=== PATIENT | male | born 1955 | race Caucasian/White ===

== ENCOUNTER 2016-10-14 08:20 | Emergency (ER) | payer MEDICARE, BC ==
[~2016-10-14] VITALS: Ht 182.9 cm; Wt 81.6 kg
[~2016-10-14 08:20] MED LIST: ARTANE PO; BUPR-42 PO; CARB1TAB6 PO; CLON0.5T PO; DOCU-143 PO; HYDR-3812 PO; HYDR25TA4 PO; LTH450TCR PO; MIRT15TA3 PO; OLAN5TAB3 PO; PARO10TA81 PO; POLY17PO6 PO; VIT D PO
[2016-10-14 09:22] LABS: BASOPHILS # (AUTO) 0.1 10^3/uL (0.0-0.1); BASOPHILS % (AUTO) 1 % (0-10); EOSINOPHILS # (AUTO) 0.4 10^3/uL (0.0-0.3); EOSINOPHILS % (AUTO) 4 % (0-10); LYMPHOCYTES # (AUTO) 0.8 X 10^3 (1.0-4.0); LYMPHOCYTES % (AUTO) 9 % (12-44); MEAN CORPUSCULAR HEMOGLOBIN 30 PG (25-34); MEAN CORPUSCULAR HGB CONC 33 G/DL (32-36); MEAN CORPUSCULAR VOLUME 89 FL (80-99); MEAN PLATELET VOLUME 10.5 FL (7.4-10.4); MONOCYTES # (AUTO) 0.6 X 10^3 (0.0-1.0); MONOCYTES % (AUTO) 7 % (0-12); NEUTROPHILS # (AUTO) 7.4 X 10^3 (1.8-7.8); NEUTROPHILS % (AUTO) 80 % (42-75); PLATELET COUNT 267 10^3/uL (130-400); RED BLOOD COUNT 4.51 10^6/uL (4.35-5.85); RED CELL DISTRIBUTION WIDTH 14.9 % (10.0-14.5); WHITE BLOOD COUNT 9.2 10^3/uL (4.3-11.0)
[2016-10-14 09:38] LABS: ALBUMIN 3.5 G/DL (3.2-4.5); BILIRUBIN,TOTAL 0.4 MG/DL (0.1-1.0); CALCIUM 8.7 MG/DL (8.5-10.1); CREATININE SERUM 1.33 MG/DL (0.60-1.30); POTASSIUM 3.8 MMOL/L (3.6-5.0); TOTAL PROTEIN 6.2 G/DL (6.4-8.2)
--- NOTE | 2016-10-14 10:14 | Diagnostic Imaging Report ---
AP view of the pelvis. INDICATION: Fall. FINDINGS: No fracture, dislocation or radiopaque foreign body is seen. Advanced degenerative changes and scoliosis convex to the left of the lower lumbar spine seen. IMPRESSION: No fracture is seen. Dictated by: Dictated on workstation # [id number]
--- NOTE | 2016-10-14 10:15 | Diagnostic Imaging Report ---
EXAMINATION: Portable upright radiograph of the chest. INDICATION: Fall. COMPARISON 07/26/16. Findings: There is a moderate to large hiatal hernia. The lungs appear clear. The heart size is at the upper limits of normal. No effusion or pneumothorax. The mediastinum and brandon appear unremarkable without significant change. There is prominent right convexity scoliosis. IMPRESSION: Prominent thoracic spine right convexity scoliosis. Moderate to large hiatal hernia. Dictated by: Dictated on workstation # [id number]
--- NOTE | 2016-10-14 10:26 | Diagnostic Imaging Report ---
EXAMINATION: CT head, face and cervical spine performed without intravenous contrast with coronal and sagittal reconstructions. INDICATION: Fall. Findings: CT head: There is no intracranial hemorrhage, edema or mass effect. The brain parenchyma appears unremarkable. There is periventricular and deep white matter hypodensities compatible with chronic microvascular ischemic changes. There is no hydrocephalus. No extra-axial fluid collections seen. The calvarium, appears grossly unremarkable. Maxillofacial CT scan: There is a polypoid soft tissue thickening abutting the anterior aspect of the right middle turbinate which could be a polyp. There is nasoseptal deviation to the left side. Small mucous retention cyst in the left maxillary sinus seen. There is some motion artifact noted affecting evaluation and the patient had to be rescanned multiple times. The overall diagnostic quality however is acceptable for detecting major abnormalities. The orbital rims and mcfarland appear intact. There is soft tissue air adjacent to the adver plate of the right mandible and subcutaneous hematoma compatible with a laceration. No facial fracture seen. Cervical spine CT scan demonstrates minimal posterior translation of C3 over C4, C5 over C6 and C6 over C7. There is no widening of the predental space. The lateral masses of C1 and C2 and of the atlantooccipital joints demonstrate normal alignment. There is no facet joint significant subluxation or dislocation. There is significant disc height loss at C3/4 and C6/7, and C7/T1. Posterior osteophytes are prominent at C6/7 levels. No fracture seen. There is a large thyroid area mass partially visualized on the left side. IMPRESSION: CT head: No intracranial hemorrhage. CT maxillofacial: 1. Soft tissue air and hematoma along the right side of the face at the level of the mandible compatible with laceration. No fracture seen. 2. Partially visualized large left neck mass probably arising from the left thyroid gland. Correlate clinically and with thyroid ultrasound as needed. Dictated by: Dictated on workstation # [id number]
--- NOTE | 2016-10-14 10:46 | ED Fall/Injury ---
General Chief Complaint: Trauma-Non Activation Stated Complaint: FALL/CHIN LAC Nursing Triage Note: PT TO ED BY WALKER, PT FELL AT [facility] APPROX 0530 THIS AM. PT WALKS BENT OVER FROM [place]. PT STATES FELL THIS AM. UNKNOWN LOC. PT HAS LAC TO R SIDE CHIN APPROX .5 CM IN LENGTH. C-COLLAR APPLIED PT Source: patient Exam Limitations: no limitations History of Present Illness Time seen by provider: 08:59 Initial Comments This 61-year-old gentleman with developmental disabilities fell at [facility]. He normally ambulates with a walker due to kyphosis and musculoskeletal deformities. He has a small laceration to the right jaw line. There was no loss of consciousness reported. Patient is a relatively poor historian due to his disabilities. He arrives in a c-collar by EMS. Location Injury Occurred: [facility] Occurred: just prior to arrival Allergies and Home Medications Allergies Coded Allergies: No Known Drug Allergies (Unverified , 07/20/16) Home Medications 1.25 MG PO WEEK (Reported) 5 MG PO BID (Reported) Bupropion HCl 150 Mg Tab.er.24h 150 MG PO DAILY (Reported) Carbidopa/Levodopa 1 Each Tablet 1 EACH PO BID (Reported) Clonazepam 0.5 Mg Tablet 0.5 MG PO (Reported) Docusate Sodium 100 Mg Capsule 100 MG PO DAILY (Reported) Hydrochlorothiazide 25 Mg Tablet 25 MG PO DAILY (Reported) Hydrocodone/Acetaminophen 1 Each Tablet #20 1 EACH PO Q4H Prescribed by: ARCHANA ESPARZA on 07/20/161958 [place] Carbonate 450 Mg Tab 900 MG PO DAILY (Reported) Mirtazapine 15 Mg Tab.rapdis 15 MG PO DAILY (Reported) Olanzapine 5 Mg Tablet 5 MG PO DAILY (Reported) Paroxetine HCl 10 Mg Tablet 10 MG PO DAILY (Reported) Polyethylene Glycol 3350 17 Gm Powd.pack 17 GM PO DAILY (Reported) Constitutional: no symptoms reported Eyes: No Symptoms Reported Ears, Nose, Mouth, Throat: see HPI Respiratory: no symptoms reported Cardiovascular: no symptoms reported Gastrointestinal: no symptoms reported Genitourinary: no symptoms reported Musculoskeletal: no symptoms reported Skin: see HPI Psychiatric/Neurological: See HPI Past Fcrhlal-Nypura-Pkvfaz Hx Patient Social History Alcohol Use: Denies Use Recreational Drug Use: No Smoking Status: Never a Smoker Recent Foreign Travel: No Contact w/Someone Who Travel: No Recent Infectious Disease Expo: No Recent Hopitalizations: No Immunizations Up To Date Tetanus Booster (TDap): Less than 5yrs Surgeries HX Surgeries: No Respiratory Hx Respiratory Disorders: No Cardiovascular Hx Cardiac Disorders: Yes Cardiac Disorders: Hypertension Neurological Hx Neurological Disorders: Yes (EPS FROM MEDICATIONS) Neurological Disorders: Developmental Disorder, Parkinson's Disease Genitourinary Hx Genitourinary Disorders: No Gastrointestinal Hx Gastrointestinal Disorders: No Musculoskeletal Hx Musculoskeletal Disorders: Yes Musculoskeletal Disorders: Scoliosis, Chronic Back Pain HEENT HX ENT Disorders: No Cancer Hx Cancer: No Psychosocial Hx Psychiatric Problems: Yes (MILD MR) Behavioral Health Disorders: Anxiety, Bipolar, Personality Disorder, Schizophrenia, Depression Integumentary HX Skin/Integumentary Disorder: No Blood Transfusions Hx Blood Disorders: Yes (ANEMIA) Physical Exam Vital Signs Vital Sign - Last 12Hours 10/14/16 08:35 Temp 98.1 Pulse 66 Resp 18 B/P 136/99 Pulse Ox 99 O2 Delivery Room Air Capillary Refill : Less Than 3 Seconds General Appearance: WD/WN no apparent distress HEENT: PERRL/EOMI other (small laceration and swelling to the right jaw) Neck: non-tender normal inspection other (c-collar in place) Cardiovascular: regular rate, rhythm no edema no murmur Respiratory: lungs clear normal breath sounds no respiratory distress no accessory muscle use Gastrointestinal: non tender soft Extremities: normal inspection no pedal edema Neurologic/Psychiatric: 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 nml as tested no motor/sensory deficits alert normal mood/affect other (deficits at baseline from developmental disability) Skin: normal color warm/dry Wesley Coma Score Best Eye Response: (4) Open Spontaneously Best Verbal Response: (5) Oriented Best Motor Response: (6) Obeys Commands [place] Total: 15 Progress/Results/Core Measures Results/Orders Lab Results Laboratory Tests Test 10/14/16 09:10 10/14/16 11:00 Range/Units Alanine Aminotransferase (ALT/SGPT) 10 0-55 U/L Albumin 3.5 3.2-4.5 G/DL Alkaline Phosphatase 148 H 40-136 U/L Anion Gap 9 5-14 MMOL/L Aspartate Amino Transf (AST/SGOT) 17 5-34 U/L BUN/Creatinine Ratio 14 Basophils # (Auto) 0.1 0.0-0.1 10^3/uL Basophils (%) (Auto) 1 0-10 % Blood Urea Nitrogen 19 H 7-18 MG/DL Calcium Level 8.7 8.5-10.1 MG/DL Carbon Dioxide Level 22 21-32 MMOL/L Chloride Level 106 98-107 MMOL/L Creatinine 1.33 H 0.60-1.30 MG/DL Eosinophils # (Auto) 0.4 H 0.0-0.3 10^3/uL Eosinophils (%) (Auto) 4 0-10 % Estimat Glomerular Filtration Rate 54 Free Thyroxine 0.81 0.70-1.48 NG/DL Glucose Level 116 H 70-105 MG/DL Hematocrit 40 40-54 % Hemoglobin 13.4 13.3-17.7 G/DL Lymphocytes # (Auto) 0.8 L 1.0-4.0 X 10^3 Lymphocytes (%) (Auto) 9 L 12-44 % Mean Corpuscular Hemoglobin 30 25-34 PG Mean Corpuscular Hemoglobin Concent 33 32-36 G/DL Mean Corpuscular Volume 89 80-99 FL Mean Platelet Volume 10.5 H 7.4-10.4 FL Monocytes # (Auto) 0.6 0.0-1.0 X 10^3 Monocytes (%) (Auto) 7 0-12 % Neutrophils # (Auto) 7.4 1.8-7.8 X 10^3 Neutrophils (%) (Auto) 80 H 42-75 % Platelet Count 267 130-400 10^3/uL Potassium Level 3.8 3.6-5.0 MMOL/L Red Blood Count 4.51 4.35-5.85 10^6/uL Red Cell Distribution Width 14.9 H 10.0-14.5 % Sodium Level 137 135-145 MMOL/L Thyroid Stimulating Hormone (TSH) 0.65 0.35-4.94 UIU/ML Total Bilirubin 0.4 0.1-1.0 MG/DL Total Protein 6.2 L 6.4-8.2 G/DL White Blood Count 9.2 4.3-11.0 10^3/uL Urine Bacteria TRACE /HPF Urine Bilirubin NEGATIVE NEGATIVE Urine Casts PRESENT /LPF Urine Clarity CLEAR Urine Color YELLOW Urine Crystals NONE /LPF Urine Culture Indicated NO Urine Glucose (UA) NEGATIVE NEGATIVE Urine Hyaline Casts 2-5 H /LPF Urine Ketones NEGATIVE NEGATIVE Urine Leukocyte Esterase 1+ H NEGATIVE Urine Mucus NEGATIVE /LPF Urine Nitrite NEGATIVE NEGATIVE Urine Protein 1+ H NEGATIVE Urine RBC NONE /HPF Urine RBC (Auto) NEGATIVE NEGATIVE Urine Specific [place] 1.010 L 1.016-1.022 Urine Squamous Epithelial Cells RARE /HPF Urine Urobilinogen NORMAL NORMAL MG/DL Urine WBC 2-5 /HPF Urine pH 7 5-9 My Orders Orders-ABHI INFANTE MD Cbc With Automated Diff (10/14/16 09:03) Comprehensive Metabolic Panel (10/14/16 09:03) Ua Culture If Indicated (10/14/16 09:03) Saline Lock/Iv-Start (10/14/16 09:03) Ct Head/Face/Cervical Wo (10/14/16 09:03) Chest 1 View, Ap/Pa Only (10/14/16 09:03) Pelvis (10/14/16 09:03) Us Thyroid [id number] (10/14/16 10:51) Thyroid Stimulating Hormone (10/14/16 10:51) Free T4 (Free Thyroxine) (10/14/16 10:51) Vital Signs/I&O Vital Sign - Last 12Hours 10/14/16 10/14/16 08:35 12:18 Temp 98.1 Pulse 66 66 Resp 18 18 B/P 136/99 Pulse Ox 99 97 O2 Delivery Room Air Blood Pressure Mean: 111 Progress Note : Progress Note Patient was seen and evaluated. CT of the head, face, and C-spine was ordered. No significant injuries were identified. C-collar was removed when report was reviewed. Laceration on the face did not require repair. Basic labs were performed with no major abnormalities identified. There is incidental finding of a thyroid mass on the CT scan. A follow-up ultrasound was performed. This was discussed with the patient and his brother and they were advised to follow- up for a biopsy. Diagnostic Imaging Diagonstic Imaging: Xray Plain Films/CT/US/NM/MRI: chest Comments Chest x-ray viewed by me and report reviewed. See report below: NAME: PATRICK SANTOS [facility] REC#: [id number] PT STATUS: REG ER : 1955 PHYSICIAN: ABHI INFANTE MD ADMIT DATE: 10/14/16/ER Draft Date of Exam:10/14/16 CHEST 1 VIEW, AP/PA ONLY EXAMINATION: Portable upright radiograph of the chest. INDICATION: Fall. COMPARISON 07/26/16. Findings: There is a moderate to large hiatal hernia. The lungs appear clear. The heart size is at the upper limits of normal. No effusion or pneumothorax. The mediastinum and brandon appear unremarkable without significant change. There is prominent right convexity scoliosis. IMPRESSION: Prominent thoracic spine right convexity scoliosis. Moderate to large hiatal hernia. Dictated on workstation # [id number] Dict: 10/14/16 1011 Trans: 10/14/16 1014 [facility] [phone] Interpreted by: WINIFRED FERRO MD Diagonstic Imaging: Xray Plain Films/CT/US/NM/MRI: pelvis Comments Pelvis x-ray viewed by me and report reviewed. See report below: NAME: PATRICK SANTOS MED REC#: [id number] PT STATUS: REG ER : 1955 PHYSICIAN: ABHI INFANTE MD ADMIT DATE: 10/14/16/ER Draft Date of Exam:10/14/16 PELVIS AP view of the pelvis. INDICATION: Fall. FINDINGS: No fracture, dislocation or radiopaque foreign body is seen. Advanced degenerative changes and scoliosis convex to the left of the lower lumbar spine seen. IMPRESSION: No fracture is seen. Dictated on workstation # [id number] Dict: 10/14/16 1010 Trans: 10/14/16 [phone] Interpreted by: WINIFRED FERRO MD Diagonstic Imaging: CT Plain Films/CT/US/NM/MRI: c-spine, head Comments CT head, face, and C-spine viewed by me and report reviewed. See report below: NAME: PATRICK SANTOS MED REC#: [id number] PT STATUS: REG ER : 1955 PHYSICIAN: ABHI INFANTE MD ADMIT DATE: 10/14/16/ER Draft Date of Exam:10/14/16 CT HEAD/FACE/CERVICAL WO EXAMINATION: CT head, face and cervical spine performed without intravenous contrast with coronal and sagittal reconstructions. INDICATION: Fall. Findings: CT head: There is no intracranial hemorrhage, edema or mass effect. The brain parenchyma appears unremarkable. There is periventricular and deep white matter hypodensities compatible with chronic microvascular ischemic changes. There is no hydrocephalus. No extra-axial fluid collections seen. The calvarium, appears grossly unremarkable. Maxillofacial CT scan: There is a polypoid soft tissue thickening abutting the anterior aspect of the right middle turbinate which could be a polyp. There is nasoseptal deviation to the left side. Small mucous retention cyst in the left maxillary sinus seen. There is some motion artifact noted affecting evaluation and the patient had to be rescanned multiple times. The overall diagnostic quality however is acceptable for detecting major abnormalities. The orbital rims and mcfarland appear intact. There is soft tissue air adjacent to the adver plate of the right mandible and subcutaneous hematoma compatible with a laceration. No facial fracture seen. Cervical spine CT scan demonstrates minimal posterior translation of C3 over C4, C5 over C6 and C6 over C7. There is no widening of the predental space. The lateral masses of C1 and C2 and of the atlantooccipital joints demonstrate normal alignment. There is no facet joint significant subluxation or dislocation. There is significant disc height loss at C3/4 and C6/7, and C7/T1. Posterior osteophytes are prominent at C6/7 levels. No fracture seen. There is a large thyroid area mass partially visualized on the left side. IMPRESSION: CT head: No intracranial hemorrhage. CT maxillofacial: 1. Soft tissue air and hematoma along the right side of the face at the level of the mandible compatible with laceration. No fracture seen. 2. Partially visualized large left neck mass probably arising from the left thyroid gland. Correlate clinically and with thyroid ultrasound as needed. Dictated on workstation # [id number] Dict: 10/14/16 1025 Trans: 10/14/16 1026 [facility] [id number] Interpreted by: WINIFRED FERRO MD Diagonstic Imaging: Ultrasound Plain Films/CT/US/NM/MRI: other (thyroid) Comments NAME: PATRICK SANTOS [facility] REC#: [id number] PT STATUS: DEP ER : 1955 PHYSICIAN: ABHI INFANTE MD ADMIT DATE: 10/14/16/ER Signed Date of Exam: 10/14/16 US THYROID [id number] PROCEDURE: US Thyroid. TECHNIQUE: Multiple real-time grayscale images were obtained of the thyroid in various projections. INDICATION: Mass arising in the left thyroid area seen on a CT scan. FINDINGS: The right thyroid gland is 5.7 x 2.3 x 2 cm. The left thyroid lobe is 7.2 x 4.2 x 5.7 cm. There is a 7.2 x 4.2 x 5.7 cm predominantly cystic mass with thickened septations and relatively small solid components relative to the size of the mass seen. There is a smaller nodule measuring 1.9 x 1.8 x 1.5 cm seen more inferiorly in the left thyroid lobe with mixed solid and cystic components. IMPRESSION: Complex large mixed cystic and solid dominant mass in the left thyroid lobe measuring 7.2 cm. Evaluation with an ultrasound-guided biopsy is suggested. Dictated by: Dictated on workstation # [id number] Dict: 10/14/16 1128 Trans: 10/14/16 [id number] Interpreted by: WINIFRED FERRO MD Electronically signed by:WINIFRED FERRO MD 10/14/16 1348 Departure Impression Impression: Primary Impression: Fall on same level Qualified Code: W18.30XA - Fall on same level, unspecified, initial encounter Additional Impressions: Facial laceration Qualified Code: S01.81XA - Laceration without foreign body of other part of head, initial encounter Thyroid mass Disposition: 01 HOME, SELF-CARE Condition: Stable Departure-Patient Inst. Decision time for Depature: 12:00 Referrals: CYN JARAMILLO MD (PCP/Family) Primary Care Physician Patient Instructions: Minor Head Injury (DC) Add. Discharge Instructions: Follow-up with your primary care provider soon as possible. The thyroid mass needs biopsy or resection. Your primary care provider can guide this process. Return to care if you have any other problems or concerns. All discharge instructions reviewed with patient and/or family. Voiced understanding. Copy Copies To 1: CYN JARAMILLO MD Copies To 2: BETO MOSES APRN, JOSHUA T MD Oct 14, 2016 10:46
[2016-10-14 11:08] LABS: BILIRUBIN,URINE NEGATIVE (NEGATIVE); KETONES,URINE NEGATIVE (NEGATIVE); LEUKOCYTE ESTERASE ,URINE 1+ (NEGATIVE); NITRITE,URINE NEGATIVE (NEGATIVE); PH,URINE 7 (5-9); PROTEIN,URINE 1+ (NEGATIVE); UROBILINOGEN,URINE NORMAL (NORMAL)
[2016-10-14 11:17] LABS: SQUAMOUS EPITHELIAL CELL,UR RARE /HPF
[2016-10-14 11:25] LABS: THYROID STIMULATING HORMONE 0.65 UIU/ML (0.35-4.94)
--- NOTE | 2016-10-14 11:35 | Diagnostic Imaging Report ---
PROCEDURE: US Thyroid. TECHNIQUE: Multiple real-time grayscale images were obtained of the thyroid in various projections. INDICATION: Mass arising in the left thyroid area seen on a CT scan. FINDINGS: The right thyroid gland is 5.7 x 2.3 x 2 cm. The left thyroid lobe is 7.2 x 4.2 x 5.7 cm. There is a 7.2 x 4.2 x 5.7 cm predominantly cystic mass with thickened septations and relatively small solid components relative to the size of the mass seen. There is a smaller nodule measuring 1.9 x 1.8 x 1.5 cm seen more inferiorly in the left thyroid lobe with mixed solid and cystic components. IMPRESSION: Complex large mixed cystic and solid dominant mass in the left thyroid lobe measuring 7.2 cm. Evaluation with an ultrasound-guided biopsy is suggested. Dictated by: Dictated on workstation # [id number]
[2016-10-14 12:18] VITALS: BP 128/84
== END 2016-10-14 12:18 ==
LOC: EDUNIT# 08:20 → ER 08:21
DX: S01.81XA Laceration without foreign body of other part of head, initial encounter (principal); M41.34 Thoracogenic scoliosis, thoracic region; I10 Essential (primary) hypertension; K44.9 Diaphragmatic hernia without obstruction or gangrene; E04.9 Nontoxic goiter, unspecified; W01.0XXA Fall on same level from slipping, tripping and stumbling without subsequent striking against object, initial encounter; Y92.129 Unspecified place in nursing home as the place of occurrence of the external cause; Y99.8 Other external cause status
CPT/HCPCS: 36415; 70450; 70486; 71010; 72125; 72170; 76536; 80053; 81000; 84439; 84443; 85025

== ENCOUNTER 2016-10-19 18:40 | Emergency (ER) | payer MEDICARE, BC ==
[~2016-10-19] VITALS: Ht 152.4 cm; Wt 63.5 kg
--- NOTE | 2016-10-19 19:32 | ED Fall/Injury ---
General Chief Complaint: Trauma-Non Activation Stated Complaint: FALL/HEAD INJ Nursing Triage Note: FALL FROM TOILET APPROX. 1230. PT DENIES INJURY. Source: patient Exam Limitations: no limitations History of Present Illness Time seen by provider: 19:32 Initial Comments 61-year-old male patient presents to the emergency department with reports falling off of the toilet at approximately 1230. Denies hitting his head, loss of consciousness, neck pain, back pain. Patient was seen in the emergency department one week ago for fall. Brother presents with the patient. Location Injury Occurred: HOME Occurred: other (1230) Injuries/Pain Location: no injury Context: other (fell off of the toilet.) Loss of Consciousness: no loss of consciousness Allergies and Home Medications Allergies Coded Allergies: No Known Drug Allergies (Unverified , 07/20/16) Home Medications Bupropion HCl 150 Mg Tab.er.24h, 150 MG PO DAILY, (Reported) Carbidopa/Levodopa 1 Each Tablet, 1 EACH PO BID, (Reported) Clonazepam 0.5 Mg Tablet, 0.5 MG PO, (Reported) Docusate Sodium 100 Mg Capsule, 100 MG PO DAILY, (Reported) Hydrochlorothiazide 25 Mg Tablet, 25 MG PO DAILY, (Reported) [place] Carbonate 450 Mg Tab, 900 MG PO DAILY, (Reported) Mirtazapine 15 Mg Tab.rapdis, 15 MG PO DAILY, (Reported) Olanzapine 5 Mg Tablet, 5 MG PO DAILY, (Reported) Paroxetine HCl 10 Mg Tablet, 10 MG PO DAILY, (Reported) Polyethylene Glycol 3350 17 Gm Powd.pack, 17 GM PO DAILY, (Reported) [Artane] , 5 MG PO BID, (Reported) [Vit D] , 1.25 MG PO WEEK, (Reported) Constitutional: no symptoms reported Eyes: No Symptoms Reported Ears, Nose, Mouth, Throat: no symptoms reported Respiratory: No cough, No short of breath Cardiovascular: No chest pain, No palpitations, No syncope Gastrointestinal: No abdominal pain, No nausea, No vomiting Genitourinary: no symptoms reported Musculoskeletal: No back pain, No joint pain, No neck pain Skin: no symptoms reported Psychiatric/Neurological: Denies Headache, Denies Numbness, Denies Paresthesia , Denies Seizure, Denies Tingling, Denies Weakness All Other Systems Reviewed Negative Unless Noted: Yes (Negative excepted noted.) Past Wykeygp-Mdlgqb-Lanlpb Hx Patient Social History Alcohol Use: Denies Use Recreational Drug Use: No Smoking Status: Never a Smoker 2nd Hand Smoke Exposure: No Recent Foreign Travel: No Contact w/Someone Who Travel: No Recent Infectious Disease Expo: No Recent Hopitalizations: No Immunizations Up To Date Tetanus Booster (TDap): Less than 5yrs Date of Influenza Vaccine: May 02, 2016 Seasonal Allergies Seasonal Allergies: No Surgeries HX Surgeries: No Respiratory Hx Respiratory Disorders: No Cardiovascular Hx Cardiac Disorders: Yes Cardiac Disorders: Hypertension Neurological Hx Neurological Disorders: Yes (EPS FROM MEDICATIONS) Neurological Disorders: Developmental Disorder, Parkinson's Disease Reproductive System Hx Reproductive Disorders: No Genitourinary Hx Genitourinary Disorders: No (DECREASED RENAL FUNCTION) Gastrointestinal Hx Gastrointestinal Disorders: Yes Gastrointestinal Disorders: Chronic Constipation Musculoskeletal Hx Musculoskeletal Disorders: Yes (KYPHOSIS) Musculoskeletal Disorders: Scoliosis, Chronic Back Pain Endocrine Hx Endocrine Disorders: No HEENT HX ENT Disorders: No Cancer Hx Cancer: No Psychosocial Hx Psychiatric Problems: Yes (MILD MR) Behavioral Health Disorders: Anxiety, Bipolar, Personality Disorder, Schizophrenia, Depression Integumentary HX Skin/Integumentary Disorder: No Blood Transfusions Hx Blood Disorders: Yes (ANEMIA) Reviewed Nursing Assessment Reviewed/Agree w Nursing PMH: Yes Family Medical History Significant Family History: No Pertinent Family Hx Physical Exam Vital Signs Vital Sign - Last 12Hours 10/19/16 19:17 Temp 98.2 Pulse 89 Resp 16 B/P (MAP) 123/106 Pulse Ox 95 O2 Delivery Room Air Capillary Refill : Less Than 3 Seconds General Appearance: WD/WN, no apparent distress HEENT: PERRL/EOMI, normal ENT inspection, TMs normal, pharynx normal, other ( ecchymosis rt chin (brother reports this is from the fall last week).) Neck: non-tender, full range of motion, supple, normal inspection Cardiovascular: normal peripheral pulses, regular rate, rhythm, no murmur Respiratory: chest non-tender, lungs clear, normal breath sounds, no respiratory distress Peripheral Pulses: 2+ Dorsalis Pedis (R), 2+ Left Dors-Pedis (L), 2+ Radial Pulses (R), 2+ Radial Pulses (L) Gastrointestinal: non tender, soft, No distended Back: normal inspection, no vertebral tenderness Extremities: normal range of motion, non-tender, normal inspection, normal capillary refill, pelvis stable 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, no motor/sensory deficits, alert, normal mood/affect, oriented x 3 Skin: normal color, warm/dry, ecchymosis (ecchymosis rt chin (brother reports this is from the fall last week).) Wesley Coma Score Best Eye Response: (4) Open Spontaneously Best Verbal Response: (5) Oriented Best Motor Response: (6) Obeys Commands Wesley Total: 15 Progress/Results/Core Measures Results/Orders Lab Results Laboratory Tests Test 10/19/16 20:13 Range/Units [place] Level 1.1 0.5-1.5 mEq/L My Orders Orders - SARAH MENDOZA Ct Head Wo (10/19/16 19:41) [place] Level (10/19/16 19:50) Vital Signs/I&O Vital Sign - Last 12Hours 10/19/16 10/19/16 19:17 20:54 Temp 98.2 98.2 Pulse 89 71 Resp 16 17 B/P (MAP) 123/106 Pulse Ox 95 93 O2 Delivery Room Air Blood Pressure Mean: 112 Diagnostic Imaging Diagonstic Imaging: CT Plain Films/CT/US/NM/MRI: head Comments FINDINGS: There is mild soft tissue swelling overlying of the left supraorbital region without evidence of underlying orbital fracture or calvarial fracture. There is mild global volume loss. There are background microvascular changes within the white matter but there is no territorial loss of wynne-white differentiation evident. There is artifactual low-density within the occipital lobes. There is no acute hemorrhage. There is no mass effect. There is no hydrocephalus. There is no abnormal extra-axial fluid collection. The posterior fossa demonstrates no acute abnormalities. There is no air-fluid level within the paranasal sinuses. The mastoids appear clear. IMPRESSION: 1. Left frontal soft tissue swelling without underlying orbital or calvarial fracture 2. Mild volume loss and microvascular changes without CT demonstration of an acute intracranial abnormality. Dictated on workstation # [id number] Reviewed: Reviewed by Me (radiology report reviewed by me) Departure Communication Progress Notes Diagnostic findings discussed with the patient and brother. Plan for discharge to home. Yaw Talley APRN to See Patient As an Outpatient Tomorrow Morning at 0800. Impression Impression: Primary Impression: Minor head injury without loss of consciousness Qualified Codes: S09.90XA - Unspecified injury of head, initial encounter Additional Impression: Fall Qualified Codes: W19.XXXA - Unspecified fall, initial encounter Disposition: 01 HOME, SELF-CARE Condition: Improved Departure-Patient Inst. Decision time for Depature: 20:50 Referrals: CYN JARAMILLO MD (PCP/Family) Primary Care Physician Patient Instructions: Minor Head Injury (DC), Preventing Falls in the Older Adult Add. Discharge Instructions: All discharge instructions reviewed with patient and/or family. Voiced understanding. Continue usual home medications. Tylenol [id number] as directed for pain or headache. Ice pack for 20 minute intervals as needed for pain. Follow-up with Yaw Talley APRN tomorrow at [facility] for recheck. Return to the emergency department immediately for worsened pain, headache, dizziness, changes in vision, changes in behavior, slurred speech, seizure, shortness of air, chest pain, vomiting, numbness, weakness, or any other concerns. SARAH MENDOZA Oct 19, 2016 19:32
--- NOTE | 2016-10-19 20:31 | Diagnostic Imaging Report ---
PROCEDURE: CT head without contrast. TECHNIQUE: Multiple contiguous axial images were obtained through the brain without the use of intravenous contrast. INDICATION: Fall. Hit left forehead. Head pain. FINDINGS: There is mild soft tissue swelling overlying of the left supraorbital region without evidence of underlying orbital fracture or calvarial fracture. There is mild global volume loss. There are background microvascular changes within the white matter but there is no territorial loss of wynne-white differentiation evident. There is artifactual low-density within the occipital lobes. There is no acute hemorrhage. There is no mass effect. There is no hydrocephalus. There is no abnormal extra-axial fluid collection. The posterior fossa demonstrates no acute abnormalities. There is no air-fluid level within the paranasal sinuses. The mastoids appear clear. IMPRESSION: 1. Left frontal soft tissue swelling without underlying orbital or calvarial fracture 2. Mild volume loss and microvascular changes without CT demonstration of an acute intracranial abnormality. Dictated by: Dictated on workstation # [id number]
[2016-10-19 20:54] VITALS: BP 112/70
== END 2016-10-19 20:54 ==
LOC: EDUNIT# 18:40 → ER 18:41
DX: S09.90XA Unspecified injury of head, initial encounter (principal); I10 Essential (primary) hypertension; G20 Parkinson's disease; Z79.899 Other long term (current) drug therapy; W18.11XA Fall from or off toilet without subsequent striking against object, initial encounter; Y92.121 Bathroom in nursing home as the place of occurrence of the external cause; Y99.8 Other external cause status
CPT/HCPCS: 36415; 70450; 80178; 99282

== ENCOUNTER → 2016-10-29 | Outpatient (CLI) | payer MEDICARE, BC ==
[~2016-10-29] VITALS: Ht 152.4 cm; Wt 63.5 kg
[~2016-10-29] MED LIST changes: +LIDOCAINE 1% INJ 20 ML (XYLOCAINE) VIAL INJ ONE; +LIDOCAINE 1% INJ 20 ML (XYLOCAINE) VIAL ONE
[2016-10-29 11:40] VITALS: BP 138/94
--- NOTE | 2016-10-29 13:49 | Diagnostic Imaging Report ---
EXAMINATION: US-guided needle aspiration and core biopsy-thyroid. INDICATION: Left thyroid mass. Current history and physical and other medical records are reviewed prior to the procedure. CONSENT: Informed consent was obtained from the patient. The risks, benefits, potential complications and alternatives were reviewed and all questions answered to the patient's satisfaction. The patient's vital signs, cardiac rhythm, and pulse oximetry with observed throughout the procedure by qualified nursing personnel. Sedation/medications: none. FINDINGS: Large cystic and solid left thyroid mass up to 7.2 CM. PROCEDURE: After maximal sterile barrier technique preparation and draping, 1% lidocaine was utilized for local anesthesia. With the patient in supine position, and via anterior approach, a 19-gauge guide needle is introduced into the right thyroid mass under live ultrasound guidance. Fluid return was seen and the total of 35 the cc of brownish fluid was aspirated and submitted for cytology evaluation. Since this mass has solid components, and to provide pathology with more tissue for from better evaluation, also core biopsies of performed. After confirming adequate positioning allowing for solid component with saved ultrasound images, multiple 20 gauge core biopsy specimens were obtained. The patient tolerated the procedure well with no immediate complications. IMPRESSION: Successful US-guided aspiration and core biopsy of cystic and solid components of left thyroid mass. Dictated by: Dictated on workstation # [id number]
== END ==
LOC: RAD 11:18
PROVIDERS: ATTEND Surgery
DX: E07.9 Disorder of thyroid, unspecified (principal)
CPT/HCPCS: 76942; 88305

== ENCOUNTER 2016-12-31 16:19 | Emergency (ER) | payer MEDICARE, BC ==
[~2016-12-31] VITALS: Ht 185.4 cm; Wt 63.5 kg
[~2016-12-31 16:19] MED LIST changes: -LIDOCAINE 1% INJ 20 ML (XYLOCAINE) VIAL INJ ONE; -LIDOCAINE 1% INJ 20 ML (XYLOCAINE) VIAL ONE
--- NOTE | 2016-12-31 17:03 | ED Fall/Injury ---
General Chief Complaint: Trauma-Non Activation Stated Complaint: FALL HEAD INJURY Nursing Triage Note: PT WAS BROUGHT IN BY WHEELCHAIR BY HIS BROTHER. PT FELL AT [facility] APPR[facility]. 1 HOUR AGO. PT FELL TRYING TO GET OUT OF HIS CHAIR ONTO THE TILE FLOOR. PT HIT HIS HEAD. PT STATES HE HAS GENERALIZED PAIN. Source: patient Exam Limitations: no limitations History of Present Illness Time seen by provider: 17:01 Initial Comments To ER accompanied by his brother with reports of a fall. Patient fell forward out of his wheelchair while at his place of residence, [facility]. He attempted to get out of his chair and fell forward. Complains of pain all over. Location Injury Occurred: [facility] Occurred: just prior to arrival Severity: moderate Associated Symptoms (Fall): Headache, No Neck Pain Allergies and Home Medications Allergies Coded Allergies: No Known Drug Allergies (Unverified , 07/20/16) Home Medications Bupropion HCl 150 Mg Tab.er.24h, 150 MG PO DAILY, (Reported) Carbidopa/Levodopa 1 Each Tablet, 1 EACH PO BID, (Reported) Clonazepam 0.5 Mg Tablet, 0.5 MG PO, (Reported) Docusate Sodium 100 Mg Capsule, 100 MG PO DAILY, (Reported) Hydrochlorothiazide 25 Mg Tablet, 25 MG PO DAILY, (Reported) [place] Carbonate 450 Mg Tab, 900 MG PO DAILY, (Reported) Mirtazapine 15 Mg Tab.rapdis, 15 MG PO DAILY, (Reported) Olanzapine 5 Mg Tablet, 5 MG PO DAILY, (Reported) Paroxetine HCl 10 Mg Tablet, 10 MG PO DAILY, (Reported) Polyethylene Glycol 3350 17 Gm Powd.pack, 17 GM PO DAILY, (Reported) [Artane] , 5 MG PO BID, (Reported) [Vit D] , 1.25 MG PO WEEK, (Reported) Constitutional: see HPI Eyes: No Symptoms Reported Ears, Nose, Mouth, Throat: no symptoms reported Respiratory: no symptoms reported Cardiovascular: no symptoms reported Genitourinary: no symptoms reported Musculoskeletal: no symptoms reported Skin: no symptoms reported Psychiatric/Neurological: No Symptoms Reported Past Gvnrebp-Zbjokp-Xvelci Hx Patient Social History Alcohol Use: Denies Use Recreational Drug Use: No Smoking Status: Never a Smoker 2nd Hand Smoke Exposure: No Recent Foreign Travel: No Contact w/Someone Who Travel: No Recent Infectious Disease Expo: No Recent Hopitalizations: Yes (FALLEN X3 SINCE AUGUST 2016, THYROID REMOVED) Immunizations Up To Date Tetanus Booster (TDap): Less than 5yrs PED Vaccines UTD: No Date of Influenza Vaccine: May 02, 2016 Seasonal Allergies Seasonal Allergies: No Surgeries HX Surgeries: No Respiratory Hx Respiratory Disorders: No Cardiovascular Hx Cardiac Disorders: No Cardiac Disorders: Hypertension Neurological Hx Neurological Disorders: Yes (EPS FROM MEDICATIONS) Neurological Disorders: Developmental Disorder, Parkinson's Disease Reproductive System Hx Reproductive Disorders: No Genitourinary Hx Genitourinary Disorders: No (DECREASED RENAL FUNCTION) Gastrointestinal Hx Gastrointestinal Disorders: Yes Gastrointestinal Disorders: Chronic Constipation Musculoskeletal Hx Musculoskeletal Disorders: Yes (KYPHOSIS) Musculoskeletal Disorders: Scoliosis, Chronic Back Pain Endocrine Hx Endocrine Disorders: No HEENT HX ENT Disorders: No Cancer Hx Cancer: No Psychosocial Hx Psychiatric Problems: Yes (MILD MR) Behavioral Health Disorders: Anxiety, Bipolar, Personality Disorder, Schizophrenia, Depression Integumentary HX Skin/Integumentary Disorder: No Blood Transfusions Hx Blood Disorders: Yes (ANEMIA) Family Medical History Significant Family History: No Pertinent Family Hx Physical Exam Vital Signs Vital Sign - Last 12Hours Capillary Refill : Less Than 3 Seconds General Appearance: WD/WN, no apparent distress HEENT: PERRL/EOMI, normal ENT inspection Neck: non-tender, full range of motion Respiratory: normal breath sounds, no respiratory distress, no accessory muscle use Gastrointestinal: normal bowel sounds, non tender, soft Neurologic/Psychiatric: alert, other (mental retarded) Skin: normal color, warm/dry Wesley Coma Score Best Eye Response: (4) Open Spontaneously Best Verbal Response: (5) Oriented Best Motor Response: (6) Obeys Commands Wesley Total: 15 Progress/Results/Core Measures Results/Orders Lab Results Laboratory Tests Test 12/31/16 17:03 Range/Units White Blood Count 9.1 4.3-11.0 10^3/uL Red Blood Count 4.43 4.35-5.85 10^6/uL Hemoglobin 13.2 L 13.3-17.7 G/DL Hematocrit 40 40-54 % Mean Corpuscular Volume 89 80-99 FL Mean Corpuscular Hemoglobin 30 25-34 PG Mean Corpuscular Hemoglobin Concent 33 32-36 G/DL Red Cell Distribution Width 13.9 10.0-14.5 % Platelet Count 289 130-400 10^3/uL Mean Platelet Volume 9.7 7.4-10.4 FL Neutrophils (%) (Auto) 74 42-75 % Lymphocytes (%) (Auto) 14 12-44 % Monocytes (%) (Auto) 9 0-12 % Eosinophils (%) (Auto) 3 0-10 % Basophils (%) (Auto) 1 0-10 % Neutrophils # (Auto) 6.8 1.8-7.8 X 10^3 Lymphocytes # (Auto) 1.2 1.0-4.0 X 10^3 Monocytes # (Auto) 0.8 0.0-1.0 X 10^3 Eosinophils # (Auto) 0.3 0.0-0.3 10^3/uL Basophils # (Auto) 0.1 0.0-0.1 10^3/uL Sodium Level 137 135-145 MMOL/L Potassium Level 4.1 3.6-5.0 MMOL/L Chloride Level 105 98-107 MMOL/L Carbon Dioxide Level 21 21-32 MMOL/L Anion Gap 11 5-14 MMOL/L Blood Urea Nitrogen 19 H 7-18 MG/DL Creatinine 1.08 0.60-1.30 MG/DL Estimat Glomerular Filtration Rate > 60 BUN/Creatinine Ratio 18 Glucose Level 95 70-105 MG/DL Calcium Level 8.7 8.5-10.1 MG/DL Total Bilirubin 0.4 0.1-1.0 MG/DL Aspartate Amino Transf (AST/SGOT) 14 5-34 U/L Alanine Aminotransferase (ALT/SGPT) 8 0-55 U/L Alkaline Phosphatase 120 40-136 U/L Total Protein 6.9 6.4-8.2 G/DL Albumin 3.8 3.2-4.5 G/DL My Orders Orders - JASMINA ZAVALA APRN Ct Head/Cervical Spine Wo (12/31/16 17:00) Pelvis (12/31/16 17:00) Saline Lock/Iv-Start (12/31/16 17:00) Cbc With Automated Diff (12/31/16 17:00) Comprehensive Metabolic Panel (12/31/16 17:00) Vital Signs/I&O Vital Sign - Last 12Hours 12/31/16 12/31/16 16:44 16:44 Temp 97.8 97.8 Pulse 66 66 Resp 12 12 B/P (MAP) 126/84 (98) 126/84 Pulse Ox 95 95 O2 Delivery Room Air Room Air Blood Pressure Mean: 98 Departure Impression Impression: Primary Impression: Fall at intermediate Disposition: 01 HOME, SELF-CARE Condition: Stable Departure-Patient Inst. Decision time for Depature: 18:47 Referrals: CYN JARAMILLO MD (PCP/Family) Primary Care Physician Patient Instructions: Preventing Falls in the Older Adult Add. Discharge Instructions: 1. Return to ER for any concerns 2. See your doctor next week 3. All discharge instructions reviewed with patient and/or family. Voiced understanding. JASMINA ZAVALA APRN Dec 31, 2016 17:03
[2016-12-31 17:11] LABS: BASOPHILS # (AUTO) 0.1 10^3/uL (0.0-0.1); BASOPHILS % (AUTO) 1 % (0-10); EOSINOPHILS # (AUTO) 0.3 10^3/uL (0.0-0.3); EOSINOPHILS % (AUTO) 3 % (0-10); LYMPHOCYTES # (AUTO) 1.2 X 10^3 (1.0-4.0); LYMPHOCYTES % (AUTO) 14 % (12-44); MEAN CORPUSCULAR HEMOGLOBIN 30 PG (25-34); MEAN CORPUSCULAR HGB CONC 33 G/DL (32-36); MEAN CORPUSCULAR VOLUME 89 FL (80-99); MEAN PLATELET VOLUME 9.7 FL (7.4-10.4); MONOCYTES # (AUTO) 0.8 X 10^3 (0.0-1.0); MONOCYTES % (AUTO) 9 % (0-12); NEUTROPHILS # (AUTO) 6.8 X 10^3 (1.8-7.8); NEUTROPHILS % (AUTO) 74 % (42-75); PLATELET COUNT 289 10^3/uL (130-400); RED BLOOD COUNT 4.43 10^6/uL (4.35-5.85); RED CELL DISTRIBUTION WIDTH 13.9 % (10.0-14.5); WHITE BLOOD COUNT 9.1 10^3/uL (4.3-11.0)
[2016-12-31 17:32] LABS: ALANINE AMINOTRANSFERASE 8 U/L (0-55); ALBUMIN 3.8 G/DL (3.2-4.5); ANION GAP 11 MMOL/L (5-14); ASPARTATE AMINO TRANSFERASE 14 U/L (5-34); BILIRUBIN,TOTAL 0.4 MG/DL (0.1-1.0); BLOOD UREA NITROGEN 19 MG/DL (7-18); BUN/CREATININE RATIO 18; CALCIUM 8.7 MG/DL (8.5-10.1); CARBON DIOXIDE 21 MMOL/L (21-32); CHLORIDE 105 MMOL/L (98-107); CREATININE SERUM 1.08 MG/DL (0.60-1.30); GFR ESTIMATED > 60; GLUCOSE 95 MG/DL (70-105); POTASSIUM 4.1 MMOL/L (3.6-5.0); SODIUM 137 MMOL/L (135-145); TOTAL PROTEIN 6.9 G/DL (6.4-8.2)
--- NOTE | 2016-12-31 18:15 | Diagnostic Imaging Report ---
INDICATION: Fall and generalized pain. FINDINGS: Severe leftward convexity lower lumbar degenerative rotoscoliosis present. The femoral heads are directed into the acetabula. The obturator rings show no gross deformity. No evidence for diastasis to the SI joints or symphyses. No displacement of air-containing pelvic bowel loops. No fracture could be identified. IMPRESSION: No acute finding revealed on AP pelvic radiograph. Dictated by: Dictated on workstation # [id number]
--- NOTE | 2016-12-31 18:39 | Diagnostic Imaging Report ---
PROCEDURE: CT head and CT cervical spine without contrast. TECHNIQUE: Multiple contiguous axial images were obtained through the brain and cervical spine without the use of intravenous contrast. Sagittal and coronal reformations through the cervical spine were then performed. INDICATION: Fell and hit head, generalized head pain COMPARISON STUDY: CT of the head from 10/19/16. FINDINGS: Noncontrast CT scan of the head demonstrates no mass effect, midline shift, hemorrhage, or extra-axial fluid collections. Mild atrophy and periventricular white matter changes appear stable. There are no focal areas of ischemia. The bone windows demonstrate no evidence of a fracture. No fluid is seen in the mastoid air cells or the visualized portions of the paranasal sinuses. Cervical spine: Noncontrast CT scanning of the cervical spine with sagittal and coronal reformats demonstrates no fracture or subluxation. C3-4 level demonstrates disc space narrowing with osteophytic ridging. There is moderate narrowing of the left neural foramina. C4-5 level appears normal. C5-6 level demonstrates mild osteophytic ridging. There is minimal narrowing of the right neural foramina. C6-7 level demonstrates disc space narrowing with osteophytic ridging. There is mild narrowing of the left neural foramina and moderate to severe narrowing of the right neural foramina. C7-T1 level demonstrates disc space narrowing with osteophytic ridging with moderate right foraminal stenosis. The lung apices are clear. The visualized soft tissues are normal. IMPRESSION: 1. Stable atrophy and microvascular disease. 2. Spondylosis is present with no acute findings. Dictated by: Dictated on workstation # [id number]
[2016-12-31 18:56] VITALS: BP 123/90
== END 2016-12-31 18:56 | disposition home or self-care (01) ==
LOC: EDUNIT# 16:19 → ER 16:20
DX: S09.90XA Unspecified injury of head, initial encounter (principal); M47.813 Spondylosis without myelopathy or radiculopathy, cervicothoracic region; G20 Parkinson's disease; F79 Unspecified intellectual disabilities; Z79.899 Other long term (current) drug therapy; W05.0XXA Fall from non-moving wheelchair, initial encounter; Y92.129 Unspecified place in nursing home as the place of occurrence of the external cause; Y99.8 Other external cause status
CPT/HCPCS: 36415; 70450; 72125; 72170; 80053; 85025

== ENCOUNTER 2018-05-12 23:20 | Emergency (ER) | payer MEDICARE, BC ==
[~2018-05-12] VITALS: Ht 185.4 cm; Wt 69.9 kg
[~2018-05-12 23:20] MED LIST changes: +ACHD5005 PO; -HYDR-3812 PO
[2018-05-12 23:45] LABS: BASOPHILS # (AUTO) 0.1 10^3/uL (0.0-0.1); BASOPHILS % (AUTO) 1 % (0-10); EOSINOPHILS # (AUTO) 0.2 10^3/uL (0.0-0.3); EOSINOPHILS % (AUTO) 2 % (0-10); HEMATOCRIT 41 % (40-54); HEMOGLOBIN 14.5 G/DL (13.3-17.7); LYMPHOCYTES # (AUTO) 1.2 X 10^3 (1.0-4.0); LYMPHOCYTES % (AUTO) 15 % (12-44); MEAN CORPUSCULAR HEMOGLOBIN 29 PG (25-34); MEAN CORPUSCULAR HGB CONC 35 G/DL (32-36); MEAN CORPUSCULAR VOLUME 82 FL (80-99); MEAN PLATELET VOLUME 9.9 FL (7.4-10.4); MONOCYTES # (AUTO) 0.6 X 10^3 (0.0-1.0); MONOCYTES % (AUTO) 7 % (0-12); NEUTROPHILS # (AUTO) 6.2 X 10^3 (1.8-7.8); NEUTROPHILS % (AUTO) 76 % (42-75); PLATELET COUNT 294 10^3/uL (130-400); RED CELL DISTRIBUTION WIDTH 13.9 % (10.0-14.5); WHITE BLOOD COUNT 8.2 10^3/uL (4.3-11.0)
[2018-05-13 00:03] LABS: ALANINE AMINOTRANSFERASE 30 U/L (0-55); ALBUMIN 3.8 GM/DL (3.2-4.5); ALKALINE PHOSPHATASE 120 U/L (40-136); BILIRUBIN,TOTAL 0.3 MG/DL (0.1-1.0); BUN/CREATININE RATIO 30; CALCIUM 8.9 MG/DL (8.5-10.1); CARBON DIOXIDE 23 MMOL/L (21-32); CHLORIDE 105 MMOL/L (98-107); CREATININE SERUM 0.99 MG/DL (0.60-1.30); GFR ESTIMATED > 60; GLUCOSE 123 MG/DL (70-105); POTASSIUM 3.3 MMOL/L (3.6-5.0); SODIUM 139 MMOL/L (135-145); TOTAL PROTEIN 6.8 GM/DL (6.4-8.2)
[2018-05-13 00:18] LABS: BILIRUBIN,URINE NEGATIVE (NEGATIVE); CLARITY,URINE CLEAR; COLOR,URINE YELLOW; GLUCOSE, URINE (UA) NEGATIVE (NEGATIVE); KETONES,URINE NEGATIVE (NEGATIVE); LEUKOCYTE ESTERASE ,URINE 1+ (NEGATIVE); NITRITE,URINE NEGATIVE (NEGATIVE); PH,URINE 5 (5-9); PROTEIN,URINE 2+ (NEGATIVE); UROBILINOGEN,URINE NORMAL (NORMAL)
[2018-05-13 00:29] LABS: BACTERIA,URINE FEW /HPF; SQUAMOUS EPITHELIAL CELL,UR RARE /HPF
[2018-05-13 00:30] LABS: HYALINE CASTS, URINE 0-2 /LPF
[2018-05-13] MEDS ORDERED: TETANUS,DIPTH,PERTUSS P/F (BOOSTRIX) 0.5 ML VIAL IM ONE (01:00)
--- NOTE | 2018-05-13 01:09 | ED Fall/Injury ---
General Chief Complaint: Trauma-Non Activation Stated Complaint: FALL,HEAD INJURY,GOOSE EGG OVER EYE Nursing Triage Note: PT FELL WHILE WALKING AND HIT RIGHT FOREHEAD. NO LOC PER [facility]. Source: patient Exam Limitations: no limitations History of Present Illness Date Seen by Provider: May 12, 2018 Time Seen by Provider: 23:30 Initial Comments This 63-year-old gentleman presents to the emergency room accompanied by his brother after having a fall at the assisted. He was in the presence of a staff member when the fall occurred that she did not see the fall actually happen. There is no loss of consciousness. He has bruising and a small laceration near the right brow. Patient does not know what caused him to fall. detention staff state he has had some changes in behavior recently. His medications were adjusted as a result. Patient denies any pain aside from his forehead. He denies any neck pain, hip pain, or other injury. He was ambulatory and walked into the ER on his own power. Location Injury Occurred: [facility] Allergies and Home Medications Allergies Coded Allergies: No Known Drug Allergies (Unverified , 07/20/16) Home Medications Bupropion HCl 150 Mg Tab.er.24h, 150 MG PO DAILY, (Reported) Carbidopa/Levodopa 1 Each Tablet, 1 EACH PO BID, (Reported) Docusate Sodium 100 Mg Capsule, 100 MG PO DAILY, (Reported) Hydrochlorothiazide 25 Mg Tablet, 25 MG PO DAILY, (Reported) [place] Carbonate 450 Mg Tab, 900 MG PO DAILY, (Reported) Mirtazapine 15 Mg Tab.rapdis, 15 MG PO DAILY, (Reported) Olanzapine 5 Mg Tablet, 5 MG PO DAILY, (Reported) Paroxetine HCl 10 Mg Tablet, 10 MG PO DAILY, (Reported) Polyethylene Glycol 3350 17 Gm Powd.pack, 17 GM PO DAILY, (Reported) [Artane] , 5 MG PO BID, (Reported) [Vit D] , 1.25 MG PO WEEK, (Reported) Patient Home Medication List Home Medication List Reviewed: Yes Review of Systems Review of Systems Constitutional: no symptoms reported Eyes: No Symptoms Reported Ears, Nose, Mouth, Throat: no symptoms reported Respiratory: no symptoms reported Cardiovascular: no symptoms reported Gastrointestinal: no symptoms reported Genitourinary: no symptoms reported Musculoskeletal: see HPI Skin: see HPI Psychiatric/Neurological: No Symptoms Reported Past Xaepcjk-Zmyidu-Nvwjdk Hx Patient Social History Alcohol Use: Denies Use Recreational Drug Use: No 2nd Hand Smoke Exposure: No Recent Foreign Travel: No Contact w/Someone Who Travel: No Recent Infectious Disease Expo: No Recent Hopitalizations: Yes (FALLEN X3 SINCE AUGUST 2016, THYROID REMOVED) Physical Abuse: No Sexual Abuse: No Immunizations Up To Date Tetanus Booster (TDap): Less than 5yrs PED Vaccines UTD: No Date of Influenza Vaccine: May 02, 2016 Seasonal Allergies Seasonal Allergies: No Past Medical History Surgeries: Yes (THYROID REMOVED ) Thyroidectomy Respiratory: No Cardiac: Yes Hypertension Neurological: Yes (EPS FROM MEDICATIONS) Developmental Disorder, Parkinson's Disease Reproductive Disorders: No Genitourinary: No Gastrointestinal: Yes Chronic Constipation Musculoskeletal: Yes (KYPHOSIS) Scoliosis, Chronic Back Pain Endocrine: No HEENT: No Cancer: No Psychosocial: Yes (MILD MR) Anxiety, Bipolar, Personality Disorder, Schizophrenia, Depression Integumentary: No Blood Disorders: No Family Medical History No Pertinent Family Hx Physical Exam Vital Signs Vital Signs - First Documented Capillary Refill : Less Than 3 Seconds Height, Weight, BMI Height: 6'1.00" Weight: 154lbs. 0.0oz. 69.394670rm; 27.3 BMI Method:Stated General Appearance: WD/WN, no apparent distress HEENT: PERRL/EOMI, other (oropharynx somewhat dry. 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 tested, no motor/sensory deficits, alert, normal mood/affect, other (oriented to baseline) Skin: normal color, warm/dry [place] Coma Score Best Eye Response: (4) Open Spontaneously Best Verbal Response: (5) Oriented Best Motor Response: (6) Obeys Commands [place] Total: 15 Progress/Results/Core Measures Results/Orders Lab Results Laboratory Tests Test 05/12/18 23:38 05/13/18 00:10 Range/Units White Blood Count 8.2 4.3-11.0 10^3/uL Red Blood Count 5.00 4.35-5.85 10^6/uL Hemoglobin 14.5 13.3-17.7 G/DL Hematocrit 41 40-54 % Mean Corpuscular Volume 82 80-99 FL Mean Corpuscular Hemoglobin 29 25-34 PG Mean Corpuscular Hemoglobin Concent 35 32-36 G/DL Red Cell Distribution Width 13.9 10.0-14.5 % Platelet Count 294 130-400 10^3/uL Mean Platelet Volume 9.9 7.4-10.4 FL Neutrophils (%) (Auto) 76 H 42-75 % Lymphocytes (%) (Auto) 15 12-44 % Monocytes (%) (Auto) 7 0-12 % Eosinophils (%) (Auto) 2 0-10 % Basophils (%) (Auto) 1 0-10 % Neutrophils # (Auto) 6.2 1.8-7.8 X 10^3 Lymphocytes # (Auto) 1.2 1.0-4.0 X 10^3 Monocytes # (Auto) 0.6 0.0-1.0 X 10^3 Eosinophils # (Auto) 0.2 0.0-0.3 10^3/uL Basophils # (Auto) 0.1 0.0-0.1 10^3/uL Sodium Level 139 135-145 MMOL/L Potassium Level 3.3 L 3.6-5.0 MMOL/L Chloride Level 105 98-107 MMOL/L Carbon Dioxide Level 23 21-32 MMOL/L Anion Gap 11 5-14 MMOL/L Blood Urea Nitrogen 30 H 7-18 MG/DL Creatinine 0.99 0.60-1.30 MG/DL Estimat Glomerular Filtration Rate > 60 BUN/Creatinine Ratio 30 Glucose Level 123 H 70-105 MG/DL Calcium Level 8.9 8.5-10.1 MG/DL Corrected Calcium 9.1 8.5-10.1 MG/DL Magnesium Level 2.0 1.8-2.4 MG/DL Total Bilirubin 0.3 0.1-1.0 MG/DL Aspartate Amino Transf (AST/SGOT) 21 5-34 U/L Alanine Aminotransferase (ALT/SGPT) 30 0-55 U/L Alkaline Phosphatase 120 40-136 U/L Total Protein 6.8 6.4-8.2 GM/DL Albumin 3.8 3.2-4.5 GM/DL Urine Color YELLOW Urine Clarity CLEAR Urine pH 5 5-9 Urine Specific [place] 1.020 1.016-1.022 Urine Protein 2+ H NEGATIVE Urine Glucose (UA) NEGATIVE NEGATIVE Urine Ketones NEGATIVE NEGATIVE Urine Nitrite NEGATIVE NEGATIVE Urine Bilirubin NEGATIVE NEGATIVE Urine Urobilinogen NORMAL NORMAL MG/DL Urine Leukocyte Esterase 1+ H NEGATIVE Urine RBC (Auto) NEGATIVE NEGATIVE Urine RBC NONE /HPF Urine WBC 2-5 /HPF Urine Squamous Epithelial Cells RARE /HPF Urine Crystals NONE /LPF Urine Bacteria FEW H /HPF Urine Casts PRESENT /LPF Urine Hyaline Casts 0-2 H /LPF Urine Mucus SMALL H /LPF Urine Culture Indicated NO My Orders Orders - ABHI INFANTE MD Ct Head/Cervical Spine Wo (05/12/18 23:40) Cbc With Automated Diff (05/12/18 23:40) Comprehensive Metabolic Panel (05/12/18 23:40) Magnesium (05/12/18 23:40) Ua Culture If Indicated (05/12/18 23:40) Urine Culture (05/13/18 00:48) Dipht,Pertuss(Acell),Tet Adult (Boostrix (05/13/18 01:00) Medications Given in ED Current Medications Medications Dose Ordered Sig/Bakari Route Start Time Stop Time Status Last Admin Dose Admin Diphtheria/ Tetanus/Acell Pertussis 0.5 ml ONCE ONCE IM 05/13/18 01:00 05/13/18 01:01 DC 05/13/18 01:09 0.5 ML Vital Signs/I&O 05/12/18 05/12/18 05/13/18 23:25 23:25 01:12 Temp 96.5 96.5 98.2 Pulse 74 74 72 Resp 16 16 16 B/P (MAP) 130/98 (109) 130/98 (109) 130/98 (109) Pulse Ox 96 96 97 Blood Pressure Mean: 109 Progress Progress Note : Progress Note Workup was essentially unremarkable. There was a very small amount of WBC and bacteria in the urine. Culture was ordered. Follow-up on the culture was suggested to the patient's brother. Wound did not require repair. Diagnostic Imaging Diagonstic Imaging: CT Plain Films/CT/US/NM/MRI: c-spine, head Comments CT head and cervical spine viewed by me and [facility] report reviewed. No acute bony or intracranial injuries identified. Departure Impression Primary Impression: Fall on same level Qualified Codes: W18.30XA - Fall on same level, unspecified, initial encounter Additional Impression: Laceration of forehead Qualified Codes: S01.81XA - Laceration without foreign body of other part of head, initial encounter Disposition: 01 HOME, SELF-CARE Condition: Stable Departure-Patient Inst. Decision time for Depature: 01:08 Referrals: CYN JARAMILLO MD (PCP/Family) Primary Care Physician Patient Instructions: Preventing Falls in the Older Adult Add. Discharge Instructions: Follow-up with your primary care provider soon as possible. Have your primary care provider review urine culture results to determine if antibiotics are necessary. Return to care if symptoms worsen. All discharge instructions reviewed with patient and/or family. Voiced understanding. ABHI INFANTE MD May 13, 2018 01:09
[2018-05-13 01:12] VITALS: BP 130/98
--- NOTE | 2018-05-13 06:21 | Diagnostic Imaging Report ---
PROCEDURE: CT head and CT cervical spine without contrast. TECHNIQUE: Multiple contiguous axial images were obtained through the brain and cervical spine without the use of intravenous contrast. Sagittal and coronal reformations through the cervical spine were then performed. INDICATION: Fall. Trauma to head. COMPARISON: 12/31/2016 FINDINGS: CT head: The ventricles and cortical sulci are diffusely prominent, compatible with age-related volume loss. There are confluent areas of abnormal, low attenuation in the periventricular white matter. This is consistent with chronic small vessel ischemic changes. There is no midline shift or mass-effect. No acute intra-axial hemorrhage is seen. There are no abnormal areas of increased or decreased density to suggest acute hemorrhage or edema. No extra-axial masses or collections are present. The bony calvarium is intact. The visualized paranasal sinuses are unremarkable. The mastoid air cells are clear. CT cervical spine: Static alignment of the cervical spine is maintained. There is no significant anterolisthesis. There is no evidence of jumped facets. Vertebral body heights are maintained. There is no evidence of acute fracture. No bony fragments are seen within the spinal canal. There are moderate to advanced multilevel degenerative changes consisting of intervertebral disc height loss with anterior and posterior disc osteophyte complex formations. These changes appear greatest at the C3-C4 level. Pre-and paravertebral soft tissue structures are unremarkable. Included portions of the lung apices show no additional acute abnormalities. 3 mm micronodules noted within the medial right apex. This is stable when compared to 07/20/2016. IMPRESSION: 1. No acute intracranial abnormality. No CT evidence of mass, acute infarct or intracranial hemorrhage. 2. Chronic small vessel ischemic changes in deep white matter. 3. No CT evidence of acute fracture or dislocation of the cervical spine. 4. Moderate to advanced multilevel degenerative changes cervical spine, greatest at C3-C4 level. Dictated by: Dictated on workstation # [id number]
== END 2018-05-13 01:12 | disposition home or self-care (01) ==
LOC: EDUNIT# 23:20 → ER 23:21
DX: S01.81XA Laceration without foreign body of other part of head, initial encounter (principal); I10 Essential (primary) hypertension; G20 Parkinson's disease; F41.9 Anxiety disorder, unspecified; F31.9 Bipolar disorder, unspecified; F20.9 Schizophrenia, unspecified; R40.2142 Coma scale, eyes open, spontaneous, at arrival to emergency department; R40.2252 Coma scale, best verbal response, oriented, at arrival to emergency department; R40.2362 Coma scale, best motor response, obeys commands, at arrival to emergency department; Z87.19 Personal history of other diseases of the digestive system; Z90.89 Acquired absence of other organs; Z23 Encounter for immunization; W18.30XA Fall on same level, unspecified, initial encounter; Y92.129 Unspecified place in nursing home as the place of occurrence of the external cause
CPT/HCPCS: 36415; 70450; 72125; 80053; 81000; 83735; 85025; 87088; 90715

== ENCOUNTER 2019-05-16 20:52 | Emergency (ER) | payer MEDICARE, MEDICAID ==
[~2019-05-16] VITALS: Ht 172 cm; Wt 54.0 kg
--- NOTE | 2019-05-16 21:16 | ED General ---
General Stated Complaint: FALL/ HEAD INJ Source of Information: Patient Exam Limitations: No Limitations History of Present Illness Date Seen by Provider: May 16, 2019 Time Seen by Provider: 21:14 Initial Comments To ER with reports of a fall and head injury. He resides at [facility] for dementia patients. Fell earlier this evening has a small goose egg to the right side of the forehead, some pain to the right humerus and right forearm, abrasion to the right knee. Only on aspirin Timing/Duration: 1 Hour Severity: Moderate Associated Systoms: Headaches Allergies and Home Medications Allergies Coded Allergies: No Known Drug Allergies (Unverified , 07/20/16) Home Medications Bupropion HCl 150 Mg Tab.er.24h, 150 MG PO DAILY, (Reported) Carbidopa/Levodopa 1 Each Tablet, 1 EACH PO BID, (Reported) Docusate Sodium 100 Mg Capsule, 100 MG PO DAILY, (Reported) Hydrochlorothiazide 25 Mg Tablet, 25 MG PO DAILY, (Reported) [place] Carbonate 450 Mg Tab, 900 MG PO DAILY, (Reported) Mirtazapine 15 Mg Tab.rapdis, 15 MG PO DAILY, (Reported) Olanzapine 5 Mg Tablet, 5 MG PO DAILY, (Reported) Paroxetine HCl 10 Mg Tablet, 10 MG PO DAILY, (Reported) Polyethylene Glycol 3350 17 Gm Powd.pack, 17 GM PO DAILY, (Reported) [Artane] , 5 MG PO BID, (Reported) [Vit D] , 1.25 MG PO WEEK, (Reported) Patient Home Medication List Home Medication List Reviewed: Yes Review of Systems Review of Systems Constitutional: see HPI EENTM: see HPI Respiratory: no symptoms reported Cardiovascular: no symptoms reported Genitourinary: no symptoms reported Musculoskeletal: no symptoms reported Skin: no symptoms reported Psychiatric/Neurological: No Symptoms Reported Hematologic/Lymphatic: No Symptoms Reported Immunological/Allergic: no symptoms reported Past Kvccgry-Alqcjn-Kxouse Hx Patient Social History 2nd Hand Smoke Exposure: No Recent Foreign Travel: No Contact w/Someone Who Travel: No Recent Hopitalizations: Yes (FALLEN X3 SINCE AUGUST 2016, THYROID REMOVED) Immunizations Up To Date Tetanus Booster (TDap): Less than 5yrs PED Vaccines UTD: No Date of Influenza Vaccine: May 02, 2016 Seasonal Allergies Seasonal Allergies: No Past Medical History Surgeries: Yes (THYROID REMOVED ) Thyroidectomy Respiratory: No Cardiac: Yes Hypertension Neurological: Yes (EPS FROM MEDICATIONS) Developmental Disorder, Parkinson's Disease Reproductive Disorders: No Genitourinary: No Gastrointestinal: Yes Chronic Constipation Musculoskeletal: Yes (KYPHOSIS) Scoliosis, Chronic Back Pain Endocrine: No HEENT: No Cancer: No Psychosocial: Yes (MILD MR) Anxiety, Bipolar, Personality Disorder, Schizophrenia, Depression Integumentary: No Blood Disorders: No Family Medical History No Pertinent Family Hx Physical Exam Vital Signs Capillary Refill : Height, Weight, BMI Height: 6'1.00" Weight: 154lbs. 0.0oz. 69.811028ld; 27.3 BMI Method:Stated General Appearance: No Apparent Distress, WD/WN Eyes: Bilateral Eye Normal Inspection, Bilateral Eye PERRL, Bilateral Eye EOMI HEENT: PERRL/EOMI, TMs Normal Neck: Full Range of Motion, Normal Inspection Respiratory: No Accessory Muscle Use, No Respiratory Distress Cardiovascular: Regular Rate, Rhythm, Normal Peripheral Pulses Gastrointestinal: Normal Bowel Sounds, Non Tender, Soft Extremity: Normal Capillary Refill, Normal Inspection Neurologic/Psychiatric: Alert, Other (hematoma right forehead) Skin: Normal Color, Warm/Dry, Other (small abrasion to the right anterior knee but full extension ability while sitting down, ambulatory walker as per his baseline with pain in the hips or knees.) Progress/Results/Core Measures Suspected Sepsis SIRS Temperature: Pulse: Respiratory Rate: Blood Pressure / Mean: Results/Orders My Orders Orders - JASMINA ZAVALA APRN Forearm, Right, 2 Views (05/16/19 21:13) Humerus, Right, 2 Views (05/16/19 21:13) Ct Head/Cervical Spine Wo (05/16/19 21:13) Vital Signs/I&O Capillary Refill : Diagnostic Imaging Diagonstic Imaging: CT Comments NAME: PATRICK SANTOS [facility] REC#: [id number] PT STATUS: REG ER : 1955 PHYSICIAN: JASMINA ZAVALA APRN ADMIT DATE: 05/16/19/ER Draft Date of Exam:05/16/19 CT HEAD/CERVICAL SPINE WO PROCEDURE: CT head and CT cervical spine without contrast. TECHNIQUE: Multiple contiguous axial images were obtained through the brain and cervical spine without the use of intravenous contrast. Sagittal and coronal reformations through the cervical spine were then performed. Auto Exposure Controls were utilized during the CT exam to meet ALARA standards for radiation dose reduction. INDICATION: Fell. Head and neck pain CT HEAD: There is soft tissue edema over the right parietal bone near the vertex of the skull. The bone windows through this area failed to show any sign of a fracture however. There is no acute intracranial abnormality identified either. There is no mass, shift of the midline or hemorrhage. The ventricles are not abnormally dilated and stable in size when compared to the prior exam of 05/13/2018. The cortical atrophy seen on the previous study does not appear to have progressed. The orbits are symmetrical and within normal limits. The sinuses are generally clear. IMPRESSION: 1. There is soft tissue edema over the right parietal bone near the vertex of the skull. There is no evidence for a skull fracture or for an acute intracranial abnormality however. 2. If the patient is anticoagulated and if his symptoms of headache persist, then a short-term (24 hour) follow up CT head exam should be obtained. CT CERVICAL SPINE: The previous CT cervical spine exam performed on 05/13/2018 noted advanced multilevel degenerative disease particularly at C3-C4. There was no acute bony abnormality noted. On this study, the degenerative disc and bony disease involving the cervical spine is again evident and does not appear to have progressed. There is still no fracture or acute bony abnormality appreciated. There is no sign of retropharyngeal edema. The left lobe of the thyroid gland appears to be surgically absent. The right lobe is unremarkable. The lung apices are clear. IMPRESSION: 1. There is no evidence for an acute bony abnormality. 2. The degenerative disease involving the cervical spine seen previously does not appear to have progressed. Dictated on workstation # [id number] Dict: 05/16/[id number] Trans: 05/16/192211 [facility] [id number] Interpreted by: RUSTY FRANCIS MD Electronically signed by: warren Departure Communication (Admissions) Humerus x-ray shows a questionable lucency through the inferior glenoid, patient states he is tender to palpation in that area so I'll give him a sling, he can follow up with primary care in regards to this. Impression Primary Impression: Head contusion Qualified Codes: S00.93XA - Contusion of unspecified part of head, initial encounter Additional Impressions: Minor head injury without loss of consciousness Qualified Codes: S09.90XA - Unspecified injury of head, initial encounter Right shoulder pain Disposition: HOME, SELF-CARE Condition: Stable Departure-Patient Inst. Decision time for Depature: 22:15 Referrals: CYN JARAMILLO MD (PCP/Family) Primary Care Physician Patient Instructions: Contusion (DC) Add. Discharge Instructions: 1. Return to ER for any concerns 2. Follow-up with his doctor next week for recheck. Return to ER for any vomiting, severe headache, worsening confusion or anything else out of the normal that concerns her. Copy Copies To 1: CYN JARAMILLO MD, PETER J APRN May 16, 2019 21:16
--- NOTE | 2019-05-16 21:58 | Diagnostic Imaging Report ---
EXAM: Right forearm at 9:43 p.m. INDICATION: Fell, arm pain TECHNIQUE: AP and lateral views were obtained. FINDINGS: There is no fracture, dislocation or acute bony abnormality evident. The radiocarpal joint and the elbow joint are fairly well maintained. The posterior fat-pad of the elbow joint is not elevated. The soft tissues are unremarkable. IMPRESSION: There is no evidence for an acute bony abnormality. Dictated by: Dictated on workstation # [id number]
--- NOTE | 2019-05-16 22:10 | Diagnostic Imaging Report ---
EXAMINATION: Right humerus at 9:51 PM INDICATION: Fell Two views were obtained. There are no prior humerus exams available for comparison. There is a faint linear lucency extending obliquely through the inferior margin of the glenoid. This finding was not clearly evident on the chest exam of 07/26/2016. This could represent a nondisplaced fracture. This finding could also be due to degenerative disease alone. There is fairly severe narrowing of the glenohumeral joint. There are amorphous calcifications in the soft tissues about the shoulder joint. These are probably long-standing in nature although they were not clearly evident on the prior study. There is no fracture or acute bony abnormality appreciated otherwise. IMPRESSION: 1. The linear lucency extending through the inferior margin of the glenoid may be due to degenerative disease alone. The possibility that there is a nondisplaced fracture in this area should still be considered. If further evaluation is desired, then CT would be recommended. 2. There is no acute abnormality identified otherwise. Dictated by: Dictated on workstation # [id number]
--- NOTE | 2019-05-16 22:12 | Diagnostic Imaging Report ---
PROCEDURE: CT head and CT cervical spine without contrast. TECHNIQUE: Multiple contiguous axial images were obtained through the brain and cervical spine without the use of intravenous contrast. Sagittal and coronal reformations through the cervical spine were then performed. Auto Exposure Controls were utilized during the CT exam to meet ALARA standards for radiation dose reduction. INDICATION: Fell. Head and neck pain CT HEAD: There is soft tissue edema over the right parietal bone near the vertex of the skull. The bone windows through this area failed to show any sign of a fracture however. There is no acute intracranial abnormality identified either. There is no mass, shift of the midline or hemorrhage. The ventricles are not abnormally dilated and stable in size when compared to the prior exam of 05/13/2018. The cortical atrophy seen on the previous study does not appear to have progressed. The orbits are symmetrical and within normal limits. The sinuses are generally clear. IMPRESSION: 1. There is soft tissue edema over the right parietal bone near the vertex of the skull. There is no evidence for a skull fracture or for an acute intracranial abnormality however. 2. If the patient is anticoagulated and if his symptoms of headache persist, then a short-term (24 hour) follow up CT head exam should be obtained. CT CERVICAL SPINE: The previous CT cervical spine exam performed on 05/13/2018 noted advanced multilevel degenerative disease particularly at C3-C4. There was no acute bony abnormality noted. On this study, the degenerative disc and bony disease involving the cervical spine is again evident and does not appear to have progressed. There is still no fracture or acute bony abnormality appreciated. There is no sign of retropharyngeal edema. The left lobe of the thyroid gland appears to be surgically absent. The right lobe is unremarkable. The lung apices are clear. IMPRESSION: 1. There is no evidence for an acute bony abnormality. 2. The degenerative disease involving the cervical spine seen previously does not appear to have progressed. Dictated by: Dictated on workstation # [id number]
[2019-05-16 22:32] VITALS: BP 119/80
== END 2019-05-16 22:32 | disposition home or self-care (01) ==
LOC: EDUNIT# 20:52 → ER 20:55
DX: S09.90XA Unspecified injury of head, initial encounter (principal); S00.93XA Contusion of unspecified part of head, initial encounter; M25.511 Pain in right shoulder; I10 Essential (primary) hypertension; G20 Parkinson's disease; F41.9 Anxiety disorder, unspecified; F31.9 Bipolar disorder, unspecified; F60.9 Personality disorder, unspecified; F20.9 Schizophrenia, unspecified; W19.XXXA Unspecified fall, initial encounter
CPT/HCPCS: 70450; 72125; 73060; 73090

== ENCOUNTER → 2019-05-19 | Outpatient (CLI) | payer MEDICARE, MEDICAID ==
--- NOTE | 2019-05-19 16:33 | Diagnostic Imaging Report ---
EXAMINATION: CT head without contrast. TECHNIQUE: Multiple contiguous axial images were obtained through the brain without the use of intravenous contrast. All CT scans use one or more of the following dose optimizing techniques: automated exposure control, MA and/or KvP adjustment based on a patient size and exam type, or iterative reconstruction. HISTORY: HEADACHES COMPARISON: 05/16/2019 FINDINGS: The wynne-white matter differentiation is normal. No mass effect or midline shift. The ventricles are normal in size and configuration. Basilar cisterns are patent. There are no intra- or extra-axial fluid collections. There is no intracranial hemorrhage. The orbits are normal. Paranasal sinuses are normal. Mastoid air cells are clear. No soft tissue abnormality is seen. No osseus lesions or fractures are seen. IMPRESSION: 1. No acute intracranial abnormality. Dictated by: Dictated on workstation # [id number]
== END ==
LOC: RAD 15:44
PROVIDERS: ATTEND Nurse Practitioner
DX: S00.93XA Contusion of unspecified part of head, initial encounter (principal)
CPT/HCPCS: 70450

== ENCOUNTER 2019-09-23 13:21 | Emergency (ER) | payer MEDICARE, MEDICAID ==
[~2019-09-23] VITALS: Ht 185 cm; Wt 77.0 kg
--- NOTE | 2019-09-23 14:22 | ED Lower Extremity ---
General Chief Complaint: Trauma-Non Activation Stated Complaint: FALL Nursing Triage Note: PT ARRIVED BY EMS C OF FALL [facility]. PT HAS DEMENTIA CO OF PAIN IN HIPS. STAFF STATE PT WAS LOWERED DOWN BY STAFF AND HIP SCRAPED TOILET PAPER VO Nursing Sepsis Screen: No Definite Risk History of Present Illness Date Seen by Provider: Sep 23, 2019 Time Seen by Provider: 13:45 Initial Comments 64-year-old male with history of dementia had a fall at his assisted living facility earlier today. He is now complaining of low back and bilateral hip pain. He has a significant history of scoliosis. Staff at his facility did assist with the fall, he did not lose consciousness or have a head injury. He was given Tylenol prior to coming here. Location Injury Occurred: [facility] Onset: just prior to arrival Pain/Injury Location: bilateral hip Method of Injury: fell Modifying Factors: Improves With Rest Allergies and Home Medications Allergies Coded Allergies: No Known Drug Allergies (Unverified , 07/20/16) Home Medications Bupropion HCl 150 Mg Tab.er.24h, 150 MG PO DAILY, (Reported) Carbidopa/Levodopa 1 Each Tablet, 1 EACH PO BID, (Reported) Docusate Sodium 100 Mg Capsule, 100 MG PO DAILY, (Reported) Hydrochlorothiazide 25 Mg Tablet, 25 MG PO DAILY, (Reported) [place] Carbonate 450 Mg Tab, 900 MG PO DAILY, (Reported) Mirtazapine 15 Mg Tab.rapdis, 15 MG PO DAILY, (Reported) Olanzapine 5 Mg Tablet, 5 MG PO DAILY, (Reported) Paroxetine HCl 10 Mg Tablet, 10 MG PO DAILY, (Reported) Polyethylene Glycol 3350 17 Gm Powd.pack, 17 GM PO DAILY, (Reported) [Artane] , 5 MG PO BID, (Reported) [Vit D] , 1.25 MG PO WEEK, (Reported) Patient Home Medication List Home Medication List Reviewed: Yes Review of Systems Constitutional: no symptoms reported, see HPI Musculoskeletal: see HPI, back pain, joint pain (bilateral hips) All Other Systems Reviewed Negative Unless Noted: Yes Past Tjlmdwx-Yeyjgw-Xrfvkz Hx Past Med/Social Hx: Reviewed Nursing Past Med/Soc Hx Patient Social History Alcohol Use: Denies Use Recreational Drug Use: No Smoking Status: Never a Smoker 2nd Hand Smoke Exposure: No Recent Foreign Travel: No Contact w/Someone Who Travel: No Recent Infectious Disease Expo: No Recent Hopitalizations: Yes (FALLEN X3 SINCE AUGUST 2016, THYROID REMOVED) Physical Abuse: No Sexual Abuse: No Immunizations Up To Date Tetanus Booster (TDap): Less than 5yrs PED Vaccines UTD: No Date of Influenza Vaccine: May 02, 2016 Seasonal Allergies Seasonal Allergies: No Past Medical History Surgeries: Yes Thyroidectomy Respiratory: No Cardiac: Yes Hypertension Neurological: Yes (EPS FROM MEDICATIONS) Developmental Disorder, Parkinson's Disease Reproductive Disorders: No Genitourinary: No Gastrointestinal: Yes Chronic Constipation Musculoskeletal: Yes (KYPHOSIS) Scoliosis, Chronic Back Pain Endocrine: No HEENT: No Cancer: No Psychosocial: Yes (MILD MR) Anxiety, Bipolar, Personality Disorder, Schizophrenia, Depression Integumentary: No Blood Disorders: No Family Medical History No Pertinent Family Hx Physical Exam Vital Signs Vital Signs - First Documented 09/23/19 13:23 Temp 35.9 Pulse 58 Resp 18 B/P (MAP) 136/105 (115) Pulse Ox 97 Capillary Refill : Less Than 3 Seconds Height, Weight, BMI Height: 6'1.00" Weight: 154lbs. 0.0oz. 69.300933on; 22.00 BMI Method:Stated General Appearance: WD/WN, no apparent distress HEENT: PERRL/EOMI, normal ENT inspection, TMs normal, pharynx normal Neck: non-tender, full range of motion, supple, normal inspection Cardiovascular: normal peripheral pulses, regular rate, rhythm Respiratory: chest non-tender, lungs clear, normal breath sounds Gastrointestinal: normal bowel sounds, non tender, soft Hips: bilateral hip non-tender, bilateral hip normal inspection, bilateral hip normal range of motion, bilateral hip pain (with range of motion), bilateral hip soft tissue tenderness, bilateral hip other (no ecchymosis, or abrasions) Knees: bilateral knee non-tender, bilateral knee normal inspection, bilateral knee normal range of motion, bilateral knee no evidence of injury Ankles: bilateral ankle non-tender, bilateral ankle normal inspection, bilateral ankle normal range of motion Neurologic/Tendon: normal sensation, normal motor functions, normal tendon functions Neurologic/Psychiatric: no motor/sensory deficits, alert, normal mood/affect, oriented x 3 Skin: normal color, warm/dry Progress/Results/Core Measures Results/Orders My Orders Orders - [employer] Pelvis/Kamila Hips 5> Views (2/22/20 13:54) Lumbar Spine - 2-3 Views (09/23/19 13:54) Vital Signs/I&O 09/23/19 09/23/19 13:23 15:20 Temp 35.9 35.9 Pulse 58 58 Resp 18 18 B/P (MAP) 136/105 (115) 136/105 (115) Pulse Ox 97 97 Blood Pressure Mean: 115 Progress Progress Note : Time: 13:45 Progress Note Patient seen and evaluated, denies need for pain medicine at this time. We will obtain x-rays of the lumbar spine and bilateral hips and pelvis. Brother at bedside. 1415 awaiting x-ray results, patient denies any needs at this time. 1445 x-ray results reviewed with patient and staff from shelter. No acute findings. Discharge instructions and return precautions reviewed. All questions answered. Diagnostic Imaging Diagonstic Imaging: Xray Plain Films/CT/US/NM/MRI: other (back) Comments NAME: PATRICK SATNOS [facility] REC#: [id number] PT STATUS: REG ER : 1955 PHYSICIAN: KAE MURRY ADMIT DATE: 09/23/19/ER Draft Date of Exam:09/23/19 LUMBAR SPINE - 2-3 VIEWS INDICATION: Back pain. FINDINGS: There is leftward convexity lumbar scoliotic curvature. There is a schwartz-lumbar spondylosis. Degenerative disc and endplate changes most severe eccentric to the right at the L3-L4, L4-L5 and L5-S1 levels. No substantial anterior or posterior listhesis. There is hypertrophic mid to lower lumbar facet arthrosis. An acute appearing abnormality is not revealed. IMPRESSION: Degenerative changes to the discs, endplates and facets with extensive leftward convexity rotoscoliotic curvature. No acute appearing abnormality however apparent. Dictated on workstation # [id number] Dict: 09/23/19 1431 Trans: 09/23/19 1444 [facility] [id number] Interpreted by: JAIRO NOVAK Electronically signed by: Diagonstic Imaging: Xray Plain Films/CT/US/NM/MRI: pelvis, hip Comments NAME: PATRICK SANTOS Shanthi [facility] REC#: [id number] PT STATUS: REG ER : 1955 PHYSICIAN: KAE MURRY ADMIT DATE: 09/23/19/ER Draft Date of Exam:09/23/19 PELVIS/KAMILA HIPS 5> VIEWS INDICATION: Fall, pain FINDINGS: No pelvic fracture deformity. No symphyseal or SI joint diastases. The femoral heads directed into the acetabulae bilaterally. A fracture could not be identified. IMPRESSION: No acute finding revealed that two-view bilateral hip and AP pelvis. Dictated on workstation # [id number] Dict: 09/23/19 1429 Trans: 09/23/19 1431 [facility] [id number] Interpreted by: JAIRO NOVAK Electronically signed by: Reviewed: Reviewed by Me Departure Impression Primary Impression: Fall Qualified Codes: W19.XXXA - Unspecified fall, initial encounter Disposition: 01 HOME, SELF-CARE Condition: Improved Departure-Patient Inst. Decision time for Depature: 14:50 Referrals: CYN JARAMILLO MD (PCP/Family) Primary Care Physician Patient Instructions: Preventing Falls in the Older Adult Add. Discharge Instructions: Ice to low back and bilateral hips 20 minutes every 2-3 hours as needed for pain. Tylenol 650 mg every 6-8 hours as needed for pain. Activity as tolerated. Return to the emergency department for new, urgent health care needs. All discharge instructions reviewed with patient and/or family. Voiced un derstanding. Copy Copies To 1: CYN JARAMILLO MD, AMY ARNP Sep 23, 2019 14:22
--- NOTE | 2019-09-23 14:32 | Diagnostic Imaging Report ---
INDICATION: Fall, pain FINDINGS: No pelvic fracture deformity. No symphyseal or SI joint diastases. The femoral heads directed into the acetabulae bilaterally. A fracture could not be identified. IMPRESSION: No acute finding revealed that two-view bilateral hip and AP pelvis. Dictated by: Dictated on workstation # [id number]
--- NOTE | 2019-09-23 14:45 | Diagnostic Imaging Report ---
INDICATION: Back pain. FINDINGS: There is leftward convexity lumbar scoliotic curvature. There is a schwartz-lumbar spondylosis. Degenerative disc and endplate changes most severe eccentric to the right at the L3-L4, L4-L5 and L5-S1 levels. No substantial anterior or posterior listhesis. There is hypertrophic mid to lower lumbar facet arthrosis. An acute appearing abnormality is not revealed. IMPRESSION: Degenerative changes to the discs, endplates and facets with extensive leftward convexity rotoscoliotic curvature. No acute appearing abnormality however apparent. Dictated by: Dictated on workstation # [id number]
[2019-09-23 15:20] VITALS: BP 136/105
== END 2019-09-23 15:20 | disposition home or self-care (01) ==
LOC: EDUNIT# 13:21 → ER 13:22
DX: M25.551 Pain in right hip (principal); M25.552 Pain in left hip; M54.5 Low back pain; I10 Essential (primary) hypertension; F31.9 Bipolar disorder, unspecified; F41.9 Anxiety disorder, unspecified; G20 Parkinson's disease; F20.9 Schizophrenia, unspecified; W19.XXXA Unspecified fall, initial encounter; Y92.129 Unspecified place in nursing home as the place of occurrence of the external cause
CPT/HCPCS: 72100; 73523

== ENCOUNTER 2019-10-12 15:00 | Outpatient (RCR) | payer MEDICARE, MEDICAID | END 2019-10-17 08:35 | disposition home or self-care (01) | PROVIDERS: ATTEND Nurse Practitioner | DX: M41.9 Scoliosis, unspecified (principal); M40.209 Unspecified kyphosis, site unspecified ==

== ENCOUNTER 2019-10-30 01:36 | Emergency (ER) | payer MEDICARE, MEDICAID ==
[~2019-10-30] VITALS: Ht 185 cm; Wt 70.0 kg
--- OUTSIDE RECORDS SUMMARY | 2019-10-30 01:42 | XMS REPORT ---
Author Author [employer]. Organization [employer]. Address [address] [place] [address] Care Team Providers Care Director [employer] Name Role Phone ASHLEY CH Unavailable Unavailable CYN JARAMILLO Unavailable CAMI CANTRELL Unavailable HOPE ENGLISH Unavailable ALPESHNUHA Unavailable ASHLEY CH Unavailable Unavailable CYN JARAMILLO Unavailable ABHI INFANTE MD Unavailable Unavailable SARAH LARSON Unavailable Unavailable ONEAL MACE MD Unavailable Unavailable ISAIASMadie CROW ARCHANA K Unavailable Unavailable ART BARGER MD Unavailable Unavailable HOPE ENGLISH MD Unavailable Unavailable CAMI CANTRELL DO Unavailable Unavailable CRAIG BEAULIEU MD Unavailable Unavailable JASMINA ZAVALA ELEMENTARY SCHOOL DIRECTOR Unavailable Unavailable Migration, Doctor Unavailable Unavailable Migration, Doctor Unavailable Unavailable Migration, Doctor Unavailable Unavailable Migration, Doctor Unavailable Unavailable Migration, Doctor Unavailable Unavailable TARTAGLIONE, ABHI Unavailable Unavailable PAONI, RAF Unavailable Unavailable PAONI, RAF Unavailable Unavailable LEISURE, LYNIETA Unavailable Unavailable Migration, Doctor Unavailable Unavailable Migration, Doctor Unavailable Unavailable RAAD Mix Unavailable HOPE ENGLISH MD Unavailable Unavailable CYN JARAMILLO PCP JASMINA ZAVALA APRN Unavailable Unavailable ART BARGER MD Unavailable Unavailable CAMI CANTRELL DO Unavailable Unavailable BETO MOSES ELEMENTARY SCHOOL DIRECTOR Unavailable Unavailable ABHI INFANTE MD Unavailable Unavailable ONEAL MACE MD Unavailable Unavailable PILLO JEFFERY DO Unavailable Unavailable SARAH LARSON Unavailable Unavailable ISAIAS DO ARCHANA K Unavailable Unavailable KAE COLIN L Unavailable Unavailable IMANI Nielson Unavailable BETO MOSES APRN Unavailable Unavailable RAAD Mix Unavailable Allergies Normalized Allergy Reported Date of Reaction(s) Care Provider Facility Allergy Type classification allergen Allergy Onset DA (23 Unclassified No Known Drug 07-20-2016 - no information ARCHANA ESPARZA , DO Not Available sources.) Allergies (44398) no information Unclassified NO KNOWN DRUG NO KNOWN DRUG PILLO D UNBAR Not Available (15 sources.) ALLERGIES ALLERGIES, (38491) UNKNOWN Medications Current Medications Medication Ingredient Drug Dose Dates Status Sig Sig Care Class(es) (Normalized) (Original) Provid er bisacodyl bisacodyl Stimulant 10 mg Active no Dulcolax 10 n o 10 mg Translation Laxative information MG Rectal name rectal s: [ Once a day 1 (no suppository Dulcolax 10 suppository phone) (1 source.) MG] as needed 24h Active no lithium Mood 450 mg 04-12-20 Active take 1 lithium 450 no information Stabilizer 13 tablet by mg 1 tablet name (2 mouth twice by Oral (no sources.) daily route 2 phone) times per day Apr, Active 450 mg 04-12-2013 no take 1 lithium no name information tablet 450 mg 1 (no by tablet phone) mouth by Oral twice route 2 daily times per day Apr, Not-Taki ng magnesium magnesium no 400 Active no Milk of no hydroxide hydroxide information mg/mL information Magnesia 40 0 name 80 mg/ml Translation MG/5ML (no oral s: [ Milk Orally Four phone) suspension of Magnesia times a day (1 source.) 400 MG/5ML] 5 ml as needed 6h Active Completed/Discontinued Medications Medication Ingredient Drug Dose Dates Status Sig Sig Care Class(es) (Normalized) (Original) Provid er no ASA no 325 mg 12-26-19 no no ASA no information (ASPIRIN) information 17 - informat information (A SPIRIN) name (1 source.) TAB 325 MG 01-01-20 ion TAB 325 MG (no (JOSE) 17 (JOSE) 325 phone) 325 no Aspirin Platelet 325 mg 12-17-19 no no no no information Aggregation 19 - informat information informat ion name (1 source.) Inhibitor, 01-15-20 ion (no Nonsteroida 19 phone) l Anti-inflam matory Drug no BISACODYL no 10 mg 12-17-19 no no no no information SUPPOS 10 information 19 - informat information in formation name (1 source.) MG 20 ion (no (DULCOLAX 19 phone) SUPPOS) no CARBI/LEVO no 12-25-19 no no CARBI/LEVO no information 25/100 CR information 17 - informat information 25 /100 CR name (1 source.) TAB 12-28-19 ion TAB (SINEMET (no (SINEMET 17 25/100 CR) 1 phone) 25/100 CR) 1 no DIPHENHYDRA no 12-24-19 no no no no information MINE VIAL information 19 - informat information in formation name (1 source.) INJ 50 12-24-19 ion (no MG/CC 19 phone) (BENADRYL VIAL) 12-20-2018 no no no no name - information inform informat (no 12-20-2018 ation ion phone) 12-20-2018 no no no no name - information inform informat (no 12-20-2018 ation ion phone) no Docusate no 100 mg 12-17-19 no no no no information sodium information 19 - informat information infor mation name (1 source.) 100mg oral 01-15-20 ion (no capsule 19 phone) (COLACE) no Docusate no 100 mg 12-25-19 no no Docusate n o information sodium information 17 - informat information sodiu m 100mg name (1 source.) 100mg oral 12-28-19 ion oral capsule (no capsule 17 (COLACE) 100 phone) (COLACE) 100 no FENTANYL no 12-26-19 no no no no information INJ 100 information 17 - informat information info rmation name (1 source.) MCG/2CC 12-26-19 ion (no VIAL 17 phone) no FENTANYL no 12-26-19 no no no no information INJ 100 information 17 - informat information info rmation name (1 source.) MCG/2CC 20 ion (no VIAL 17 phone) no Fluvirin no no no Fluvirin 0.5 no information 0.5 ML information informat information ML name (1 source.) Translation ion Not-Taking (no s: [ phone) Fluvirin 0.5 ML] no fluvoxaMINE Serotonin 50 mg 12-21-19 no no no no information Reuptake 19 - informat information information name (1 source.) Inhibitor 01-20-20 ion (no 19 phone) no gabapentin Anti-epilep 100 mg 12-17-19 no no no no information tic Agent 19 - informat information informatio n name (1 source.) 01-15-20 ion (no 19 phone) no HALOPERIDOL no 12-21-19 no no no no information VIAL INJ 5 information 19 - informat informatio n information name (1 source.) MG/CC 12-21-19 ion (no (HALDOL 1CC 19 phone) VIAL) no HYDROCODONE no 12-26-19 no no no no information /APAP information 17 - informat information infor mation name (1 source.) 5MG/325MG 01-05-20 ion (no TAB 5 17 phone) MG/325MG (DINORA-TAB 5/325) no Ketoconazol Azole 12-17-19 no no no no information e Antifungal 19 - informat information inform ation name (1 source.) 01-16-20 ion (no 19 phone) no Lactated no 12-26-19 no no no no information Ringer's information 17 - informat information inf ormation name (1 source.) Solution 01-02-20 ion (no 17 phone) no Lactulose Osmotic 12-17-19 no no no no information Laxative - informat information information name (1 source.) 01-16-20 ion (no 19 phone) 12-16-2018 no no no no name - information inform informat (no 01-15-2019 ation ion phone) 12-16-2018 no no no no name - information inform informat (no 01-14-2019 ation ion phone) no Loperamide Opioid 2 mg 12-17-19 no no no n o information Agonist 19 - informat information information name (1 source.) 01-16-20 ion (no 19 phone) 2 mg 12-16-2018 no no no no name - information inform informat (no 12-22-2018 ation ion phone) no Melatonin no 3 mg 12-17-19 no no no no information information 19 - informat information informat ion name (1 source.) 12-23-19 ion (no 19 phone) no Metoprolol beta-Adrene 25 mg 12-17-19 no no no no information rgic 19 - informat information information name (1 source.) Linda 01-15-20 ion (no 19 phone) no MILK OF no 12-17-19 no no no no information MAGNESIA information 19 - informat information inf ormation name (1 source.) LIQ 01-16-20 ion (no 19 phone) 12-16-2018 no no no no name - information inform informat (no 01-14-2019 ation ion phone) no MORPHINE no 12-26-19 no no no no information SYRINGE INJ information 17 - informat informati on information name (1 source.) 2 MG/CC 01-02-20 ion (no 17 phone) no Normal no 12-26-19 no no no no information saline information 17 - informat information infor mation name (1 source.) 01-10-20 ion (no 17 phone) no NORMAL no 12-17-19 no no no no information SALINE information 19 - informat information infor mation name (1 source.) W/KCL 40MEQ 12-24-19 ion (no IV (SALINE 19 phone) IV BAG [id number]) no Ondansetron no 4 mg 12-17-19 no no no no information 4mg oral information 19 - informat information inf ormation name (1 source.) DissolveTab 01-16-20 ion (no (Zofran) 19 phone) no POLY/BACI/N no 12-26-19 no no no no information EOM OINT information 17 - informat information inf ormation name (1 source.) OINT 01-02-20 ion (no (NEOSPORIN) 17 phone) no Polyethylen no 17 g 12-17-19 no no no no information e Glycols information 19 - informat information in formation name (1 source.) Translation 01-15-20 ion (no s: [ 19 phone) POLYETHYLEN E GLYCOL POWDER UD PWD (MIRALAX 17GM UNIT DOSE PAKS)] 17 g 12-16-2018 no no no no name - information inform informat (no 01-15-2019 ation ion phone) 17 g 12-16-2018 no no no no name - information inform informat (no 12-26-2018 ation ion phone) 17 g 12-25-2016 no no no no name - information inform informat (no 12-31-2016 ation ion phone) no Potassium no 20 mEq 12-17-19 no no no no information Chloride information 19 - informat information inf ormation name (1 source.) 01-15-20 ion (no 19 phone) 20 mEq 12-16-2018 no no no no name - information inform informat (no 12-16-2018 ation ion phone) no QUEtiapine Atypical 25 mg 12-17-19 no no no no information Antipsychot 19 - informat information informat ion name (1 source.) ic 01-15-20 ion (no 19 phone) no risperiDONE Atypical 0.5 mg 12-20-19 no no no no information Translation Antipsychot - informat informati on information name (3 s: [ ic 01-19-20 ion (no sources.) Risperdal 2 19 phone) mg, RISPERIDONE TAB 0.5 MG (RISPERDAL) ] 0.5 mg 12-19-2018 no no no no name - information inform informat (no 01-17-2019 ation ion phone) 1 mg 07-04-2013 Active no Risperda no name inform l 2 mg (no ation 0.5 phone) Tablet by Oral route 1 per day q am1 Tablet by Oral route 1 per day q hs Jul, Active no SENNA no 12-17-19 no no no no information CONC/DOCUSA information - informat informati on information name (1 source.) TE TAB 01-15-20 ion (no (SENOKOT S) 19 phone) no SENNA no 12-25-19 no no SENNA no information CONC/DOCUSA information 17 - informat informati on CONC/DOCUSAT name (1 source.) TE TAB 12-27-19 ion E TAB (no (SENOKOT S) 17 (SENOKOT S) phone) 2 2 no Sertraline Serotonin 50 mg 12-17-19 no no no no information Reuptake 19 - informat information information name (1 source.) Inhibitor 01-15-20 ion (no 19 phone) no tamsulosin alpha-Adren 0.4 mg 12-23-19 no no no no information ergic 19 - informat information information name (1 source.) Linda 01-21-20 ion (no 19 phone) no traMADol Opioid 50 mg 12-17-19 no no no no information Agonist 19 - informat information information name (1 source.) 12-27-19 ion (no 19 phone) 50 mg 12-16-2018 no no no no name - information inform informat (no 12-16-2018 ation ion phone) no URO-JET no 2 % 12-24-19 no no no no information (LIDOCAINE) information - informat informati on information name (1 source.) INJ 2 % 12-24-19 ion (no (UROJECT) 19 phone) 2 % 12-16-2018 no no no no name - information inform informat (no 12-16-2018 ation ion phone) no venlafaxine Serotonin 75 mg 12-19-19 no no no no information and 19 - informat information information name (1 source.) Norepinephr 01-17-20 ion (no ine 19 phone) Reuptake Inhibitor no VITAMIN D-3 no 1000 12-17-19 no no no no information TAB 1000 information [IU] 19 - informat informati on information name (1 source.) UNITS 01-15-20 ion (no (VITAMIN 19 phone) D-3) no Ziprasidone no 20 12-21-19 no no no no information IM recon information mg/mL 19 - informat informati on information name (1 source.) soln 12-21-19 ion (no 20mg/mL 19 phone) vial (Geodon) 20 mg/mL 12-19-2018 no no no no name - information inform informat (no 12-19-2018 ation ion phone) Problems Active Problems Problem Normalized Date of Normalized Normalized Provider Fac ility Classification Problem(s) Problem Problem Problem Sta tus Onset/Resoluti Duration on Residual Acquired Episodic Active ABHI [facility] Via codes; absence of Amanad INFANTE unclassified other organs [facility] - (5 sources.) [place] ([address]) Deficiency and Anemia, Episodic Active ART CHARBEL , Not Available other anemia unspecified (99725) (6 sources.) Anxiety Anxiety 09-26-2019 - Chronic Active ABHI [facility] V ia disorders (11 disorder, Amanda INFANTE sources.) unspecified [facility] (54497) Mood disorders Bipolar 09-26-2019 - Chronic Active ABHI [facility] Via (20 sources.) disorder, Amanda INFANTE unspecified [facility] - Translations: [place] [ MAJOR (53042) DEPRESSIVE DISORDER, SINGLE EPISODE, UNSPECIFIED, MAJOR DEPRESSIVE DISORDER, SINGLE EPISODE, UNSPECIFIED DEGREE] Other Care involving Episodic Active HOPE ENGLISH Not Available aftercare (2 other physical , (81449) sources.) therapy Other and Cerebral Chronic Active CYN JARAMILLO [place] V ia ill-defined ischemia [address] [place] [address] cerebrovascula [facility] disease (1 (68216) source.) Coma; stupor; Coma scale, Episodic Active ABHI H Vi a and brain eyes open, Amanda INFANTE damage (3 spontaneous, MD Hospital - sources.) at arrival to [place] emergency ([address]) department Translations: [ COMA SCALE, BEST MOTOR RESPONSE, OBEYS C, COMA SCALE, BEST VERBAL RESPONSE, ORIENT] Unclassified Contusion of no information Active CYN JARAMILLO [place] Via (1 source.) head [address] [place] [address] ([address]) Superficial Contusion of Episodic Active ARCHANA ESPARZA , DO [facility] Via injury; unspecified [facility] contusion (17 part of head, Hospital - sources.) initial [place] encounter (79759) Thyroid Disorder of Episodic Active PILLOJANETTE JEFFERY , H V ia disorders (5 thyroid, DO [facility] sources.) unspecified Hospital - [place] (78980) Immunizations Encounter for Episodic Active ABHI [facility] Via and screening immunization Amanda INFANTE for infectious [facility] - disease (5 [place] sources.) (86327) Essential Essential 09-26-2019 - Chronic Active ARCHANA ISAIAS , D O Not Available hypertension (primary) (18951) (20 sources.) hypertension External cause Fall from 09-26-2019 - Episodic Active ARCHANA BRYON O , DO [facility] Via codes: Fall non-moving Amanda (13 sources.) wheelchair, Hospital - initial [place] encounter ([address]) Translations: [ FALL ON SAME LEVEL, UNSPECIFIED, INITIAL, UNSPECIFIED FALL, INITIAL ENCOUNTER, FALL SAME LEV FROM SLIP/TRIP W/O STRIKE , FALL FROM OR OFF TOILET W/O STRIKE AGAIN] Fluid and Hypopotassemia Episodic Active ABHI [facility]ospita l electrolyte [facility] of disorders (10 [place] sources.) [facility] (94392) Open wounds of Laceration of Episodic Active ABHI Not Available head; neck; forehead BRUEGGEGOLD , (80847) and trunk (22 Translations: MD sources.) [ LACERATION W/O FOREIGN BODY OF OTH PART , Facial laceration, Laceration of forehead] Spondylosis; Low back pain 09-26-2019 - Episodic Active KAE VEDA TE , [facility] Via intervertebral PARTS SPECIALIST [facility] disc Hospital - disorders; [place] other back (52425) problems (4 sources.) NEGATED Mood disorders no information Active no name no information no Translations: information (6 [ Bipolar sources.) disord, crnt epsd depress, severe, w psych features, BIPOLAR , DEPRESSION] Thyroid Nontoxic Chronic Active ABHI [facility] Via disorders (12 multinodular Amanda INFANTE sources.) goiter Hospital - Translations: [place] [ NONTOXIC (41766) MULTINODULAR GOITER, NONTOXIC GOITER, UNSPECIFIED, Thyroid lump] Other Other long Episodic Active ARCHANA ISAIAS , DO Not Av ailable aftercare (21 term (current) (56023) sources.) drug therapy Other Other 10-16-2019 - Episodic Active BETO MOSES [facility] Via connective specified , ELEMENTARY SCHOOL DIRECTOR Amanda tissue disease disorders of Hospital - (4 sources.) muscle [place] ([address]10) Other Pain in left 09-26-2019 - Episodic Active ARCHANA ISAIAS , DO [facility] Via non-traumatic hip [facility] joint Hospital - disorders (10 [place] sources.) (29078) Other Pain in right 09-26-2019 - Episodic Active ARCHANA ISAIAS , DO [facility] Via non-traumatic hip [facility] joint Hospital - disorders (10 [place] sources.) (11639) Other Pain in right Episodic Active JASMINA ZAVALA [facility] Vi a non-traumatic shoulder [facility] joint Hospital - disorders (4 [place] sources.) (39045) Other Personal Episodic Active ABHI [facility] Via gastrointestin history of Amanda INFANTE al disorders other diseases [facility] - (5 sources.) of the [place] digestive (99061) system Personality Personality Chronic Active JASMNIA ZAVALA [facility] Vi a disorders (4 disorder, Amanda sources.) unspecified Hospital - [place] (63014) Schizophrenia Schizophrenia, 09-26-2019 - Chronic Active JOHNATHON UA [facility] Via and other unspecified BRUAmanda CURRIE psychotic Hospital - disorders (11 [place] sources.) (67623) Other bone Scoliosis [and Chronic Active HOPE TAMEKA No t Available disease and kyphoscoliosis , (92190) musculoskeleta ], idiopathic l deformities (2 sources.) Other acquired Scoliosis, 10-19-2019 - Chronic Active BETO CORTES [facility] Via deformities (1 unspecified , ELEMENTARY SCHOOL DIRECTOR Amanda source.) Hospital [facility] (87071) Other Shoulder pain Episodic Active CYN Arrieta ion Via non-traumatic [address] [facility] disorders (1 (75655) source.) Spondylosis; Spondylosis Chronic Active ARCHANA ISAIAS , DO [facility] Via intervertebral without Amanda disc myelopathy or Hospital - disorders; radiculopathy, [place] other back cervical (95619) problems (21 region sources.) Translations: [ SPONDYLOSIS W/O MYELOPATHY OR RADICULOPA, SPONDYLS W/O MYELOPATHY OR RADICULOPATHY, SPONDYLOSIS W/O MYELOPATHY OR RADICULOPA] Other skin Swelling, Episodic Active CAMI [facility] Via disorders (4 mass, or lump GELLENDER , DO Amanda sources.) in head and Hospital - neck [place] (17372) Other acquired Thoracogenic Chronic Active ABHI [facility] Via deformities scoliosis, BRUEGGEMANN , Amanda (10 sources.) thoracic MD [facility] (88063) Other acquired Thoracogenic Chronic Active ARCHANA ISAIAS , DO [facility] Via deformities (8 scoliosis, Amanda sources.) thoracolumbar Hospital [facility] (50015) Delirium Unspecified Chronic Active [facility] dementia and dementia with LEISURE [facility] o f amnestic and behavioral [place] other disturbance [facility] ([address]0430) cognitive Translations: disorders (16 [ DEMENTIA, sources.) UNSPECIFIED, IN CONDITIONS CLASSIFIED ELSEWHERE WITH BEHAVIORAL DISTURBANCE] Other injuries Unspecified Episodic Active ARCHANA ISAIAS , DO [facility] Via and conditions injury of [facility] due to head, initial Hospital - external encounter [place] causes (14 (88799) sources.) Other acquired Unspecified 10-19-2019 - Chronic Active BETO Shanthi VALERA [facility] Via deformities (1 kyphosis, site , ELEMENTARY SCHOOL DIRECTOR Amanda source.) unspecified Hospital - [place] (49388) External cause Unspecified 09-26-2019 - Episodic Active ARCHANA R YEE , DO [facility] Via codes: Place place in [facility] of occurrence residential Hospital - (10 sources.) as the place [place] of occurrence (65318) of the external cause Translations: [ BATHROOM IN HALF-WAY PLACE, UNSP PLACE IN UNSP NON-INSTITUT (PRIVATE] Malaise and Weakness Episodic Active ART CHARBEL , Not Av ailable fatigue (6 MD (51061) sources.) Past or Other Problems Problem Normalized Date of Normalized Normalized Provider Fac ility Classification Problem(s) Problem Problem Problem Sta tus Onset/Resoluti Duration on Coma; stupor; Coma scale, no information no information ABHI Not Available and brain eyes open, BRUEGGEMANN , (26114) damage (10 spontaneous, MD sources.) at arrival to emergency department Translations: [ COMA SCALE, BEST MOTOR RESPONSE, OBEYS C, COMA SCALE, BEST VERBAL RESPONSE, ORIENT, COMA SCALE, BEST MOTOR RESPONSE, OBEYS C, COMA SCALE, BEST VERBAL RESPONSE, ORIENT] Abdominal Diaphragmatic Episodic Completed ARCHANA ISAIAS , DO [facility] Via hernia (18 hernia without Amanda sources.) obstruction or Hospital - gangrene [place] ([address]403) External cause Fall on same no information no information ARCHANA ESPARZA , DO Not Available codes: Fall level, (39245) (20 sources.) unspecified, initial encounter Translations: [ FALL SAME LEV FROM SLIP/TRIP W/O STRIKE , FALL FROM OR OFF TOILET W/O STRIKE AGAIN, FALL FROM NON-MOVING WHEELCHAIR, INITIAL, Fall at residential, UNSPECIFIED FALL, INITIAL ENCOUNTER] External cause Other external no information no information L BRYAN ISAIAS , DO Not Available codes: cause status (01752) Unspecified (21 sources.) External cause Other external Episodic Completed Vijaya GATICA O [facility] Via codes: cause status [facility] Unspecified (7 Hospital - sources.) [place] (86456) Syncope (8 Syncope and Episodic Completed ARCHANA ISAIAS , DO [facility] Via sources.) collapse [facility] (14442) Other injuries Unspecified no information no information ARCHANA R YEE , DO Not Available and conditions injury of (03391) due to head, initial external encounter causes (21 sources.) External cause Unspecified no information no information ARCHANA R YEE , DO Not Available codes: Place place in (63353) of occurrence residential (20 sources.) as the place of occurrence of the external cause Translations: [ BATHROOM IN HALF-WAY PLACE, UNSP PLACE IN UNSP NON-INSTITUT (PRIVATE] Procedures Procedure Normalized Procedure Procedure Result Performer Facility Date 05-27-2017 Billing Notes on claim no information no name (no p darwin) [facility] ([id number]) 05-16-2019 Computerized axial no information no name (no phone ) [place] Via [facility] (42447) 05-12-2018 Computerized axial no information ABHI LOERA Via [facility] tomography brain [place] (89974) 11-18-2017 Dental Outreach adjust no information no name (no p darwin) [facility] (64395) 11-18-2017 Dental prophylaxis no information no name (no phone ) [facility] ([id number]) 05-16-2019 Radiography of forearm no information no name (no p darwin) [place] Via [facility] (15267) 05-16-2019 Radiography of humerus no information no name (no p darwin) [place] [facility] (64306) 05-27-2017 Screening of a patient no information no name (no p darwin) [facility] (06695) 11-18-2017 Topical fluoride no information no name (no phone) [facility] varnish [facility] (43545) Immunizations Normalized Immunization Date Notes Care Provider Facili ty Immunization tetanus toxoid, 05-13-2018 - no information CYN JARAMILLO [address] [address] [facility] reduced diphtheria 05-13-2018 [place] (04151) toxoid, and acellular pertussis vaccine, adsorbed no information 05-17-2019 - no information CYN JARAMILLO [address] A scension Via 05-17-2019 [facility] (77356) Results Test Name Value Interpretation Reference Range Date Time Fa cility (Normalized) (Normalized) (Medline Reference) No panel information on null NEGATED no information (no code) no information no information No panel information on 2018-12-23 Albumin BCG dye 3.4 (L) 12-23-2018 Hospital [Mass/Vol] 05:34-[address] ([address]) ALP [Catalytic 114 U/L (no code) 44 - 147 U/L 12-23-2018 Hosp ital activity/Vol] 05:34-[address] ([address]) ALT [Catalytic 17 U/L (no code) 4 - 40 U/L 12-23-2018 Hospit al activity/Vol] 05: [facility] (57971) Anion gap 12 mmol/L (no code) 3 - 11 mmol/L 12-23-2018 Hospital [Moles/Vol] 05:34 [facility] (17335) AST [Catalytic 16 U/L (no code) 10 - 34 U/L 12-23-2018 Hospi tariq activity/Vol] 05: [facility] (01764) Basophils (Bld) 0.0 10*3/uL (no code) 0 - 0.3 10*3/uL 12-23-2018 Hospital [#/Vol] 05: [facility] () Basophils/100 0.40 % (no code) 0.5 - 1 % 12-23-2018 Hospital WBC (Bld) 05: [facility] () Bilirubin 0.5 mg/dL (no code) 0.1 - 1.2 mg/dL 12-23-2018 Hospit al [Mass/Vol] 05: [facility] () Calcium 9.4 mg/dL (no code) 8.5 - 10.2 mg/dL 12-23-2018 Hospi tariq [Mass/Vol] 05: [facility] () Chloride 102 mmol/L (no code) 95 - 106 mmol/L 12-23-2018 Hospi tariq [Moles/Vol] 05: [facility] ([id number]) Creatinine 1.02 mg/dL (no code) 12-23-2018 Hospital [Mass/Vol] 05: [facility] ([id number]) Eosinophils 0.3 10*3/uL (no code) 0.05 - 0.5 12-23-2018 Hospita l (Bld) [#/Vol] 10*3/uL 05: [facility] ([id number]) Eosinophils/100 3.1 % (no code) 1 - 4 % 12-23-2018 Hospit al WBC (Bld) 05: [facility] () Erythrocyte 13.4 % (no code) 11.6 - 14.6 % 12-23-2018 Hospit al distribution 05: [facility] width (RBC) [facility] [Ratio] ([id number]) GFR/1.73 sq 73 (no code) 90 - 120 12-23-2018 Hospital M.predicted MDRD mL/min/{1.73_m2} mL/min/{1.73_m2} 05: [facility] (S/P/Bld) [Vol [facility] rate/Area] () Globulin (S) 2.5 g/dL (no code) 2 - 3.5 g/dL 12-23-2018 Hospit al [Mass/Vol] 05: [facility] () Glucose 84 mg/dL (no code) 60 - 125 mg/dL 12-23-2018 Hospita l [Mass/Vol] 05: [facility] ([id number]) HCO3 (P) 30 (no code) 12-23-2018 Hospital [Moles/Vol] 05: [facility] () Hematocrit (Bld) 41.3 % (L) 36.1 - 50.3 % 12-23-2018 H ospital [Volume 05: [facility] fraction] [facility] () Hemoglobin (Bld) 14.2 g/dL (no code) 12.1 - 17.2 g/dL 12-23-2018 Hospital [Mass/Vol] 05:34 [facility] (34076) Lymphocytes 1.12 10*3/uL (no code) 0.9 - 2.9 12-23-2018 Hospita l (Bld) [#/Vol] 10*3/uL 05: [facility] ([id number]) Lymphocytes/100 11.7 % (no code) 20 - 40 % 12-23-2018 Hospit al WBC (Bld) 05: [facility] (09600) MCH (RBC) 30.7 pg (no code) 27 - 31 pg 12-23-2018 Hospital [Entitic mass] 05: [facility] (80506) MCHC (RBC) 34.4 g/dL (no code) 32 - 36 g/dL 12-23-2018 Hospital [Mass/Vol] 05: [facility] (30868) MCV (RBC) 89.4 fL (no code) 80 - 100 fL 12-23-2018 Hospital [Entitic vol] 05: [facility] (85912) Monocytes (Bld) 0.8 10*3/uL (no code) 0.3 - 0.9 12-23-2018 Hosp ital [#/Vol] 10*3/uL 05: [facility] (70275) Monocytes/100 8.0 % (no code) 2 - 8 % 12-23-2018 Hospital WBC (Bld) 05: [facility] ([id number]) Neutrophils 7.34 10*3/uL (H) 1.7 - 7 10*3/uL 12-23-2018 H ospital (Bld) [#/Vol] 05: [facility] ([id number]) Neutrophils/100 76.8 % (no code) 40 - 60 % 12-23-2018 Hospit al WBC (Bld) 05: [facility] (80553) Osmolality Calc 290 (no code) 05 Hospital [Osmolality] 05: [facility] (32151) Platelet mean 10.4 fL (H) 7.2 - 11.7 fL 12-23-2018 Hosp ital volume (Bld) 05: [facility] [Entitic vol] [facility] (64144) Platelets (Bld) 249 10*3/uL (no code) 150 - 450 12-23-2018 Hosp ital [#/Vol] 10*3/uL 05: [facility] (57918) Potassium 4.6 mmol/L (no code) 3.7 - 5.2 mmol/L 12-23-2018 Hosp ital [Moles/Vol] 05: [facility] (45781) Protein 5.9 g/dL (L) 6.4 - 8.3 g/dL 12-23-2018 Hospita l [Mass/Vol] 05: [facility] (06437) RBC (Bld) 4.62 10*6/uL (no code) 4.2 - 6.1 12-23-2018 Hospital [#/Vol] 10*6/uL 05: [facility] (28195) Sodium 139 mmol/L (no code) 135 - 145 mmol/L 12-23-2018 Hosp ital [Moles/Vol] 05: [facility] (97257) Urea nitrogen 23 mg/dL (no code) 7 - 20 mg/dL 12-23-2018 Hospi tariq [Mass/Vol] 05: [facility] () WBC (Bld) 9.57 10*3/uL (no code) 3.5 - 10.5 12-23-2018 Hospital [#/Vol] 10*3/uL 05: [facility] () No panel information on 2018-12-16 Albumin BCG dye 4.1 (no code) 12-16-2018 Hospital [Mass/Vol] 00: [facility] (35907) ALP [Catalytic 124 U/L (no code) 44 - 147 U/L 12-16-2018 Hosp ital activity/Vol] 00: [facility] (13309) ALT [Catalytic 23 U/L (no code) 4 - 40 U/L 12-16-2018 Hospit al activity/Vol] 00: [facility] (94869) Amphetamines Ql no information (no code) 12-16-2018 Hospita l (U) 01: [facility] (56882) Anion gap 14 mmol/L (no code) 3 - 11 mmol/L 12-16-2018 Hospital [Moles/Vol] 00: [facility] (46926) Anion gap 14 mmol/L (no code) 3 - 11 mmol/L 12-16-2018 Hospital [Moles/Vol] 06: [facility] (10561) AST [Catalytic 18 U/L (no code) 10 - 34 U/L 12-16-2018 Hospi tariq activity/Vol] 00: [facility] (12984) Bacteria LM Ql no information (no code) 12-16-2018 Hospital (Urine sed) 01: [facility] (25457) Barbiturates no information (no code) 12-16-2018 Hospital Screen Ql (U) 01: [facility] (07385) Basophils (Bld) 0.0 10*3/uL (no code) 0 - 0.3 10*3/uL 12-16-2018 Hospital [#/Vol] 00: [facility] (11198) Basophils/100 0.50 % (no code) 0.5 - 1 % 12-16-2018 Hospital WBC (Bld) 00: [facility] (47786) Benzodiazepine no information (no code) 12-16-2018 Hospital metabolites 01: [facility] Screen Ql (U) [facility] (31843) Bilirubin 0.4 mg/dL (no code) 0.1 - 1.2 mg/dL 12-16-2018 Hospit al [Mass/Vol] 00: [facility] (20384) Bilirubin N/A (A) 12-16-2018 Hospital Confirm Ql (U) : [facility] (35660) Bilirubin Ql (U) no information (no code) 12-16-2018 Hospit al : [facility] (61394) Calcium 10.2 mg/dL (no code) 8.5 - 10.2 mg/dL 12-16-2018 Hosp ital [Mass/Vol] 00: [facility] (63938) Calcium 10.0 mg/dL (no code) 8.5 - 10.2 mg/dL 12-16-2018 Hosp ital [Mass/Vol] 06: [facility] (01559) Carboxy no information (no code) 12-16-2018 Hospital tetrahydrocannab 01: [facility] inol Ql (U) [facility] (09203) Chloride 107 mmol/L (no code) 95 - 106 mmol/L 12-16-2018 Hospi tariq [Moles/Vol] 00: [facility] (11476) Chloride 108 mmol/L (no code) 95 - 106 mmol/L 12-16-2018 Hospi tariq [Moles/Vol] 06: [facility] (68337) Cholesterol 171 mg/dL (no code) 180 - 200 mg/dL 12-16-2018 Hosp ital [Mass/Vol] 06: [facility] (76276) Cholesterol in 42 mg/dL (no code) 12-16-2018 Hospital HDL [Mass/Vol] 06: [facility] (06180) Cholesterol in 114 mg/dL (H) 0 - 100 mg/dL 12-16-2018 Hos pital LDL [Mass/Vol] 06: [facility] (92502) Cholesterol in 15 mg/dL (no code) 12-16-2018 Hospital VLDL [Mass/Vol] 06: [facility] (07759) Cholesterol.tota 4.1 {ratio} (no code) 12-16-2018 Hospital l/Cholesterol in 06: [facility] HDL [Mass ratio] [facility] (29357) Clarity (U) Clear (no code) 12-16-2018 Hospital : [facility] (59383) Cocaine Ql (U) no information (no code) 12-16-2018 Hospital : [facility] (52460) Color (U) Yellow (no code) 12-16-2018 Hospital 01: [facility] (93319) Creatinine 1.24 mg/dL (no code) 12-16-2018 Hospital [Mass/Vol] 00: [facility] (27167) Creatinine 1.03 mg/dL (no code) 12-16-2018 Hospital [Mass/Vol] 06: [facility] (26907) Crystals LM Nom Amorphous (no code) 12-16-2018 Hospital (Urine sed) material: 01: [facility] Few/HPF [facility] (18999) CULTURE SOURCE cath urine (no code) 12-16-2018 Hospital 01: [facility] (14201) Electrocardiogra Complete (no code) 12-16-2018 Hospital ms recorded 00: [facility] () Eosinophils 0.1 10*3/uL (no code) 0.05 - 0.5 12-16-2018 Hospita l (Bld) [#/Vol] 10*3/uL 00: [facility] (97063) Eosinophils/100 1.6 % (no code) 1 - 4 % 12-16-2018 Hospit al WBC (Bld) 00: [facility] (56617) Epithelial 0-5/HPF (A) 12-16-2018 Hospital cells.squamous 01: [facility] LM.HPF (Urine [facility]) [#/Area] ([id number]) Erythrocyte 13.4 % (no code) 11.6 - 14.6 % 12-16-2018 Hospit al distribution 00: [facility] width (RBC) [facility] [Ratio] ([id number]) Ethanol Ql (U) <10.00 (L) 12-16-2018 Hospital 01: [facility] (74968) FINAL CULTURE no information (no code) 12-16-2018 Hospital RESULTS 01: [facility] (09886) FINAL CULTURE No Growth 48 (no code) 12-16-2018 Hospital RESULTS hours 01: [facility] (63421) GFR/1.73 sq 59 (L) 90 - 120 12-16-2018 Hospital M.predicted MDRD mL/min/{1.73_m2} mL/min/{1.73_m2} 00: [facility] (S/P/Bld) [Vol [facility] rate/Area] ([id number]) GFR/1.73 sq 72 (no code) 90 - 120 12-16-2018 Hospital M.predicted MDRD mL/min/{1.73_m2} mL/min/{1.73_m2} 06: [facility] (S/P/Bld) [Vol [facility] rate/Area] () Globulin (S) 3.3 g/dL (no code) 2 - 3.5 g/dL 12-16-2018 Hospit al [Mass/Vol] 00: [facility] () Glucose 166 mg/dL (H) 60 - 125 mg/dL 12-16-2018 Hospita l [Mass/Vol] 00: [facility] () Glucose 107 mg/dL (no code) 60 - 125 mg/dL 12-16-2018 Hospita l [Mass/Vol] 06: [facility] (55645) Glucose Test no information (no code) 12-16-2018 Hospital strip (U) : [facility] [Mass/Vol] [facility] (33018) HCO3 (P) 21 (L) 12-16-2018 Hospital [Moles/Vol] 00: [facility] (18081) HCO3 (P) 24 (no code) 12-16-2018 Hospital [Moles/Vol] 06: [facility] () Hematocrit (Bld) 46.1 % (no code) 36.1 - 50.3 % 12-16-2018 H ospital [Volume 00: [facility] fraction] [facility] (81897) Hemoglobin (Bld) 16.2 g/dL (no code) 12.1 - 17.2 g/dL 12-16-2018 Hospital [Mass/Vol] 00: [facility] (56427) Hemoglobin Ql no information (no code) 12-16-2018 Hospital (U) 01:35 [facility] (54782) Ketones (U) no information (no code) 12-16-2018 Hospital [Mass/Vol] : [facility] (61671) Leukocyte no information (no code) 12-16-2018 Hospital esterase Test 01: [facility] strip Ql (U) [facility] (43477) Lymphocytes 1.14 10*3/uL (no code) 0.9 - 2.9 12-16-2018 Hospita l (Bld) [#/Vol] 10*3/uL 00: [facility] (45314) Lymphocytes/100 13.1 % (no code) 20 - 40 % 12-16-2018 Hospit al WBC (Bld) 00: [facility] (32951) Magnesium 2.0 mg/dL (no code) 1.7 - 2.2 mg/dL 12-16-2018 Hospit al [Mass/Vol] 01: [facility] (86820) MCH (RBC) 29.8 pg (no code) 27 - 31 pg 12-16-2018 Hospital [Entitic mass] 00: [facility] (57741) MCHC (RBC) 35.1 g/dL (no code) 32 - 36 g/dL 12-16-2018 Hospital [Mass/Vol] 00: [facility] (78925) MCV (RBC) 84.9 fL (no code) 80 - 100 fL 12-16-2018 Hospital [Entitic vol] 00: [facility] ([id number]) MEDIA PLATED Setup at 01:00 (no code) 12-16-2018 Hospital on 12/16/2018 01: [facility] (03018) Methylenedioxyme no information (no code) 12-16-2018 Hospit al thamphetamine : [facility] Screen Ql (U) [facility] (33530) Monocytes (Bld) 0.6 10*3/uL (no code) 0.3 - 0.9 12-16-2018 Hosp ital [#/Vol] 10*3/uL 00: [facility] (65496) Monocytes/100 6.8 % (no code) 2 - 8 % 12-16-2018 Hospital WBC (Bld) 00: [facility] (74798) Neutrophils 6.78 10*3/uL (no code) 1.7 - 7 10*3/uL 12-16-2018 H ospital (Bld) [#/Vol] 00: [facility] (78891) Neutrophils/100 78.0 % (no code) 40 - 60 % 12-16-2018 Hospit al WBC (Bld) 00: [facility] (72645) Nitrite Ql (U) no information (no code) 12-16-2018 Hospital 01: [facility] () Opiates Screen no information (no code) 12-16-2018 Hospital Ql (U) 01: [facility] (47186) Osmolality Calc 297 (H) 12-16-2018 Hospital [Osmolality] 00: [facility] (37099) Osmolality Calc 300 (H) 12-16-2018 Hospital [Osmolality] 06: [facility] (76611) Oxycodone Ql (U) no information (no code) 12-16-2018 Hospit al 01: [facility] (69755) pH (U) 5.5 [pH] (no code) 4.6 - 8 [pH] 12-16-2018 Hospital 01: [facility] (41933) Phencyclidine Ql no information (no code) 12-16-2018 Hospit al (U) 01: [facility] (26638) Platelet mean 10.3 fL (H) 7.2 - 11.7 fL 12-16-2018 Hosp ital volume (Bld) 00: [facility] [Entitic vol] [facility] (65442) Platelets (Bld) 268 10*3/uL (no code) 150 - 450 12-16-2018 Hosp ital [#/Vol] 10*3/uL 00: [facility] (91338) Potassium 2.7 Result (LL) 12-16-2018 Hospital [Moles/Vol] Verified by : [facility] Repeat Analysis [facility] (39469) Potassium 3.8 DONE IN (no code) 12-16-2018 Hospital [Moles/Vol] i-STAT 04: [facility] (31231) Potassium 3.8 mmol/L (no code) 3.7 - 5.2 mmol/L 12-16-2018 Hosp ital [Moles/Vol] 06: [facility] (70955) PRELIM CULTURE No Growth 24 (no code) 12-16-2018 Hospital RESULTS hours : [facility] () Propoxyphene Ql no information (no code) 12-16-2018 Hospita l (U) [facility] () Protein (U) no information (no code) 0 - 20 mg/dL 12-16-2018 Ho spital [Mass/Vol] 01: [facility] () Protein 7.4 g/dL (no code) 6.4 - 8.3 g/dL 12-16-2018 Hospita l [Mass/Vol] 00: [facility] () RBC (Bld) 5.43 10*6/uL (H) 4.2 - 6.1 12-16-2018 Hospital [#/Vol] 10*6/uL 00: [facility] (50834) RBC LM.HPF 0-2/HPF (A) 12-16-2018 Hospital (Urine sed) : [facility] [#/Area] [facility] (16256) Sodium 139 mmol/L (no code) 135 - 145 mmol/L 12-16-2018 Hosp ital [Moles/Vol] 00: [facility] (86809) Sodium 142 mmol/L (no code) 135 - 145 mmol/L 12-16-2018 Hosp ital [Moles/Vol] 06: [facility] (43132) Specific gravity 1.020 (no code) 12-16-2018 Hospital (U) [Rel 01: [facility] density] [facility] (71780) Tricyclic no information (no code) 12-16-2018 Hospital antidepressants 01: [facility] Ql (U) [facility] (90334) Triglyceride 73 mg/dL (no code) 0 - 150 mg/dL 12-16-2018 Hospi tariq [Mass/Vol] 06: [facility] (33323) TSH Qn 0.64 (no code) 12-16-2018 Hospital 00: [facility] (87359) Urea nitrogen 31 mg/dL (H) 7 - 20 mg/dL 12-16-2018 Hospi tariq [Mass/Vol] 00: [facility] (79886) Urea nitrogen 31 mg/dL (H) 7 - 20 mg/dL 12-16-2018 Hospi tariq [Mass/Vol] 06: [facility] (36654) Urine Volume Urine Volume (no code) 12-16-2018 Hospital Insufficient 01: [facility] (<10mL) May [facility] Affect (22114) Microscopic Exam Urobilinogen Qn 0.2 (no code) 12-16-2018 Hospital (U) 01: [facility] (27474) WBC (Bld) 8.69 10*3/uL (no code) 3.5 - 10.5 12-16-2018 Hospital [#/Vol] 10*3/uL 00: [facility] (28562) WBC LM.HPF 0-2/HPF (A) 12-16-2018 Hospital (Urine sed) : [facility] [#/Area] [facility] (27361) no information Culture to (A) 12-16-2018 Hospital follow; cath 01: [facility] urine [facility] (54286) venous blood hemoglobin measurement (mass/volume) on 2018-05-13 Hemoglobin mass 14.5 g/dL (no code) 12.1 - 17.2 g/dL Via [facility] conc (Bld) [facility] (98586) urine urobilinogen measurement by automated test strip (mass/volume) on 2018-05-13 Urobilinogen NORMAL (no code) Via [facility] Test strip Qn [facility] ([id number]) urine total bilirubin detection by test strip on 2018-05-13 Bilirubin Ql (U) no information (no code) Via [facility] ([id number]) urine protein assay by test strip, semi-quantitativ e on 2018-05-13 Protein Test 2+ (*) Via [facility] strip ([facility] () urine ph measurement by test strip on 2018-05-13 pH Test strip 5 [pH] (no code) 4.6 - 8 [pH] Via [facility] ([facility] ([id number]) urine nitrite detection by test strip on 2018-05-13 Nitrite Test no information (no code) Via [facility] strip ([facility] ([id number]) urine ketones detection by automated test strip on 2018-05-13 Ketones no information (no code) Via [facility] Automated test Hospital strip () [place] ([address]78) urine glucose detection by automated test strip on 2018-05-13 Glucose no information (no code) Via [facility] Automated test Hospital strip Ql ([facility] ([id number]) urine color determination on 2018-05-13 Color Nom (U) YELLOW (no code) Via [facility] ([id number]) urine clarity determination on 2018-05-13 Clarity Nom (U) CLEAR (no code) Via [facility] (59181) squamous epithelial cells detection in urine sediment by light microscopy on 2018-05-13 Epithelial RARE (no code) Via [facility] cells.squamous Hospital LM Ql (Urine [place] sed) ([id number]) specific gravity of urine by test strip on 2018-05-13 Specific gravity 1.020 (no code) Via [facility] Relative Density [facility] ([id number]) serum or plasma urea nitrogen/creatin ine mass ratio on 2018-05-13 Urea 30 mg/mg (no code) 6 - 22 mg/mg Via [facility] nitrogen/Creatin Hospital ine mass ratio [place] (08907) serum or plasma urea nitrogen measurement (mass/volume) on 2018-05-13 Urea nitrogen 30 mg/dL (H) 7 - 20 mg/dL Via [facility] ([id number]) serum or plasma total bilirubin measurement (mass/volume) on 2018-05-13 Bilirubin mass 0.3 mg/dL (no code) 0.1 - 1.2 mg/dL Via [facility] (53192) serum or plasma sodium measurement (moles/volume) on 2018-05-13 Sodium molar 139 mmol/L (no code) 135 - 145 mmol/L Via [facility] (34864) serum or plasma protein measurement (mass/volume) on 2018-05-13 Protein mass 6.8 g/dL (no code) 6.4 - 8.3 g/dL Via [facility] ([id number]) serum or plasma potassium measurement (moles/volume) on 2018-05-13 Potassium molar 3.3 mmol/L (L) 3.7 - 5.2 mmol/L Via [facility] () serum or plasma glucose measurement (mass/volume) on 2018-05-13 Glucose mass 123 mg/dL (H) 60 - 125 mg/dL Via [facility] ([id number]) serum or plasma creatinine measurement with calculation of estimated glomerular filtration rate on 2018-05-13 GFR/1.73 sq M no information (no code) [facility] vol rate/area () (S/P/Bld) serum or plasma creatinine measurement (mass/volume) on 2018-05-13 Creatinine mass 0.99 mg/dL (no code) Via [facility] (09418) serum or plasma chloride measurement (moles/volume) on 2018-05-13 Chloride molar 105 mmol/L (no code) 95 - 106 mmol/L Via [facility] (87850) serum or plasma calcium measurement (mass/volume) on 2018-05-13 Calcium mass 8.9 mg/dL (no code) 8.5 - 10.2 mg/dL Via [facility] (65739) serum or plasma aspartate aminotransferase measurement (enzymatic activity/volume) on 2018-05-13 AST enzyme 21 U/L (no code) 10 - 34 U/L Via [facility] (70805) serum or plasma anion gap determination (moles/volume) on 2018-05-13 Anion gap 3 11 mmol/L (no code) 3 - 11 mmol/L Via [facility] molar [facility] ([id number]) serum or plasma alkaline phosphatase measurement (enzymatic activity/volume) on 2018-05-13 ALP enzyme 120 U/L (no code) 44 - 147 U/L Via [facility] act/[facility] (64784) serum or plasma albumin measurement (mass/volume) on 2018-05-13 Albumin mass 3.8 g/dL (no code) 3.4 - 5.4 g/dL Via [facility] ([id number]) serum or plasma alanine aminotransferase measurement (enzymatic activity/volume) on 2018-05-13 ALT enzyme 30 U/L (no code) 4 - 40 U/L Via [facility] act/[facility] ([id number]) mucus detection in urine sediment by light microscopy on 2018-05-13 Mucus LM Ql SMALL (*) Via [facility] (Urine sed) [facility] ([id number]) magnesium on 2018-05-13 Magnesium mass 2.0 mg/dL (no code) 1.7 - 2.2 mg/dL Via risti [facility] ([id number]) leukocyte esterase on 2018-05-13 Leukocyte 1+ (*) Via [facility] esterase Test Hospital strip (U) [place] ([id number]) hyaline casts detection in urine sediment by light microscopy on 2018-05-13 Hyaline casts LM no information (*) Via [facility] (Urine sed) [facility] ([id number]) erythrocytes detection in urine sediment by light microscopy on 2018-05-13 RBC LM Ql (Urine no information (no code) Via [facility]) [facility] ([id number]) crystals detection in urine sediment by light microscopy on 2018-05-13 Crystals LM Ql NONE (no code) Via [facility] (Urine sed) [facility] ([id number]) complete urinalysis with reflex to culture on 2018-05-13 Urinalysis NO (no code) Via [facility] Reflex Culture [place] panel - Urine ([id number]) casts detection in urine sediment by light microscopy on 2018-05-13 Casts LM Ql PRESENT (no code) Via [facility] (Urine sed) [facility] ([id number]) carbon dioxide on 2018-05-13 CO2 molar conc 23 mmol/L (no code) 23 - 29 mmol/L Via [facility] ([id number]) calcium measurement corrected for albumin on 2018-05-13 Calcium mass 9.1 mg/dL (no code) 8.5 - 10.2 mg/dL Via [facility] conc [facility] ([id number]) blood neutrophils automated count (number/volume) on 2018-05-13 Neutrophils Auto 6.2 10*3/uL (no code) 1.7 - 7 10*3/uL Via [facility] #/vol (Bld) [facility] ([id number]) blood monocytes/100 leukocytes on 2018-05-13 Monocytes/100 7 % (no code) 2 - 8 % Via [facility] WBC Auto (Bld) [facility] ([id number]) blood monocytes automated count (number/volume) on 2018-05-13 Monocytes Auto 0.6 10*3/uL (no code) 0.3 - 0.9 Via [facility] #/vol (Bld) 10*3/uL [facility] ([id number]) blood lymphocytes automated count (number/volume) on 2018-05-13 Lymphocytes Auto 1.2 10*3/uL (no code) 0.9 - 2.9 Via Mike viveros #/vol (Bld) 10*3/uL [facility] ([id number]) blood leukocytes automated count (number/volume) on 2018-05-13 WBC Auto #/vol 8.2 10*3/uL (no code) 3.5 - 10.5 Via [facility] (Bld) 10*3/uL [facility] ([id number]) blood hematocrit (volume fraction) on 2018-05-13 Hematocrit Auto 41 % (no code) 36.1 - 50.3 % Via [facility] Volume Fraction Hospital (Bld) [place] (86192) blood erythrocytes automated count (number/volume) on 2018-05-13 RBC Auto #/vol 5.00 10*6/uL (no code) 4.2 - 6.1 Via Vijay i (Bld) 10*6/uL [facility] ([id number]) bacteria detection in urine sediment by light microscopy on 2018-05-13 Bacteria LM Ql FEW (*) Via [facility] (Urine sed) [facility] ([id number]) automated urine sediment leukocyte count by microscopy (number/high power field) on 2018-05-13 WBC LM.HPF no information (no code) Via Amanda #/area (Urine Hospital sed) [place] ([id number]) automated urine sediment erythrocyte count by microscopy (number/high power field) on 2018-05-13 RBC LM.HPF NONE (no code) Via [facility] #/area (Urine Hospital sed) [place] (76820) automated erythrocyte mean corpuscular volume on 2018-05-13 MCV Auto Entitic 82 fL (no code) 80 - 100 fL Via Chri sti volume (RBC) [facility] ([id number]) automated erythrocyte mean corpuscular hemoglobin concentration measurement (mass/volume) on 2018-05-13 MCHC Auto mass 35 g/dL (no code) 32 - 36 g/dL Via Mike ti conc (RBC) [facility] ([id number]) automated erythrocyte mean corpuscular hemoglobin (mass per erythrocyte) on 2018-05-13 MCH Auto Entitic 29 pg (no code) 27 - 31 pg Via Mike ti mass (RBC) [facility] ([id number]) automated erythrocyte distribution width ratio on 2018-05-13 Erythrocyte 13.9 % (no code) 11.6 - 14.6 % Via [facility] distribution Hospital width Auto Ratio [place] (RBC) ([id number]) automated eosinophil count on 2018-05-13 Eosinophils Auto 0.2 10*3/uL (no code) 0.05 - 0.5 Via Mike ti #/vol (Bld) 10*3/uL [facility] ([id number]) automated blood platelet mean volume measurement on 2018-05-13 Platelet mean 9.9 fL (no code) 7.2 - 11.7 fL Via Mike ti volume Auto Hospital Entitic volume [place] (Bld) (88555) automated blood platelet count (count/volume) on 2018-05-13 Platelets Auto 294 10*3/uL (no code) 150 - 450 Via Amanda #/vol (Bld) 10*3/uL [facility] ([id number]) automated blood neutrophils/100 leukocytes on 2018-05-13 Neutrophils/100 76 % (H) 40 - 60 % Via Vijay i WBC Auto (Bld) [facility] (22603) automated blood lymphocytes/100 leukocytes on 2018-05-13 Lymphocytes/100 15 % (no code) 20 - 40 % Via Vijay i WBC Auto (Bld) [facility] (91031) automated blood eosinophils/100 leukocytes on 2018-05-13 Eosinophils/100 2 % (no code) 1 - 4 % Via Vijay i WBC Auto (Bld) [facility] ([id number]) automated blood basophils/100 leukocytes on 2018-05-13 Basophils/100 1 % (no code) 0.5 - 1 % Via Amanda WBC Auto (Bld) [facility] ([id number]) automated blood basophil count (count/volume) on 2018-05-13 Basophils Auto 0.1 10*3/uL (no code) 0 - 0.3 10*3/uL Via Ch risti #/vol (Bld) [facility] ([id number]) No panel information on 2017-10-27 EKG (Lab) See Scan Report (null) 10-27-2017 [place] 04:42-0400 [facility] ([id number]) No panel information on 2017-10-26 NEGATED no information (no code) 10-26-2017 [place] no 08:15-0400 [facility] (12704) NEGATED no information (null) 10-26-2017 [place] no 08:15-0400 [facility] (83699) NEGATED no information (L) 10-26-2017 [place] no 08:16-0400 [facility] (24826) NEGATED no information (L) 10-26-2017 [place] no 08:16-0400 [facility] ([id number]) NEGATED no information (no code) 10-26-2017 [place] no 08:16-0400 [facility] ([id number]) NEGATED no information (no code) 10-26-2017 [place] no 08:16-0400 [facility] (32651) NEGATED no information (no code) 10-26-2017 [place] no 08:16-0400 [facility] ([id number]) NEGATED no information (no code) 10-26-2017 [place] no 08:16-0400 [facility] (76268) NEGATED no information (no code) 10-26-2017 [place] no 08:16-0400 [facility] ([id number]) NEGATED no information (no code) 10-26-2017 [place] no 08:16-0400 [facility] (78198) NEGATED no information (no code) 10-26-2017 [place] no 08:16-0400 [facility] ([id number]) NEGATED no information (no code) 10-26-2017 [place] no 08:16-0400 [facility] ([id number]) NEGATED no information (no code) 10-26-2017 [place] no 08:16-0400 [facility] (73648) NEGATED no information (no code) 10-26-2017 [place] no 08:16-0400 [facility] ([id number]) NEGATED no information (no code) 10-26-2017 [place] no 08:16-0400 [facility] ([id number]) NEGATED no information (H) 10-26-2017 [place] no 08:16-0400 [facility] (06353) NEGATED no information (no code) 10-26-2017 [place] no 08:16-0400 [facility] ([id number]) NEGATED no information (no code) 10-26-2017 [place] no 08:16-0400 [facility] ([id number]) NEGATED no information (no code) 10-26-2017 [place] no 08:16-0400 [facility] (22676) NEGATED no information (no code) 10-26-2017 [place] no 08:16-0400 [facility] ([id number]) NEGATED no information (no code) 10-26-2017 [place] no 08:16-0400 [facility] ([id number]) NEGATED no information (no code) 10-26-2017 [place] no 08:16-0400 [facility] ([id number]) NEGATED no information (no code) 10-26-2017 [place] no 08:16-0400 [facility] ([id number]) No panel information on 2017-10-18 Cefep 2 (S) 10-18-2017 no information 16:020400 Ceftaz 4 (S) 10-18-2017 no information 16:0400 Cipro <=0.25 (S) 10-18-2017 no information 16:02-0400 Final >100,000 cfu/ml ("") 10-18-2017 no informa tion Pseudomonas 16:02-0400 aeruginosa Gent <=1 (S) 10-18-2017 no information 16:020400 Imi 1 (S) 10-18-2017 no information 16:0400 Levo 0.5 (S) 10-18-2017 no information 16:0400 Nitro >=512 (R) 10-18-2017 no information 16:0400 Pip/Chapin 8 (S) 10-18-2017 no information 16:020400 Tobra <=1 (S) 10-18-2017 no information 16:020400 no information PA (no code) 10-18-2017 no informat ion 16:020400 No panel information on 2017-10-17 NEGATED no information ("") 10-17-2017 no informat ion no 19:46-0400 information No panel information on 2017-10-16 Final Negative for ("") 10-16-2017 [place] Methicillin-Resi 10:34-0400 [facility] ([id number]) Staphylococcus aureus at 24 hours. No panel information on 2017-10-15 Absolute 7.02 (no code) 10-15-2017 [place] Neutrophil Count 13: [facility] ([id number]) Albumin Lvl 3.5 (no code) 10-15-2017 [place] 15: [facility] ([id number]) Albumin/Globulin 0.9 (L) 10-15-2017 [place] mass ratio 15: [facility] (26672) Alk Phos 115 (no code) 10-15-2017 [place] 15: [facility] (74287) ALT enzyme <6 (no code) 10-15-2017 [place] act/vol 15:10 [facility] (17920) Anion gap 3 12 mmol/L (no code) 3 - 11 mmol/L 10-15-2017 Fredon ia molar conc 15:100400 [facility] (27938) AST enzyme 11 (no code) 10-15-2017 [place] act/vol 15:10040 [facility] (55017) Baso Absolute 0.0 (no code) 10-15-2017 [place] 13: [facility] (71787) Basophil Auto 0.5 (no code) 10-15-2017 [place] 13: [facility] (76471) Bili Total 0.4 (no code) 10-15-2017 [place] 15:10-0400 [facility] (10504) Breakpoint +++++++++++++++ (no code) 10-15-2017 [place] 13: [facility] (53476) Calcium Lvl 9.1 (no code) 10-15-2017 [place] 15: [facility] (56528) Chloride molar 103 mmol/L (no code) 95 - 106 mmol/L 10-15-2017 [place] conc 15: [facility] (57964) Cholesterol in 49 mg/dL (no code) 10-15-2017 [place] HDL mass conc 15: [facility] (88413) Cholesterol in 133 (H) 10-15-2017 [place] LDL mass conc 15: [facility] (33249) Cholesterol mass 200 mg/dL (H) 180 - 200 mg/dL 10-15-2017 [place] conc 15: [facility] (53357) CO2 molar conc 22 mmol/L (no code) 23 - 29 mmol/L 10-15-2017 Fr edonia 15: [facility] (35105) Color Nom (U) Yellow (null) 10-15-2017 [place] 23: [facility] ([id number]) Creatinine Lvl 1.2 (no code) 10-15-2017 [place] 15: [facility] (79203) Culture? Yes (no code) 10-15-2017 [place] 23: [facility] (37668) Differential? No (no code) 10-15-2017 [place] 13: [facility] (15517) eGFR AA 74 (no code) 10-15-2017 [place] 15: [facility] (54278) eGFR Non-AA 61 (no code) 10-15-2017 [place] 15: [facility] (66974) Eos Absolute 0.1 (no code) 10-15-2017 [place] 13: [facility] (60612) Eosinophils/100 1.2 % (no code) 1 - 4 % 10-15-2017 Fredon ia WBC Auto (Bld) 13: [facility] (03421) Erythrocyte 13.6 % (no code) 11.6 - 14.6 % 10-15-2017 Fredon ia distribution 13: [facility] width Auto [facility] (40591) (RBC) Globulin 3.8 (H) 10-15-2017 [place] 15: [facility] (57293) Glucose Lvl 191 (H) 10-15-2017 [place] 15: [facility] (31873) Glucose mass no information (null) 0 - 15 mg/dL 10-15-2017 F redonia conc (U) 23:14 [facility] (80466) Hematocrit Auto 44.9 % (no code) 36.1 - 50.3 % 10-15-2017 Fr edonia Volume Fraction 13: [facility] (15152) Hemoglobin mass 15.6 g/dL (no code) 12.1 - 17.2 g/dL 10-15-2017 [place] conc (Bld) 13: [facility] (17027) Ketones Ql (U) no information (null) 10-15-2017 [place] 23:14 [facility] (28163) Lymph Absolute 1.3 (no code) 10-15-2017 [place] 13: [facility] (15627) Lymphocytes/100 13.8 % (no code) 20 - 40 % 10-15-2017 Fredon ia WBC Auto (Bld) 13: [facility] (53075) MCH Auto Entitic 29.3 pg (no code) 27 - 31 pg 10-15-2017 Cornell onia mass (RBC) 13: [facility] (89866) MCHC Auto mass 34.7 g/dL (no code) 32 - 36 g/dL 10-15-2017 Cornell onia conc (RBC) 13: [facility] (60953) MCV Auto Entitic 84.2 fL (no code) 80 - 100 fL 10-15-2017 Nate donia volume (RBC) 13: [facility] (75364) Bleckley Absolute 0.7 (no code) 10-15-2017 [place] 13: [facility] (56669) Monocytes/100 7.9 % (no code) 2 - 8 % 10-15-2017 [place] WBC Auto (Bld) 13: [facility] (21772) Neutro Absolute 7.0 (H) 10-15-2017 [place] 13: [facility] (55634) Neutro Auto 76.6 (no code) 10-15-2017 [place] 13: [facility] (77171) Osmolality Calc 275 (no code) 10-15-2017 [place] 15: [facility] ([id number]) Platelet mean 10.2 fL (no code) 7.2 - 11.7 fL 10-15-2017 Cornell onia volume Auto 13: [facility] volume [facility] (16789) (Bld) Platelets Auto 267 (no code) 10-15-2017 [place] #/vol (Bld) 13: [facility] (50612) Potassium Lvl 3.4 (L) 10-15-2017 [place] 15: [facility] (07760) Protein mass 7.3 g/dL (no code) 6.4 - 8.3 g/dL 10-15-2017 Cornell onia conc 15: [facility] (70727) RBC Auto #/vol 5.33 (no code) 10-15-2017 [place] (Bld) 13: [facility] (19152) Sodium Lvl 137 (no code) 10-15-2017 [place] 15: [facility] (35027) T4 free mass 1.07 ng/dL (no code) 0.9 - 2.2 ng/dL 10-15-2017 Fr edonia conc 15: [facility] (23330) Thyrotropin Qn 0.86 (no code) 10-15-2017 [place] 15: [facility] (16107) Triglyceride 89 mg/dL (no code) 0 - 150 mg/dL 10-15-2017 Bryan ino mass conc 15: [facility] (54517) UA Appear Clear (null) 10-15-2017 [place] 23: [facility] (58051) UA Bacteria None Seen (no code) 10-15-2017 [place] 23: [facility] (10913) UA Blood no information (null) 10-15-2017 [place] 23:14040 [facility] (35707) UA Leuk Est no information (null) 10-15-2017 [place] 23:14 [facility] (87920) UA Nitrite no information (null) 10-15-2017 [place] 23:14 [facility] (87514) UA pH 5.5 (no code) 10-15-2017 [place] 23:14 [facility] (30297) UA Protein no information (null) 10-15-2017 [place] 23:14040 [facility] (62212) UA RBC None Seen (no code) 10-15-2017 [place] 23: [facility] (59271) UA Spec Grav 1.020 (no code) 10-15-2017 [place] 23:14 [facility] (49987) UA Urobilinogen 0.2 (no code) 10-15-2017 [place] 23:14 [facility] (99658) UA WBC 0-2 (no code) 10-15-2017 [place] 23:14040 [facility] (00752) Urea nitrogen 26 mg/dL (no code) 7 - 20 mg/dL 10-15-2017 Bryan ino mass conc 15: [facility] ([id number]) Urea 22 (no code) 10-15-2017 [place] nitrogen/Creatin 15:10-0400 [facility] (92884) Urobilinogen no information (null) 0.2 - 1 10-15-2017 Cornell onia Test strip Qn {Arcenio'U}/dL 23:14 [facility] (19139) WBC Auto #/vol 9.17 (no code) 10-15-2017 [place] (Bld) 13:190400 [facility] (79591) No panel information on 2016-12-25 Surgical Sent to [place] (no code) 12-25-2016 Not Availa ble pathology study Pathology 11:29-0400 ([id number]) No panel information on 2016-12-16 Electrocardiogra Complete (no code) 12-16-2016 Not Avail able ms recorded 13: ([id number]) FINAL CULTURE no information (no code) 12-16-2016 Not Avail able RESULTS 13:15-0400 ([id number]) MEDIA PLATED Setup at 17:10 (no code) 12-16-2016 Not Availa ble on 12/16/2016 13:15-0400 ([id number]) Vital Signs Vital Sign Value Interpretation Reference Date Time Care Prov ider Facility (Normalized) (Normalized) Range NEGATED (no code) 11-28-2014 no name no information 1010.1 23:14-0400 Interventions No Information Plan of Treatment Normalized Care Care Detail Care Activity Date Care Provider F acility Activity Patient Education Contusion (DC) no information CYN JARAMILLO [phone] [facility] ([id number]) Patient referral no information no information CYN JARAMILLO [phone] [facility] ([id number]) Goals Patient Goal Desired Goal no information no information Social History Normalized Code Original Code Date Value no information no information 05-17-2019 Denies Use no information no information 05-17-2019 No no information no information 05-17-2019 Denies no information no information 05-13-2018 Y - FALLEN X3 S JAVIER AUGUST 2016, THYROID REMOVED Sex Assigned At Sex Assigned At no information M rachelle Functional Status The data below is from unstructured sources Functional Status Finding Observation Time Dexterity Right-handed 0 11-20-201401:36 Weight Bearing Statu Full 75-01-047164:23 Transferring/Ambulat Needs Assistance :36 Bathing Needs Assistance [id number] Dressing Needs Assistance :36 Eating Independent 11-20:36 Drinking Independent :36 Toileting Needs Assistance :36 Able to Turn Self in Dependent :36 Cognitive Status Finding Observation Time Level of Consciousne Alert :15 Oriented to Person Yes 0 :[address] Yes :15 Oriented to Time No 05-:15 Combative Other (specify) Comment: no combative behavior noted or reported thus far this shift. :05 Eyes - FABRIZIO Yes 12-01-19 1507:15 Functional Status Finding Observation Time Dexterity Right-handed 0 :16 Weight Bearing Statu Full [id number] Transferring/Ambulat Needs Assistanc e Comment: For safety :16 Bathing Needs Assistance :16 Dressing Independent :16 Eating Independent 09-20:16 Drinking Independent :16 Toileting Needs Assistance :16 Able to Turn Self in Independent :16 Cognitive Status Finding Observation Time Level of Consciousne Alert :02 Oriented to Person Yes 0 :[address] Yes :02 Oriented to Time Yes :02 Combative Comment: none noted :14 Dizziness Comment: none noted :14 Eyes - FABRIZIO Yes 10-02-19 1508:02 Mental Status The data below is from unstructured sourcesNo Mental Status Information Available Encounters Encounter Normalized Encounter Encounter Diagnosis Care Provi manuela Organization Date Type 05-19-2016 [facility] meza findings GWEN DANIEL (no panOpen JOSEPH (no - phone) ASHLEY CH phone) 05-19-2016 (no phone) GWEN - zzVICK (no phone) 05-19-2016 ASHLEY CH (no phone) 11-18-2017 [facility] meza findings ASHLEY CH (no [employer] - DENTAL phone) DENTAL (no phon e) 11-18-2017 - 11-18-2017 05-27-2017 [facility] meza findings JACKSIE SHORT (no [employer] - DENTAL phone) JACKSIE zzSHORT DENTAL (no phone) 05-27-2017 (no phone) JACKSIE - zzSHORT (no phone) 05-27-2017 11-25-2016 [facility] meza findings ASHLEY CH (no [employer] - DENTAL phone) DENTAL (no phon e) 11-25-2016 - 11-25-2016 10-14-2015 [facility] meza findings ASHLEY CH (no [employer] - DENTAL phone) DENTAL (no phon e) 10-14-2015 - 10-14-2015 11-13-2014 [facility] no information Doctor Migrati on (no [facility] [facility] - phone) (no phone) 11-13-2014 - 11-13-2014 11-12-2014 [facility] no information Doctor Migrati on (no [facility] - phone) (no phone) 11-12-2014 - 11-12-2014 10-24-2013 [facility] no information IMANI Cha (no [facility] - phone) Doctor (no phone) 10-24-2013 Migration (no phone) - IMANI Nielson (no 10-24-2013 phone) Doctor Migration (no phone) 08-31-2013 [facility] no information RAAD Melara (no [facility] - phone) Doctor (no phone) 08-31-2013 [facility] (no phone) - RAAD Mix (no 08-31-2013 phone) Doctor Migration (no phone) 07-06-2013 [facility] no information Doctor Migrati on (no [facility] - phone) (no phone) 07-06-2013 - 07-06-2013 07-04-2013 [facility] no information Doctor Migrati on (no [facility] - phone) (no phone) 07-04-2013 - 07-04-2013 06-06-2013 [facility] no information Doctor Migrati on (no [facility] - phone) (no phone) 06-06-2013 - 06-06-2013 05-15-2013 [facility] no information [facility]ati [facility] ([facility] phone[facility] 05-15-2013 - 05-15-2013 05-08-2013 [facility] no information RAAD Aguilar R (no [facility] - phone) (no phone) 05-08-2013 - 05-08-2013 04-12-2013 [facility] no information RAAD Melara (no [facility] - phone) (no phone) 04-12-2013 - 04-12-2013 03-24-2013 [facility] no information RAAD Melara [facility] (no phone) 03-24-2013 - 03-24-2013 02-13-2013 [facility] no information RAAD Aguilar R (no [facility] - phone) (no phone) 02-13-2013 - 02-13-2013 01-20-2013 [facility] no information RAAD Aguilar R (no [facility] - phone) (no phone) 01-20-2013 - 01-20-2013 01-19-2013 [facility] no information RAAD Aguilar R (no [facility] - phone) (no phone) 01-19-2013 - 01-19-2013 01-16-2013 [facility] no information RAAD Aguilar R [facility] (no phone) 01-16-2013 - 01-16-2013 11-30-2012 [facility] no information Doctor Migrati on (no [facility] - phone) (no phone) 11-30-2012 - 11-30-2012 11-29-2012 [facility] no information RAAD Aguilar R (no [facility] - phone) (no phone) 11-29-2012 - 11-29-2012 11-21-2012 [facility] no information RAAD [facility]ilar R [facility] (no phone) 11-21-2012 - 11-21-2012 10-28-2012 [facility] no information RAAD Aguilar R (no [facility] - phone) (no phone) 10-28-2012 - 10-28-2012 10-14-2012 [facility] no information Doctor Migrati on [facility] (no phone) 10-14-2012 - 10-14-2012 10-12-2012 [facility] no information RAAD Aguilar R [facility] (no phone) 10-12-2012 - 10-12-2012 08-05-2012 [facility] no information RAAD Aguilar R (no [facility] - phone) (no phone) 08-05-2012 - 08-05-2012 06-13-2012 [facility] no information RAAD Aguilar R (no [facility] - phone) Doctor (no phone) 06-13-2012 Migration (no phone) - RAAD Mix (no 06-13-2012 phone) Doctor Migration (no phone) 06-10-2012 [facility] no information Doctor Migrati on (no [facility] - phone) (no phone) 06-10-2012 - 06-10-2012 06-07-2012 [facility] no information RAAD Melara (no [facility] - phone) Doctor (no phone) 06-07-2012 [facility] (no phone) - RAAD Mix (no 06-07-2012 phone) Doctor Migration (no phone) 05-11-2012 [facility] no information RAAD Aguilar R (no [facility] - phone) Doctor (no phone) 05-11-2012 [facility] (no phone) - RAAD Mix (no 05-11-2012 phone) Doctor Migration (no phone) 02-26-2012 [facility] no information RAAD Aguilar R (no [facility] - phone) (no phone) 02-26-2012 - 02-26-2012 02-22-2012 [facility] no information RAAD Aguilar R (no [facility] - phone) (no phone) 02-22-2012 - 02-22-2012 01-20-2012 [facility] no information RAAD Aguilar R (no [facility] - phone) (no phone) 01-20-2012 - 01-20-2012 12-25-2011 [facility] no information Doctor Migrati on (no [facility] - phone) (no phone) 12-25-2011 - 12-25-2011 12-24-2011 [facility] no information RAAD Aguilar R (no [facility] - phone) (no phone) 12-24-2011 - 12-24-2011 11-30-2011 [facility] no information RAAD Aguilar R (no [facility] - phone) (no phone) 11-30-2011 - 11-30-2011 11-20-2011 [facility] no information RAAD Aguilar R (no [facility] - phone) (no phone) 11-20-2011 - 11-20-2011 10-26-2011 [facility] no information RAAD Aguilar R (no [facility] - phone) (no phone) 10-26-2011 - 10-26-2011 07-30-2011 [facility] no information Doctor Migrati on (no [facility] - phone) (no phone) 07-30-2011 - 07-30-2011 07-21-2011 [facility] no information Doctor Migrati on (no [facility] - phone) (no phone) 07-21-2011 - 07-21-2011 07-14-2011 [facility] no information Doctor Migrati on (no [facility] - phone) (no phone) 07-14-2011 - 07-14-2011 06-15-2011 [facility] no information Doctor Migrati on (no [facility] - phone) (no phone) 06-15-2011 - 06-15-2011 05-18-2011 [facility] no information Doctor Migrati on (no [facility] - phone) (no phone) 05-18-2011 - 05-18-2011 05-27-2009 [facility] no information Doctor Migrati on (no [facility] - phone) (no phone) 05-27-2009 - 05-27-2009 05-16-2008 [facility] no information Doctor Migrati on (no [facility] - phone) (no phone) 05-16-2008 - 05-16-2008 09-23-2019 Emergency department no information ONEAL PEARL MD [facility] [address] [facility] - patient visit (no phone) KAE Meza [facility] 09-23-2019 PARTS SPECIALIST (no phone) KAE Mike (no phone) [facility] PARTS SPECIALIST (no phone) 05-16-2019 Emergency department no information (no phone) [facility] - patient visit Hospital (no phone) 05-17-2019 05-16-2019 Emergency department no information no name (no homer ne) no organization name - patient visit (no phone) 05-16-2019 05-16-2019 Emergency department no information no name (no homer ne) no organization name - patient visit (no phone) 05-16-2019 05-13-2018 Emergency department no information ABHI ROSSI no organization name - patient visit Work Phone: (no phone) 05-13-2018 05-12-2018 Emergency department no information no name (no homer ne) no organization name - patient visit (no phone) 05-12-2018 12-31-2016 Emergency department no information no name (no homer ne) no organization name - patient visit (no phone) 12-31-2016 12-31-2016 Emergency department no information no name (no homer ne) no organization name - patient visit (no phone) 12-31-2016 10-19-2016 Emergency department no information no name (no homer ne) no organization name - patient visit (no phone) 10-19-2016 10-14-2016 Emergency department no information no name (no homer ne) no organization name - patient visit (no phone) 10-14-2016 07-26-2016 Emergency department no information no name (no homer ne) no organization name - patient visit (no phone) 07-26-2016 07-20-2016 Emergency department no information no name (no homer ne) no organization name - patient visit (no phone) 07-20-2016 07-20-2016 Emergency department no information no name (no homer ne) no organization name - patient visit (no phone) 07-20-2016 12-16-2018 Evaluation and no information no name (no phone) n o organization name - management of (no phone) 12-23-2018 inpatient 12-15-2018 Evaluation and no information no name (no phone) n o organization name management of (no phone) inpatient NEGATED Evaluation and no information no name (no phone) n o organization name 10-15-2017 management of (no phone) - inpatient 10-29-2017 05-13-2018 Patient encounter no information no name (no phone) no organization name (no phone) Patient encounter no information no name (no phone) no organ ization name (no phone) 10-12-2019 Patient encounter no information BETO LOPEZ RN [facility] - procedure (no phone) [facility] 10-17-2019 (no phone) 10-10-2019 Patient encounter no information BETO LOPEZ RN [facility] [address] procedure (no phone) [facility] (no phone) 10-06-2019 Patient encounter no information BETO LOPEZ RN [facility] procedure (no phone) [facility] (no phone) 09-23-2019 Patient encounter no information KAE BECKER (n o [facility] [address] procedure phone) [facility] (no phone) 05-19-2019 Patient encounter no information no name (no phone) no organization name procedure (no phone) 05-19-2019 Patient encounter no information no name (no phone) no organization name procedure (no phone) 05-16-2019 Patient encounter no information no name (no phone) no organization name procedure (no phone) 05-16-2019 Patient encounter no information no name (no phone) no organization name procedure (no phone) 12-15-2018 Patient encounter no information no name (no phone) no organization name procedure (no phone) 09-06-2018 Patient encounter no information no name (no phone) no organization name - procedure (no phone) 09-07-2018 03-08-2018 Patient encounter no information no name (no phone) no organization name - procedure (no phone) 03-09-2018 08-12-2017 Patient encounter no information no name (no phone) no organization name - procedure (no phone) 08-13-2017 12-31-2016 Patient encounter no information no name (no phone) no organization name procedure (no phone) 12-25-2016 Patient encounter no information no name (no phone) no organization name - procedure (no phone) 12-26-2016 12-16-2016 Patient encounter no information no name (no phone) no organization name - procedure (no phone) 12-17-2016 10-29-2016 Patient encounter no information no name (no phone) no organization name procedure (no phone) 10-29-2016 Patient encounter no information no name (no phone) no organization name procedure (no phone) 10-19-2016 Patient encounter no information no name (no phone) no organization name procedure (no phone) 10-14-2016 Patient encounter no information no name (no phone) no organization name procedure (no phone) 02-23-2014 Patient encounter no information no name (no phone) no organization name procedure (no phone) 02-23-2014 Patient encounter no information no name (no phone) no organization name procedure (no phone) 05-04-2013 Patient encounter no information no name (no phone) no organization name - procedure (no phone) 05-04-2013 03-13-2013 Patient encounter no information no name (no phone) no organization name procedure (no phone) no information Encounter for dental no name (no phone) no or ganization name examination and (no phone) cleaning without abnormal findings Medical Equipment The data below is from unstructured sourcesNo Medical Equipment Information available Payers Normalized Payer Value Unknown no information Medicare no information Summary Purpose eClinicalWorks SubmissionCCDA Sent to HIECCDA Sent to HIECCDA Sent to HIECCDA Sent to HIECCDA Sent to HIECCDA Sent to HIE Advance Directives Directive Response Recor ded Date/Time Advance Directives No 8:35am Resuscitation Status Full Code 10/14/16 8:35am Directive Response Recor ded Date/Time Advance Directives No 7:17pm Resuscitation Status DNR-Pt Request 10/19/16 7:17pm Directive Response Recor ded Date/Time Advance Directives No 11:25pm Health Care Power of Sample Prep Technician No 05/12/18 11:25pm Organ Donor Yes 05/12/18 11:25pm Resuscitation Status DNR-Pt Request 05/12/18 11:25pm Advance Directive Response Recorded Date/Time Advance Directives No Oc tober 2018 10:32pm Health Care Power of Sample Prep Technician No May 16, 2019 10:32pm Organ Donor Yes May 16, 2019 10:32pm Resuscitation Status UNKNOWN May 16, 2019 10:32pm Discharge Instructions Diagnosis Agiation and agitation Diet regular Activity Level As tolerated Personal Items Retur Yes Flu Vaccine Given Comment: not determined Pneumonia Vaccine Gi Comment: not determined Follow up with Dr. Cantrell Appointment Date and 12/07/14 at 10:00 Diagnosis agitation, self ca re failure Diet regular Activity Level as tolerated Personal Items Retur Yes Flu Vaccine Given Comment: not determined Pneumonia Vaccine Gi Comment: not determined Follow up with Dr. Starla crouch Appointment Date and See Comments Comment: Family is going to have Class schedule appointment with Dr. Cantrell Chief Complaint and Reason for Visit Chief Complaint Trauma-Non Activation Reason for Visit Fall on same level Laceration of forehead Chief Complaint Trauma-Non Activation Reason for Visit [id number] Assessments No Assessments Information Available Additional Source Comments This clinical document has been generated using bContext software that has been certified by the Office of the National Coordinator for Health Information Technology (ONC 15.99.04.3023.Diam.[id number]) and the National Committee for Fiber Designer (NCQA, as an eMeasure certified technology). FOR RECORDS PERTAINING TO PATIENTS WHO ARE OR HAVE BEEN ENROLLED IN A CHEMICAL D EPENDENCY/SUBSTANCE ABUSE PROGRAM, SOME INFORMATION MAY BE OMITTED. This clinica l summary was aggregated from multiple sources. Caution should be exercised in using it in the provision of clinical care. This summary normalizes information from multiple sources, and as a consequence, information in this document may ma terially change the coding, format and clinical context of patient data. In saúl tion, data may be omitted in some cases. CLINICAL DECISIONS SHOULD BE BASED ON T HE PRIMARY CLINICAL RECORDS. [employer] provides no warranty or guara ntee of the accuracy or completeness of information in this document.The followi ng information is based on time limited clinical information UNRECOGNIZED CONTENT PROVIDED BELOW FOR UNRECOGNIZED SECTION REASON FOR VISIT [id number]
--- OUTSIDE RECORDS SUMMARY | 2019-10-30 01:43 | XMS REPORT ---
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 49 [id number] ALLERGIES No Information ENCOUNTERS Encounter Location Date Diagnosis [facility] [address] [id number] Oct, Dental examination Z01.20 [facility] [address] [id number] May, Encounter for dental examination and marilu aning without abnormal findings Z01.20 [facility] [address] [id number] Oct, Encounter for dental examination and marilu aning without abnormal findings Z01.20 [place] [address] [facility] [address] [id number] [id number] May, Dental examination Z01.20 [facility] [address] [id number] May, Encounter for dental examination and marilu aning without abnormal findings Z01.20 [facility] [address] [id number] Sep, Encounter for dental examination and marilu aning without abnormal findings Z01.20 [facility] [address] [address] Oct, [facility] [address] [address] Oct, [facility] [address] [address] Sep, [facility] [address] [id number] [place] [address] Sep, [facility] [address] [id number] [place] [address] Aug, [facility] [address] [id number] [place] [address] Aug, [facility] [address] [id number] [place] [address] Jul, [facility] [address] [id number] [place] [address] Jul, [facility] [address] [id number] [place] [address] Jul, [facility] [address] [id number] [place] [address] Jul, [facility] [id number] [place] [address] Jun, [facility] [address] [id number] [place] [address] Jun, [facility] [id number] [place] [address] May, [facility] [address] [id number] [place] [address] May, [facility] [address] [id number] [place] [address] May, [facility] [address] [id number] [place] [address] Apr, [facility] [address] [id number] [place] [address] Mar, [facility] [address] [id number] [place] [address] Jan, [facility] [address] [id number] [place] [address] Dec, [facility] [address] [id number] [place] [address] Dec, [facility] [address] [id number] [place] [address] Dec, [facility] [address] [id number] [place] [address] November, [facility] [address] [id number] [place] [address] Oct, [facility] [address] [id number] [place] [address] Oct, [facility] [address] [id number] [facility] [place] [address] Sep, [facility] [address] [id number] [place] [address] Sep, [facility] [address] [id number] [place] [address] Sep, [facility] [address] [id number] [place] [address] Aug, [facility] [address] [id number] [place] [address] Jun, [facility] [id number] [place] [address] Jun, [facility] [address] [id number] [place] [address] Jun, [facility] [address] [id number] [place] [address] Jun, [facility] [address] [id number] [place] [address] Jun, [facility] [address] [id number] [place] [address] May, [facility] [address] [id number] [place] [address] May, [facility] [address] [id number] [place] [address] Jan, [facility] [address] [id number] [place] [address] Jan, [facility] [address] [id number] [place] [address] Dec, [facility] [address] [id number] [place] [address] November, [facility] [id number] [place] [address] November, [facility] [id number] [place] [address] Oct, [facility] [id number] [place] [address] Oct, [facility] [id number] [place] [address] Sep, [facility] [id number] [place] [address] Jul, [facility] [id number] [place] [address] Jul, [facility] [id number] [place] [address] Jul, [facility] [id number] [place] [address] Jul, [facility] [id number] [place] [address] Jun, [facility] [id number] [place] [address] May, [facility] [address] [id number] [place] [address] May, [facility] [id number] [place] [address] May, IMMUNIZATIONS No Known Immunizations SOCIAL HISTORY Never Assessed REASON FOR VISIT PLAN OF CARE VITAL SIGNS MEDICATIONS No Known Medications RESULTS No Results PROCEDURES No Known procedures INSTRUCTIONS MEDICATIONS ADMINISTERED No Known Medications
--- OUTSIDE RECORDS SUMMARY | 2019-10-30 01:43 | XMS REPORT ---
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 [place] [place] [address] [facility] [address] May, Dental examination Z01.20 [facility] [address] [id number] May, Encounter for dental examination and marilu aning without abnormal findings Z01.20 [facility] [address] [id number] Sep, Encounter for dental examination and marilu aning without abnormal findings Z01.20 [facility] [address] [address] 14 Oct, 2014 [facility] [address] [address] Oct, [facility] [address] [address] Sep, [facility] [address] [id number] [place] [address] Sep, [facility] [address] [id number] [place] [address] Aug, [facility] [address] [id number] [place] [address] Aug, [facility] [id number] [place] [address] Jul, [facility] [address] [id number] [place] [address] Jul, [facility] [address] [id number] [place] [address] Jul, [facility] [address] [id number] [place] [address] Jul, [facility] [id number] [place] [address] Jun, [facility] [address] [id number] [place] [address] Jun, [facility] [id number] [place] [address] May, [facility] [address] [id number] [place] [address] May, [facility] [address] [id number] [place] [address] May, [facility] [address] [id number] [place] [address] Apr, [facility] [address] [id number] [place] [address] Mar, [facility] [address] [id number] [place] [address] Jan, [facility] [address] [id number] [place] [address] Dec, [facility] [address] [id number] [place] [address] Dec, [facility] [address] [id number] [facility] [place] [address] Dec, [facility] [address] [id number] [place] [address] November, [facility] [address] [id number] [place] [address] Oct, [facility] [address] [id number] [place] [address] Oct, [facility] [address] [id number] [place] [address] Sep, [facility] [address] [id number] [place] [address] Sep, [facility] [address] [id number] [place] [address] Sep, [facility] [address] [id number] [place] [address] Aug, [facility] [address] [id number] [place] [address] Jun, [facility] [address] [id number] [place] [address] Jun, [facility] [address] [id number] [place] [address] Jun, [facility] [address] [id number] [place] [address] Jun, [facility] [address] [id number] [place] [address] Jun, [facility] [address] [id number] [place] [address] May, [facility] [address] [id number] [place] [address] May, [facility] [address] [id number] [place] [address] Jan, [facility] [id number] [place] [address] Jan, [facility] [id number] [place] [address] Dec, [facility] [address] [id number] [place] [address] November, [facility] [id number] [place] [address] November, [facility] [id number] [place] [address] Oct, [facility] [id number] [place] [address] Oct, [facility] [id number] [place] [address] Sep, [facility] [id number] [place] [address] Jul, [facility] [id number] [place] [address] Jul, [facility] [id number] [place] [address] Jul, [facility] [id number] [place] [address] Jul, [facility] [id number] [place] [address] Jun, [facility] [id number] [place] [address] May, [facility] [id number] [place] [address] May, [facility] [id number] [place] [address] May, IMMUNIZATIONS No Known Immunizations SOCIAL HISTORY Never Assessed REASON FOR VISIT PLAN OF CARE VITAL SIGNS MEDICATIONS No Known Medications RESULTS No Results PROCEDURES No Known procedures INSTRUCTIONS MEDICATIONS ADMINISTERED No Known Medications
[2019-10-30] MEDS ORDERED: DCS100C (01:44)
[2019-10-30] MEDS ORDERED: DIVA125C10 (01:44)
[2019-10-30] MEDS ORDERED: POTA20TA15 (01:44)
[2019-10-30] MEDS ORDERED: [UNRECOGNIZED DRUG - CODE] (01:44)
[2019-10-30] MEDS ORDERED: MTP25TSR (01:44)
[2019-10-30] MEDS ORDERED: TMSL.4C (01:44)
[2019-10-30] MEDS ORDERED: GABA-486 (01:44)
[2019-10-30] MEDS ORDERED: PALI234D (01:44)
--- OUTSIDE RECORDS SUMMARY | 2019-10-30 01:44 | XMS REPORT | Continuity of Care Document ---
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 HEAD, I 05/23/2019 BETO MOSES HYDROTEL OPERATOR Ot S00.93XA CONTUSION OF UNSPECIFIED PART OF HEAD, I 06/08/2019 BETO MOSES HYDROTEL OPERATOR Ot S00.93XA CONTUSION OF UNSPECIFIED PART OF HEAD, I 06/13/2019 BETO MOSES HYDROTEL OPERATOR Ot S00.93XA CONTUSION OF UNSPECIFIED PART OF HEAD, I 06/19/2019 JOSUÉ BETO R HYDROTEL OPERATOR Ot S00.93XA CONTUSION OF UNSPECIFIED PART OF HEAD, I 09/23/2019 LOVELY, KAE BUILDING CLEANER Ot F20.9 SCHIZOPHRENIA, UNSPECIFIED 09/23/2019 LOVELY, KAE BUILDING CLEANER Ot F31.9 BIPOLAR DISORDER, UNSPECIFIED 09/23/2019 LOVELY, KAE BUILDING CLEANER Ot F41.9 ANXIETY DISORDER, UNSPECIFIED 09/23/2019 LOVELY, KAE BUILDING CLEANER Ot G20 PARKINSON'S DISEASE 09/23/2019 LOVELY, KAE BUILDING CLEANER Ot I10 ESSENTIAL (PRIMARY) HYPERTENSION 09/23/2019 LOVELY, KAE BUILDING CLEANER Ot M25.551 PAIN IN RIGHT HIP 09/23/2019 LOVELY, KAE BUILDING CLEANER Ot M25.552 PAIN IN LEFT HIP 09/23/2019 LOVELY, KAE BUILDING CLEANER Ot M54.5 LOW BACK PAIN 09/23/2019 LOVELY, KAE BUILDING CLEANER Ot W19.XXXA UNSPECIFIED FALL, INITIAL ENCOUNTER 09/23/2019 LOVELY, KAE BUILDING CLEANER Ot Y92.[address] [facility] PLACE 09/26/2019 LOVELY, KAE BUILDING CLEANER Ot F20.9 SCHIZOPHRENIA, UNSPECIFIED 09/26/2019 LOVELY, KAE BUILDING CLEANER Ot F31.9 BIPOLAR DISORDER, UNSPECIFIED 09/26/2019 LOVELY, KAE BUILDING CLEANER Ot F41.9 ANXIETY DISORDER, UNSPECIFIED 09/26/2019 LOVELY, KAE BUILDING CLEANER Ot G20 PARKINSON'S DISEASE 09/26/2019 LOVELY, KAE BUILDING CLEANER Ot I10 ESSENTIAL (PRIMARY) HYPERTENSION 09/26/2019 LOVELY, KAE BUILDING CLEANER Ot M25.551 PAIN IN RIGHT HIP 09/26/2019 LOVELY, KAE BUILDING CLEANER Ot M25.552 PAIN IN LEFT HIP 09/26/2019 LOVELY, KAE BUILDING CLEANER Ot M54.5 LOW BACK PAIN 09/26/2019 LOVELY, KAE BUILDING CLEANER Ot W19.XXXA UNSPECIFIED FALL, INITIAL ENCOUNTER 09/26/2019 LOVELY, KAE BUILDING CLEANER Ot Y92.[address] [facility] 10/16/2019 BETO MOSES APRN Ot M62.89 OTHER SPECIFIED DISORDERS OF MUSCLE 10/17/2019 BETO MOSES APRN Ot M62.89 OTHER SPECIFIED DISORDERS OF MUSCLE 10/17/2019 BETO MOSES HYDROTEL OPERATOR Ot M62.89 OTHER SPECIFIED DISORDERS OF MUSCLE Procedures Code Description [place] [address] ROUT INE VENIPUNCTURE 06/13/2012 90367 ROUT INE VENIPUNCTURE 06/13/2012 31518 UA W / CULTURE IF INDICATED 06/13/2012 77290 UA W / CULTURE IF INDICATED 06/13/2012 32622 CREA TININE 06/13/2012 35226 CREA TININE 06/13/2012 [id number] GF R CALC (RESULT ONLY) 06/13/2012 [id number] GF R CALC (RESULT ONLY) 06/13/2012 04679 LITHIUM 06/14/2012 09359 LITHIUM 06/14/2012 02411 PSYC H PHARM MGMT 07/08/2012 58176 PSYC H PHARM MGMT 11/21/2012 61566 ELEC TROCARDIOGRAM REPORT GLO SHIELDS MD 09/20/2014 [id number] ELEC TROCARDIOGRAM REPORT GLO SHIELDS MD 11/19/2014 Results Test Result Range COMPLETE BLOOD COUNT - 09/20/14 18:39 Platelet 295 10^3u 142-424 MPV 10.8 FL 9.4-12.4 [place] # 0.72 10^3u 0.0-1.0 RBC 3.64 10^6u 4.04-6.13 [place] % 7.0 % 0-12 RDW 14.6 % 11.6-14.8 Neut # 8.09 10^3u 2.0-6.9 Neut % 79.1 % 37-80 WBC 10.23 10^3u 4.60-10.20 MCV 97.3 FL 80.0-97.0 Baso # 0.05 10^3u 0.0-0.1 Baso % 0.5 % 0-2 Eos # 0.21 10^3u 0-0.7 Eos % 2.1 % 0-7 Lymph % 11.3 % 10-50 MCHC 33.1 G/DL 31.8-35.4 MCH 32.1 PG 27.0-31.2 Lymph # 1.16 10^3u 0.6-3.4 HGB 11.7 G/DL 12.2-18.1 HCT 35.4 % 37.7-53.7 CMP - 09/20/14 18:41 Osmo Calculated 267 MOSM 261-280 Sodium 137 MMOLL 137-145 T. Protein 6.4 G/DL 6.3-8.2 Potassium 4.2 MMOLL 3.6-5.0 T Bili 0.3 MG/DL 0.2-1.3 Calcium 9.5 MG/DL 8.4-10.2 BUN 20 MG/DL 7-21 Chloride 105 MMOLL 98-107 AST 25 U/L 15-46 ALT 19 U/L 7-56 Albumin 3.5 G/DL 3.5-5.0 A/G Ratio 1.2 RATIO 1.2-2.2 Bun/Creat 18.5 RATIO 7-25 Alk Phos 82 U/L 38-126 CO2 25 MMOLL 22-30 Glucose 99 MG/DL 65-110 Globulin 2.9 2.4-3.5 Creatinine 1.1 MG/DL 0.7-1.5 TSH - 09/20/14 19:23 TSH 0.18 UIUML 0.35-4.94 Free T4 - 09/20/14 19:23 Free T4 0.91 NG/DL 0.70-1.48 Urinalysis - 09/20/14 20:19 Glucose Negative Negative Leukocyte Negative Negative Nitrite Negative Negative pH 6.5 5.5-7.5 Urine Appearance Clear Clear Protein Negative Negative Ketones Negative Negative Urobilinogen 0.2 0.2-1.0 Urine RBC NONESEEN Specific [place] 1.015 1.010-1.020 Urine WBC NONESEEN Urine Bacteria NONESEEN Blood Negative Negative Color Yellow Yellow Bilirubin Negative Negative Site VOID Folate - 09/20/14 20:28 Folate 17.9 NG/ML 1.5-24.0 Vitamin B12 - 09/20/14 20:28 Vitamin B12 444 PG/ML 200-1000 COMPLETE BLOOD COUNT - 09/21/14 06:14 Platelet 252 10^3u 142-424 MPV 10.8 FL 9.4-12.4 [place] # 0.61 10^3u 0.0-1.0 RBC 3.25 10^6u 4.04-6.13 [place] % 8.0 % 0-12 RDW 14.8 % 11.6-14.8 Neut # 5.69 10^3u 2.0-6.9 Neut % 74.7 % 37-80 WBC 7.62 10^3u 4.60-10.20 MCV 98.8 FL 80.0-97.0 Baso # 0.03 10^3u 0.0-0.1 Baso % 0.4 % 0-2 Eos # 0.20 10^3u 0-0.7 Eos % 2.6 % 0-7 Lymph % 14.3 % 10-50 MCHC 34.3 G/DL 31.8-35.4 MCH 33.8 PG 27.0-31.2 Lymph # 1.09 10^3u 0.6-3.4 HGB 11.0 G/DL 12.2-18.1 HCT 32.1 % 37.7-53.7 CMP - 11/19/14 19:06 Osmo Calculated 279 MOSM 261-280 Sodium 138 MMOLL 137-145 T. Protein 6.7 G/DL 6.3-8.2 Potassium 3.9 MMOLL 3.6-5.0 T Bili 0.5 MG/DL 0.2-1.3 Calcium 8.9 MG/DL 8.4-10.2 BUN 31 MG/DL 7-21 Chloride 104 MMOLL 98-107 AST 41 U/L 15-46 ALT 35 U/L 7-56 Albumin 3.7 G/DL 3.5-5.0 A/G Ratio 1.2 RATIO 1.2-2.2 Bun/Creat 33.0 RATIO 7-25 Alk Phos 93 U/L 38-126 CO2 26 MMOLL 22-30 Glucose 190 MG/DL 65-110 Globulin 3.1 2.4-3.5 Creatinine 0.9 MG/DL 0.7-1.5 COMPLETE BLOOD COUNT - 11/19/14 19:15 Platelet 295 10^3u 142-424 MPV 10.8 FL 9.4-12.4 [place] # 0.64 10^3u 0.0-1.0 RBC 3.58 10^6u 4.04-6.13 [place] % 7.3 % 0-12 RDW 14.9 % 11.6-14.8 Neut # 6.44 10^3u 2.0-6.9 Neut % 73.7 % 37-80 WBC 8.74 10^3u 4.60-10.20 MCV 97.8 FL 80.0-97.0 Baso # 0.06 10^3u 0.0-0.1 Baso % 0.7 % 0-2 Eos # 0.37 10^3u 0-0.7 Eos % 4.2 % 0-7 Lymph % 14.1 % 10-50 MCHC 34.3 G/DL 31.8-35.4 MCH 33.5 PG 27.0-31.2 Lymph # 1.23 10^3u 0.6-3.4 HGB 12.0 G/DL 12.2-18.1 HCT 35.0 % 37.7-53.7 Vitamin B12 - 11/19/14 19:59 Vitamin B12 501 PG/ML 200-1000 Folate - 11/19/14 19:59 Folate 17.3 NG/ML 1.5-24.0 TSH - 11/19/14 21:51 TSH 0.07 UIUML 0.35-4.94 Free T4 - 11/19/14 21:51 Free T4 0.93 NG/DL 0.70-1.48 Urinalysis - 11/20/14 07:34 Glucose Negative Negative Urine Other CULTURE PENDING Leukocyte Negative Negative Nitrite Negative Negative pH 6.0 5.5-7.5 Urine Appearance Clear Clear Protein Negative Negative Ketones Negative Negative Urobilinogen 0.2 0.2-1.0 Urine RBC NONESEEN Specific [place] 1.015 1.010-1.020 Urine WBC N0-2 Yeast Trace Urine Bacteria NONESEEN Blood Negative Negative Color Yellow Yellow Squamous Epithelial Cells Trace Bilirubin Negative Negative Site UNK [place] - 11/22/14 07:20 [place] 0.5 mmol/ 0.5-1.3 COMPLETE BLOOD COUNT - 11/23/14 05:31 Platelet 252 10^3u 142-424 MPV 10.2 FL 9.4-12.4 [place] # 0.46 10^3u 0.0-1.0 RBC 3.98 10^6u 4.04-6.13 [place] % 8.0 % 0-12 RDW 14.1 % 11.6-14.8 Neut # 3.85 10^3u 2.0-6.9 Neut % 67.3 % 37-80 WBC 5.72 10^3u 4.60-10.20 MCV 94.0 FL 80.0-97.0 Baso # 0.04 10^3u 0.0-0.1 Baso % 0.7 % 0-2 Eos # 0.20 10^3u 0-0.7 Eos % 3.5 % 0-7 Lymph % 20.5 % 10-50 MCHC 32.4 G/DL 31.8-35.4 MCH 30.4 PG 27.0-31.2 Lymph # 1.17 10^3u 0.6-3.4 HGB 12.1 G/DL 12.2-18.1 HCT 37.4 % 37.7-53.7 BMP - 11/23/14 05:58 Osmo Calculated 274 MOSM 261-280 Sodium 142 MMOLL 137-145 Potassium 4.5 MMOLL 3.6-5.0 Calcium 8.9 MG/DL 8.4-10.2 BUN 17 MG/DL 7-21 Chloride 110 MMOLL 98-107 Anion GAP 3.8 Bun/Creat 20.2 RATIO 7-25 CO2 28 MMOLL 22-30 Glucose 78 MG/DL 65-110 Creatinine 0.9 MG/DL 0.7-1.5 Complete blood count (CBC) with automate d white blood cell (WBC) differential - 07/20/16 18:13 Blood leukocytes automated count (number/volume) 13.2 10*3/uL 4.3-11.0 Blood erythrocytes automated count (number/volume) 4.90 10*6/uL 4.35-5.85 Venous blood hemoglobin measurement (mass/volume) 14.4 g/dL 13.3-17.7 Blood hematocrit (volume fraction) 44 % 40-54 Automated erythrocyte mean corpuscular volume 89 [ foz_us] 80-99 Automated erythrocyte mean corpuscular h emoglobin (mass per erythrocyte) 29 pg 25-34 Automated erythrocyte mean corpuscular h emoglobin concentration measurement (mass/volume) 33 g/dL 32-36 Automated erythrocyte distribution width ratio 15. 0 % 10.0- 14.5 Automated blood platelet count (count/volume) 287 10*3/uL 130-400 Automated blood platelet mean volume measurement 10.5 [foz_us] 7.4-10.4 Automated blood neutrophils/100 leukocytes 80 % 42-75 Automated blood lymphocytes/100 leukocytes 8 % 12-44 Blood monocytes/100 leukocytes 9 % 0-12 Automated blood eosinophils/100 leukocytes 2 % 0-10 Automated blood basophils/100 leukocytes 0 % 0-10 Blood neutrophils automated count (number/volume) 10.6 10*3 1.8-7.8 Blood lymphocytes automated count (number/volume) 1.1 10*3 1.0-4.0 Blood monocytes automated count (number/volume) 1. 2 10*3 0.0-1.0 Automated eosinophil count 0.3 10*3/uL 0 .0-0.3 Automated blood basophil count (count/volume) 0.0 10*3/uL 0.0-0.1 PT panel in platelet poor plasma by coag ulation assay - 07/20/16 18:13 Prothrombin time (PT) in platelet poor plasma by coagu lation assay 13.4 s 12.2-14.7 INR in platelet poor plasma or blood by coagulation as say 1.1 0.8-1.4 Activated partial thromboplastin time (a PTT) in platelet poor plasma bycoagulation assay - 07/20/16 18:13 Activated partial thromboplastin time (a PTT) in platelet poor plasma bycoagulation assay 34 s 24-35 Comprehensive metabolic panel - 07/20/16 18:13 Serum or plasma sodium measurement (moles/volume) 139 mmol/L 135-145 Serum or plasma potassium measurement (moles/volume) 3.3 mmol/L 3.6-5.0 Serum or plasma chloride measurement (moles/volume) 106 mmol/L 98-107 Carbon dioxide 24 mmol/L 21-32 Serum or plasma anion gap determination (moles/volume) 9 mmol/L 5-14 Serum or plasma urea nitrogen measurement (mass/volume ) 31 mg/dL 7-18 Serum or plasma creatinine measurement (mass/volume) 1.25 mg/dL 0.60-1.30 Serum or plasma urea nitrogen/creatinine mass ratio 25 NRG Serum or plasma creatinine measurement w ith calculation of estimated glomerular filtration rate 59 NRG Serum or plasma glucose measurement (mass/volume) 142 mg/dL 70-105 Serum or plasma calcium measurement (mass/volume) 9.2 mg/dL 8.5-10.1 Serum or plasma total bilirubin measurement (mass/volu me) 0.4 mg/dL 0.1-1.0 Serum or plasma alkaline phosphatase amelia surement (enzymatic activity/volume) 121 U/L 40-136 Serum or plasma aspartate aminotransfera se measurement (enzymatic activity/volume) 27 U/L 5-34 Serum or plasma alanine aminotransferase measurement (enzymatic activity/volume) 23 U/L 0-55 Serum or plasma protein measurement (mass/volume) 7.0 g/dL 6.4-8.2 Serum or plasma albumin measurement (mass/volume) 4.0 g/dL 3.2-4.5 Magnesium - 07/20/16 18:13 Magnesium 2.5 mg/dL 1.8-2.4 Serum or plasma creatine kinase measurem ent (enzymatic activity/volume) - 07/20/16 18:13 Serum or plasma creatine kinase measurem ent (enzymatic activity/volume) 373 U/L 30-200 Serum or plasma troponin i.cardiac measu rement (mass/volume) - 07/20/16 18:13 Serum or plasma troponin i.cardiac measurement (mass/v olume) < ng/mL <0.30 LITHIUM LEVEL - 07/20/16 18:13 [place] [mass/volume] in serum or plasma 0.9 % 0.5-1.5 Complete urinalysis with reflex to cultu re - 07/20/16 19:30 Urine color determination YELLOW NRG Urine clarity determination SLIGHTLY CLOUDY NRG Urine pH measurement by test strip 6 5-9 Specific gravity of urine by test strip 1.015 1.016-1.022 Urine protein assay by test strip, semi-quantitative 1+ NEGATIVE Urine glucose detection by automated test strip NE GATIVE NEGATIVE Erythrocytes detection in urine sediment by light micr oscopy NEGATIVE NEGATIVE Urine ketones detection by automated test strip NE GATIVE NEGATIVE Urine nitrite detection by test strip NEGATIVE NEGATIVE Urine total bilirubin detection by test strip NEGA TIVE NEGATIVE Urine urobilinogen measurement by automated test strip (mass/volume) NORMAL NORMAL Urine leukocyte esterase detection by dipstick 1+ NEGATIVE Automated urine sediment erythrocyte cou nt by microscopy (number/high power field) NONE NRG Automated urine sediment leukocyte count by microscopy (number/high power field) [HPF] NRG Bacteria detection in urine sediment by light microsco py NONE NRG Squamous epithelial cells detection in u rine sediment by light microscopy 0-2 NRG Crystals detection in urine sediment by light microsco py NONE NRG Casts detection in urine sediment by light microscopy NONE NRG Mucus detection in urine sediment by light microscopy NEGATIVE NRG Complete urinalysis with reflex to culture NO NRG Complete blood count (CBC) with automate d white blood cell (WBC) differential - 07/26/ 10:25 Blood leukocytes automated count (number/volume) 11.8 10*3/uL 4.3-11.0 Blood erythrocytes automated count (number/volume) 4.99 10*6/uL 4.35-5.85 Venous blood hemoglobin measurement (mass/volume) 14.5 g/dL 13.3-17.7 Blood hematocrit (volume fraction) 44 % 40-54 Automated erythrocyte mean corpuscular volume 89 [ foz_us] 80-99 Automated erythrocyte mean corpuscular h emoglobin (mass per erythrocyte) 29 pg 25-34 Automated erythrocyte mean corpuscular h emoglobin concentration measurement (mass/volume) 33 g/dL 32-36 Automated erythrocyte distribution width ratio 14. 7 % 10.0- 14.5 Automated blood platelet count (count/volume) 308 10*3/uL 130-400 Automated blood platelet mean volume measurement 10.3 [foz_us] 7.4-10.4 Automated blood neutrophils/100 leukocytes 83 % 42-75 Automated blood lymphocytes/100 leukocytes 9 % 12-44 Blood monocytes/100 leukocytes 5 % 0-12 Automated blood eosinophils/100 leukocytes 3 % 0-10 Automated blood basophils/100 leukocytes 0 % 0-10 Blood neutrophils automated count (number/volume) 9.8 10*3 1.8-7.8 Blood lymphocytes automated count (number/volume) 1.0 10*3 1.0-4.0 Blood monocytes automated count (number/volume) 0. 6 10*3 0.0-1.0 Automated eosinophil count 0.3 10*3/uL 0 .0-0.3 Automated blood basophil count (count/volume) 0.1 10*3/uL 0.0-0.1 PT panel in platelet poor plasma by coag ulation assay - 07/26/16 10:25 Prothrombin time (PT) in platelet poor plasma by coagu lation assay 12.8 s 12.2-14.7 INR in platelet poor plasma or blood by coagulation as say 1.0 0.8-1.4 Activated partial thromboplastin time (a PTT) in platelet poor plasma bycoagulation assay - 07/26/16 10:25 Activated partial thromboplastin time (a PTT) in platelet poor plasma bycoagulation assay 35 s 24-35 Comprehensive metabolic panel - 07/26/16 10:25 Serum or plasma sodium measurement (moles/volume) 140 mmol/L 135-145 Serum or plasma potassium measurement (moles/volume) 3.8 mmol/L 3.6-5.0 Serum or plasma chloride measurement (moles/volume) 106 mmol/L 98-107 Carbon dioxide 26 mmol/L 21-32 Serum or plasma anion gap determination (moles/volume) 8 mmol/L 5-14 Serum or plasma urea nitrogen measurement (mass/volume ) 28 mg/dL 7-18 Serum or plasma creatinine measurement (mass/volume) 1.29 mg/dL 0.60-1.30 Serum or plasma urea nitrogen/creatinine mass ratio 22 NRG Serum or plasma creatinine measurement w ith calculation of estimated glomerular filtration rate 56 NRG Serum or plasma glucose measurement (mass/volume) 99 mg/dL 70-105 Serum or plasma calcium measurement (mass/volume) 9.7 mg/dL 8.5-10.1 Serum or plasma total bilirubin measurement (mass/volu me) 0.2 mg/dL 0.1-1.0 Serum or plasma alkaline phosphatase amelia surement (enzymatic activity/volume) 127 U/L 40-136 Serum or plasma aspartate aminotransfera se measurement (enzymatic activity/volume) 21 U/L 5-34 Serum or plasma alanine aminotransferase measurement (enzymatic activity/volume) 10 U/L 0-55 Serum or plasma protein measurement (mass/volume) 7.4 g/dL 6.4-8.2 Serum or plasma albumin measurement (mass/volume) 4.0 g/dL 3.2-4.5 Serum or plasma troponin i.cardiac measu rement (mass/volume) - 07/26/16 10:25 Serum or plasma troponin i.cardiac measurement (mass/v olume) < ng/mL <0.30 Fibrin D-dimer FEU measurement in platel et poor plasma (mass/volume) - 07/26/16 10:25 Fibrin D-dimer FEU measurement in platelet poor plasma (mass/volume) 2.20 ug/mL 0.00-0.49 Complete blood count (CBC) with automate d white blood cell (WBC) differential - 10/14/16 09:10 Blood leukocytes automated count (number/volume) 9.2 10*3/uL 4.3-11.0 Blood erythrocytes automated count (number/volume) 4.51 10*6/uL 4.35-5.85 Venous blood hemoglobin measurement (mass/volume) 13.4 g/dL 13.3-17.7 Blood hematocrit (volume fraction) 40 % 40-54 Automated erythrocyte mean corpuscular volume 89 [ foz_us] 80-99 Automated erythrocyte mean corpuscular h emoglobin (mass per erythrocyte) 30 pg 25-34 Automated erythrocyte mean corpuscular h emoglobin concentration measurement (mass/volume) 33 g/dL 32-36 Automated erythrocyte distribution width ratio 14. 9 % 10.0- 14.5 Automated blood platelet count (count/volume) 267 10*3/uL 130-400 Automated blood platelet mean volume measurement 10.5 [foz_us] 7.4-10.4 Automated blood neutrophils/100 leukocytes 80 % 42-75 Automated blood lymphocytes/100 leukocytes 9 % 12-44 Blood monocytes/100 leukocytes 7 % 0-12 Automated blood eosinophils/100 leukocytes 4 % 0-10 Automated blood basophils/100 leukocytes 1 % 0-10 Blood neutrophils automated count (number/volume) 7.4 10*3 1.8-7.8 Blood lymphocytes automated count (number/volume) 0.8 10*3 1.0-4.0 Blood monocytes automated count (number/volume) 0. 6 10*3 0.0-1.0 Automated eosinophil count 0.4 10*3/uL 0 .0-0.3 Automated blood basophil count (count/volume) 0.1 10*3/uL 0.0-0.1 Comprehensive metabolic panel - 10/14/16 09:10 Serum or plasma sodium measurement (moles/volume) 137 mmol/L 135-145 Serum or plasma potassium measurement (moles/volume) 3.8 mmol/L 3.6-5.0 Serum or plasma chloride measurement (moles/volume) 106 mmol/L 98-107 Carbon dioxide 22 mmol/L 21-32 Serum or plasma anion gap determination (moles/volume) 9 mmol/L 5-14 Serum or plasma urea nitrogen measurement (mass/volume ) 19 mg/dL 7-18 Serum or plasma creatinine measurement (mass/volume) 1.33 mg/dL 0.60-1.30 Serum or plasma urea nitrogen/creatinine mass ratio 14 NRG Serum or plasma creatinine measurement w ith calculation of estimated glomerular filtration rate 54 NRG Serum or plasma glucose measurement (mass/volume) 116 mg/dL 70-105 Serum or plasma calcium measurement (mass/volume) 8.7 mg/dL 8.5-10.1 Serum or plasma total bilirubin measurement (mass/volu me) 0.4 mg/dL 0.1-1.0 Serum or plasma alkaline phosphatase amelia surement (enzymatic activity/volume) 148 U/L 40-136 Serum or plasma aspartate aminotransfera se measurement (enzymatic activity/volume) 17 U/L 5-34 Serum or plasma alanine aminotransferase measurement (enzymatic activity/volume) 10 U/L 0-55 Serum or plasma protein measurement (mass/volume) 6.2 g/dL 6.4-8.2 Serum or plasma albumin measurement (mass/volume) 3.5 g/dL 3.2-4.5 THYROID STIMULATING HORMONE - 10/14/16 0 9:10 THYROID STIMULATING HORMONE 0.65 u[iU]/mL 0.35-4.94 Serum or plasma thyroxine (T4) free tawnya urement (mass/volume) - 10/14/16 09:10 Serum or plasma thyroxine (T4) free measurement (mass/ volume) 0.81 ng/dL 0.70-1.48 Complete urinalysis with reflex to cultu re - 10/14/16 11:00 Urine color determination YELLOW NRG Urine clarity determination CLEAR NR G Urine pH measurement by test strip 7 5-9 Specific gravity of urine by test strip 1.010 1.016-1.022 Urine protein assay by test strip, semi-quantitative 1+ NEGATIVE Urine glucose detection by automated test strip NE GATIVE NEGATIVE Erythrocytes detection in urine sediment by light micr oscopy NEGATIVE NEGATIVE Urine ketones detection by automated test strip NE GATIVE NEGATIVE Urine nitrite detection by test strip NEGATIVE NEGATIVE Urine total bilirubin detection by test strip NEGA TIVE NEGATIVE Urine urobilinogen measurement by automated test strip (mass/volume) NORMAL NORMAL Urine leukocyte esterase detection by dipstick 1+ NEGATIVE Automated urine sediment erythrocyte cou nt by microscopy (number/high power field) NONE NRG Automated urine sediment leukocyte count by microscopy (number/high power field) [HPF] NRG Bacteria detection in urine sediment by light microsco py TRACE NRG Squamous epithelial cells detection in u rine sediment by light microscopy RARE NRG Crystals detection in urine sediment by light microsco py NONE NRG Casts detection in urine sediment by light microscopy PRESENT NRG Mucus detection in urine sediment by light microscopy NEGATIVE NRG Complete urinalysis with reflex to culture NO NRG Hyaline casts detection in urine sediment by light adan roscopy 2-5 NRG LITHIUM LEVEL - 10/19/16 20:13 [place] [mass/volume] in serum or plasma 1.1 % 0.5-1.5 Comprehensive Metabolic Panel - 12/16/16 12:15 Albumin 3.9 g/dL 3.6-5.1 ALP 144 U/L 35-130 ALT <6 U/L 6-45 Anion Gap 12 6-14 AST 13 U/L 2-40 BUN 18 mg/dL 5-25 Calcium 9.4 mg/dL 8.3-10.4 Chloride 104 mmol/L 95-114 CO2 28 mEq/L 22-33 Creat 1.36 mg/dL 0.50-1.50 eGFR 53 mL/min/1.73m2 >59 Globulin 3.8 g/dL 2.3-3.5 Glucose 86 mg/dL 70-110 Osmo 290 280-295 Potassium 4.1 mmol/L 3.5-5.3 Sodium 140 mmol/L 134-148 TBil 0.4 mg/dL 0.2-1.2 TP 7.7 g/dL 6.0-8.3 Surgical Pathology - 12/25/16 10:29 Surg Path Sent to [place] [facility] Complete blood count (CBC) with automate d white blood cell (WBC) differential - 12/31/16 17:03 Blood leukocytes automated count (number/volume) 9.1 10*3/uL 4.3-11.0 Blood erythrocytes automated count (number/volume) 4.43 10*6/uL 4.35-5.85 Venous blood hemoglobin measurement (mass/volume) 13.2 g/dL 13.3-17.7 Blood hematocrit (volume fraction) 40 % 40-54 Automated erythrocyte mean corpuscular volume 89 [ foz_us] 80-99 Automated erythrocyte mean corpuscular h emoglobin (mass per erythrocyte) 30 pg 25-34 Automated erythrocyte mean corpuscular h emoglobin concentration measurement (mass/volume) 33 g/dL 32-36 Automated erythrocyte distribution width ratio 13. 9 % 10.0- 14.5 Automated blood platelet count (count/volume) 289 10*3/uL 130-400 Automated blood platelet mean volume measurement 9.7 [foz_us] 7.4-10.4 Automated blood neutrophils/100 leukocytes 74 % 42-75 Automated blood lymphocytes/100 leukocytes 14 % 12-44 Blood monocytes/100 leukocytes 9 % 0-12 Automated blood eosinophils/100 leukocytes 3 % 0-10 Automated blood basophils/100 leukocytes 1 % 0-10 Blood neutrophils automated count (number/volume) 6.8 10*3 1.8-7.8 Blood lymphocytes automated count (number/volume) 1.2 10*3 1.0-4.0 Blood monocytes automated count (number/volume) 0. 8 10*3 0.0-1.0 Automated eosinophil count 0.3 10*3/uL 0 .0-0.3 Automated blood basophil count (count/volume) 0.1 10*3/uL 0.0-0.1 Comprehensive metabolic panel - 12/31/16 17:03 Serum or plasma sodium measurement (moles/volume) 137 mmol/L 135-145 Serum or plasma potassium measurement (moles/volume) 4.1 mmol/L 3.6-5.0 Serum or plasma chloride measurement (moles/volume) 105 mmol/L 98-107 Carbon dioxide 21 mmol/L 21-32 Serum or plasma anion gap determination (moles/volume) 11 mmol/L 5-14 Serum or plasma urea nitrogen measurement (mass/volume ) 19 mg/dL 7-18 Serum or plasma creatinine measurement (mass/volume) 1.08 mg/dL 0.60-1.30 Serum or plasma urea nitrogen/creatinine mass ratio 18 NRG Serum or plasma creatinine measurement w ith calculation of estimated glomerular filtration rate > NRG Serum or plasma glucose measurement (mass/volume) 95 mg/dL 70-105 Serum or plasma calcium measurement (mass/volume) 8.7 mg/dL 8.5-10.1 Serum or plasma total bilirubin measurement (mass/volu me) 0.4 mg/dL 0.1-1.0 Serum or plasma alkaline phosphatase amelia surement (enzymatic activity/volume) 120 U/L 40-136 Serum or plasma aspartate aminotransfera se measurement (enzymatic activity/volume) 14 U/L 5-34 Serum or plasma alanine aminotransferase measurement (enzymatic activity/volume) 8 U/L 0-55 Serum or plasma protein measurement (mass/volume) 6.9 g/dL 6.4-8.2 Serum or plasma albumin measurement (mass/volume) 3.8 g/dL 3.2-4.5 Complete blood count (CBC) with automate d white blood cell (WBC) differential - 05/12/18 23:38 Blood leukocytes automated count (number/volume) 8.2 10*3/uL 4.3-11.0 Blood erythrocytes automated count (number/volume) 5.00 10*6/uL 4.35-5.85 Venous blood hemoglobin measurement (mass/volume) 14.5 g/dL 13.3-17.7 Blood hematocrit (volume fraction) 41 % 40-54 Automated erythrocyte mean corpuscular volume 82 [ foz_us] 80-99 Automated erythrocyte mean corpuscular h emoglobin (mass per erythrocyte) 29 pg 25-34 Automated erythrocyte mean corpuscular h emoglobin concentration measurement (mass/volume) 35 g/dL 32-36 Automated erythrocyte distribution width ratio 13. 9 % 10.0- 14.5 Automated blood platelet count (count/volume) 294 10*3/uL 130-400 Automated blood platelet mean volume measurement 9.9 [foz_us] 7.4-10.4 Automated blood neutrophils/100 leukocytes 76 % 42-75 Automated blood lymphocytes/100 leukocytes 15 % 12-44 Blood monocytes/100 leukocytes 7 % 0-12 Automated blood eosinophils/100 leukocytes 2 % 0-10 Automated blood basophils/100 leukocytes 1 % 0-10 Blood neutrophils automated count (number/volume) 6.2 10*3 1.8-7.8 Blood lymphocytes automated count (number/volume) 1.2 10*3 1.0-4.0 Blood monocytes automated count (number/volume) 0. 6 10*3 0.0-1.0 Automated eosinophil count 0.2 10*3/uL 0 .0-0.3 Automated blood basophil count (count/volume) 0.1 10*3/uL 0.0-0.1 Comprehensive metabolic panel - 05/12/18 23:38 Serum or plasma sodium measurement (moles/volume) 139 mmol/L 135-145 Serum or plasma potassium measurement (moles/volume) 3.3 mmol/L 3.6-5.0 Serum or plasma chloride measurement (moles/volume) 105 mmol/L 98-107 Carbon dioxide 23 mmol/L 21-32 Serum or plasma anion gap determination (moles/volume) 11 mmol/L 5-14 Serum or plasma urea nitrogen measurement (mass/volume ) 30 mg/dL 7-18 Serum or plasma creatinine measurement (mass/volume) 0.99 mg/dL 0.60-1.30 Serum or plasma urea nitrogen/creatinine mass ratio 30 NRG Serum or plasma creatinine measurement w ith calculation of estimated glomerular filtration rate > NRG Serum or plasma glucose measurement (mass/volume) 123 mg/dL 70-105 Serum or plasma calcium measurement (mass/volume) 8.9 mg/dL 8.5-10.1 Serum or plasma total bilirubin measurement (mass/volu me) 0.3 mg/dL 0.1-1.0 Serum or plasma alkaline phosphatase amelia surement (enzymatic activity/volume) 120 U/L 40-136 Serum or plasma aspartate aminotransfera se measurement (enzymatic activity/volume) 21 U/L 5-34 Serum or plasma alanine aminotransferase measurement (enzymatic activity/volume) 30 U/L 0-55 Serum or plasma protein measurement (mass/volume) 6.8 g/dL 6.4-8.2 Serum or plasma albumin measurement (mass/volume) 3.8 g/dL 3.2-4.5 CALCIUM CORRECTED 9.1 mg/dL 8.5-10.1 Magnesium - 05/12/18 23:38 Magnesium 2.0 mg/dL 1.8-2.4 Complete urinalysis with reflex to cultu re - 05/13/18 00:10 Urine color determination YELLOW NRG Urine clarity determination CLEAR NR G Urine pH measurement by test strip 5 5-9 Specific gravity of urine by test strip 1.020 1.016-1.022 Urine protein assay by test strip, semi-quantitative 2+ NEGATIVE Urine glucose detection by automated test strip NE GATIVE NEGATIVE Erythrocytes detection in urine sediment by light micr oscopy NEGATIVE NEGATIVE Urine ketones detection by automated test strip NE GATIVE NEGATIVE Urine nitrite detection by test strip NEGATIVE NEGATIVE Urine total bilirubin detection by test strip NEGA TIVE NEGATIVE Urine urobilinogen measurement by automated test strip (mass/volume) NORMAL NORMAL Urine leukocyte esterase detection by dipstick 1+ NEGATIVE Automated urine sediment erythrocyte cou nt by microscopy (number/high power field) NONE NRG Automated urine sediment leukocyte count by microscopy (number/high power field) [HPF] NRG Bacteria detection in urine sediment by light microsco py FEW NRG Squamous epithelial cells detection in u rine sediment by light microscopy RARE NRG Crystals detection in urine sediment by light microsco py NONE NRG Casts detection in urine sediment by light microscopy PRESENT NRG Mucus detection in urine sediment by light microscopy SMALL NRG Complete urinalysis with reflex to culture NO NRG Hyaline casts detection in urine sediment by light adan roscopy 0-2 NRG Bacterial urine culture - 05/13/18 00:10 Bacterial urine culture NG NRG Comprehensive Metabolic Panel - 12/15/18 23:25 Albumin 4.1 g/dL 3.6-5.1 ALP 124 U/L 35-130 ALT 23 U/L 6-45 Anion Gap 14 6-14 AST 18 U/L 2-40 BUN 31 mg/dL 5-25 Calcium 10.2 mg/dL 8.3-10.4 Chloride 107 mmol/L 95-114 CO2 21 mEq/L 22-33 Creat 1.24 mg/dL 0.50-1.50 eGFR 59 mL/min/1.73m2 >59 Globulin 3.3 g/dL 2.3-3.5 Glucose 166 mg/dL 70-110 Osmo 297 280-295 Potassium 2.7 Result Verified by Repeat Analysis m mol/L 3.5- 5.3 Sodium 139 mmol/L 134-148 TBil 0.4 mg/dL 0.2-1.2 TP 7.4 g/dL 6.0-8.3 Thyroid Stimulating Hormone - 12/15/18 2 3:25 TSH 0.64 mIU/mL 0.32-5.00 EKG - 12/15/18 23:27 EKG Complete Magnesium - 12/16/18 00:18 Mg++ 2.0 mg/dL 1.6-2.6 MRSA Screen - 12/16/18 00:30 FINAL CULTURE RESULTS MRSA Negative Nasal Culture MEDIA PLATED Setup at 01:00 on 12/16/2018 Urinalysis - 12/16/18 00:35 Icotest N/A Negative Urine Crystals Amorphous material: Few/HPF Urine Volume Urine Volume Insufficient ( <10mL) May Affect Microscopic Exam Urine-Appearance Clear Clear Urine-Bacteria Negative Urine-Bilirubin Negative Negative Urine-Blood Negative Negative Urine-Color Yellow Colorless-Lt. Carter ow Urine-Epithelial Cells 0-5/HPF Urine-Glucose Negative Negative Urine-Ketones Negative Negative Urine-Leukocytes Negative Negative Urine-Nitrite Negative Negative Urine-Other Culture to follow; cath urine Urine-pH 5.5 5-8.5 Urine-Protein Negative Negative Urine-RBC 0-2/HPF Urine-Specific [place] 1.020 1.000-1 .030 Urine-WBC 0-2/HPF Urobilinogen 0.2 0.2-1.0 Rapid Drug Screen + ETOH,Medical - 12/16 00:35 Amphetamine NEGATIVE NEGATIVE Barbiturates NEGATIVE NEGATIVE Benzodiazepines NEGATIVE NEGATIVE Cocaine NEGATIVE NEGATIVE Ethanol, Urine <10.00 mg/dL 20.00-80.00 Marijuana NEGATIVE NEGATIVE Methylenedioxymethamphetamine NEGATIVE NEGATIVE Opiates NEGATIVE NEGATIVE Oxycodone NEGATIVE NEGATIVE Phencyclidine NEGATIVE NEGATIVE Propoxyphene NEGATIVE NEGATIVE Tricyclic Antidepressant NEGATIVE NEGAT NIRAV Urine Culture - 12/16/18 00:35 PRELIM CULTURE RESULTS No Growth 24 hours FINAL CULTURE RESULTS No Growth 48 hours CULTURE SOURCE cath urine Potassium - 12/16/18 03:15 Potassium 3.8 DONE IN i-STAT mmol/L 3.5- 5.3 Lipid Panel - 12/16/18 05:15 C/HDL 4.1 3.7-6.7 Cholesterol 171 mg/dL 100-240 HDL 42 mg/dL 30-85 LDL-Calculated 114 mg/dL 0-100 Trig 73 mg/dL 35-160 VLDL 15 mg/dL 0-42 Comprehensive Metabolic Panel - 12/23/18 04:34 Albumin 3.4 g/dL 3.6-5.1 ALP 114 U/L 35-130 ALT 17 U/L 6-45 Anion Gap 12 6-14 AST 16 U/L 2-40 BUN 23 mg/dL 5-25 Calcium 9.4 mg/dL 8.3-10.4 Chloride 102 mmol/L 95-114 CO2 30 mEq/L 22-33 Creat 1.02 mg/dL 0.50-1.50 eGFR 73 mL/min/1.73m2 >59 Globulin 2.5 g/dL 2.3-3.5 Glucose 84 mg/dL 70-110 Osmo 290 280-295 Potassium 4.6 mmol/L 3.5-5.3 Sodium 139 mmol/L 134-148 TBil 0.5 mg/dL 0.2-1.2 TP 5.9 g/dL 6.0-8.3 Encounters ACCT No. Visit Date/Time Discharge Status Pt. Type Provider Facility Loc./Unit Complaint [id number] 10/15/2017 10:45:00 10/29/2017 09:35 :00 DIS Inpatient YESSI MOSLEY, [facility] [id number] 11/19/2014 16:40:00 11/30/2014 09:15 :00 DIS Inpatient MARSHA MOSLEY, KENNETH [facility] [id number] 11/19/2014 16:40:00 11/19/2014 16:40 :00 DIS Outpatient CORNELIUS MOSLEY, GLO [facility] [id number] 11/11/2017 14:52:00 Document Registration [id number] 09/20/2014 18:39:00 Document Registration [id number] 09/20/2014 14:20:00 Document Registration [id number] 03/24/2013 14:42:00 03/24/2013 23:59: 59 CLS Outpatient RAAD MILLER DO [id number] 06/13/2012 10:56:00 06/13/2012 23:59: 59 CLS Outpatient RAAD MILLER DO [id number] 02/22/2012 12:58:00 02/22/2012 23:59:5 9 CLS Outpatient [id number] 11/21/2012 13:54:00 Document Registration [id number] 12/15/2018 23:06:00 Document Registration [id number] 10/12/2019 15:00:00 020 08:35:00 DIS Outpatient BETO MOSES APRN [facility] REHAB SCOLIOSIS;LUMBA R KYPHOSIS [id number] 09/23/2019 13:22:00 15:20:00 DIS Emergency KAE MURRY [facility] ER FALL [id number] 05/19/2019 15:44:00 23:59:59 CLS Outpatient BETO MOSES APRN [facility] RAD HEADACHES [id number] 05/16/2019 20:55:00 019 22:32:00 DIS Emergency JASMINA ZAVALA APRN [facility] ER FALL/ HEAD INJ [id number] 05/12/2018 23:21:00 018 01:12:00 DIS Emergency ABHI INFANTE MD [facility] ER FALL,HEAD INJUR Y,GOOSE EGG OVER EYE [id number] 12/31/2016 16:20:00 017 18:56:00 DIS Emergency JASMINA ZAVALA APRN [facility] ER FALL HEAD INJURY [id number] 10/29/2016 11:18:00 017 23:59:59 CLS Outpatient PILLO JEFFERY DO [facility] RAD LT THYROID MASS [id number] 10/19/2016 18:41:00 017 20:54:00 DIS Emergency SARAH LARSON [facility] ER FALL/HEAD INJ [id number] 10/14/2016 08:21:00 017 12:18:00 DIS Emergency ABHI INFANTE MD [facility] ER FALL/CHIN LAC [id number] 07/26/2016 10:17:00 016 13:35:00 DIS Emergency ART BARGER MD [facility] ER WEAKNESS/AMS [id number] 07/20/2016 17:58:00 016 20:06:00 DIS Emergency ARCHANA ESPARZA DO [facility] ER FALL/HIP PAIN [id number] 02/23/2014 14:26:00 014 23:59:59 CLS Outpatient CAMI CANTRELL DO [facility] RAD NECK MASS [id number] 05/04/2013 10:53:00 013 15:09:00 DIS Outpatient HOPE ENGLISH MD [facility] REHAB PARKINSONISM, KYPHOSIS [id number] 03/13/2013 11:30:00 23:59:59 CLS Outpatient HOPE ENGLISH MD [facility] RAD PARKINSONS [id number] 12/16/2018 03:56:00 12/23/2018 08:45: 00 DIS Inpatient BABAKTAABHI BARNES [facility] [id number] 09/06/2018 09:07:00 09/06/2018 23:59: 00 DIS Outpatient HOPE ENGLISH [id number] 03/08/2018 10:13:00 03/08/2018 23:59: 00 DIS Outpatient HOPE ENGLISH [id number] 08/12/2017 13:33:00 08/12/2017 23:59: 00 DIS Outpatient HOPE ENGLISH [id number] 12/25/2016 00:00:00 12/26/2016 10:15: 00 DIS Outpatient Pillo Jeffery [facility] MED-SURG [id number] 12/16/2016 11:51:00 12/16/2016 23:59: 00 DIS Outpatient Pillo Jeffery [id number] 12/24/2016 13:30:21 Document Registration
[2019-10-30 02:01] LABS: BASOPHILS % (AUTO) 1 % (0-10); EOSINOPHILS # (AUTO) 0.1 10^3/uL (0.0-0.3); EOSINOPHILS % (AUTO) 2 % (0-10); HEMATOCRIT 41 % (40-54); HEMOGLOBIN 13.7 G/DL (13.3-17.7); LYMPHOCYTES # (AUTO) 1.3 X 10^3 (1.0-4.0); LYMPHOCYTES % (AUTO) 22 % (12-44); MEAN CORPUSCULAR HEMOGLOBIN 30 PG (25-34); MEAN CORPUSCULAR HGB CONC 34 G/DL (32-36); MEAN CORPUSCULAR VOLUME 90 FL (80-99); MEAN PLATELET VOLUME 10.4 FL (7.4-10.4); MONOCYTES # (AUTO) 0.5 X 10^3 (0.0-1.0); MONOCYTES % (AUTO) 8 % (0-12); NEUTROPHILS # (AUTO) 4.2 X 10^3 (1.8-7.8); NEUTROPHILS % (AUTO) 68 % (42-75); PLATELET COUNT 201 10^3/uL (130-400); WHITE BLOOD COUNT 6.1 10^3/uL (4.3-11.0)
--- NOTE | 2019-10-30 02:15 | ED Fall/Injury ---
General Chief Complaint: Trauma-Non Activation Stated Complaint: FELL HIT HEAD Nursing Triage Note: FALL, DENIES PAIN. Source: patient Exam Limitations: no limitations History of Present Illness Date Seen by Provider: Oct 30, 2019 Time Seen by Provider: 01:37 Initial Comments This 64-year-old gentleman presents to the emergency room [facility] after having a fall. Patient was last checked on at approximately midnight. He did not want to get up out of bed and go to the restroom at that time. He reportedly got up out of his bed after staff left the room to go to the bathroom and fell between the wall and the toilet, striking his head. He complains of mild head pain. There is no obvious injury on exam. Staff report that he has been getting up to go to the bathroom but unable to recently. He will then sometimes urinated on the floor. They question whether he has a urinary pathology. He is presently on Flomax. Patient denies any significant injury on arrival. He states his fall occurred because of tripping. The fall was unwitnessed. Loss of consciousness is unknown. Patient does walk independently with a walker. Allergies and Home Medications Allergies Coded Allergies: No Known Drug Allergies (Unverified , 07/20/16) Home Medications Bupropion HCl 150 Mg Tab.er.24h, 150 MG PO DAILY, (Reported) Carbidopa/Levodopa 1 Each Tablet, 1 EACH PO BID, (Reported) Docusate Sodium 100 Mg Capsule, 100 MG PO DAILY, (Reported) Hydrochlorothiazide 25 Mg Tablet, 25 MG PO DAILY, (Reported) [place] Carbonate 450 Mg Tab, 900 MG PO DAILY, (Reported) Mirtazapine 15 Mg Tab.rapdis, 15 MG PO DAILY, (Reported) Olanzapine 5 Mg Tablet, 5 MG PO DAILY, (Reported) Paroxetine HCl 10 Mg Tablet, 10 MG PO DAILY, (Reported) Polyethylene Glycol 3350 17 Gm Powd.pack, 17 GM PO DAILY, (Reported) [Artane] , 5 MG PO BID, (Reported) [Vit D] , 1.25 MG PO WEEK, (Reported) Patient Home Medication List Home Medication List Reviewed: Yes Review of Systems Review of Systems Constitutional: no symptoms reported Eyes: No Symptoms Reported Ears, Nose, Mouth, Throat: no symptoms reported Respiratory: no symptoms reported Cardiovascular: no symptoms reported Gastrointestinal: no symptoms reported Genitourinary: see HPI Musculoskeletal: no symptoms reported Skin: no symptoms reported Psychiatric/Neurological: No Symptoms Reported Past Ezuvaug-Bwbxoo-Kuotiq Hx Past Med/Social Hx: Reviewed Nursing Past Med/Soc Hx Patient Social History Alcohol Use: Denies Use Recreational Drug Use: No Smoking Status: Never a Smoker 2nd Hand Smoke Exposure: No Recent Foreign Travel: No Contact w/Someone Who Travel: No Recent Infectious Disease Expo: No Recent Hopitalizations: No Physical Abuse: No Sexual Abuse: No Mistreated: No Fear: No Immunizations Up To Date Tetanus Booster (TDap): Less than 5yrs PED Vaccines UTD: No Date of Influenza Vaccine: May 02, 2016 Seasonal Allergies Seasonal Allergies: No Past Medical History Surgeries: Yes Thyroidectomy Respiratory: No Cardiac: Yes Hypertension Neurological: Yes (EPS FROM MEDICATIONS) Developmental Disorder, Parkinson's Disease Reproductive Disorders: No Genitourinary: No Gastrointestinal: Yes Chronic Constipation Musculoskeletal: Yes (KYPHOSIS) Scoliosis, Chronic Back Pain Endocrine: No HEENT: No Cancer: No Psychosocial: Yes (MILD MR) Anxiety, Bipolar, Personality Disorder, Schizophrenia, Depression Integumentary: No Blood Disorders: No Family Medical History No Pertinent Family Hx Physical Exam Vital Signs Vital Signs - First Documented 10/30/19 01:39 Temp 36.7 Pulse 53 Resp 16 B/P (MAP) 139/93 (108) Pulse Ox 96 O2 Delivery Room Air Capillary Refill : Less Than 3 Seconds Height, Weight, BMI Height: 6'1.00" Weight: 154lbs. 0.0oz. 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, no motor/sensory deficits, alert, normal mood/affect, oriented x 3 Skin: normal color, warm/dry [place] Coma Score Best Eye Response: (4) Open Spontaneously Best Verbal Response: (5) Oriented Best Motor Response: (6) Obeys Commands [place] Total: 15 Progress/Results/Core Measures Results/Orders Lab Results Laboratory Tests Test 10/30/19 01:53 10/30/19 02:20 Range/Units White Blood Count 6.1 4.3-11.0 10^3/uL Red Blood Count 4.52 4.35-5.85 10^6/uL Hemoglobin 13.7 13.3-17.7 G/DL Hematocrit 41 40-54 % Mean Corpuscular Volume 90 80-99 FL Mean Corpuscular Hemoglobin 30 25-34 PG Mean Corpuscular Hemoglobin Concent 34 32-36 G/DL Red Cell Distribution Width 14.0 10.0-14.5 % Platelet Count 201 130-400 10^3/uL Mean Platelet Volume 10.4 7.4-10.4 FL Neutrophils (%) (Auto) 68 42-75 % Lymphocytes (%) (Auto) 22 12-44 % Monocytes (%) (Auto) 8 0-12 % Eosinophils (%) (Auto) 2 0-10 % Basophils (%) (Auto) 1 0-10 % Neutrophils # (Auto) 4.2 1.8-7.8 X 10^3 Lymphocytes # (Auto) 1.3 1.0-4.0 X 10^3 Monocytes # (Auto) 0.5 0.0-1.0 X 10^3 Eosinophils # (Auto) 0.1 0.0-0.3 10^3/uL Basophils # (Auto) 0.0 0.0-0.1 10^3/uL Sodium Level 138 135-145 MMOL/L Potassium Level 4.4 3.6-5.0 MMOL/L Chloride Level 102 98-107 MMOL/L Carbon Dioxide Level 25 21-32 MMOL/L Anion Gap 11 5-14 MMOL/L Blood Urea Nitrogen 23 H 7-18 MG/DL Creatinine 1.00 0.60-1.30 MG/DL Estimat Glomerular Filtration Rate > 60 BUN/Creatinine Ratio 23 Glucose Level 83 70-105 MG/DL Calcium Level 9.1 8.5-10.1 MG/DL Valproic Acid (Depakene) Level 67.7 50.0-100.0 UG/ML Urine Color YELLOW Urine Clarity CLEAR Urine pH 7.0 5-9 Urine Specific [place] 1.025 H 1.016-1.022 Urine Protein NEGATIVE NEGATIVE Urine Glucose (UA) NEGATIVE NEGATIVE Urine Ketones NEGATIVE NEGATIVE Urine Nitrite NEGATIVE NEGATIVE Urine Bilirubin NEGATIVE NEGATIVE Urine Urobilinogen 0.2 < = 1.0 MG/DL Urine Leukocyte Esterase NEGATIVE NEGATIVE Urine RBC (Auto) NEGATIVE NEGATIVE Urine RBC NONE /HPF Urine WBC NONE /HPF Urine Crystals NONE /LPF Urine Bacteria NEGATIVE /HPF Urine Casts NONE /LPF Urine Mucus NEGATIVE /LPF Urine Culture Indicated NO My Orders Orders - ABHI INFANTE MD Ct Head/Cervical Spine Wo (10/30/19 01:45) Ed Iv/Invasive Line Start (10/30/19 01:45) Basic Metabolic Panel (10/30/19 01:45) Cbc With Automated Diff (10/30/19 01:45) Ua Culture If Indicated (10/30/19 01:45) Pelvis (10/30/19 01:45) Chest 1 View, Ap/Pa Only (10/30/19 01:45) Valproic Acid (10/30/19 01:53) Vital Signs/I&O 10/30/19 01:39 Temp 36.7 Pulse 53 Resp 16 B/P (MAP) 139/93 (108) Pulse Ox 96 O2 Delivery Room Air Blood Pressure Mean: 108 Progress Progress Note : Time: 02:48 Progress Note Imaging revealed no traumatic injuries. Labs were reviewed and were unremarkable. Straight catheter was performed and yielded approximately 250 mL of urine. This would not represent a critical obstruction. Diagnostic Imaging Diagonstic Imaging: Xray Plain Films/CT/US/NM/MRI: chest Comments Chest x-ray viewed by me. Report not yet available. No acute abnormalities appreciated when compared with prior. Diagonstic Imaging: Xray Plain Films/CT/US/NM/MRI: pelvis Comments Pelvis x-ray viewed by me and report not yet available. No acute abnormalities appreciated. Diagonstic Imaging: CT Plain Films/CT/US/NM/MRI: c-spine, head Comments CT head and C-spine viewed by me and report reviewed. No acute injuries identified. Departure Impression Primary Impression: Fall on same level Qualified Codes: W18.30XA - Fall on same level, unspecified, initial encounter Additional Impression: Minor head injury Qualified Codes: S09.90XA - Unspecified injury of head, initial encounter Disposition: 01 HOME, SELF-CARE Condition: Stable/Unchanged Departure-Patient Inst. Referrals: CYN JARAMILLO MD (PCP/Family) Primary Care Physician Patient Instructions: Preventing Falls in the Older Adult Add. Discharge Instructions: No acute injuries were identified on imaging studies. About 250 mL of urine was in the bladder. Monitor for signs of retention and follow-up with your primary care provider as soon as possible. Return to care if there are worsening symptoms. All discharge instructions reviewed with patient and/or family. Voiced understanding. Copy Copies To 1: CYN JARAMILLO MD, JOSHUA T MD Oct 30, 2019 02:14
[2019-10-30 02:18] LABS: BUN/CREATININE RATIO 23; CALCIUM 9.1 MG/DL (8.5-10.1); CARBON DIOXIDE 25 MMOL/L (21-32); CHLORIDE 102 MMOL/L (98-107); GFR ESTIMATED > 60; GLUCOSE 83 MG/DL (70-105); POTASSIUM 4.4 MMOL/L (3.6-5.0); SODIUM 138 MMOL/L (135-145)
[2019-10-30 02:26] LABS: VALPROIC ACID 67.7 UG/ML (50.0-100.0)
[2019-10-30 02:27] LABS: BILIRUBIN,URINE NEGATIVE (NEGATIVE); CLARITY,URINE CLEAR; COLOR,URINE YELLOW; GLUCOSE, URINE (UA) NEGATIVE (NEGATIVE); KETONES,URINE NEGATIVE (NEGATIVE); LEUKOCYTE ESTERASE ,URINE NEGATIVE (NEGATIVE); NITRITE,URINE NEGATIVE (NEGATIVE); PROTEIN,URINE NEGATIVE (NEGATIVE)
[2019-10-30 02:42] LABS: BACTERIA,URINE NEGATIVE /HPF
[2019-10-30 03:04] VITALS: BP 132/88
--- NOTE | 2019-10-30 12:05 | Diagnostic Imaging Report ---
EXAMINATION: Pelvis, single view. COMPARISON: December 31, 2016. HISTORY: 64-year-old male, found down. Pelvic pain. FINDINGS: There is a lumbar levoscoliosis. There are advanced disc and facet degenerative changes of the lower lumbar spine at least at the level of L4-L5. The sacroiliac joints and pubic symphysis are normally aligned. There is chondrocalcinosis. The hips are not obviously dislocated. There is no identified acute fracture. IMPRESSION: 1. No identified acute bony abnormality. 2. Lumbar levoscoliosis with advanced disc and facet degenerative changes at least at the level of L4-L5. Dictated by: Dictated on workstation # [id number]
--- NOTE | 2019-10-30 12:05 | Diagnostic Imaging Report ---
PROCEDURE: CT head and CT cervical spine without contrast. TECHNIQUE: Multiple contiguous axial images were obtained through the brain and cervical spine without the use of intravenous contrast. Sagittal and coronal reformations through the cervical spine were then performed. Auto Exposure Controls were utilized during the CT exam to meet ALARA standards for radiation dose reduction. DATE: October 30, 2019. COMPARISON: CT head May 19, 2019. CT head and cervical spine May 16, 2019. INDICATION: 64-year-old male, found down. Head and neck pain. FINDINGS: There are areas of low-attenuation in the periventricular and subcortical white matter which are nonspecific but most likely relate to mild changes of chronic small vessel ischemic disease. The ventricles and cerebral spinal fluid spaces are of normal size and configuration for the patient's age. There is no mass effect or midline shift. There is no acute intracranial hemorrhage. There is no abnormal extra-axial fluid collection. The visualized portions of the paranasal sinuses, mastoid air cells and middle ears are well aerated. There is no identified facet joint subluxation or dislocation. There is no asymmetric widening of the cervical disc spaces. There is multilevel advanced disc degenerative change of the cervical spine with multilevel posterior disc osteophyte complexes. There are no pronounced facet degenerative changes. CT is limited for assessment of disc pathology as well as additional nonbony causes of pathology in the spinal canal. There is no identified acute fracture of the cervical spine. The visualized portions of the lungs are clear. The left lobe of the thyroid is hypoplastic or absent. IMPRESSION: 1. No identified acute intracranial abnormality. 2. Probable mild changes of chronic small vessel ischemic disease. 3. No acute posttraumatic abnormality of the cervical spine. 4. Multilevel advanced disc degenerative changes of the cervical spine. Dictated by: Dictated on workstation # [id number]
--- NOTE | 2019-10-30 12:05 | Diagnostic Imaging Report ---
EXAMINATION: Chest radiograph, portable AP view. DATE: 10/30/2019 2:17 AM hours. INDICATION: 64-year-old male, found down. COMPARISON: October 14, 2016. FINDINGS: Stable overall appearance of the cardiomediastinal silhouette. There is a thoracic dextroscoliosis. There is no identified pneumothorax. There is no large pleural effusion. There is no identified focal airspace consolidation. There are advanced right glenohumeral arthritic changes. IMPRESSION: 1. No identified acute cardiopulmonary abnormality. Dictated by: Dictated on workstation # [id number]
== END 2019-10-30 03:05 | disposition home or self-care (01) ==
LOC: EDUNIT# 01:36 → ER 01:37
DX: S09.90XA Unspecified injury of head, initial encounter (principal); W18.30XA Fall on same level, unspecified, initial encounter; I10 Essential (primary) hypertension; G20 Parkinson's disease; K59.09 Other constipation; M41.9 Scoliosis, unspecified; M54.9 Dorsalgia, unspecified; F79 Unspecified intellectual disabilities; F41.9 Anxiety disorder, unspecified; F31.9 Bipolar disorder, unspecified; F60.9 Personality disorder, unspecified; Z79.899 Other long term (current) drug therapy
CPT/HCPCS: 36415; 70450; 71045; 72125; 72170; 80048; 80164; 81000; 85025

== ENCOUNTER 2020-05-22 21:50 | Emergency (ER) | payer MEDICARE, MEDICAID ==
[~2020-05-22] VITALS: Ht 185 cm; Wt 70.0 kg
[~2020-05-22 21:50] MED LIST changes: +DCS100C; +DIVA125C10; +GABA-486 PO; +MTP25TSR PO; +PALI234D IM; +POTA20TA15 PO; +TMSL.4C PO; +[UNRECOGNIZED DRUG - CODE] PO
--- NOTE | 2020-05-22 22:04 | ED Fall/Injury ---
General Chief Complaint: Trauma-Non Activation Stated Complaint: FALL INJURY Nursing Triage Note: pt fell backwards into wall striking head on wall. no loc. c/o pain to back of head. Source: patient (LIMITED HISTORIAN), EMS, alf records History of Present Illness Date Seen by Provider: May 22, 2020 Time Seen by Provider: 21:48 Initial Comments PT ARRIVES VIA [facility] PT WAS WALKING/USING HIS WALKER, AND FELL BACKWARD, HITTING THE BACK OF HIS HEAD ON A SHEETROCK WALL, NO LOSS OF CONSCIOUSNESS DENIES NECK PAIN NO REPORTED SECONDARY INJURY DENIES PAIN ANYWHERE OTHER THAN THE BACK OF HIS HEAD NO REPORTED VOMITING MENTATION IS REPORTEDLY AT PT'S BASELINE. PT HAS PARKINSON'S, MILD MR, AND MULTIPLE PSYCH DIAGNOSES--INCLUDING SCHIZOPHRENIA PT IS ON ASPIRIN, BUT NO OTHER BLOOD THINNERS PT IS DNR Location Injury Occurred: home PCP: DR. JARAMILLO Allergies and Home Medications Allergies Coded Allergies: No Known Drug Allergies (Unverified , 07/20/16) Home Medications Bupropion HCl 150 Mg Tab.er.24h, 150 MG PO DAILY, (Reported) Carbidopa/Levodopa 1 Each Tablet, 1 EACH PO BID, (Reported) Docusate Sodium 100 Mg Capsule, 100 MG PO DAILY, (Reported) Hydrochlorothiazide 25 Mg Tablet, 25 MG PO DAILY, (Reported) [place] Carbonate 450 Mg Tab, 900 MG PO DAILY, (Reported) Mirtazapine 15 Mg Tab.rapdis, 15 MG PO DAILY, (Reported) Olanzapine 5 Mg Tablet, 5 MG PO DAILY, (Reported) Paroxetine HCl 10 Mg Tablet, 10 MG PO DAILY, (Reported) Polyethylene Glycol 3350 17 Gm Powd.pack, 17 GM PO DAILY, (Reported) [Artane] , 5 MG PO BID, (Reported) [Vit D] , 1.25 MG PO WEEK, (Reported) Patient Home Medication List Home Medication List Reviewed: Yes Review of Systems Review of Systems Constitutional: no symptoms reported Eyes: No Symptoms Reported Respiratory: no symptoms reported Cardiovascular: no symptoms reported Gastrointestinal: no symptoms reported Genitourinary: no symptoms reported Musculoskeletal: no symptoms reported; No back pain, No neck pain Skin: no symptoms reported Psychiatric/Neurological: See HPI (BACK OF HEAD HURTS AT SITE OF IMPACT) Past Zmdndee-Pxslou-Yvgpak Hx Past Med/Social Hx: Reviewed and Corrections made Patient Social History Alcohol Use: Denies Use Recreational Drug Use: No Smoking Status: Unknown if Ever Smoked 2nd Hand Smoke Exposure: No Recent Hopitalizations: No Physical Abuse: No Sexual Abuse: No Mistreated: No Fear: No Immunizations Up To Date Tetanus Booster (TDap): Less than 5yrs PED Vaccines UTD: No Date of Influenza Vaccine: May 02, 2016 Seasonal Allergies Seasonal Allergies: No Past Medical History Surgeries: Yes Thyroidectomy Respiratory: No Cardiac: Yes Hypertension Neurological: Yes (EPS FROM MEDICATIONS) Developmental Disorder, Parkinson's Disease Reproductive Disorders: No Genitourinary: Yes (RENAL INSUFFICIENCY) Benign Prostatic Hyperpl Gastrointestinal: Yes Chronic Constipation Musculoskeletal: Yes (KYPHOSIS;OSTEOPENIA; USES WALKER) Scoliosis, Chronic Back Pain Endocrine: No HEENT: No Cancer: No Psychosocial: Yes (MILD MR) Anxiety, Bipolar, Personality Disorder, Schizophrenia, Depression Integumentary: No Blood Disorders: No Family Medical History No Pertinent Family Hx PT IS DNR Physical Exam Vital Signs Vital Signs - First Documented 05/22/20 21:50 Temp 36.2 Pulse 84 Resp 16 B/P (MAP) 113/83 (93) Pulse Ox 96 O2 Delivery Room Air Capillary Refill : Height, Weight, BMI Height: 6'1.00" Weight: 154lbs. 0.0oz. 69.894707ee; 20.00 BMI Method:Stated General Appearance: WD/WN, no apparent distress, other (SLIGHLTY SLOW MENTATION, VERY FLAT AFFECT, DOES NOT MAKE EYE CONTACT. SPEECH CLEAR. ) HEENT: PERRL/EOMI, other (HAS APPROXIMATELY 3 CM DIAMETER HEMATOMA TO CENTER OF OCCIPITAL AREA) Neck: non-tender, full range of motion, supple, normal inspection Cardiovascular: regular rate, rhythm, no murmur Respiratory: chest non-tender, normal breath sounds, no respiratory distress Gastrointestinal: non tender, soft Back: no CVA tenderness, no vertebral tenderness, other (KYPHOSCOLIOSIS; LEANS TO LEFT) Extremities: non-tender, pedal edema (1+ BIKLATERALLY) Neurologic/Psychiatric: no motor/sensory deficits (GROSSLY INTACT--MOVES ALL EXTREMITIES), alert, other (ORIENTED TO PERSON, SITUTATION, PLACE) Skin: normal color Wesley Coma Score Best Eye Response: (4) Open Spontaneously Best Verbal Response: (5) Oriented Best Motor Response: (6) Obeys Commands [place] Total: 15 Progress/Results/Core Measures Results/Orders My Orders Orders - ARCHANA ESPARZA DO Ct Head/Cervical Spine Wo (05/22/20 21:57) Pelvis (05/22/20 21:57) Vital Signs/I&O 05/22/20 21:50 Temp 36.2 Pulse 84 Resp 16 B/P (MAP) 113/83 (93) Pulse Ox 96 O2 Delivery Room Air Progress Progress Note : Progress Note UNEVENTFUL ER STAY Diagnostic Imaging Comments CT HEAD/CERVICAL SPINE--NO ACUTE PROCESS, DEGENERATIVE CHANGES--PER [facility] VIA FAX AT 0100 Reviewed: Reviewed by Me Departure Impression Primary Impression: Minor head injury without loss of consciousness Additional Impressions: Head contusion Fall on same level Disposition: 03 XFER SNF Condition: Stable Departure-Patient Inst. Referrals: CYN JARAMILLO MD (PCP/Family) Primary Care Physician Patient Instructions: Contusion (DC), Minor Head Injury (DC) Add. Discharge Instructions: ICE TO AREA AT 20 MINUTE INTERVALS TYLENOL NEEDED FOR PAIN FOLLOW UP WITH DR. JARAMILLO FOR FURTHER CARE All discharge instructions reviewed with patient and/or family. Voiced understanding. ARCHANA ESPARZA DO May 22, 2020 22:04
[2020-05-22 23:30] VITALS: BP 141/92
--- NOTE | 2020-05-23 06:08 | Diagnostic Imaging Report ---
PROCEDURE: CT head and CT cervical spine without contrast. TECHNIQUE: Multiple contiguous axial images were obtained through the brain and cervical spine without the use of intravenous contrast. Sagittal and coronal reformations through the cervical spine were then performed. Auto Exposure Controls were utilized during the CT exam to meet ALARA standards for radiation dose reduction. INDICATION: Fall. Exam compared with head and cervical CT 10/30/2019 Head: Cerebral cortical volume stable consistent with an underlying degree of at least mild atrophy. No damon hydrocephalus. Some chronic appearing periventricular white matter small vessel disease stable. No focal or generalized edema. No hemorrhage or abnormal extra-axial fluid collections. The basilar cisterns patent. There is no sulcal effacement. No hemo-sinus and no calvarial fracture deformity. Cervical spine: Reconstruction views reveal body heights to be maintained with stable alignment showing grade 1 degenerative retrolisthesis C3 on C4 and C4 on C5 and C5 on C6 unchanged. There is disc space narrowing, endplate sclerosis and osteophytes greatest at C3-C4 and C5-C6. No cervical fracture or paravertebral hemorrhage, however the central skull base appeared unremarkable. The craniocervical relationship unremarkable. No traumatic deformity to the airway or structures of the larynx. The visualized pulmonary apices appeared nonacute. No fracture identified. IMPRESSION: Stable chronic findings at CT head and cervical spine. Dictated by: Dictated on workstation # [id number]
--- NOTE | 2020-05-23 07:44 | Diagnostic Imaging Report ---
INDICATION: Fall FINDINGS: AP pelvis showed no fracture or dislocation. There is degenerative changes to the partially visualized lower lumbar spine. IMPRESSION: No acute finding apparent. Dictated by: Dictated on workstation # [id number]
== END 2020-05-22 23:35 ==
LOC: EDUNIT# 21:50 → ER 21:52
DX: S00.83XA Contusion of other part of head, initial encounter (principal); F20.9 Schizophrenia, unspecified; F31.9 Bipolar disorder, unspecified; I10 Essential (primary) hypertension; G20 Parkinson's disease; R40.2410 Glasgow coma scale score 13-15, unspecified time; Z79.82 Long term (current) use of aspirin; W01.198A Fall on same level from slipping, tripping and stumbling with subsequent striking against other object, initial encounter
CPT/HCPCS: 70450; 72125; 72170

== ENCOUNTER 2020-05-24 12:09 | Inpatient (IN) | payer MEDICARE, MEDICAID ==
[~2020-05-24] VITALS: Ht 180.3 cm; Wt 64.9 kg
--- NOTE | 2020-05-24 12:35 | ED General ---
General Stated Complaint: FEVER/COUGH Source of Information: EMS, [facility] Records Exam Limitations: No Limitations History of Present Illness Date Seen by Provider: May 24, 2020 Time Seen by Provider: 12:32 Initial Comments To ER with a fever up to 100.5 and a cough. He resides [facility] and is on the [facility] program with advanced dementia and is DO NOT RESUSCITATE status. Timing/Duration: 1-2 Days Severity: Moderate Associated Systoms: Denies Symptoms Allergies and Home Medications Allergies Coded Allergies: No Known Drug Allergies (Unverified , 07/20/16) Home Medications Bupropion HCl 150 Mg Tab.er.24h, 150 MG PO DAILY, (Reported) Carbidopa/Levodopa 1 Each Tablet, 1 EACH PO BID, (Reported) Docusate Sodium 100 Mg Capsule, 100 MG PO DAILY, (Reported) Hydrochlorothiazide 25 Mg Tablet, 25 MG PO DAILY, (Reported) [place] Carbonate 450 Mg Tab, 900 MG PO DAILY, (Reported) Mirtazapine 15 Mg Tab.rapdis, 15 MG PO DAILY, (Reported) Olanzapine 5 Mg Tablet, 5 MG PO DAILY, (Reported) Paroxetine HCl 10 Mg Tablet, 10 MG PO DAILY, (Reported) Polyethylene Glycol 3350 17 Gm Powd.pack, 17 GM PO DAILY, (Reported) [Artane] , 5 MG PO BID, (Reported) [Vit D] , 1.25 MG PO WEEK, (Reported) Patient Home Medication List Home Medication List Reviewed: Yes Review of Systems Review of Systems Constitutional: see HPI, fever EENTM: see HPI Respiratory: see HPI, cough Cardiovascular: no symptoms reported Genitourinary: no symptoms reported Musculoskeletal: no symptoms reported Skin: no symptoms reported Psychiatric/Neurological: No Symptoms Reported Hematologic/Lymphatic: No Symptoms Reported Immunological/Allergic: no symptoms reported Past Bqlakno-Dyjhcx-Nptjjo Hx Patient Social History 2nd Hand Smoke Exposure: No Recent Hopitalizations: No Immunizations Up To Date Tetanus Booster (TDap): Less than 5yrs PED Vaccines UTD: No Date of Influenza Vaccine: May 02, 2016 Seasonal Allergies Seasonal Allergies: No Past Medical History Surgeries: Yes Thyroidectomy Respiratory: No Cardiac: Yes Hypertension Neurological: Yes (EPS FROM MEDICATIONS) Developmental Disorder, Parkinson's Disease Reproductive Disorders: No Genitourinary: Yes (RENAL INSUFFICIENCY) Benign Prostatic Hyperpl Gastrointestinal: Yes Chronic Constipation Musculoskeletal: Yes (KYPHOSIS;OSTEOPENIA; USES WALKER) Scoliosis, Chronic Back Pain Endocrine: No HEENT: No Cancer: No Psychosocial: Yes (MILD MR) Anxiety, Bipolar, Personality Disorder, Schizophrenia, Depression Integumentary: No Blood Disorders: No Family Medical History No Pertinent Family Hx PT IS DNR Physical Exam Vital Signs Vital Signs - First Documented Capillary Refill : Height, Weight, BMI Height: 6'1.00" Weight: 154lbs. 0.0oz. 69.856804uz; 20.00 BMI Method:Stated General Appearance: No Apparent Distress, Chronically ill (very poor overall he alth. 87% room air, 93% on oximask at 4L. Rhonchi noted. No resp dstress. Nonverbal. ) HEENT: PERRL/EOMI, TMs Normal Respiratory: No Accessory Muscle Use, No Respiratory Distress, Rhonci Cardiovascular: Regular Rate, Rhythm, Normal Peripheral Pulses Gastrointestinal: Normal Bowel Sounds, Non Tender, Soft Extremity: Normal Capillary Refill, Normal Inspection Neurologic/Psychiatric: Alert, Oriented x3 Skin: Normal Color, Warm/Dry Focused Exam Lactate Level 05/24/20 12:20: Lactic Acid Level 1.55 Lactic Acid Level Laboratory Tests Test 05/24/20 12:20 Lactic Acid Level 1.55 MMOL/L (0.50-2.00) Progress/Results/Core Measures Suspected Sepsis SIRS Temperature: Pulse: Respiratory Rate: Laboratory Tests 05/24/20 12:20: White Blood Count 7.2 Blood Pressure / Mean: 05/24/20 12:20: Lactic Acid Level 1.55 Laboratory Tests 05/24/20 12:20: Creatinine 1.07, Platelet Count 202, Total Bilirubin 0.4 Results/Orders Lab Results Laboratory Tests Test 05/24/20 12:12 05/24/20 12:20 Range/Units Coronavirus 2019 ([facility]) Positive H Negative White Blood Count 7.2 4.3-11.0 10^3/uL Red Blood Count 5.27 4.30-5.52 10^6/uL Hemoglobin 16.4 13.3-17.7 g/dL Hematocrit 48 40-54 % Mean Corpuscular Volume 91 80-99 fL Mean Corpuscular Hemoglobin 31 25-34 pg Mean Corpuscular Hemoglobin Concent 34 32-36 g/dL Red Cell Distribution Width 13.3 10.0-14.5 % Platelet Count 202 130-400 10^3/uL Mean Platelet Volume 10.3 9.0-12.2 fL Immature Granulocyte % (Auto) 0 % Neutrophils (%) (Auto) 85 H 42-75 % Lymphocytes (%) (Auto) 5 L 12-44 % Monocytes (%) (Auto) 10 0-12 % Eosinophils (%) (Auto) 0 0-10 % Basophils (%) (Auto) 0 0-10 % Neutrophils # (Auto) 6.1 1.8-7.8 10^3/uL Lymphocytes # (Auto) 0.3 L 1.0-4.0 10^3/uL Monocytes # (Auto) 0.7 0.0-1.0 10^3/uL Eosinophils # (Auto) 0.0 0.0-0.3 10^3/uL Basophils # (Auto) 0.0 0.0-0.1 10^3/uL Immature Granulocyte # (Auto) 0.0 0.0-0.1 10^3/uL Neutrophils % (Manual) 61 % Lymphocytes % (Manual) 2 % Monocytes % (Manual) 6 % Band Neutrophils 31 % Blood Morphology Comment NORMAL Sodium Level 137 135-145 MMOL/L Potassium Level 3.9 3.6-5.0 MMOL/L Chloride Level 98 98-107 MMOL/L Carbon Dioxide Level 25 21-32 MMOL/L Anion Gap 14 5-14 MMOL/L Blood Urea Nitrogen 24 H 7-18 MG/DL Creatinine 1.07 0.60-1.30 MG/DL Estimat Glomerular Filtration Rate > 60 BUN/Creatinine Ratio 22 Glucose Level 96 70-105 MG/DL Lactic Acid Level 1.55 0.50-2.00 MMOL/L Calcium Level 8.8 8.5-10.1 MG/DL Corrected Calcium 8.6 8.5-10.1 MG/DL Total Bilirubin 0.4 0.1-1.0 MG/DL Aspartate Amino Transf (AST/SGOT) 70 H 5-34 U/L Alanine Aminotransferase (ALT/SGPT) 28 0-55 U/L Alkaline Phosphatase 54 40-136 U/L C-Reactive Protein High Sensitivity 9.51 H 0.00-0.50 MG/DL Total Protein 7.7 6.4-8.2 GM/DL Albumin 4.2 3.2-4.5 GM/DL Micro Results Microbiology 05/24/20 Influenza Types A,B Antigen ([facility]LY[facility]) - Final, Complete My Orders Orders - JASMINA ZAVALA [employer] Cbc With Automated Diff (05/24/20 12:29) Comprehensive Metabolic Panel (05/24/20 12:29) Ua Culture If Indicated (05/24/20 12:29) Ed Iv/Invasive Line Start (05/24/20 12:29) Hs C Reactive Protein (05/24/20 12:29) Chest 1 View, Ap/Pa Only (05/24/20 12:29) Blood Culture (05/24/20 12:29) Lactic Acid Analyzer (05/24/20 12:29) O2 (05/24/20 12:29) Influenza A And B Antigens (05/24/20 12:29) Covid 19 Inhouse Test (05/24/20 12:) Manual Differential (05/24/20:) Procalcitonin (Pct) (05/24/20 13:04) Vital Signs/I&O 05/24/20 05/24/20 05/24/20 05/24/20 12:09 12:09 12:09 12:09 Temp 37.6 37.6 Pulse 74 74 Resp 26 26 B/P (MAP) 134/85 (101) 134/85 Pulse Ox 95 97 97 O2 Delivery OxyMask OxyMask OxyMask OxyMask O2 Flow Rate 10.00 10.00 10.00 Capillary Refill : Departure Communication (Admissions) 1314-I spoke with the patient's sonReilly Esquivel, very pleasant gentleman. I discussed with him the recommendation for convalescent plasma and Remdesivir though these are technically still experimental in nature. Reilly would like to proceed with these treatments Impression Primary Impression: Hypoxia Additional Impression: COVID-19 Disposition: 09 ADMITTED INPATIENT Condition: Stable Admissions Decision to Admit Reason: Admit from ER (General) Decision to Admit/Date: May 24, 2020 Time/Decision to Admit Time: 13:04 Departure-Patient Inst. Referrals: CYN JARAMILLO MD (PCP/Family) Primary Care Physician JASMINA ZAVALA APRN May 24, 2020 12:35
[2020-05-24 12:36] LABS: BASOPHILS % (AUTO) 0 % (0-10); EOSINOPHILS % (AUTO) 0 % (0-10); HEMATOCRIT 48 % (40-54); HEMOGLOBIN 16.4 g/dL (13.3-17.7); LYMPHOCYTES # (AUTO) 0.3 10^3/uL (1.0-4.0); LYMPHOCYTES % (AUTO) 5 % (12-44); MEAN CORPUSCULAR HEMOGLOBIN 31 pg (25-34); MEAN CORPUSCULAR HGB CONC 34 g/dL (32-36); MEAN CORPUSCULAR VOLUME 91 fL (80-99); MEAN PLATELET VOLUME 10.3 fL (9.0-12.2); MONOCYTES # (AUTO) 0.7 10^3/uL (0.0-1.0); MONOCYTES % (AUTO) 10 % (0-12); NEUTROPHILS # (AUTO) 6.1 10^3/uL (1.8-7.8); NEUTROPHILS % (AUTO) 85 % (42-75); PLATELET COUNT 202 10^3/uL (130-400); WHITE BLOOD COUNT 7.2 10^3/uL (4.3-11.0)
[2020-05-24 12:55] LABS: ALANINE AMINOTRANSFERASE 28 U/L (0-55); ALBUMIN 4.2 GM/DL (3.2-4.5); ALKALINE PHOSPHATASE 54 U/L (40-136); BILIRUBIN,TOTAL 0.4 MG/DL (0.1-1.0); BUN/CREATININE RATIO 22; CALCIUM 8.8 MG/DL (8.5-10.1); CARBON DIOXIDE 25 MMOL/L (21-32); CHLORIDE 98 MMOL/L (98-107); CREATININE SERUM 1.07 MG/DL (0.60-1.30); GFR ESTIMATED > 60; GLUCOSE 96 MG/DL (70-105); POTASSIUM 3.9 MMOL/L (3.6-5.0); SODIUM 137 MMOL/L (135-145); TOTAL PROTEIN 7.7 GM/DL (6.4-8.2)
[2020-05-24 12:59] LABS: BAND NEUTROPHILS 31 %; LYMPHOCYTES % (MANUAL) 2 %; MONOCYTES % (MANUAL) 6 %; NEUTROPHILS % (MANUAL) 61 %; RBC MORPH NORMAL
--- NOTE | 2020-05-24 13:08 | Diagnostic Imaging Report ---
INDICATION: COVID positive, cough, fever. TECHNIQUE: Single-view chest 12:48 p.m. CORRELATION STUDY: 10/30/2019. FINDINGS: Rather significant rightward curvature of the thoracic spine does result in distortion of the chest anatomy. Given this, the heart size and mediastinum appear generally stable. Increasing opacity at the left lung base may be atelectasis versus infiltrate. IMPRESSION: 1. Atelectasis versus infiltrate at the left lung base. 2. Borderline heart size without evidence for overt failure. Dictated by: Dictated on workstation # [id number]
[2020-05-24] MEDS ORDERED: LACTATED RINGERS 1,000 ML IV ONE (13:18)
[2020-05-24] MEDS ORDERED: LACTATED RINGERS 1,000 ML IV SCH (13:30)
[2020-05-24] MEDS ORDERED: ACETAMINOPHEN 325 MG TABLET PO PRN ×2 (14:45→19:30)
--- NOTE | 2020-05-24 14:45 | NUR ---
PATRICK SANTOS admitted to room 432-1, with an admitting diagnosis of COVID 19, on 05/24/20 from [facility] ED, accompanied by STAFF. PATRICK SANTOS introduced to surroundings, call light, bed controls, phone, TV, temperature control, lights, meal times, smoking policy, visitor policy, side rail policy, bathrooms and showers. Patient Rights given to patient in the handbook. PATRICK SANTOS verbalizes understanding that [facility] is not responsible for the loss or damage to any personal effects or valuables that are kept in the patients posession during their hospitalization. PATRICK SANTOS verbalizes understanding of Interdisciplinary Patient Education. Patient and/or family were informed about the Rapid Response Team and its purpose.
[2020-05-24 15:13] VITALS: BP 134/87
[2020-05-24] MEDS: LACTATED RINGERS 1,000 ML IV SCH (15:23)
[2020-05-24] MEDS ORDERED: REMDESIVIR INJ 200 MG in NS (IVPB) 210 ML IV NR (15:30)
[2020-05-24] MEDS ORDERED: ASPI325T32 PO (15:55)
[2020-05-24] MEDS ORDERED: DIVA125C10 PO (15:55)
[2020-05-24] MEDS ORDERED: ACET-2267 PO (15:55)
[2020-05-24] MEDS ORDERED: SENN-125 PO (15:55)
[2020-05-24] MEDS ORDERED: ONDN4T PO (15:55)
[2020-05-24] MEDS ORDERED: LORA-404 PO (15:55)
[2020-05-24] MEDS ORDERED: CHOL20003 PO (15:55)
[2020-05-24] MEDS ORDERED: MOM10U PO (15:59)
[2020-05-24] MEDS ORDERED: BISA10SU8 RC (15:59)
[2020-05-24] MEDS ORDERED: MELA3TAB39 PO (15:59)
[2020-05-24] MEDS ORDERED: TR1C15 TP (15:59)
[2020-05-24] MEDS ORDERED: TRAM50TA3 PO (15:59)
[2020-05-24] MEDS ORDERED: CATHETER FLUSH 10 ML SYR IV PRN (16:00)
--- NOTE | 2020-05-24 16:07 | NUR ---
THE MED REC WAS ENTERED USING THE MAR FROM [facility]
[2020-05-24 16:30] VITALS: BP 116/68
[2020-05-24] MEDS: ENOXAPARIN 40 MG/0.4 ML (LOVENOX) SYR SC SCH (17:59)
[2020-05-24 18:03] VITALS: BP 134/85
[2020-05-24] MEDS ORDERED: MILK OF MAGNESIA 400 MG/5 ML 30 ML UDC PO PRN (19:30)
[2020-05-24] MEDS ORDERED: ONDANSETRON 4 MG/2 ML (SDV) Z0FRAN IV PRN (19:30)
[2020-05-24] MEDS ORDERED: ANTACID SUSP 30 ML UDC (MYLANTA) PO PRN (19:30)
[2020-05-24] MEDS ORDERED: MELATONIN 3 MG TABLET PO PRN (19:30)
[2020-05-24 19:57] VITALS: BP 126/82
[2020-05-24] MEDS: RT-ALBUTEROL INHALER HFA (VENTOLIN HFA) 18 GM IH PRN (21:31)
[2020-05-25] VITALS (17 sets, daily range): BP systolic 98–166; BP diastolic 57–106
[2020-05-25] MEDS: RT-ALBUTEROL INHALER HFA (VENTOLIN HFA) 18 GM IH PRN (03:27)
[2020-05-25] MEDS: LACTATED RINGERS 1,000 ML IV SCH ×2 (05:28→20:47)
[2020-05-25 08:01] LABS: HEMOGLOBIN 13.1 g/dL (13.3-17.7); MEAN PLATELET VOLUME 11.5 fL (9.0-12.2); WHITE BLOOD COUNT 7.3 10^3/uL (4.3-11.0)
[2020-05-25 08:23] LABS: ALANINE AMINOTRANSFERASE 20 U/L (0-55); ALBUMIN 3.2 GM/DL (3.2-4.5); ALKALINE PHOSPHATASE 40 U/L (40-136); BILIRUBIN,TOTAL 0.5 MG/DL (0.1-1.0); BUN/CREATININE RATIO 20; CARBON DIOXIDE 23 MMOL/L (21-32); CHLORIDE 99 MMOL/L (98-107); CREATININE SERUM 0.98 MG/DL (0.60-1.30); GFR ESTIMATED > 60; GLUCOSE 73 MG/DL (70-105); SODIUM 137 MMOL/L (135-145); TOTAL PROTEIN 6.2 GM/DL (6.4-8.2)
[2020-05-25] MEDS: RT-ALBUTEROL INHALER HFA (VENTOLIN HFA) 18 GM IH SCH ×4 (09:55→18:57)
[2020-05-25] MEDS ORDERED: NON-FORMULARY MEDICATION 1 EA EA (Magnesium Hydroxide (Milk of Magnesia) 30 ML) PO PRN (10:15)
[2020-05-25] MEDS ORDERED: ACETAMINOPHEN 500 MG TAB (TYLENOL) PO PRN (10:15)
[2020-05-25] MEDS ORDERED: BISACODYL 10 MG SUPP (DULCOLAX) RC PRN (10:15)
[2020-05-25] MEDS ORDERED: NON-FORMULARY MEDICATION 1 EA EA (Ondansetron HCl (Zofran) 4 MG) PO PRN (10:15)
[2020-05-25] MEDS ORDERED: RX-TRAMADOL 50 MG (ULTRAM) TAB PPK#4 PO PRN (10:15)
[2020-05-25] MEDS ORDERED: LORazepam 0.5 MG (ATIVAN) TABLET PO PRN (10:15)
[2020-05-25] MEDS ORDERED: TRIAMCINOLONE 0.1% CR (KENALOG) 15 GM TUBE TP PRN (10:15)
[2020-05-25] MEDS ORDERED: MELATONIN 3 MG TABLET PO PRN (10:15)
[2020-05-25] MEDS ORDERED: MILK OF MAGNESIA 400 MG/5 ML 30 ML UDC PO PRN (10:30)
[2020-05-25] MEDS ORDERED: ONDANSETRON 4 MG (ZOFRAN) ORAL DISSOLVE TAB PO PRN (10:30)
--- NOTE | 2020-05-25 11:49 | History & Physical-Hospitalist ---
History of Present Illness HPI/Chief Complaint Pt is a 65yoCM with a PMH of advanced dementia who presented to the ER due to fever. He is unable to relay any history to me due to dementia. All history, though minimal, is obtained from the chart. Apparently he had a fever and a cough and was brought in for evaluation. The rapid in house COVID test was positive. He was admitted for oxygen and Remdesivir. RN states he had some aspiration with breakfast but otherwise has done well. Exam Limitations: clinical condition Date Seen 05/25/20 Time Seen by a Provider: 11:41 Attending Physician Tamir Barnes MD PCP Bertram Chowdhury MD Referring Physician Date of Admission May 24, 2020 at 13:16 Home Medications & Allergies Home Medications Reviewed patient Home Medication Reconciliation performed by pharmacy medication reconciliations cardiac technician and/or nursing. Patients Allergies have been reviewed. Allergies Allergies Coded Allergies Sulfa (Sulfonamide Antibiotics) (Verified Allergy, Unknown, 05/24/20) Past Xdrmjyx-Aavccg-Drkjqy Hx Past Med/Social Hx: Reviewed Nursing Past Med/Soc Hx Patient Social History Employed/Student: unemployed Alcohol Use: Denies Use Recreational Drug Use: No Smoking Status: Never a Smoker 2nd Hand Smoke Exposure: No Physical Abuse Screen: No Sexual Abuse: No Recent Foreign Travel: No Contact w/other who traveled: No Recent Hopitalizations: No Recent Infectious Disease Expo: No Immunizations Up To Date Tetanus Booster (TDap): Less than 5yrs Pediatric: No Date of Influenza Vaccine: May 02, 2016 Seasonal Allergies Seasonal Allergies: No Past Medical History Surgeries: Thyroidectomy Cardiac: Hypertension Neurological: Developmental Disorder, Parkinson's Disease Reproductive: No Genitourinary: Benign Prostatic Hyperpl Gastrointestinal: Chronic Constipation Musculoskeletal: Scoliosis, Chronic Back Pain Psychosocial: Anxiety, Bipolar, Personality Disorder, Schizophrenia, Depression History of Blood Disorders: No Family History Reviewed Nursing Family Hx No Pertinent Family Hx PT IS DNR Review of Systems ROS-Unable to Obtain: dementia Constitutional: see HPI Physical Exam Physical Exam Vital Signs Vital Signs - First Documented Capillary Refill : Less Than 3 SecondsLess Than 3 Seconds Height, Weight, BMI Height: 6'1.00" Weight: 154lbs. 0.0oz. 69.453347qg; 19.96 BMI Method:Stated General Appearance: No Apparent Distress, Chronically ill, Thin HEENT: PERRL/EOMI, Moist Mucous Membranes; No Scleral Icterus (L), No Scleral Icterus (R) Neck: Normal Inspection, Supple Respiratory: Lungs Clear, No Accessory Muscle Use, No Respiratory Distress Cardiovascular: Regular Rate, Rhythm, No JVD, No Murmur Gastrointestinal: Normal Bowel Sounds, Non Tender, Soft Extremity: Normal Capillary Refill, No Calf Tenderness, No Pedal Edema Neurologic/Psychiatric: Alert, Oriented x3, Normal Mood/Affect Skin: Normal Color, Warm/Dry Results Results/Procedures Labs Laboratory Tests 05/24/20 12:20 05/25/20 07:00 Patient resulted labs reviewed. Imaging: Reviewed Imaging Report Imaging [facility] [place], [place] NAME: PATRICK SANTOS [facility] REC#: [id number] PT STATUS: ADM IN : 1955 PHYSICIAN: JASMINA ZAVALA APRN ADMIT DATE: 05/24/20 Signed Date of Exam:05/24/20 CHEST 1 VIEW, AP/PA ONLY INDICATION: COVID positive, cough, fever. TECHNIQUE: Single-view chest 12:48 p.m. CORRELATION STUDY: 10/30/2019. FINDINGS: Rather significant rightward curvature of the thoracic spine does result in distortion of the chest anatomy. Given this, the heart size and mediastinum appear generally stable. Increasing opacity at the left lung base may be atelectasis versus infiltrate. IMPRESSION: 1. Atelectasis versus infiltrate at the left lung base. 2. Borderline heart size without evidence for overt failure. Dictated by: Dictated on workstation # [id number] Dict: 05/24/20 1258 Trans: 05/24/20 1558 [id number] Interpreted by: LEWIS OWUSU DO Electronically signed by: LEWIS OWUSU DO 05/24/20 1558 Assessment/Plan Admission Diagnosis Acute Hypoxic Respiratory Failure due to COVID19 Admission Status: Inpatient Order (span 2 midnights) Reason for Inpatient Admission: See below Assessment and Plan Acute Hypoxic Respiratory Failure due to COVID19 Remdesivir, convalescent plasma, Decadron Wean oxygen as able IS if he will do it Lovenox left lung base with possible infiltrate, procal essentially negative, will repeat in AM Advanced dementia Schizophrenia Apparently on the Bridge program with hospice High risk of serious complication from COVID and Continue home meds PT ordered HTN Continue home meds DVT ppx: Lovenox Diagnosis/Problems Diagnosis/Problems (1) Advanced dementia Status: Chronic (2) Poor prognosis Status: Acute (3) Schizophrenia Qualifiers: 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
[2020-05-25] MEDS: GABAPENTIN 100 MG (NEURONTIN) CAP PO SCH ×2 (12:22→20:53)
[2020-05-25] MEDS ORDERED: NS 100 ML (IVPB) BAG IV ONE (13:45)
[2020-05-25] MEDS ORDERED: NS IV 500 ML 500 ML ONE (14:02)
[2020-05-25] MEDS ORDERED: NS IV 500 ML 500 ML IV SCH (14:15)
[2020-05-25] MEDS: REMDESIVIR INJ 100 MG in NS (IVPB) 230 ML IV SCH (14:36)
[2020-05-25 14:52] LABS: ABG BASE EXCESS 0.5 MMOL/L (-2.5-2.5); ABG OXYGEN SATURATION 84 % (94-100); ABG PCO2 34 MMHG (35-45); ABG PH 7.46 (7.37-7.43); ABG PO2 55 MMHG (79-93); ABG TCO2 24.6 MMOL/L (21.0-31.0)
[2020-05-25 14:53] LABS: ALLENS TEST YES-POS; INSPIRED O2 15L; PATIENT TEMP 38.3; VENTILATOR NO
[2020-05-25] MEDS: ENOXAPARIN 40 MG/0.4 ML (LOVENOX) SYR SC SCH (15:52)
--- NOTE | 2020-05-25 16:32 | NUR ---
AT 1230 PTS [address] TO DE[address] JACOBO HAD SEEN HIM THIS AM AND HIS PULSE 0X HAD BEEN 99 AND SHE HAD PUT HIM DOWN TO 1L. AT 1230 THIS NURSE CYBER THREAT ANALYST TURNED UP 02 TO 5L BC 02 WAS AT 87 ON 1 L. PTS PULSE 0X DID NOT INCREASE AND STAYED THE SAME. OVER THE NEXT 30 MINUTES THIS RN ADMIN PRN TYLENOL FOR FEVER AND PAIN, TEMP WAS AT 37.8 AND HE WAS SHAKING. WHEN TEMP RECHECKED 30 MINUTES LATER IT HAD ONLY WENT DOWN TO 97.6. PTS FACE WAS RED AND HE WAS VISABLY SWEATING. HIS RR KEPT INCREASING WELL. BY 1417 I HAD TURNED HIM UP TO 9 L OF 02 AND TEMP WENT UP TO 38.0. DR JACOBO WAS NOTIFIED AND SHE SAID TO ORDER ABG AND TO PUT ON VAPOTHERM. BY THIS TIME WERE AT 42. KRISTI RT NOTIFIED AND SHE JAKE ABG AND PUT HIM ON 40 L 02/100 % 02. BY 1510 02 WAS AT 91 %, PULSE WAS DECREASING TO HIGH 90/S FROM 110'S AND RR AT 24, TEMP 37.7 DR JACOBO NOTIFIED AGAIN AND SHE ASKED THAT I CALL HIS BROTHER MARILYN AND SEE WHAT MEASURES THEY ARE WANTING US TO GO TO SINCE HE IS DNR AND LIVING AT [facility]. MARILYN NOTIFIED BY MYSELF AND HIM AND HIS ROSEMARY ASKED THAT WE DO WHATEVER POSSIBLE TO SAVE LIFE AND THAT THIS RN TALK TO THEIR DAUGHTER IN LAW, YUMIKO, THAT IS A DR, OF PATRICK STATUS SO THAT SHE COULD EXPLAIN THINGS TO THEM. MARILYN IS DPOA AND AUTHORIZED YUMIKO TO BE TOLD. SHE DID CALL THIS RN AND I TOLD HER THE STATUS AND SHE ASKED IF HE WAS ON DEXAMETHASONE OR HAD D DIMER, WHICH HE HAD NOT. DR JACOBO NOTIFIED AND SHE ORDERED BOTH. I ALSO LET DR JACOBO KNOW THAT THEY WANTED ALL LIFE SAVING MEASURES ON PATRICK AND SHE CHANGED HIM TO A FULL CODE. THIS RN ADMIN REMDESIVIR, NEW ORDER FOR DECADRON AND LOVENOX. DR JACOBO ASKED ME TO HOLD PLASMA, WHICH IS GOOD FOR 24 HOURS AFTER IT IS THAWED, UNTIL HE HIS TEMP HAS BEEN STABLE FOR AWHILE LONGER, BUT BEFORE I LEAVE TONIGHT.
[2020-05-25] MEDS: KCL 20 MEQ TAB (K-DUR) PO SCH (16:46)
--- NOTE | 2020-05-25 17:20 | NUR ---
RECEIVED FROM MED/SURG UNIT, REPORT FROM KAE BONILLA, PATIENT ORIENTED TIMES ON, ON VAPOTHERM 40/100, O2 SAT 93 PERCENT, TEMP 100.2, BP 130/81, STEWART CATH #16 INSERTED WITHOUT DIFFICULTY, CLEAR YELLOW URINE, PATIENT INCONT BEFORE CATH INSERTED, COCCXY AREA RED, PRESSURE ULCER ON LEFT HEEL, MANE BOOTS ON, IV SITE RIGHT AC WITHOUT REDNESS OR SWELLING, LR INFUSING AT 75ML HOUR, LUNG SOUNDS COARSE, MOUTH DRY, ORAL CARE GIVEN, SALINE LOCK STARTED IN LEFT FOREARM WITH #20 TIMES ONE STICK, HOB ELEVATED, DENIES PAIN OR SOB, SLIGHT TREMORS OF HANDS, CONTACT MADE WITH EICU AND WILL CONTINUE SAME ORDERS, INSTRUCTED NURSE TO CONTINUE WITH THE PLASMA WITH TEMP 100.2
--- NOTE | 2020-05-25 17:30 | NUR ---
AT 1652 THIS RN TOOK VS AND HIS TEMP WAS 38.3, RR 28, O2 88% 40L/100%. THIS RN REPORTED VS TO DR JACOBO WHO ORDERED HER TO BE TRANSFERRED TO ICU. AQUATIC CENTRE MANAGER CONTACTED BY THIS NURSE WORM PACKER AND SHE HAD ME HIM PUT HIM IN CU2. THIS RN AND PORFIRIO CONSTANTINO RN AND PCT WANG GREY TOOK HIM UPSTAIRS. WANG RIOS WAS CLEAN AND PORFIRIO AND Prabha WERE DIRTY. WE TRANSFERRED HIM WITH 15 L OF HIGH FLOW 02 IN CONCENTRATOR. REPORT GIVEN TO HARRISON MARTINES RN. PRIOR TO TRANSFER THIS RN CONTACTED MARILYN, BROTHER AND DPOA, TO LET HIM KNOW OF THE TRANSFER TO ICU HE VERBALIZED UNDERSTANDING AND APPROVED OF THE TRANSFER.
[2020-05-25] MEDS ORDERED: PANTOPRAZOLE 40 MG (PROTONIX) VIAL IV ONE (18:30)
--- NOTE | 2020-05-25 19:06 | NUR ---
HEART MONITOR SHOWING ST 140-160, EKG DONE
[2020-05-25] MEDS ORDERED: PANTOPRAZOLE 40 MG (PROTONIX) VIAL ONE (20:18)
[2020-05-25] MEDS ORDERED: AZITHROMYCIN INJECTION 500 MG/5 ML VIAL ONE (20:20)
[2020-05-25] MEDS ORDERED: NS (IVPB) 250 ML ONE (20:20)
[2020-05-25] MEDS: AZITHROMYCIN INJECTION 500 MG in NS (IVPB) 250 ML IV SCH (20:47)
[2020-05-25] MEDS: DOCUSATE SODIUM 100 MG (COLACE) CAP PO SCH (20:48)
[2020-05-25] MEDS: SENNOSIDES 8.6 MG (SENOKOT) TAB PO SCH (20:49)
[2020-05-25] MEDS: DIVALPROX SPRINKLE 125 MG (DEPAKOTE) CAP PO SCH (20:53)
[2020-05-25] MEDS: TAMSULOSIN 0.4 MG (FLOMAX) CAP PO SCH (20:53)
[2020-05-25] MEDS ORDERED: ACETAMINOPHEN 650 MG SUPP (TYLENOL) PR ONE (21:45)
[2020-05-26] VITALS (25 sets, daily range): BP systolic 90–114; BP diastolic 55–78
[2020-05-26 04:52] LABS: ABG BASE EXCESS 3.5 MMOL/L (-2.5-2.5); ABG OXYGEN SATURATION 93 % (94-100); ABG PCO2 38 MMHG (35-45); ABG PH 7.47 (7.37-7.43); ABG PO2 67 MMHG (79-93); ABG TCO2 28.1 MMOL/L (21.0-31.0)
[2020-05-26 04:54] LABS: ALLENS TEST POSITIVE; INSPIRED O2 70% VAPO; PATIENT TEMP 37.2; VENTILATOR NO
[2020-05-26 04:57] LABS: HEMOGLOBIN 12.6 g/dL (13.3-17.7)
[2020-05-26 05:16] LABS: ALANINE AMINOTRANSFERASE 22 U/L (0-55); ALBUMIN 3.1 GM/DL (3.2-4.5); ALKALINE PHOSPHATASE 35 U/L (40-136); BILIRUBIN,TOTAL 0.5 MG/DL (0.1-1.0); BUN/CREATININE RATIO 18; CARBON DIOXIDE 25 MMOL/L (21-32); CHLORIDE 100 MMOL/L (98-107); CREATININE SERUM 0.89 MG/DL (0.60-1.30); GFR ESTIMATED > 60; GLUCOSE 96 MG/DL (70-105); POTASSIUM 3.7 MMOL/L (3.6-5.0); SODIUM 138 MMOL/L (135-145); TOTAL PROTEIN 6.1 GM/DL (6.4-8.2)
[2020-05-26 06:20] LABS: MAGNESIUM 1.8 MG/DL (1.6-2.4); PHOSPHORUS 2.1 MG/DL (2.3-4.7)
[2020-05-26] MEDS ORDERED: NON-FORMULARY MEDICATION 1 EA EA (Cholecalciferol (Vitamin D3) (Vitamin D3) 50 MCG) PO SCH (09:00)
[2020-05-26] MEDS: PANTOPRAZOLE 40 MG (PROTONIX) VIAL IV SCH (09:22)
[2020-05-26] MEDS: AZITHROMYCIN INJECTION 500 MG in NS (IVPB) 250 ML IV SCH (09:32)
--- NOTE | 2020-05-26 10:22 | Diagnostic Imaging Report ---
HISTORY: Pneumonia. COVID positive. Follow-up. COMPARISON: 05/24/2020 TECHNIQUE: Frontal view of the chest FINDINGS: Lung volumes are low and there are bibasilar airspace opacities which are increased since the prior study. No significant pleural effusion or pneumothorax is seen. The cardiac silhouette is partially obscured due to low lung volumes and appears to be stable in size. Multiple leads overlie the chest. IMPRESSION: 1. Low lung volumes with increased bibasilar airspace opacities, most likely atelectasis. Dictated by: Dictated on workstation # [id number]
[2020-05-26] MEDS: DOCUSATE SODIUM 100 MG (COLACE) CAP PO SCH ×2 (11:10→20:50)
[2020-05-26] MEDS: ASPIRIN E.C. 325 MG (ECOTRIN) TABLET PO SCH (11:10)
[2020-05-26] MEDS: KCL 20 MEQ TAB (K-DUR) PO SCH ×2 (11:10→18:14)
[2020-05-26] MEDS: GABAPENTIN 100 MG (NEURONTIN) CAP PO SCH ×3 (11:11→20:50)
[2020-05-26] MEDS: DIVALPROX SPRINKLE 125 MG (DEPAKOTE) CAP PO SCH ×2 (11:11→20:50)
[2020-05-26] MEDS: VITAMIN D3 25 MCG (1,000 UNITS) TABLET PO SCH (11:11)
[2020-05-26] MEDS: HYDROCHLOROTHIAZIDE 25 MG (HCTZ) TAB PO SCH (11:11)
[2020-05-26] MEDS: polyethylene glycoL POWDER 17 GM (MIRALAX) PACK PO SCH (11:12)
[2020-05-26] MEDS: RT-ALBUTEROL INHALER HFA (VENTOLIN HFA) 18 GM IH SCH ×3 (11:38→22:34)
--- NOTE | 2020-05-26 11:41 | Progress Note - Hospitalist ---
Subjective HPI/CC On Admission Date Seen by Provider: May 26, 2020 Time Seen by Provider: 11:30 Pt is a 65yoCM with a PMH of advanced dementia who presented to the ER due to fever. He is unable to relay any history to me due to dementia. All history, though minimal, is obtained from the chart. Apparently he had a fever and a cough and was brought in for evaluation. The rapid in house COVID test was positive. He was admitted for oxygen and Remdesivir. RN states he had some aspiration with breakfast but otherwise has done well. Subjective/Events-last exam Patient on high flow oxygen Worsened status required transfer up to ICU Family updated and he continues to be full code and if needed intubation Patient with significant muscle wasting and cachexia Apparently has dementia and he is nonverbal Lives in a [facility] apparently Overall prognosis is extremely poor given the comorbidities that already are noted Patient sleeping Focused Exam Lactate Level 05/24/20 12:20: Lactic Acid Level 1.55 Objective Exam Vital Signs Vital Signs Date Time Temp Pulse Resp B/P (MAP) Pulse Ox O2 Delivery O2 Flow Rate FiO2 05/26/20 15:00 77 24 93/67 (76) 95 Vapotherm 30.00 60.00 05/26/20 11:39 60 05/26/20 08:19 37.6 Capillary Refill : Less Than 3 SecondsLess Than 3 Seconds General Appearance: No Apparent Distress, WD/WN, Chronically ill, Cachetic Respiratory: Normal Breath Sounds, Decreased Breath Sounds Cardiovascular: Regular Rate, Rhythm Results/Procedures Lab Laboratory Tests 05/26/20 04:35 Patient resulted labs reviewed. Imaging: Reviewed Imaging Report Assessment/Plan Assessment and Plan Assess & Plan/Chief Complaint Assessment: Acute Hypoxic Respiratory Failure due to COVID19 Advanced dementia Schizophrenia HTN DVT ppx: Lovenox Plan: Poor prognosis Family insists on full code Cachexia and dementia with non-verbal status chronically precludes anything but a poor prognosis Clinical Quality Measures DVT/VTE Risk/Contraindication: Risk Factor Score Per Nursin RFS Level Per Nursing on Admit: 4+=Very High TOM PERALTA DO May 26, 2020 11:41
[2020-05-26] MEDS ORDERED: NS IV 1000 ML 1,000 ML IV SCH (15:00)
[2020-05-26] MEDS: LACTATED RINGERS 1,000 ML IV SCH (15:11)
[2020-05-26] MEDS: REMDESIVIR INJ 100 MG in NS (IVPB) 230 ML IV SCH (15:11)
[2020-05-26] MEDS: ENOXAPARIN 40 MG/0.4 ML (LOVENOX) SYR SC SCH (15:12)
[2020-05-26] MEDS: RT-ALBUTEROL INHALER HFA (VENTOLIN HFA) 18 GM IH PRN (18:40)
[2020-05-26] MEDS: TAMSULOSIN 0.4 MG (FLOMAX) CAP PO SCH (20:50)
[2020-05-26] MEDS: SENNOSIDES 8.6 MG (SENOKOT) TAB PO SCH (20:50)
[2020-05-27] VITALS (14 sets, daily range): BP systolic 95–133; BP diastolic 61–102
[2020-05-27] MEDS: RT-ALBUTEROL INHALER HFA (VENTOLIN HFA) 18 GM IH SCH ×6 (01:12→22:39)
[2020-05-27 03:27] LABS: HEMOGLOBIN 12.4 g/dL (13.3-17.7); MEAN PLATELET VOLUME 11.3 fL (9.0-12.2); WHITE BLOOD COUNT 4.8 10^3/uL (4.3-11.0)
[2020-05-27 03:36] LABS: ALBUMIN 3.1 GM/DL (3.2-4.5); CHLORIDE 107 MMOL/L (98-107); POTASSIUM 4.2 MMOL/L (3.6-5.0); SODIUM 144 MMOL/L (135-145)
[2020-05-27 03:39] LABS: GLUCOSE 90 MG/DL (70-105); TOTAL PROTEIN 6.1 GM/DL (6.4-8.2)
[2020-05-27 03:40] LABS: CARBON DIOXIDE 25 MMOL/L (21-32)
[2020-05-27 03:41] LABS: BILIRUBIN,TOTAL 0.4 MG/DL (0.1-1.0)
[2020-05-27 03:42] LABS: ALKALINE PHOSPHATASE 31 U/L (40-136); CREATININE SERUM 0.92 MG/DL (0.60-1.30); GFR ESTIMATED > 60; PHOSPHORUS 2.2 MG/DL (2.3-4.7)
[2020-05-27 03:44] LABS: BUN/CREATININE RATIO 26
[2020-05-27 03:45] LABS: ALANINE AMINOTRANSFERASE 30 U/L (0-55); MAGNESIUM 2.1 MG/DL (1.6-2.4)
--- NOTE | 2020-05-27 05:34 | Pulmonary Consultation ---
History of Present Illness History of Present Illness Date Seen by Provider: May 27, 2020 Time Seen by Provider: 05:32 Date of Admission Allergies and Home Medications Allergies Coded Allergies: Sulfa (Sulfonamide Antibiotics) (Verified Allergy, Unknown, 05/24/20) Home Medications Acetaminophen 500 Mg Tablet, 1,000 MG PO Q8H PRN for PAIN-MILD (1-4) OR TEMPATURE, (Reported) Aspirin 325 Mg Tablet.dr, 325 MG PO DAILY, (Reported) Bisacodyl 10 Mg Supp.rect, 10 MG RC PRN PRN for CONSTIPATION-4TH LINE, (Reported) Cholecalciferol (Vitamin D3) 50 Mcg Capsule, 50 MCG PO DAILY, (Reported) Divalproex Sodium 125 Mg Cap.sprink, 500 MG PO BID, (Reported) TAKES 4 (125MG) CAPS Docusate Sodium 100 Mg Capsule, 100 MG PO BID, (Reported) Gabapentin 100 Mg Capsule, 100 MG PO TID, (Reported) Hydrochlorothiazide 25 Mg Tablet, 25 MG PO DAILY, (Reported) HOLD OF SBP <100- NOTIFY NURSE Lorazepam 0.5 Mg Tablet, 0.5 MG PO Q8H PRN for AGITATION, (Reported) Magnesium Hydroxide 2,400 Mg/10 Ml Oral.susp, 30 ML PO UD PRN for CONSTIPATION- 7TH LINE, (Reported) Melatonin 3 Mg Tablet, 9 MG PO HS PRN for SLEEP, (Reported) TAKES 3 (3MG) TABS Metoprolol Succinate 25 Mg Tab.er.24h, 25 MG PO DAILY, (Reported) Ondansetron HCl 4 Mg Tab, 4 MG PO DAILY PRN for NAUSEA/VOMITING-1ST LINE, (Reported) Paliperidone Palmitate 234 Mg/1.5 Ml Syringe, 234 MG IM MONTHLY, (Reported) Polyethylene Glycol 3350 17 Gm Powd.pack, 17 GM PO DAILY, (Reported) Potassium Chloride 20 Meq Tab.er.prt, 20 MEQ PO BID, (Reported) Risedronate Sodium 150 Mg Tablet, 150 MG PO MONTHLY, (Reported) Sennosides 8.6 Mg Tablet, 17.2 MG PO HS, (Reported) TAKES 2 (8.6MG) TABS Tamsulosin HCl 0.4 Mg Cap, 0.4 MG PO HS, (Reported) Tramadol HCl 50 Mg Tablet, 25 MG PO DAILY PRN for PAIN-MODERATE (5-7), (Reported) TAKES OF A 50MG TAB Triamcinolone Acet 15 Gm Cr, 1 APPLIC TP DAILY PRN for SKIN IRRITATION, (Report ed) Past Imxiikb-Likntl-Cfgiao Hx Past Med/Social Hx: Reviewed Nursing Past Med/Soc Hx Patient Social History Alcohol Use: Denies Use Recreational Drug Use: No Smoking Status: Never a Smoker 2nd Hand Smoke Exposure: No Recent Foreign Travel: No Contact w/Someone Who Travel: No Recent Infectious Disease Expo: No Recent Hopitalizations: No Immunizations Up To Date Tetanus Booster (TDap): Less than 5yrs PED Vaccines UTD: No Date of Influenza Vaccine: May 02, 2016 Seasonal Allergies Seasonal Allergies: No Past Medical History Surgeries: Yes Thyroidectomy Respiratory: No Cardiac: Yes Hypertension Neurological: Yes (EPS FROM MEDICATIONS) Developmental Disorder, Parkinson's Disease Reproductive Disorders: No Genitourinary: Yes (RENAL INSUFFICIENCY) Benign Prostatic Hyperpl Gastrointestinal: Yes Chronic Constipation Musculoskeletal: Yes (KYPHOSIS;OSTEOPENIA; USES WALKER) Scoliosis, Chronic Back Pain Endocrine: No HEENT: No Cancer: No Psychosocial: Yes (MILD MR) Anxiety, Bipolar, Personality Disorder, Schizophrenia, Depression Integumentary: No Blood Disorders: No Family Medical History Reviewed Nursing Family Hx No Pertinent Family Hx PT IS DNR Review of Systems Time Seen by Provider: 05:34 Sepsis Event Evaluation Height, Weight, BMI Height: 6'1.00" Weight: 154lbs. 0.0oz. [id number]; 19.96 BMI Method:Stated Exam Exam Vital Signs Date Time Temp Pulse Resp B/P (MAP) Pulse Ox O2 Delivery O2 Flow Rate FiO2 05/27/20 04:00 86 106/61 (76) 92 Vapotherm 40.00 80.00 05/27/20 04:00 37.0 05/27/20 03:00 88 30 133/83 (100) 96 Vapotherm 40.00 80.00 05/27/20 02:45 87 95 Vapotherm 40.00 80.00 05/27/20 02:00 72 25 105/82 (90) Vapotherm 40.00 90.00 05/27/20 01:12 94 Vapotherm 40.00 90 05/27/20 01:00 83 05/27/20 01:00 83 29 114/102 (106) 97 Vapotherm 40.00 90.00 05/27/20 00:00 87 31 99/87 (91) Vapotherm 40.00 90.00 05/27/20 00:00 37.3 94 40.00 90.00 05/26/20 23:00 75 25 101/59 (73) 90 Vapotherm 40.00 90.00 05/26/20 22:34 88 Vapotherm 40.00 90 05/26/20 22:33 68 20 95/60 (72) 88 Vapotherm 40.00 90.00 05/26/20 22:00 88 10 101/71 (81) 89 Vapotherm 90.00 80.00 05/26/20 21:00 90 29 113/69 (84) 90 Vapotherm 90.00 80.00 05/26/20 20:49 93 18 91 Vapotherm 90.00 80.00 05/26/20 20:40 86 Vapotherm 30.00 70.00 05/26/20 20:00 78 103/70 (81) 92 Vapotherm 30.00 70.00 05/26/20 20:00 36.6 05/26/20 20:00 Vapotherm 30.00 70 05/26/20 19:00 65 05/26/20 19:00 65 36 90/64 (73) 97 Vapotherm 30.00 70.00 05/26/20 18:41 96 Vapotherm 30.00 70 05/26/20 18:00 63 21 103/71 (82) 92 Vapotherm 30.00 70.00 05/26/20 17:41 30.00 70.00 05/26/20 17:00 60 17 104/72 (83) 96 Vapotherm 30.00 50.00 05/26/20 16:06 Vapotherm 30.00 50.00 05/26/20 16:00 63 20 91/57 (68) 97 Vapotherm 30.00 60.00 05/26/20 15:43 96 Vapotherm 30.00 60 05/26/20 15:00 77 24 93/67 (76) 95 Vapotherm 30.00 60.00 05/26/20 14:00 77 27 97/69 (78) 94 Vapotherm 30.00 60.00 05/26/20 13:00 80 21 90/57 (68) 93 Vapotherm 30.00 60.00 05/26/20 13:00 81 05/26/20 12:00 81 21 100/67 (78) 92 Vapotherm 30.00 60.00 05/26/20 11:39 92 Vapotherm 30.00 60 05/26/20 11:00 80 22 100/66 (77) 91 Vapotherm 30.00 60.00 05/26/20 10:00 87 22 106/69 (81) 90 Vapotherm 30.00 60.00 05/26/20 09:30 Vapotherm 30.00 60 05/26/20 09:19 30.00 60.00 05/26/20 09:00 92 13 106/74 (85) 95 Vapotherm 30.00 70.00 05/26/20 08:19 37.6 05/26/20 08:00 96 16 107/78 (88) 94 Vapotherm 30.00 70.00 05/26/20 07:00 96 16 107/78 (88) 95 Vapotherm 30.00 70.00 05/26/20 07:00 100 05/26/20 06:36 95 Vapotherm 30.00 70.00 05/26/20 06:00 94 17 114/78 (90) 94 Vapotherm 40.00 70.00 I & O 05/27/20 07:00 Intake Total 2500 ml Output Total 650 ml Balance 1850 ml Height & Weight Height: 6'1.00" Weight: 154lbs. 0.0oz. 69.943204op; 19.96 BMI Method:Stated General Appearance: No Apparent Distress, WD/WN, Chronically ill, Cachetic HEENT: PERRL/EOMI, Moist Mucous Membranes; No Scleral Icterus (L), No Scleral Icterus (R) Neck: Normal Inspection, Supple Respiratory: Normal Breath Sounds, Decreased Breath Sounds Cardiovascular: Regular Rate, Rhythm Capillary Refill: Less Than 3 Seconds Extremity: Normal Capillary Refill, No Calf Tenderness, No Pedal Edema Neurologic/Psychiatric: Alert, Oriented x3, Normal Mood/Affect Skin: Normal Color, Warm/Dry Results Lab Laboratory Tests 05/25/20 07:00 05/26/20 04:35 05/27/20 03:00 Assessment/Plan Assessment/Plan Acute Hypoxic Respiratory Failure due to COVID19 -Remdesivir -CVP Advanced dementia Schizophrenia Cachexia and dementia with non-verbal status HTN DVT ppx: Lovenox chronically precludes anything but a poor prognosis -Family insists on full code LALITA FOX DO May 27, 2020 05:34
[2020-05-27] MEDS ORDERED: SODIUM PHOSPHATE INJ 30 MM in NS (IVPB) 250 ML IV ONE (05:45)
[2020-05-27] MEDS ORDERED: FUROSEMIDE 40 MG/4 ML INJ (LASIX) IVP NR (08:15)
[2020-05-27] MEDS: AZITHROMYCIN INJECTION 500 MG in NS (IVPB) 250 ML IV SCH (09:09)
[2020-05-27] MEDS: PANTOPRAZOLE 40 MG (PROTONIX) VIAL IV SCH (09:10)
[2020-05-27] MEDS: DIVALPROX SPRINKLE 125 MG (DEPAKOTE) CAP PO SCH ×2 (09:51→21:12)
[2020-05-27] MEDS: ASPIRIN E.C. 325 MG (ECOTRIN) TABLET PO SCH (09:51)
[2020-05-27] MEDS: KCL 20 MEQ TAB (K-DUR) PO SCH ×2 (09:51→16:45)
[2020-05-27] MEDS: HYDROCHLOROTHIAZIDE 25 MG (HCTZ) TAB PO SCH (09:51)
[2020-05-27] MEDS: DOCUSATE SODIUM 100 MG (COLACE) CAP PO SCH ×2 (09:51→20:06)
[2020-05-27] MEDS: polyethylene glycoL POWDER 17 GM (MIRALAX) PACK PO SCH (09:51)
[2020-05-27] MEDS: GABAPENTIN 100 MG (NEURONTIN) CAP PO SCH ×3 (09:51→21:13)
[2020-05-27] MEDS: VITAMIN D3 25 MCG (1,000 UNITS) TABLET PO SCH (09:52)
--- NOTE | 2020-05-27 10:33 | Physical Therapy Progress Note ---
Therapy Progress Note Patient transferred to ICU. PT will require new orders. EMANUEL LEO PT May 27, 2020 10:33
--- NOTE | 2020-05-27 13:16 | ST Dysphagia Evaluation ---
Speech Evaluation-General Medical Diagnosis COVID-19 Onset Date: May 24, 2020 Therapy Diagnosis Therapy Diagnosis: Scott-pharyngeal Dysphagia Precautions Precautions: Aspiration Referral Referring Physician: Dr. Garcia Medical History Pertinent Medical History: Dementia Reviewed History: Yes Social History Home: Care Home Speech PLF/Current-Dysphagia Prior Level of Function Patient lives in a [place] [facility] where he received assistance with all of his daily needs. Subjective Patient was cooperative with the Bedside Dysphagia Evaluation Oral Motor Skills Dentition: Natural, Tumbled, Stained Ability to Follow Directions: Fair Patient was NPO pending BDE Oral Expression Ability: Moderate Impairment Patient was able to answer y/n questions related to the evaluation. Voice Voice Phonatory-Based Quality: Breathy, Weak Voice Pitch: Normal Voice Loudness: Moderately Soft/Quiet Face Facial Symmetry: Symmetrical Oral-Facial Assessment Oral-Facial Dentition: Normal Lingual Protrusion: Normal Lingual ROM: Normal Lingual Strength: Normal Pharynx Velopharyngeal Move.: Absent Dysphagia Evaluation Consistencies Presented: Regular, Thin Liquid, Mechanical Soft, Pureed Oral Phase: Reduced Oral Transit Patient demo normal range of function for all consistencies presented except regular which he had difficulty with bolus management. Pharyngeal Phase: Delayed Swallow Patient demo normal range of function for all consistencies presented except regular which he had difficulty with swallow onset. Funct. Velo/Pharyngeal Symptom: Cough After Swallow With the first 1/2 tsp of thin, most likely due to his mouth being so dry. Dietary Recommendations: Mechanical Soft Liquid Recommendations: Thin Swallowing Precautions: Alternate Liquids/Solids, Double Swallow, Decreased Bolus 1/2 Tsp, Liquids from Straw, Liquids from Spoon, Small Bites and Sips, Sitting Upright 90 Degrees, Sitting 90 Degrees 30 Post Intake Dysphagia Evaluation Summary Patient was admitted to the ICU due to COVID-19. Patient was referred for a BDE by Dr. Garcia. BDE was completed this date with patient cooperation. Patient alerted to name and was able to answer y/n questions related to the evaluation. The patient was given presentations of thin at 1/2 tsp. via spoon x3 and small sips via straw x3 without difficulty with exception of cough/clear noted with the first 1/2 tsp, presumably due to his mouth being so dry. Patient was also given 1/2 tsp of puree, mechanical soft and regular. Patient demo good intake and oral clearing with puree and mechanical soft without s/s of aspiration. Patient's demo of regular indicated it was more difficult due to decreased bolus management and swallow onset. The patient is recommended for Dysphagia II diet level with thin liquids. These recommendations were provided to his nurse as well as written on the white board in his room. Barriers to Learning Patient's advanced dementia, severely decreased verbal communication Speech-Plan Patient/Family Goals Patient/Family Goals: Patient will return to his [place] [facility] [place] upon hospital discharge Treatment Plan Speech Therapy Treatment Plan: Discontinue ST Treatment Duration: May 27, 2020 Frequency: 1 time per week Estimated Hrs Per Day: .5 hour per day Rehab Potential: Fair Barriers to Learning: Patient's advanced dementia, severely decreased verbal communication Pt/Family Agrees to Plan: Yes Safety Risks/Education Teaching Recipient: Patient Teaching Methods: Discussion Response to Teaching: Verbalize Understanding, Reinforcement Needed Education Topics Provided: Safety of oral intake, diet level Time Speech Therapy Time In: 12:00 Speech Therapy Time Out: 12:20 Total Billed Time: 20 Billed Treatment Time 1, SYDNEE, CHAKA Hicks May 27, 2020 13:16
[2020-05-27] MEDS: ENOXAPARIN 40 MG/0.4 ML (LOVENOX) SYR SC SCH (16:45)
[2020-05-27] MEDS: LACTATED RINGERS 1,000 ML IV SCH (16:45)
[2020-05-27] MEDS: REMDESIVIR INJ 100 MG in NS (IVPB) 230 ML IV SCH (16:45)
[2020-05-27] MEDS: SENNOSIDES 8.6 MG (SENOKOT) TAB PO SCH (20:07)
[2020-05-27] MEDS: TAMSULOSIN 0.4 MG (FLOMAX) CAP PO SCH (21:13)
[2020-05-28] MEDS: RT-ALBUTEROL INHALER HFA (VENTOLIN HFA) 18 GM IH SCH ×6 (02:00→22:44)
[2020-05-28 02:37] LABS: HEMOGLOBIN 11.7 g/dL (13.3-17.7); MEAN PLATELET VOLUME 11.1 fL (9.0-12.2); WHITE BLOOD COUNT 4.4 10^3/uL (4.3-11.0)
[2020-05-28 02:57] LABS: ALANINE AMINOTRANSFERASE 29 U/L (0-55); ALBUMIN 2.8 GM/DL (3.2-4.5); ALKALINE PHOSPHATASE 34 U/L (40-136); BILIRUBIN,TOTAL 0.4 MG/DL (0.1-1.0); BUN/CREATININE RATIO 34; CALCIUM 7.6 MG/DL (8.5-10.1); CARBON DIOXIDE 21 MMOL/L (21-32); CHLORIDE 110 MMOL/L (98-107); CREATININE SERUM 0.77 MG/DL (0.60-1.30); GFR ESTIMATED > 60; GLUCOSE 104 MG/DL (70-105); MAGNESIUM 2.1 MG/DL (1.6-2.4); PHOSPHORUS 2.1 MG/DL (2.3-4.7); POTASSIUM 3.6 MMOL/L (3.6-5.0); SODIUM 143 MMOL/L (135-145); TOTAL PROTEIN 5.8 GM/DL (6.4-8.2)
[2020-05-28 03:05] VITALS: BP 112/79
[2020-05-28 03:54] VITALS: BP 155/93
[2020-05-28] MEDS: RT-ALBUTEROL INHALER HFA (VENTOLIN HFA) 18 GM IH PRN (07:12)
[2020-05-28 08:00] VITALS: BP 146/90
[2020-05-28] MEDS: KCL 20 MEQ TAB (K-DUR) PO SCH ×2 (08:12→17:30)
--- NOTE | 2020-05-28 11:57 | Physical Therapy Evaluation ---
PT Evaluation-General Medical Diagnosis Admission Date May 24, 2020 at 13:16 Medical Diagnosis: COVID-19 Onset Date: May 24, 2020 Therapy Diagnosis Therapy Diagnosis: generalized weakness/debility Height/Weight Height (Feet): 6 Height (Inches): 1.00 Weight (Pounds): 154 Weight (Ounces): 0.0 Precautions Precautions/Isolations: Airborne Isolation, Seizure, Fall Prevention, Standard Precautions Referral Physician: Cameron Reason for Referral: Evaluation/Treatment Medical History Pertinent Medical History: Dementia, Parkinson's Additional Medical History scoliosis and kyphosis/bilateral knee flexion contractures Current History ER secondary to SOA and fever Reviewed History: Yes Social History Home: [facility] ([facility]) Prior Prior Level of Function SCALE: Activities may be completed with or without assistive devices. 3-Cezslcikku-gygswmr completes the activity by him/herself with no assistance from a helper. 5-Set-up or Clean-up Assistance-helper sets up or cleans up; patient completes activity. [place] assists only prior to or following the activity. 4-Supervision or Touching Assistance-helper provides verbal cues and/or touching/steadying and/or contact guard assistance as patient completes activity. Assistance may be provided throughout the activity or intermittently. 3-Partial/Moderate Assistance-helper does LESS THAN HALF the effort. [place] lifts, holds or supports trunk or limbs, but provides less than half the effort. 2-Substantial/Maximal Assistance-helper does MORE THAN HALF the effort. [place] lifts or holds trunk or limbs and provides more than half the effort. 6-Upscjamdg-ifydbv does ALL the effort. Patient does none of the effort to complete the activity. Or, the assistance of 2 or more helpers is required for the patient to complete the activity. If activity was not attempted, code reason: 7-Patient Refused. 9-Not Applicable-not attempted and the patient did not perform the activity before the current illness, exacerbation or injury. 10-Not Attempted due to Environmental Limitations-(lack of equipment, weather restraints, etc.). 88-Not Attempted due to Medical Conditions or Safety Concerns. Bed Mobility: 3 Transfers (B,C,W/C): 3 Gait: 3 Stairs: 9 Indoor Mobility (Ambulation): Needed Some Help Stairs: Not Applicalbe Prior Devices Use: Walker PT Evaluation-Current Subjective Patient is in bed and adamantly declined to perform OOB activity. Objective Patient Orientation: Confused Attachments: Oxygen, Collins Catheter, IV ROM/Strength ROM Lower Extremities bilateral knee flexion contractures ~10 degrees Strength Lower Extremities 2/5 grossly with inability to formally test. Integumentary/Posture Integumentary left heel wound/decub Bladder Incontinence: Collins Cath Posture kyphosis with scoliosis Neuromuscular (Tone, Coordination, Reflexes) severely diminished with coordination and resistive with all mobility and ROM Sensory Vision: Functional Hearing: Functional Transfers Roll Left to Right (QC): 1 (x2) Sit to Lying (QC): 1 (x 2) Lying to Sitting/Side of Bed(Q: 1 (x 2) patient unable to maintain sitting EOB without assistance. Gait Does the Patient Walk?: No and Walking Goal IS indicated Balance Sitting Static: Poor Sitting Dynamic: Poor Assessment/Needs 65 y.o. male, will be seen by skilled PT to address functional strength and mobility to improver current LOF. Patient is severely debilitated and unable to tolerate extensive therapy. Rehab Potential: Poor PT Short Term Goals Short Term Goals Time Frame: Jun 08, 2020 Roll Left & Right: 2 Sit to lyin Lying to sitting on side of be: 3 Sit to stand: 3 Chair/skp-br-zmswt transfer: 3 Toilet transfer: 3 Walk 10 feet: 3 PT Mcfp Goals Crime Victim Specialist Goals PT Crime Victim Specialist Goals Time Frame: Jun 22, 2020 Roll Left & Right (QC): 4 Sit to Lying (QC): 4 Lying-Sitting on Side/Bed(QC): 4 Sit to Stand (QC): 4 Chair/Mpi-xt-Wutgd Xfer(QC): 4 Toilet Transfer (QC): 4 Does the Patient Walk: No and Walking Goal IS indicated Walk 10 feet (QC): 4 PT Plan Problem List Problem List: Activity Tolerance, Functional Strength, Safety, Balance, Gait, Transfer, Bed Mobility, ROM Treatment/Plan Treatment Plan: Continue Plan of Care Treatment Plan: Bed Mobility, Education, Functional Activity Jordin, Functional Strength, Gait, Safety, Therapeutic Exercise, Transfers Treatment Duration: Jun 22, 2020 Frequency: 5 times per week Estimated Hrs Per Day: .5 hour per day Patient and/or Family Agrees t: Yes Discharge Recommendations Therapy Discharge Recommendati: Other, See Comments (custodial facility) Time/GCodes Time In: 1115 Time Out: 1135 Total Billed Treatment Time: 20 Total Billed Treatment 1 visit EVModC 20 min EMANUEL LEO PT May 28, 2020 11:57
[2020-05-28] MEDS: PANTOPRAZOLE 40 MG (PROTONIX) VIAL IV SCH (12:17)
[2020-05-28] MEDS: DIVALPROX SPRINKLE 125 MG (DEPAKOTE) CAP PO SCH ×2 (12:17→20:13)
[2020-05-28] MEDS: HYDROCHLOROTHIAZIDE 25 MG (HCTZ) TAB PO SCH (12:17)
[2020-05-28] MEDS: ASPIRIN E.C. 325 MG (ECOTRIN) TABLET PO SCH (12:18)
[2020-05-28] MEDS: DOCUSATE SODIUM 100 MG (COLACE) CAP PO SCH ×2 (12:18→20:13)
[2020-05-28] MEDS: polyethylene glycoL POWDER 17 GM (MIRALAX) PACK PO SCH (12:19)
[2020-05-28] MEDS: GABAPENTIN 100 MG (NEURONTIN) CAP PO SCH ×3 (12:19→20:13)
[2020-05-28] MEDS: VITAMIN D3 25 MCG (1,000 UNITS) TABLET PO SCH (12:20)
[2020-05-28] MEDS: LACTATED RINGERS 1,000 ML IV SCH (12:20)
--- NOTE | 2020-05-28 12:24 | Pulmonary Progress Note ---
Subjective Time Seen by a Provider: 12:23 Subjective/Events-last exam No complications noted. Sepsis Event Evaluation Height, Weight, BMI Height: 6'1.00" Weight: 154lbs. 0.0oz. 69.233475rc; 19.96 BMI Method:Stated Exam Exam Vital Signs Date Time Temp Pulse Resp B/P (MAP) Pulse Ox O2 Delivery O2 Flow Rate FiO2 05/28/20 11:31 98 High Flow N/C 3.00 05/28/20 07:12 94 Vapotherm 15.00 50 05/28/20 06:43 63 05/28/20 03:54 65 19 155/93 (113) 93 Vapotherm 15.00 50.00 05/28/20 03:05 37.1 78 19 112/79 (90) 96 Vapotherm 15.00 50.00 05/28/20 01:00 70 05/27/20 23:48 36.8 72 20 127/79 (95) 93 Vapotherm 15.00 50.00 05/27/20 22:39 91 Vapotherm 15.00 50 05/27/20 20:36 37.2 05/27/20 20:00 97 Vapotherm 15.00 50 05/27/20 19:15 37.3 75 20 102/67 (79) 91 05/27/20 19:00 83 05/27/20 13:30 98 Vapotherm 15.00 50 I & O 05/28/20 07:00 Intake Total 870 ml Output Total 925 ml Balance -55 ml Height & Weight Height: 6'1.00" Weight: 154lbs. 0.0oz. 69.641797ge; 19.96 BMI Method:Stated General Appearance: No Apparent Distress, WD/WN, Chronically ill, Cachetic HEENT: PERRL/EOMI, Moist Mucous Membranes; No Scleral Icterus (L), No Scleral I cterus (R) Neck: Normal Inspection, Supple Respiratory: Normal Breath Sounds, Decreased Breath Sounds Cardiovascular: Regular Rate, Rhythm Capillary Refill: Less Than 3 Seconds Extremity: Normal Capillary Refill, No Calf Tenderness, No Pedal Edema Neurologic/Psychiatric: Alert, Oriented x3, Normal Mood/Affect Skin: Normal Color, Warm/Dry Results Lab Laboratory Tests 05/27/20 03:00 05/28/20 02:17 Assessment/Plan Assessment/Plan Acute Hypoxic Respiratory Failure due to COVID19 -Remdesivir -CVP -Appears to be doing better. Oxygen requirements have improved. Advanced dementia Schizophrenia Cachexia and dementia with non-verbal status HTN DVT ppx: Lovenox chronically precludes anything but a poor prognosis -Family insists on full code LALITA FOX DO May 28, 2020 12:24
--- NOTE | 2020-05-28 14:26 | NUR ---
"RD ASSESSMENT PMHx: advanced dementia; HTN; Parkinson's disease; developmental disorder; chronic constipation; scoliosis; PT INTERACTION: Note pt currently in COVID isolation, per chart review. Note all diet information for nutrition assessment is per Patsy BONILLA or per chart review. Patsy states current appetite is poor. Note avg PO intake <25% x3meal, per chart review. Patsy states no issues with nausea, vomiting, constipation, or diarrhea she is aware of. Note last BM was 05/28 and pt currently on bowel regimen of miralax qd; colace BID; and senna BID, per chart review. Not recent # wt loss x8mon, per chart review. ABNORMAL NUTRITION-RELATED LAB VALUES LOW: Ca 7.6; phos 2.1; alkphos 34; Pro 5.8 alb 2.8 HIGH: BUN 26 Est. kcal needs: 1950 kcal | 30 kcal/kg Est. Pro needs: 78 g Pro | 1.2 g Pro/kg PES STATEMENT: Inadequate oral intake (NI-2.1) related to loss of appetite as evidenced by chart review | communication with RN | avg PO intake <25% x3meal INTERVENTION: Continue with current diet order of Regular diet, with modifiers of DYSMechAlt and Honey-Thick Liquids. Will continue to follow and reassess as pt needs, intake, and status change. Hayden Aquino, MS RD LD"
[2020-05-28 15:51] VITALS: BP 119/81
[2020-05-28] MEDS: ENOXAPARIN 40 MG/0.4 ML (LOVENOX) SYR SC SCH (16:26)
[2020-05-28] MEDS: REMDESIVIR INJ 100 MG in NS (IVPB) 230 ML IV SCH (16:26)
[2020-05-28 20:00] VITALS: BP 111/71
[2020-05-28] MEDS: TAMSULOSIN 0.4 MG (FLOMAX) CAP PO SCH (20:13)
[2020-05-28] MEDS: SENNOSIDES 8.6 MG (SENOKOT) TAB PO SCH (20:14)
[2020-05-28 23:48] VITALS: BP 118/76
[2020-05-29] MEDS: RT-ALBUTEROL INHALER HFA (VENTOLIN HFA) 18 GM IH SCH ×5 (02:14→22:27)
[2020-05-29 04:00] VITALS: BP 96/61
[2020-05-29 06:09] LABS: HEMOGLOBIN 11.6 G/DL (13.3-17.7); MEAN PLATELET VOLUME 10.7 FL (7.4-10.4); WHITE BLOOD COUNT 3.7 10^3/uL (4.3-11.0)
[2020-05-29 06:23] LABS: BUN/CREATININE RATIO 30; CARBON DIOXIDE 21 MMOL/L (21-32); CHLORIDE 105 MMOL/L (98-107); CREATININE SERUM 0.71 MG/DL (0.60-1.30); GFR ESTIMATED > 60; POTASSIUM 3.6 MMOL/L (3.6-5.0); SODIUM 137 MMOL/L (135-145)
[2020-05-29 06:24] LABS: ALANINE AMINOTRANSFERASE 26 U/L (0-55); ALBUMIN 2.7 GM/DL (3.2-4.5); ALKALINE PHOSPHATASE 33 U/L (40-136); BILIRUBIN,TOTAL 0.3 MG/DL (0.1-1.0); CALCIUM 7.6 MG/DL (8.5-10.1); GLUCOSE 117 MG/DL (70-105); PHOSPHORUS 2.7 MG/DL (2.3-4.7); TOTAL PROTEIN 5.2 GM/DL (6.4-8.2)
[2020-05-29 08:00] VITALS: BP 105/62
--- NOTE | 2020-05-29 08:50 | NUR ---
PT VERY DROWSY, NOT TAKING AM MEDICATIONS. PER AIDE PT WOKE UP AND ATE BREAKFAST BEFORE GOING BACK TO SLEEP. PER CHRONOMETER ASSEMBLER AND ADJUSTER RN REPORT PT DID NOT SLEEP LAST NIGHT. PT WENT TO SLEEP AT 0600.
[2020-05-29] MEDS: HYDROCHLOROTHIAZIDE 25 MG (HCTZ) TAB PO SCH ×2 (08:56→09:00)
[2020-05-29] MEDS: DIVALPROX SPRINKLE 125 MG (DEPAKOTE) CAP PO SCH ×3 (08:56→21:26)
[2020-05-29] MEDS: ASPIRIN E.C. 325 MG (ECOTRIN) TABLET PO SCH ×2 (08:56→09:00)
[2020-05-29] MEDS: PANTOPRAZOLE 40 MG (PROTONIX) VIAL IV SCH ×2 (08:56→09:00)
[2020-05-29] MEDS: GABAPENTIN 100 MG (NEURONTIN) CAP PO SCH ×3 (08:56→21:49)
[2020-05-29] MEDS: KCL 20 MEQ TAB (K-DUR) PO SCH ×3 (08:57→17:24)
[2020-05-29] MEDS: VITAMIN D3 25 MCG (1,000 UNITS) TABLET PO SCH ×2 (08:58→09:00)
[2020-05-29] MEDS: polyethylene glycoL POWDER 17 GM (MIRALAX) PACK PO SCH (09:00)
[2020-05-29] MEDS: DOCUSATE SODIUM 100 MG (COLACE) CAP PO SCH ×2 (09:00→21:26)
--- NOTE | 2020-05-29 10:34 | Physical Therapy Progress Note ---
Therapy Progress Note Dr. Tong discussed patient with this therapist. He is going to cancel PT treatment for now, patient is at baseline and would get no positive benefit from therapy at this time. MARISSA WILLARD PT May 29, 2020 10:34
--- NOTE | 2020-05-29 12:14 | NUR ---
PT CONTINUES TO BE VERY DROWSY, WILL NOT WAKE UP FOR LUNCH. HR NOTED TO BE 42-[address] HU NOTIFIED VIA PHONE.
--- NOTE | 2020-05-29 12:22 | NUR ---
ORDER RECEIVED FOR STAT EKG. DR HU NOTIFIED OF RESULTS
[2020-05-29 12:26] VITALS: BP 101/64
--- NOTE | 2020-05-29 13:54 | Progress Note - Hospitalist ---
Subjective HPI/CC On Admission Date Seen by Provider: May 29, 2020 Time Seen by Provider: 10:35 Pt is a 65yoCM with a PMH of advanced dementia who presented to the ER due to fever. He is unable to relay any history to me due to dementia. All history, though minimal, is obtained from the chart. Apparently he had a fever and a cough and was brought in for evaluation. The rapid in house COVID test was positive. He was admitted for oxygen and Remdesivir. RN states he had some aspiration with breakfast but otherwise has done well. Subjective/Events-last exam He is nonverbal. He appears comfortable. Objective Exam Vital Signs Vital Signs Date Time Temp Pulse Resp B/P (MAP) Pulse Ox O2 Delivery O2 Flow Rate FiO2 05/29/20 12:26 35.6 45 21 101/64 (76) 90 High Flow N/C 2.00 05/28/20 07:12 50 Capillary Refill : Less Than 3 SecondsLess Than 3 Seconds General Appearance: No Apparent Distress, Chronically ill Respiratory: Lungs Clear, Normal Breath Sounds, No Respiratory Distress Cardiovascular: No Edema, No Murmur, Bradycardia Gastrointestinal: Normal Bowel Sounds, Soft Extremity: Normal Inspection, Non Tender, No Pedal Edema Neurologic/Psychiatric: Aphasia Skin: Normal Color, Warm/Dry Results/Procedures Lab Laboratory Tests 05/29/20 05:25 Patient resulted labs reviewed. Imaging: Reviewed Imaging Report Assessment/Plan Assessment and Plan Assess & Plan/Chief Complaint Acute respiratory failure due to COVID-19 Decadron s/p Remdesivir s/p convalescent plasma No supplemental oxygen requirement Bradycardia EKG with sinus bradycardia Metoprolol held Possibly COVID and steroid related Consult cardiology, appreciate assistance Advanced dementia Schizophrenia Cachexia HTN Poor prognosis DVT ppx: Lovenox Diagnosis/Problems Diagnosis/Problems (1) Acute respiratory failure due to COVID-19 Status: Acute (2) Advanced dementia Status: Chronic (3) Schizophrenia Status: Chronic Qualifiers: 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
--- NOTE | 2020-05-29 14:43 | Consultation-Cardiology ---
HPI-Cardiology Cardiology Consultation Date of Consultation 05/29/20 Date of Admission Time Seen by Provider: 14:37 Indication: bradycardia HPI Patient is a 65y/o male with history of advanced dementia, schizophrenia. Admitted on 05/24/2020 for Acute respiratory failure d/t COVID-19. Has been receiving IV remdisivir and decadron. Noted to be bradycardic with HR in the 40's. Toprol XL d/c'd and decadron being held. Patient is non-verbal secondary to advanced dementia, appears to be resting comfortably and in NAD distress at this time. Home Medications & Allergies Allergies: Coded Allergies: Sulfa (Sulfonamide Antibiotics) (Verified Allergy, Unknown, 05/24/20) Home Medication List Reviewed: Yes [id number] Hx Patient Social History Marital Status: single Employed/Student: unemployed Alcohol Use: Denies Use Recreational Drug Use: No Smoking Status: Never a Smoker 2nd Hand Smoke Exposure: No Recent Foreign Travel: No Recent Infectious Disease Expo: No Recent Hopitalizations: No Physical Abuse Screen: No Sexual Abuse: No Immunizations Up To Date Tetanus Booster (TDap): Less than 5yrs Date of Influenza Vaccine: May 02, 2016 Past Medical History Dementia, Schizophrenia Family Medical History Significant Family History: No Pertinent Family Hx Review of Systems-General Review of Systems ROS-Unable to Obtain: Unable to obtain Constitutional: malaise, weakness, other (unable to provide review of systems) Reviewed Test Results Reviewed Test Results Lab Laboratory Tests 05/28/20 14:46: Lab Scanned Report Transfusion Reaction Form 05/28/20 15:55: Glucometer 141H 05/28/20 20:19: Glucometer 218H 05/29/20 05:25: White Blood Count 3.7L, Red Blood Count 3.90L, Hemoglobin 11.6L, Hematocrit 35L, Mean Corpuscular Volume 89, Mean Corpuscular Hemoglobin 30, Mean Corpuscular Hemoglobin Concent 33, Red Cell Distribution Width 13.5, Platelet Count 176, Mean Platelet Volume 10.7H, Sodium Level 137, Potassium Level 3.6, Chloride Level 105, Carbon Dioxide Level 21, Anion Gap 11, Blood Urea Nitrogen 21H, Creatinine 0.71, Estimat Glomerular Filtration Rate > 60, BUN/Creatinine Ratio 30, Glucose Level 117H, Calcium Level 7.6L, Corrected Calcium 8.6, Phosphorus Level 2.7, Magnesium Level 2.0, Total Bilirubin 0.3, Aspartate Amino Transf (AST/SGOT) 25, Alanine Aminotransferase (ALT/SGPT) 26, Alkaline Phosphatase 33L, Total Protein 5.2L, Albumin 2.7L 05/29/20 11:40: Glucometer 141H Microbiology 05/26/20 Blood Culture - Preliminary, Resulted No growth 05/24/20 MRSA Screen - Final, Complete MRSA not isolated Physical Exam Physical Exam Vital Signs Vital Signs - First Documented 05/25/20 14:55 FiO2 100 Capillary Refill : Less Than 3 SecondsLess Than 3 Seconds Height, Weight, BMI Height: 6'1.00" Weight: 154lbs. 0.0oz. [id number]; 19.96 BMI Method:Stated General Appearance: No Apparent Distress, Chronically ill, Cachetic HEENT: PERRL/EOMI, Moist Mucous Membranes; No Scleral Icterus (L), No Scleral Icterus (R) Neck: Normal Inspection, Supple Respiratory: Lungs Clear, Normal Breath Sounds, No Respiratory Distress Cardiovascular: No Edema, No Murmur, Bradycardia Gastrointestinal: Normal Bowel Sounds, Soft Extremity: Normal Inspection, Non Tender, No Pedal Edema Neurologic/Psychiatric: Aphasia Skin: Normal Color, Warm/Dry A/P-Cardiology Admission Diagnosis Bradycardia HTN Respiratory failure d/t COVID-19 Dementia Assessment/Plan Bradycardia, sinus bradycardia, could be underlying sinus node dysfunction, most probably secondary to medication and hypoxemia. Patient is asymptomatic, borderline hypotensive, continue with IV fluid and continue to hold Toprol and monitor on telemetry. We can use atropine if needed, if his bradycardia became worse and he became hypotensive while consider placement of transvenous pacemaker for support Borderline hypotensive, start IV fluid aggressively and monitor tolerance and response Acute Hypoxic Respiratory Failure due to COVID19, management per Dr. Garcia and hospitalist service, javier currently on hold Advanced dementia with non-verbal status Schizophrenia Thank you for allowing us to participate in the management of Mr. Esquivel. This is Martina Talley PA-C, as a scribe for Dr. Vazquez. Patient was seen and evaluated with Martina, examination performed, management plan was discussed, agree with the current scribed note, I made few changes to the note using Italic font Patient was unable to provide history, chart was reviewed. We'll continue monitoring and will consider transvenous pacemaker if needed. Continue to monitor blood pressure and start IV fluid Monitor electrolytes Clinical Quality Measures DVT/VTE Risk/Contraindication: Risk Factor Score Per Nursin RFS Level Per Nursing on Admit: 4+=Very High MARTINA LAWSON May 29, 2020 14:43 FLORENCE VAZQUEZ MD May 29, 2020 15:12
--- NOTE | 2020-05-29 15:10 | NUR ---
ICU TELE MONITOR CALLED AND NOTIFIED THIS RN OF PT HR STAYING 39-40. PACHECO PEREZ NOTIFIED AND GAVE ORDERS TO CONTINUE TO MONITOR AT THIS TIME. Isabela MOSES WILL NOTIFY DR. MUHAMMAD
[2020-05-29 15:25] VITALS: BP 134/86
--- NOTE | 2020-05-29 16:45 | NUR ---
Left heel ulcer assessed. heel area has oval, flattened, white scab with small reddened area in the center noted. reddened area is 2.5cm x 1.5cm x 0.0cm under scabbed healing wound. patient wearing allevyns to both heels and using heal booties to offload pressure at time of assessment. will con't to monitor.
[2020-05-29] MEDS: ENOXAPARIN 40 MG/0.4 ML (LOVENOX) SYR SC SCH (17:23)
[2020-05-29] MEDS: RT-ALBUTEROL INHALER HFA (VENTOLIN HFA) 18 GM IH PRN (19:07)
[2020-05-29 19:26] VITALS: BP 139/84
[2020-05-29] MEDS: SENNOSIDES 8.6 MG (SENOKOT) TAB PO SCH (21:26)
[2020-05-29] MEDS: TAMSULOSIN 0.4 MG (FLOMAX) CAP PO SCH (21:49)
[2020-05-30 00:43] VITALS: BP 150/90
[2020-05-30] MEDS: RT-ALBUTEROL INHALER HFA (VENTOLIN HFA) 18 GM IH PRN (02:42)
[2020-05-30 04:00] VITALS: BP 138/80
[2020-05-30 05:57] LABS: HEMOGLOBIN 11.8 g/dL (13.3-17.7); MEAN PLATELET VOLUME 10.4 fL (9.0-12.2); WHITE BLOOD COUNT 5.1 10^3/uL (4.3-11.0)
[2020-05-30 07:36] VITALS: BP 118/75
[2020-05-30] MEDS: RT-ALBUTEROL INHALER HFA (VENTOLIN HFA) 18 GM IH SCH ×2 (08:08→10:12)
[2020-05-30] MEDS: VITAMIN D3 25 MCG (1,000 UNITS) TABLET PO SCH (08:39)
[2020-05-30] MEDS: GABAPENTIN 100 MG (NEURONTIN) CAP PO SCH ×2 (08:39→14:40)
[2020-05-30] MEDS: DIVALPROX SPRINKLE 125 MG (DEPAKOTE) CAP PO SCH (08:40)
[2020-05-30] MEDS: ASPIRIN E.C. 325 MG (ECOTRIN) TABLET PO SCH (08:40)
[2020-05-30] MEDS: KCL 20 MEQ TAB (K-DUR) PO SCH (08:41)
[2020-05-30] MEDS: PANTOPRAZOLE 40 MG (PROTONIX) VIAL IV SCH (08:41)
[2020-05-30] MEDS: DOCUSATE SODIUM 100 MG (COLACE) CAP PO SCH (08:41)
[2020-05-30] MEDS: HYDROCHLOROTHIAZIDE 25 MG (HCTZ) TAB PO SCH (08:41)
[2020-05-30] MEDS: polyethylene glycoL POWDER 17 GM (MIRALAX) PACK PO SCH (08:58)
[2020-05-30 11:00] VITALS: BP 129/79
--- NOTE | 2020-05-30 11:11 | NUR ---
FINAL DISCHARGE PLAN: Patient will be discharge ack to his current residence at [facility]. He will need EMS transport back due to his inability to sit by himself in a w/c for time of transport as well as b/l knee flexion contractures. I have spoken with Genia BONILLA at [facility]. I have spoke with his POA Reilly Esquivel and both have no problems with patients return today.
--- NOTE | 2020-05-30 13:09 | Discharge Summary ---
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 He was treated with Decadron, Remdesivir, and convalescent plasma. His oxygen requirement resolved prior to discharge. His course was complicated by bradycardia which is not to be due to medications. Cardiology was consulted and assisted with his care. His metoprolol was stopped. He was discharged in stable condition. He does have a poor prognosis due to his advanced dementia. He should follow up with his physician during the next senior care rounds. Labs and Pending Lab Test: Laboratory Tests 05/29/20 15:29: Glucometer 136H 05/29/20 21:11: Glucometer 160H 05/30/20 05:10: Glucometer 102 05/30/20 05:23: White Blood Count 5.1, Red Blood Count 3.96L, Hemoglobin 11.8L, Hematocrit 35L, Mean Corpuscular Volume 88, Mean Corpuscular Hemoglobin 30, Mean Corpuscular Hemoglobin Concent 34, Red Cell Distribution Width 13.2, Platelet Count 229, Mean Platelet Volume 10.4 05/30/20 10:56: Glucometer 102 Microbiology 05/26/20 Blood Culture - Preliminary, Resulted No growth 05/24/20 MRSA Screen - Final, Complete MRSA not isolated Home Meds Active Reported Tramadol HCl 50 Mg Tablet 25 Mg PO DAILY PRN TAKES OF A 50MG TAB Milk of Magnesia (Magnesium Hydroxide) 2,400 Mg/10 Ml Oral.susp 30 Ml PO UD PRN Melatonin 3 Mg Tablet 9 Mg PO HS PRN TAKES 3 (3MG) TABS Triamcinolone Acetonide 0.1% Cream (Triamcinolone Acet) 15 Gm Cr 1 Applic TP DAILY PRN Bisacodyl 10 Mg Supp.rect 10 Mg RC PRN PRN Carrie-Christen (Sennosides) 8.6 Mg Tablet 17.2 Mg PO HS TAKES 2 (8.6MG) TABS Divalproex Sodium 125 Mg Cap.sprink 500 Mg PO BID TAKES 4 (125MG) CAPS Vitamin D3 (Cholecalciferol (Vitamin D3)) 50 Mcg Capsule 50 Mcg PO DAILY Ativan (Lorazepam) 0.5 Mg Tablet 0.5 Mg PO Q8H PRN Zofran (Ondansetron HCl) 4 Mg Tab 4 Mg PO DAILY PRN Tylenol Extra Strength (Acetaminophen) 500 Mg Tablet 1,000 Mg PO Q8H PRN Aspirin EC (Aspirin) 325 Mg Tablet.dr 325 Mg PO DAILY Gabapentin 100 Mg Capsule 100 Mg PO TID Potassium Chloride 20 Meq Tab.er.prt 20 Meq PO BID Metoprolol Succinate 25 Mg Tab.er.24h 25 Mg PO DAILY Flomax (Tamsulosin HCl) 0.4 Mg Cap 0.4 Mg PO HS Risedronate Sodium 150 Mg Tablet 150 Mg PO MONTHLY Invega Sustenna (Paliperidone Palmitate) 234 Mg/1.5 Ml Syringe 234 Mg IM MONTHLY Hydrochlorothiazide 25 Mg Tablet 25 Mg PO DAILY HOLD OF SBP <100- NOTIFY NURSE Colace (Docusate Sodium) 100 Mg Capsule 100 Mg PO BID Miralax (Polyethylene Glycol 3350) 17 Gm Powd.pack 17 Gm PO DAILY Assessment/Pt Instructions Take medications as prescribed. Follow up on the next senior care rounds. Return with worsening shortness of breath or if you feel like you're getting worse. Discharge Planning: <30 minutes discharge planning Discharge Instructions Discharge Diet: No Restrictions Activity as Tolerated: Yes Consultations Cardiology Discharge Physical Examination Vital Signs Vital Signs Date Time Temp Pulse Resp B/P (MAP) Pulse Ox O2 Delivery O2 Flow Rate FiO2 05/30/20 11:00 35.2 65 16 129/79 (96) 100 High Flow N/C 0.50 05/28/20 07:12 50 General Appearance: No Apparent Distress, Chronically ill Respiratory: Lungs Clear, Normal Breath Sounds, No Respiratory Distress Cardiovascular: No Edema, No Murmur, Bradycardia Gastrointestinal: Normal Bowel Sounds, Soft Extremity: Normal Inspection, No Pedal Edema Skin: Normal Color, Warm/Dry Neurologic/Psychiatric: Alert, Disoriented Allergies: Coded Allergies: Sulfa (Sulfonamide Antibiotics) (Verified Allergy, Unknown, 05/24/20) Discharge Summary Date of Admission May 24, 2020 at 13:16 Date of Discharge Discharge Date: May 30, 2020 Discharge Time: 13:06 Admission Diagnosis Acute Hypoxic Respiratory Failure due to COVID19 Consults/Procedures Consulations Cardiology Discharge Diagnosis Acute respiratory failure due to COVID-19 (1) Acute respiratory failure due to COVID-19 Status: Acute (2) Advanced dementia Status: Chronic (3) Schizophrenia Status: Chronic Qualifiers: 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
[2020-05-30 15:15] VITALS: BP 129/79
--- NOTE | 2020-05-30 15:15 | NUR ---
PATRICK SANTOS [facility] to [facility]. DPOA notified of discharge and report given to SHARI BONILLA. PATRICK SANTOS belongings sent with PT. Skin dry and intact; no breakdown noted. . Vital signs are stable at time of discharge. Condition is stable at time of discharge. Discharge instructions and copies of H&P, discharge summary, physician's order, lab reports, consultation reports, other dictated reports, diagnostic imaging reports, Advance Directive, eMAR, vital signs, intake and output sent with PT. Patient discharged from 1 on at 1515. PTARICK SANTOS left floor via STRETCHER/EMS, accompanied by EMS. PATRICK SANTOS and family/DPOA notified and verbalize understanding of discharge to [facility].
--- NOTE | 2020-05-30 15:29 | NUR ---
Report called to [facility] Peterson BONILLA
[2020-05-31] MEDS ORDERED: PANTOPRAZOLE 40 MG (PROTONIX) TAB PO SCH (09:00)
== END 2020-05-30 15:15 | DRG 177 ==
LOC: EDUNIT# 12:09 → ER 12:10 → 4TH 13:16 → ICU 05-25 17:28 → CSD 05-27 15:10 → 4TH 05-28 15:32
PROVIDERS: ADMIT Family Medicine; ATTEND Internal Medicine
PROC: XW033E5 Introduction of Remdesivir Anti-infective into Peripheral Vein, Percutaneous Approach, New Technology Group 5 (ICD-10-PCS; principal; 2020-05-24)
PROC: XW13325 Transfusion of Convalescent Plasma (Nonautologous) into Peripheral Vein, Percutaneous Approach, New Technology Group 5 (ICD-10-PCS; 2020-05-24)
DX: U07.1 COVID-19 (principal); J96.01 Acute respiratory failure with hypoxia; R47.01 Aphasia; R64 Cachexia; I10 Essential (primary) hypertension; R13.10 Dysphagia, unspecified; R53.81 Other malaise; M62.50 Muscle wasting and atrophy, not elsewhere classified, unspecified site; G20 Parkinson's disease; N28.9 Disorder of kidney and ureter, unspecified; F03.90 Unspecified dementia, unspecified severity, without behavioral disturbance, psychotic disturbance, mood disturbance, and anxiety; F89 Unspecified disorder of psychological development; F70 Mild intellectual disabilities; N40.0 Benign prostatic hyperplasia without lower urinary tract symptoms; K59.09 Other constipation; M40.209 Unspecified kyphosis, site unspecified; M85.80 Other specified disorders of bone density and structure, unspecified site; M41.9 Scoliosis, unspecified; M54.9 Dorsalgia, unspecified; F41.9 Anxiety disorder, unspecified; F31.9 Bipolar disorder, unspecified; F60.9 Personality disorder, unspecified; F20.9 Schizophrenia, unspecified; R00.1 Bradycardia, unspecified; T38.0X5A Adverse effect of glucocorticoids and synthetic analogues, initial encounter
CPT/HCPCS: 36415; 36600; 71045; 80053; 82728; 82805; 82962; 83605; 83615; 83735; 83880; 84100; 84145; 85007; 85027; 85379; 86141; 86900; 86901; 87040; 87081; 87635; 87804; 93005; 94640; 94760

== ENCOUNTER 2020-05-30 23:21 | Emergency (ER) | payer MEDICARE, MEDICAID ==
[~2020-05-30] VITALS: Ht 180 cm; Wt 65.0 kg
[~2020-05-30 23:21] MED LIST changes: +ACET-2267 PO; +ASPI325T32 PO; +BISA10SU8 RC; +CHOL20003 PO; +DIVA125C10 PO; +LORA-404 PO; +MELA3TAB39 PO; +MOM10U PO; +ONDN4T PO; +SENN-125 PO; +TR1C15 TP; +TRAM50TA3 PO
--- NOTE | 2020-05-30 23:45 | NUR ---
Late entry: Pt arrives by EMS with what staff described as fever and low sp02. Upon arrival pt had no fever but did have sp02 of 89%. Pt to [place] at 4LPM with noted increase of sp02 to 95%. Pt is alert with eyes open and is able to answer simple questions. Pt is a known Covid positive patient who was discharged from this facility earlier today.
[2020-05-31 00:04] LABS: BASOPHILS % (AUTO) 0 % (0-10); EOSINOPHILS % (AUTO) 0 % (0-10); HEMATOCRIT 38 % (40-54); HEMOGLOBIN 12.7 g/dL (13.3-17.7); LYMPHOCYTES # (AUTO) 0.6 10^3/uL (1.0-4.0); LYMPHOCYTES % (AUTO) 9 % (12-44); MEAN CORPUSCULAR HEMOGLOBIN 30 pg (25-34); MEAN CORPUSCULAR HGB CONC 34 g/dL (32-36); MEAN CORPUSCULAR VOLUME 88 fL (80-99); MONOCYTES # (AUTO) 0.7 10^3/uL (0.0-1.0); MONOCYTES % (AUTO) 10 % (0-12); NEUTROPHILS # (AUTO) 4.8 10^3/uL (1.8-7.8); NEUTROPHILS % (AUTO) 73 % (42-75); PLATELET COUNT 247 10^3/uL (130-400); WHITE BLOOD COUNT 6.6 10^3/uL (4.3-11.0)
[2020-05-31 00:13] LABS: BILIRUBIN,URINE NEGATIVE (NEGATIVE); CLARITY,URINE CLEAR; COLOR,URINE YELLOW; GLUCOSE, URINE (UA) NEGATIVE (NEGATIVE); KETONES,URINE NEGATIVE (NEGATIVE); LEUKOCYTE ESTERASE ,URINE NEGATIVE (NEGATIVE); NITRITE,URINE NEGATIVE (NEGATIVE); PH,URINE 7.5 (5-9); PROTEIN,URINE NEGATIVE (NEGATIVE)
[2020-05-31 00:14] LABS: CHLORIDE 101 MMOL/L (98-107); POTASSIUM 3.9 MMOL/L (3.6-5.0); SODIUM 136 MMOL/L (135-145)
[2020-05-31 00:15] LABS: ALBUMIN 3.1 GM/DL (3.2-4.5); CALCIUM 8.8 MG/DL (8.5-10.1)
[2020-05-31 00:17] LABS: CARBON DIOXIDE 25 MMOL/L (21-32); GLUCOSE 100 MG/DL (70-105)
[2020-05-31 00:18] LABS: BILIRUBIN,TOTAL 0.4 MG/DL (0.1-1.0)
[2020-05-31 00:21] LABS: ALKALINE PHOSPHATASE 44 U/L (40-136); GFR ESTIMATED > 60
[2020-05-31 00:22] LABS: BUN/CREATININE RATIO 28
[2020-05-31 00:24] LABS: ALANINE AMINOTRANSFERASE 25 U/L (0-55); MAGNESIUM 1.8 MG/DL (1.6-2.4)
[2020-05-31 00:29] LABS: BACTERIA,URINE NEGATIVE /HPF; SQUAMOUS EPITHELIAL CELL,UR RARE /HPF
--- NOTE | 2020-05-31 01:41 | ED Respiratory ---
General Chief Complaint: Fever-Adult/Adol Stated Complaint: FEVER,COVID + Nursing Triage Note: Pt arrives by EMS from [facility] with complaint from staff of low sp02 and fever. Pt was d/c'd today from this facility after an admission due to complications from Covid. Source: EMS, old records Exam Limitations: clinical condition (PT WITH DEMENTIA) History of Present Illness Date Seen by Provider: May 30, 2020 Time Seen by Provider: 23:25 Initial Comments PT ARRIVES VIA EMS FROM [facility] PT WAS ADMITTED HERE 05/24 FOR FEVER AND HYPOXIA AND WAS DX WITH COVID-19 AND WAS ON VAPOTHERM, TITRATED DOWN TO NASAL CANULA, AND PER RECORDS, PT HAD O2 SAT OF 100% ON ROOM AIR ON LAST SET OF VITAL SIGNS--PT WAS DISMISSED THIS AFTERNOON WITHOUT OXYGEN. HALFWAY REPORTS THAT WHEN THEY CHECKED HIS VITALS THIS EVENING, HE HAD O2 SAT OF 79% ON ROOM AIR, AND HAD TEMP OF 99.1 PT DID RECEIVE REMDESIVIR AND CONVALESCENT PLASMA DURING HIS HOSPITALIZATION PT WITH ADVANCED DEMENTIA AND CANNOT GIVE ANY INFORMATION, OTHER THAN ANSWER VERY FEW, VERY SIMPLE YES/NO QUESTIONS. PER OLD RECORDS, PT DOES NOT HAVE A HISTORY OF RESPIRATORY PROBLEMS PT IS DNR PCP: DR. JARAMILLO Allergies and Home Medications Allergies Coded Allergies: Sulfa (Sulfonamide Antibiotics) (Verified Allergy, Unknown, 05/24/20) Home Medications Acetaminophen 500 Mg Tablet, 1,000 MG PO Q8H PRN for PAIN-MILD (1-4) OR TEMPATURE, (Reported) Aspirin 325 Mg Tablet.dr, 325 MG PO DAILY, (Reported) Bisacodyl 10 Mg Supp.rect, 10 MG RC PRN PRN for CONSTIPATION-4TH LINE, (Reported) Cholecalciferol (Vitamin D3) 50 Mcg Capsule, 50 MCG PO DAILY, (Reported) Divalproex Sodium 125 Mg Cap.sprink, 500 MG PO BID, (Reported) TAKES 4 (125MG) CAPS Docusate Sodium 100 Mg Capsule, 100 MG PO BID, (Reported) Gabapentin 100 Mg Capsule, 100 MG PO TID, (Reported) Hydrochlorothiazide 25 Mg Tablet, 25 MG PO DAILY, (Reported) HOLD OF SBP <100- NOTIFY NURSE Lorazepam 0.5 Mg Tablet, 0.5 MG PO Q8H PRN for AGITATION, (Reported) Magnesium Hydroxide 2,400 Mg/10 Ml Oral.susp, 30 ML PO UD PRN for CONSTIPATION- 7TH LINE, (Reported) Melatonin 3 Mg Tablet, 9 MG PO HS PRN for SLEEP, (Reported) TAKES 3 (3MG) TABS Metoprolol Succinate 25 Mg Tab.er.24h, 25 MG PO DAILY, (Reported) Ondansetron HCl 4 Mg Tab, 4 MG PO DAILY PRN for NAUSEA/VOMITING-1ST LINE, (Reported) Paliperidone Palmitate 234 Mg/1.5 Ml Syringe, 234 MG IM MONTHLY, (Reported) Polyethylene Glycol 3350 17 Gm Powd.pack, 17 GM PO DAILY, (Reported) Potassium Chloride 20 Meq Tab.er.prt, 20 MEQ PO BID, (Reported) Risedronate Sodium 150 Mg Tablet, 150 MG PO MONTHLY, (Reported) Sennosides 8.6 Mg Tablet, 17.2 MG PO HS, (Reported) TAKES 2 (8.6MG) TABS Tamsulosin HCl 0.4 Mg Cap, 0.4 MG PO HS, (Reported) Tramadol HCl 50 Mg Tablet, 25 MG PO DAILY PRN for PAIN-MODERATE (5-7), (Reported) TAKES OF A 50MG TAB Triamcinolone Acet 15 Gm Cr, 1 APPLIC TP DAILY PRN for SKIN IRRITATION, (Reported) Patient Home Medication List Home Medication List Reviewed: Yes Review of Systems Review of Systems Constitutional: other (UNABLE TO OBTAIN FROM PT) Past Pdvtyet-Ddqeoz-Zzshil Hx Past Med/Social Hx: Reviewed and Corrections made Patient Social History Alcohol Use: Denies Use Recreational Drug Use: No Smoking Status: Unknown if Ever Smoked 2nd Hand Smoke Exposure: No Recent Foreign Travel: No Contact w/Someone Who Travel: No Recent Infectious Disease Expo: Yes Recent Hopitalizations: Yes (05/24/20 FOR COVID-19) Physical Abuse: No Sexual Abuse: No Mistreated: No Fear: No Immunizations Up To Date Tetanus Booster (TDap): Less than 5yrs PED Vaccines UTD: No Date of Influenza Vaccine: May 02, 2016 Seasonal Allergies Seasonal Allergies: No Past Medical History Surgeries: Yes Thyroidectomy Respiratory: Yes (COVID-19 05/24/2020--ON VAPOTHERM) Cardiac: Yes Hypertension Neurological: Yes (EPS FROM MEDICATIONS;MILD MR; ADVANCED DEMENTIA; CATATONIC SCHIZOPHRENIA) Dementia, Developmental Disorder, Parkinson's Disease Reproductive Disorders: No Genitourinary: Yes (RENAL INSUFFICIENCY) Benign Prostatic Hyperpl Gastrointestinal: Yes Chronic Constipation Musculoskeletal: Yes (KYPHOSIS;OSTEOPENIA; USES WALKER) Scoliosis, Chronic Back Pain Endocrine: No HEENT: No Cancer: No Psychosocial: Yes (MILD MR) Anxiety, Bipolar, Personality Disorder, Schizophrenia, Depression Integumentary: Yes (PRESSURE SORE LEFT HEEL) Blood Disorders: No Family Medical History No Pertinent Family Hx PT IS DNR Physical Exam Vital Signs - First Documented 05/30/20 05/31/20 05/31/20 23:25 00:30 01:25 Temp 36.3 Pulse 69 Resp 18 B/P (MAP) 138/89 (105) Pulse Ox 93 O2 Delivery Nasal Cannula O2 Flow Rate 4.00 FiO2 28 Capillary Refill : Less Than 3 Seconds Height: 6'1.00" Weight: 154lbs. 0.0oz. 69.864447jo; 20.00 BMI Method:Stated General Appearance: WD/WN, no apparent distress, other (VERY FLAT AFFECT, BLANK STARE, LEANS TO RIGHT. VERY RARE LOOSE COUGH. ) HEENT: other (ORAL MUCOSA MOIST) Respiratory: no respiratory distress, no accessory muscle use, rales (FAINT RALES IN BASES) Cardiovascular: regular rate, rhythm, no murmur Gastrointestinal: soft Extremities: no pedal edema, other (DRESSING TO LEFT HEEL) Neurologic/Psychiatric: other (PT IS MINIMALLY VERBAL, ANSWERS VERY FEW, VERY SIMPLE YES/NO QUESTIONS. SPEECH CLEAR. VERY FLAT AFFECT. BLANK STARE. ) Skin: normal color, warm/dry Focused Exam Lactate Level 05/30/20 23:45: Lactic Acid Level 1.06 Lactic Acid Level Laboratory Tests Test 05/30/20 23:45 Lactic Acid Level 1.06 MMOL/L (0.50-2.00) Progress/Results/Core Measures Suspected Sepsis Recent Fever Within 48 Hours: Yes Infection Criteria Present: Documented Infection New/Unexplained Altered Menta: No Sepsis Screen: No Definite Risk SIRS Temperature: Pulse: 70 Respiratory Rate: 16 Laboratory Tests 05/30/20 23:45: White Blood Count 6.6 Blood Pressure 133 /89 Mean: 104 05/30/20 23:45: Lactic Acid Level 1.06 Laboratory Tests 05/30/20 23:45: Creatinine 0.80, Platelet Count 247, Total Bilirubin 0.4 Results/Orders Lab Results Laboratory Tests Test 05/30/20 23:45 05/30/20 23:59 Range/Units White Blood Count 6.6 4.3-11.0 10^3/uL Red Blood Count 4.31 4.30-5.52 10^6/uL Hemoglobin 12.7 L 13.3-17.7 g/dL Hematocrit 38 L 40-54 % Mean Corpuscular Volume 88 80-99 fL Mean Corpuscular Hemoglobin 30 25-34 pg Mean Corpuscular Hemoglobin Concent 34 32-36 g/dL Red Cell Distribution Width 13.1 10.0-14.5 % Platelet Count 247 130-400 10^3/uL Mean Platelet Volume 10.0 9.0-12.2 fL Immature Granulocyte % (Auto) 7 % Neutrophils (%) (Auto) 73 42-75 % Lymphocytes (%) (Auto) 9 L 12-44 % Monocytes (%) (Auto) 10 0-12 % Eosinophils (%) (Auto) 0 0-10 % Basophils (%) (Auto) 0 0-10 % Neutrophils # (Auto) 4.8 1.8-7.8 10^3/uL Lymphocytes # (Auto) 0.6 L 1.0-4.0 10^3/uL Monocytes # (Auto) 0.7 0.0-1.0 10^3/uL Eosinophils # (Auto) 0.0 0.0-0.3 10^3/uL Basophils # (Auto) 0.0 0.0-0.1 10^3/uL Immature Granulocyte # (Auto) 0.4 H 0.0-0.1 10^3/uL Sodium Level 136 135-145 MMOL/L Potassium Level 3.9 3.6-5.0 MMOL/L Chloride Level 101 98-107 MMOL/L Carbon Dioxide Level 25 21-32 MMOL/L Anion Gap 10 5-14 MMOL/L Blood Urea Nitrogen 22 H 7-18 MG/DL Creatinine 0.80 0.60-1.30 MG/DL Estimat Glomerular Filtration Rate > 60 BUN/Creatinine Ratio 28 Glucose Level 100 70-105 MG/DL Lactic Acid Level 1.06 0.50-2.00 MMOL/L Calcium Level 8.8 8.5-10.1 MG/DL Corrected Calcium 9.5 8.5-10.1 MG/DL Magnesium Level 1.8 1.6-2.4 MG/DL Total Bilirubin 0.4 0.1-1.0 MG/DL Aspartate Amino Transf (AST/SGOT) 17 5-34 U/L Alanine Aminotransferase (ALT/SGPT) 25 0-55 U/L Alkaline Phosphatase 44 40-136 U/L Troponin I < 0.028 <0.028 NG/ML B-Type Natriuretic Peptide 94.3 <100.0 PG/ML Total Protein 6.0 L 6.4-8.2 GM/DL Albumin 3.1 L 3.2-4.5 GM/DL Urine Color YELLOW Urine Clarity CLEAR Urine pH 7.5 5-9 Urine Specific [place] 1.015 L 1.016-1.022 Urine Protein NEGATIVE NEGATIVE Urine Glucose (UA) NEGATIVE NEGATIVE Urine Ketones NEGATIVE NEGATIVE Urine Nitrite NEGATIVE NEGATIVE Urine Bilirubin NEGATIVE NEGATIVE Urine Urobilinogen 0.2 < = 1.0 MG/DL Urine Leukocyte Esterase NEGATIVE NEGATIVE Urine RBC (Auto) TRACE-I NEGATIVE Urine RBC NONE /HPF Urine WBC NONE /HPF Urine Squamous Epithelial Cells RARE /HPF Urine Crystals NONE /LPF Urine Bacteria NEGATIVE /HPF Urine Casts NONE /LPF Urine Mucus MODERATE H /LPF Urine Culture Indicated NO Micro Results Microbiology 05/30/20 Influenza Types A,B Antigen (MERLYN) - Final, Complete My Orders Orders - ARCHANA ESPARZA DO Ed Iv/Invasive Line Start (05/30/20 23:25) Ekg Tracing (05/30/20 23:25) O2 (05/30/20 23:25) Monitor-Rhythm Ecg Trace Only (05/30/20 23:25) BNP (05/30/20 23:25) Cbc With Automated Diff (05/30/20 23:25) Comprehensive Metabolic Panel (05/30/20 23:25) Lactic Acid Analyzer (05/30/20 23:25) Magnesium (05/30/20 23:25) Ua Culture If Indicated (05/30/20 23:25) Blood Culture (05/30/20 23:25) Influenza A And B Antigens (05/30/20 23:25) Troponin I (05/30/20 23:25) Chest 1 View, Ap/Pa Only (05/30/20 23:25) Ambulate W/O 02-Home O2 Qual (05/31/20 01:00) Vital Signs/I&O 05/30/20 05/31/20 05/31/2020 23:25 00:30 00:45 01:25 Temp 36.3 Pulse 69 70 Resp 18 16 B/P (MAP) 138/89 (105) 133/89 Pulse Ox 93 93 93 95 O2 Delivery Nasal Cannula Nasal Cannula Nasal Cannula Nasal Cannula O2 Flow Rate 4.00 4.00 FiO2 28 05/31/20 02:56 Temp 36.4 Pulse 80 Resp 14 B/P (MAP) 123/92 Pulse Ox 92 O2 Delivery Nasal Cannula O2 Flow Rate 4.00 Capillary Refill : Less Than 3 Seconds Blood Pressure Mean: 104 Progress Note : Progress Note PT ARRIVES ON 4L/NC BY EMS--O2 SATS MID TO UPPER 90'S NO DYSPNEA OR SIGNIFICANT COUGH DURING ER STAY RESPIRATORY THERAPY DID HOME O2 QUALIFICATION AND PT'S O2 SAT DROOPED TO 87% ON ROOM AIR AFTER 2 MINUTES AND WAS PLACED BACK ON O2 AT 4L/NC AND IT QUICKLY WENT BACK UP TO MID TO UPPER 90'S 0121--DME WAS CONTACTED AND THEY ARRIVED WITH HOME O2 FOR PT TO HAVE AT HALFWAY. ECG Initial ECG Impression Date: May 30, 2020 Initial ECG Impression Time: 23:33 Initial ECG Rate: 67 Initial ECG Rhythm: Normal Sinus Initial ECG Impression: Nonspecific Changes Diagnostic Imaging Comments CXR--RIGHT PLEURAL EFFUSION, BILATERAL INFILTRATES, VASCULAR CONGESTION--PENDING RADIOLOGIST REVIEW Reviewed: Reviewed by Me Departure Impression Primary Impression: Hypoxia Additional Impression: COVID-19 Disposition: 03 XFER SNF Condition: Improved Departure-Patient Inst. Referrals: CYN JARAMILLO MD (PCP/Family) Primary Care Physician Patient Instructions: Coronavirus Disease 2019 (COVID-19) (DC), Oxygen Therapy, Adult (DC) Add. Discharge Instructions: CONTINUE ALL PREVIOUS INSTRUCTIONS/ORDERS O2 AT 2-4L/NC CONTINOUSLY FURTHER ORDERS BY DR. JARAMILLO All discharge instructions reviewed with patient and/or family. Voiced understanding. ARCHANA ESPARZA DO May 31, 2020 01:41
--- NOTE | 2020-05-31 02:28 | NUR ---
BONNIE WITH [facility] NOTIFIED THAT [employer] WILL BRING CONCENTRATOR LATER THIS AM TO ON LICENSE OF [facility], FOR NOW PT WILL BE SENT WITH 2 O2 TANKS.
--- NOTE | 2020-05-31 02:30 | NUR ---
EMS called regarding taking this patient back to [facility].
--- NOTE | 2020-05-31 02:43 | NUR ---
Pt continues to have stable sp02 between 93-95% on 4LPM of 02. Dr. Martinez established an order for home 02 through DME and pt will go back to [facility] with .
[2020-05-31 02:56] VITALS: BP 123/92
--- NOTE | 2020-05-31 07:40 | Diagnostic Imaging Report ---
EXAMINATION: Chest 1 view HISTORY: Hypoxia. COVID positive. COMPARISON: 05/26/2020. FINDINGS: There has been interval increase in patchy opacities in the bilateral perihilar and basilar regions, greatest on the right. No large pleural effusion is seen. No evidence of pneumothorax. Stable cardiac silhouette. No acute osseous abnormalities. IMPRESSION: 1. Increasing patchy opacities in the bilateral perihilar and basilar regions, greatest on the right. Dictated by: Dictated on workstation # [id number]
== END 2020-05-31 02:54 ==
LOC: EDUNIT# 23:21 → ER 23:22
DX: U07.1 COVID-19 (principal); R09.02 Hypoxemia; I10 Essential (primary) hypertension; F31.9 Bipolar disorder, unspecified; F41.9 Anxiety disorder, unspecified; N40.0 Benign prostatic hyperplasia without lower urinary tract symptoms; Z88.2 Allergy status to sulfonamides; Z79.82 Long term (current) use of aspirin
CPT/HCPCS: 36415; 71045; 80053; 81000; 83605; 83735; 83880; 84484; 85025; 87040; 87804; 93005; 93041; 94760

== ENCOUNTER → 2020-10-26 | Outpatient (CLI) | payer MEDICARE, MEDICAID ==
[2020-10-26 14:16] LABS: BILIRUBIN,URINE NEGATIVE (NEGATIVE); CLARITY,URINE CLEAR; COLOR,URINE YELLOW; GLUCOSE, URINE (UA) NEGATIVE (NEGATIVE); KETONES,URINE NEGATIVE (NEGATIVE); LEUKOCYTE ESTERASE ,URINE NEGATIVE (NEGATIVE); NITRITE,URINE NEGATIVE (NEGATIVE); PH,URINE 6.5 (5-9); PROTEIN,URINE NEGATIVE (NEGATIVE)
[2020-10-26 14:30] LABS: BACTERIA,URINE FEW /HPF; WBC,URINE RARE /HPF
== END ==
LOC: HH 14:06
PROVIDERS: ATTEND Internal Medicine
DX: F91.8 Other conduct disorders (principal)
CPT/HCPCS: 81000

== ENCOUNTER → 2021-05-02 | Outpatient (CLI) | payer MEDICARE, MEDICAID ==
[~2021-05-02] MED LIST changes: +CARB-275 PO; -CARB1TAB6 PO; -DCS100C; +DOCU-239
== END ==
LOC: WOUNDCARE 09:57
PROVIDERS: ATTEND Surgery
DX: L89.613 Pressure ulcer of right heel, stage 3 (principal); L89.220 Pressure ulcer of left hip, unstageable; G82.22 Paraplegia, incomplete; F03.91 Unspecified dementia, unspecified severity, with behavioral disturbance; E44.1 Mild protein-calorie malnutrition
CPT/HCPCS: 11042; A6197; G0463

== ENCOUNTER → 2021-05-06 | Outpatient (CLI) | payer MEDICARE, MEDICAID | LOC: WOUNDCARE 11:07 | PROVIDERS: ATTEND Surgery | DX: I96 Gangrene, not elsewhere classified (principal); L89.613 Pressure ulcer of right heel, stage 3; L89.220 Pressure ulcer of left hip, unstageable; G82.22 Paraplegia, incomplete; F03.91 Unspecified dementia, unspecified severity, with behavioral disturbance; E44.1 Mild protein-calorie malnutrition | CPT/HCPCS: A6212; G0463; 99214 ==

== ENCOUNTER → 2021-05-13 | Outpatient (CLI) | payer MEDICARE, MEDICAID | LOC: WOUNDCARE 10:59 | PROVIDERS: ATTEND Surgery | DX: L89.613 Pressure ulcer of right heel, stage 3 (principal); L89.220 Pressure ulcer of left hip, unstageable; G82.21 Paraplegia, complete; F03.91 Unspecified dementia, unspecified severity, with behavioral disturbance; E44.1 Mild protein-calorie malnutrition; I96 Gangrene, not elsewhere classified | CPT/HCPCS: 99213 ==

== ENCOUNTER → 2021-05-20 | Outpatient (CLI) | payer MEDICARE, MEDICAID | LOC: WOUNDCARE 10:59 | PROVIDERS: ATTEND Family Medicine | DX: L89.613 Pressure ulcer of right heel, stage 3 (principal); L89.220 Pressure ulcer of left hip, unstageable; G82.21 Paraplegia, complete; F03.90 Unspecified dementia, unspecified severity, without behavioral disturbance, psychotic disturbance, mood disturbance, and anxiety; E44.1 Mild protein-calorie malnutrition; I96 Gangrene, not elsewhere classified | CPT/HCPCS: 99213 ==

== ENCOUNTER → 2021-06-03 | Outpatient (CLI) | payer MEDICARE, MEDICAID | LOC: WOUNDCARE 11:03 | PROVIDERS: ATTEND Family Medicine | DX: I96 Gangrene, not elsewhere classified (principal); L89.613 Pressure ulcer of right heel, stage 3; L89.220 Pressure ulcer of left hip, unstageable; G82.22 Paraplegia, incomplete; F03.91 Unspecified dementia, unspecified severity, with behavioral disturbance; E44.1 Mild protein-calorie malnutrition | CPT/HCPCS: 11042; 97597; G0463 ==

== ENCOUNTER → 2021-06-10 | Outpatient (CLI) | payer MEDICARE, MEDICAID | LOC: WOUNDCARE 10:56 | PROVIDERS: ATTEND Family Medicine | DX: L89.613 Pressure ulcer of right heel, stage 3 (principal); L89.220 Pressure ulcer of left hip, unstageable; G82.21 Paraplegia, complete; F03.90 Unspecified dementia, unspecified severity, without behavioral disturbance, psychotic disturbance, mood disturbance, and anxiety; E44.1 Mild protein-calorie malnutrition; L03.116 Cellulitis of left lower limb; I96 Gangrene, not elsewhere classified | CPT/HCPCS: 11042; G0463 ==

== ENCOUNTER → 2021-06-18 | Outpatient (CLI) | payer MEDICARE, MEDICAID | LOC: WOUNDCARE 11:08 | PROVIDERS: ATTEND Family Medicine | DX: L89.613 Pressure ulcer of right heel, stage 3 (principal); L89.620 Pressure ulcer of left heel, unstageable; G82.21 Paraplegia, complete; F03.91 Unspecified dementia, unspecified severity, with behavioral disturbance; E44.1 Mild protein-calorie malnutrition; L03.116 Cellulitis of left lower limb; I96 Gangrene, not elsewhere classified | CPT/HCPCS: 11042; A6197; A6212; G0463 ==

== ENCOUNTER → 2021-06-24 | Outpatient (CLI) | payer MEDICARE, MEDICAID ==
[~2021-06-24] MED LIST changes: +POTA-179 PO; -POTA20TA15 PO
== END ==
LOC: WOUNDCARE 11:01
PROVIDERS: ATTEND Family Medicine
DX: I96 Gangrene, not elsewhere classified (principal); L89.613 Pressure ulcer of right heel, stage 3; L89.220 Pressure ulcer of left hip, unstageable; G82.22 Paraplegia, incomplete; F03.90 Unspecified dementia, unspecified severity, without behavioral disturbance, psychotic disturbance, mood disturbance, and anxiety; E44.1 Mild protein-calorie malnutrition; L03.116 Cellulitis of left lower limb
CPT/HCPCS: 11042; A6212; G0463

== ENCOUNTER → 2021-07-01 | Outpatient (CLI) | payer MEDICARE, MEDICAID | LOC: WOUNDCARE 11:02 | PROVIDERS: ATTEND Family Medicine | DX: L89.613 Pressure ulcer of right heel, stage 3 (principal); L89.220 Pressure ulcer of left hip, unstageable; G82.22 Paraplegia, incomplete; F03.91 Unspecified dementia, unspecified severity, with behavioral disturbance; E44.1 Mild protein-calorie malnutrition; L03.116 Cellulitis of left lower limb; I96 Gangrene, not elsewhere classified | CPT/HCPCS: 99213 ==

== ENCOUNTER → 2021-07-08 | Outpatient (CLI) | payer MEDICARE, MEDICAID | LOC: WOUNDCARE 11:01 | PROVIDERS: ATTEND Family Medicine | DX: I96 Gangrene, not elsewhere classified (principal); L89.613 Pressure ulcer of right heel, stage 3; L89.220 Pressure ulcer of left hip, unstageable; G82.22 Paraplegia, incomplete; F03.91 Unspecified dementia, unspecified severity, with behavioral disturbance; E44.1 Mild protein-calorie malnutrition; L03.115 Cellulitis of right lower limb | CPT/HCPCS: 99213 ==

== ENCOUNTER → 2021-07-15 | Outpatient (CLI) | payer MEDICARE, MEDICAID | LOC: WOUNDCARE 10:57 | PROVIDERS: ATTEND Family Medicine | DX: I96 Gangrene, not elsewhere classified (principal); L89.613 Pressure ulcer of right heel, stage 3; L89.220 Pressure ulcer of left hip, unstageable; G82.22 Paraplegia, incomplete; F03.90 Unspecified dementia, unspecified severity, without behavioral disturbance, psychotic disturbance, mood disturbance, and anxiety; E44.1 Mild protein-calorie malnutrition; L03.116 Cellulitis of left lower limb | CPT/HCPCS: 11042; A6212; G0463 ==

== ENCOUNTER → 2021-07-21 | Outpatient (CLI) | payer MEDICARE, MEDICAID | LOC: WOUNDCARE 10:54 | PROVIDERS: ATTEND Family Medicine | DX: I96 Gangrene, not elsewhere classified (principal); L89.223 Pressure ulcer of left hip, stage 3; L89.220 Pressure ulcer of left hip, unstageable; G82.22 Paraplegia, incomplete; F03.91 Unspecified dementia, unspecified severity, with behavioral disturbance; E44.1 Mild protein-calorie malnutrition; L03.116 Cellulitis of left lower limb | CPT/HCPCS: 97597; G0463 ==

== ENCOUNTER → 2021-07-29 | Outpatient (CLI) | payer MEDICARE, MEDICAID | LOC: WOUNDCARE 11:08 | PROVIDERS: ATTEND Family Medicine | DX: G82.22 Paraplegia, incomplete (principal); F03.91 Unspecified dementia, unspecified severity, with behavioral disturbance; E44.1 Mild protein-calorie malnutrition; L89.223 Pressure ulcer of left hip, stage 3; I96 Gangrene, not elsewhere classified | CPT/HCPCS: 11042; A6197; A6212; G0463 ==

== ENCOUNTER 2021-08-05 11:47 | Emergency (ER) | payer MEDICARE, MEDICAID ==
[~2021-08-05] VITALS: Ht 187 cm; Wt 72.0 kg
[~2021-08-05 11:47] MED LIST changes: -APIX5TAB PO
[2021-08-05 12:37] LABS: BASOPHILS # (AUTO) 0.1 10^3/uL (0.0-0.1); BASOPHILS % (AUTO) 1 % (0-10); EOSINOPHILS % (AUTO) 0 % (0-10); HEMATOCRIT 37 % (40-54); HEMOGLOBIN 12.1 g/dL (13.3-17.7); LYMPHOCYTES # (AUTO) 0.7 10^3/uL (1.0-4.0); LYMPHOCYTES % (AUTO) 7 % (12-44); MEAN CORPUSCULAR HEMOGLOBIN 31 pg (25-34); MEAN CORPUSCULAR HGB CONC 32 g/dL (32-36); MEAN CORPUSCULAR VOLUME 94 fL (80-99); MEAN PLATELET VOLUME 9.4 fL (9.0-12.2); MONOCYTES # (AUTO) 0.6 10^3/uL (0.0-1.0); MONOCYTES % (AUTO) 6 % (0-12); NEUTROPHILS % (AUTO) 86 % (42-75); PLATELET COUNT 348 10^3/uL (130-400); WHITE BLOOD COUNT 10.4 10^3/uL (4.3-11.0)
--- NOTE | 2021-08-05 12:48 | Diagnostic Imaging Report ---
INDICATION: Cough. Frontal chest obtained at 12:30 p.m. and compared to 05/30/2020. FINDINGS: Heart is normal in size. Patient is somewhat rotated. There is no focal infiltrate. There is improvement in central vascular congestion and infiltrates seen on the prior study. There is no overt new abnormality. There is no pneumothorax or pleural fluid. IMPRESSION: Significant improvement compared to the prior study of 05/30/2020. There is no infiltrate or pneumothorax or pleural fluid. There is poor inspiration and rotation which limit the study. Dictated by: Dictated on workstation # [id number]
[2021-08-05 12:51] LABS: POTASSIUM 4.1 MMOL/L (3.6-5.0)
[2021-08-05 12:52] LABS: CALCIUM 9.2 MG/DL (8.5-10.1)
[2021-08-05 12:55] LABS: BAND NEUTROPHILS 0 %; BASOPHILS % (MANUAL) 0 %; EOSINOPHILS % (MANUAL) 0 %; LYMPHOCYTES % (MANUAL) 6 %; MONOCYTES % (MANUAL) 5 %; NEUTROPHILS % (MANUAL) 89 %; RBC MORPH NORMAL
[2021-08-05 12:56] LABS: CREATININE SERUM 0.7 MG/DL (0.60-1.30)
--- NOTE | 2021-08-05 13:36 | Diagnostic Imaging Report ---
EXAMINATION: Right humerus. INDICATION: Arm pain. Four views were obtained. FINDINGS: There is no fracture, dislocation, or acute bony abnormality evident. The degenerative changes involving the right shoulder joint and the soft tissue calcifications along the inferior margin of the humeral head seen on the prior exam of 05/16/2019 are again evident and no different. The soft tissues are otherwise unremarkable. IMPRESSION: There is no acute bony abnormality of the right humerus. Dictated by: Dictated on workstation # [id number]
--- NOTE | 2021-08-05 14:09 | Diagnostic Imaging Report ---
FOREARM, RIGHT, 2 VIEWS INDICATION: Right forearm pain. COMPARISON: Right humerus radiographs performed concurrently. TECHNIQUE: Two views of the right forearm. FINDINGS: No fracture within the right forearm. No traumatic malalignment of the elbow or wrist on limited assessment of this exam. No radiopaque foreign body or soft tissue gas. IMPRESSION: No acute fracture within the right forearm. Dictated by: Dictated on workstation # [id number]
--- NOTE | 2021-08-05 14:45 | Diagnostic Imaging Report ---
EXAMINATION: Right upper extremity venous Doppler. INDICATION: Arm pain and swelling. TECHNIQUE: Spectral and color-flow imaging of the deep venous system of the right upper extremity was performed. COMPARISON: There are no prior studies available for comparison. FINDINGS: There is an isolated area of thrombus formation in the axillary vein. The remainder of the deep venous system in the right upper extremity shows good blood flow and compressibility. There is no other thrombus formation identified. IMPRESSION: There is a focal area of thrombus formation in the right axillary vein. There is no other evidence for deep venous thrombosis. Dictated by: Dictated on workstation # [id number]
[2021-08-05] MEDS ORDERED: ENOXAPARIN 60 MG/0.6 ML (LOVENOX) SYR SC ONE (15:15)
[2021-08-05] MEDS ORDERED: APIX5TAB PO (15:16)
--- NOTE | 2021-08-05 15:19 | ED General ---
General Chief Complaint: Cough/Cold/Flu Symptoms Stated Complaint: LOW 02,COUGH Source of Information: Patient, Caregiver Exam Limitations: No Limitations History of Present Illness Date Seen by Provider: Aug 05, 2021 Time Seen by Provider: 12:06 Initial Comments This is 66-year-old gentleman with developmental disabilities brought to the emergency room by a staff member with concerns about cough and congestion as well as swelling and ecchymosis of the right arm. There is no known injury. Patient is afebrile. Patient seems to have been more congested and coughing more in recent days. They are concerned about possible aspiration due to history of dysphagia. Patient is minimally verbal and cannot contribute to the history. Allergies and Home Medications Allergies Coded Allergies: Sulfa (Sulfonamide Antibiotics) (Verified Allergy, Unknown, 05/24/20) Patient Home Medication List Home Medication List Reviewed: Yes Acetaminophen (Tylenol Extra Strength) 500 Mg Tablet, 1,000 MG PO Q8H PRN for PAIN-MILD (1-4) OR TEMPATURE, (Reported) Entered as Reported by: CLARA THORNE on 05/24/20 155 Apixaban (Eliquis) 5 Mg Tablet, 5 MG PO BID Prescribed by: ABHI YOUSSEF on 08/05/21 1516 Aspirin (Aspirin EC) 325 Mg Tablet.dr, 325 MG PO DAILY, (Reported) Entered as Reported by: CLARA THORNE on 05/24/20 1555 Bisacodyl (Bisacodyl) 10 Mg Supp.rect, 10 MG RC PRN PRN for CONSTIPATION-4TH LINE, (Reported) Entered as Reported by: CLARA THORNE on 05/24/20 155 Cholecalciferol (Vitamin D3) (Vitamin D3) 50 Mcg Capsule, 50 MCG PO DAILY, (Reported) Entered as Reported by: CLARA THORNE on 05/24/20 155 Divalproex Sodium (Divalproex Sodium) 125 Mg Cap.sprink, 500 MG PO BID, (Reported) Entered as Reported by: CLARA THORNE on 05/24/20 155 Docusate Sodium (Colace) 100 Mg Capsule, 100 MG PO BID, (Reported) Entered as Reported by: CLEMENT NJ on 07/20/16 182 Gabapentin (Gabapentin) 100 Mg Capsule, 100 MG PO TID, (Reported) Entered as Reported by: WIN LEON on 10/30/19143 Hydrochlorothiazide (Hydrochlorothiazide) 25 Mg Tablet, 25 MG PO DAILY, (Reported) Entered as Reported by: CLEMENT NJ on 07/20/161819 Lorazepam (Ativan) 0.5 Mg Tablet, 0.5 MG PO Q8H PRN for AGITATION, (Reported) Entered as Reported by: CLARA THORNE on 05/24/201554 Magnesium Hydroxide (Milk of Magnesia) 2,400 Mg/10 Ml Oral.susp, 30 ML PO UD PRN for CONSTIPATION-7TH LINE, (Reported) Entered as Reported by: CLARA THORNE on 05/24/201558 Melatonin (Melatonin) 3 Mg Tablet, 9 MG PO HS PRN for SLEEP, (Reported) Entered as Reported by: CLARA THORNE on 05/24/201558 Metoprolol Succinate (Metoprolol Succinate) 25 Mg Tab.er.24h, 25 MG PO DAILY, (Reported) Entered as Reported by: WIN LEON on 10/30/19143 Ondansetron HCl (Zofran) 4 Mg Tab, 4 MG PO DAILY PRN for NAUSEA/VOMITING-1ST LINE, (Reported) Entered as Reported by: CLARA THORNE on 05/24/201554 Paliperidone Palmitate (Invega Sustenna) 234 Mg/1.5 Ml Syringe, 234 MG IM MONTHLY, (Reported) Entered as Reported by: WIN LEON on 10/30/19143 Polyethylene Glycol 3350 (Miralax) 17 Gm Powd.pack, 17 GM PO DAILY, (Reported) Entered as Reported by: CLEMENT NJ on 07/20/161819 Potassium Chloride (Potassium Chloride) 20 Meq Tab.er.prt, 20 MEQ PO BID, (Reported) Entered as Reported by: WIN LEON on 10/30/19143 Risedronate Sodium (Risedronate Sodium) 150 Mg Tablet, 150 MG PO MONTHLY, (Reported) Entered as Reported by: WIN LEON on 10/30/19143 Sennosides (Carrie-Christen) 8.6 Mg Tablet, 17.2 MG PO HS, (Reported) Entered as Reported by: CLARA THORNE on 05/24/201554 Tamsulosin HCl (Flomax) 0.4 Mg Cap, 0.4 MG PO HS, (Reported) Entered as Reported by: WIN LEON on 10/30/19 0144 Tramadol HCl (Tramadol HCl) 50 Mg Tablet, 25 MG PO DAILY PRN for PAIN-MODERATE (5-7), (Reported) Entered as Reported by: CLARA THORNE on 05/24/20 1559 Triamcinolone Acet (Triamcinolone Acetonide 0.1% Cream) 15 Gm Cr, 1 APPLIC TP DAILY PRN for SKIN IRRITATION, (Reported) Entered as Reported by: CLARA THORNE on 05/24/20 1559 Review of Systems Review of Systems Constitutional: no symptoms reported EENTM: see HPI Respiratory: see HPI Cardiovascular: see HPI Gastrointestinal: no symptoms reported Genitourinary: no symptoms reported Musculoskeletal: see HPI Skin: see HPI Psychiatric/Neurological: See HPI Hematologic/Lymphatic: See HPI Immunological/Allergic: no symptoms reported Past Esbvdjx-Htzatq-Mjcubi Hx Patient Social History Tobacco Use?: No Substance use?: No Alcohol Use?: No Immunizations Up To Date Tetanus Booster (TDap): Less than 5yrs PED Vaccines UTD: No Seasonal Allergies Seasonal Allergies: No Past Medical History Surgeries: Yes Thyroidectomy Respiratory: Yes (COVID-19 05/24/2020--ON VAPOTHERM) Cardiac: Yes Hypertension Neurological: Yes (EPS FROM MEDICATIONS;MILD MR; ADVANCED DEMENTIA; CATATONIC SCHIZOPHRENIA) Dementia, Developmental Disorder, Parkinson's Disease Reproductive Disorders: No Genitourinary: Yes (RENAL INSUFFICIENCY) Benign Prostatic Hyperpl Gastrointestinal: Yes Chronic Constipation Musculoskeletal: Yes (KYPHOSIS;OSTEOPENIA; USES WALKER) Scoliosis, Chronic Back Pain Endocrine: No HEENT: No Cancer: No Psychosocial: Yes (MILD MR) Anxiety, Bipolar, Personality Disorder, Schizophrenia, Depression Integumentary: Yes (PRESSURE SORE LEFT HEEL) Blood Disorders: No Family Medical History No Pertinent Family Hx PT IS DNR Physical Exam Vital Signs Capillary Refill : Height, Weight, BMI Height: 6'1.00" Weight: 154lbs. 0.0oz. 69.514800em; 20.00 BMI Method:Stated General Appearance: No Apparent Distress, WD/WN HEENT: PERRL/EOMI, Normal ENT Inspection Neck: Normal Inspection Respiratory: No Accessory Muscle Use, No Respiratory Distress; No Crackles; Rhonci; No Wheezing Cardiovascular: Regular Rate, Rhythm, No Edema, No Murmur Gastrointestinal: Non Tender, Soft Extremity: Other (Ecchymosis, warmth, erythema, and edema of the right upper extremity. Strong radial pulse. Normal capillary refill. Positive sensation. Radial Drill Press Set Up Operator intact. No significant tenderness.) Neurologic/Psychiatric: Alert, No Motor/Sensory Deficits, Normal Mood/Affect, inspecting machine adjuster II-XII Norm as Tested Skin: Normal Color, Warm/Dry, Other (See above) Progress/Results/Core Measures Suspected Sepsis SIRS Temperature: Pulse: Respiratory Rate: Laboratory Tests 08/05/21 12:25: White Blood Count 10.4 Blood Pressure / Mean: Laboratory Tests 08/05/21 12:25: Creatinine 0.70, Platelet Count 348 Results/Orders Lab Results Laboratory Tests Test 08/05/21 12:25 08/05/21 13:06 Range/Units White Blood Count 10.4 4.3-11.0 10^3/uL Red Blood Count 3.96 L 4.30-5.52 10^6/uL Hemoglobin 12.1 L 13.3-17.7 g/dL Hematocrit 37 L 40-54 % Mean Corpuscular Volume 94 80-99 fL Mean Corpuscular Hemoglobin 31 25-34 pg Mean Corpuscular Hemoglobin Concent 32 32-36 g/dL Red Cell Distribution Width 14.5 10.0-14.5 % Platelet Count 348 130-400 10^3/uL Mean Platelet Volume 9.4 9.0-12.2 fL Immature Granulocyte % (Auto) 0 % Neutrophils (%) (Auto) 86 H 42-75 % Lymphocytes (%) (Auto) 7 L 12-44 % Monocytes (%) (Auto) 6 0-12 % Eosinophils (%) (Auto) 0 0-10 % Basophils (%) (Auto) 1 0-10 % Neutrophils # (Auto) 9.0 H 1.8-7.8 10^3/uL Lymphocytes # (Auto) 0.7 L 1.0-4.0 10^3/uL Monocytes # (Auto) 0.6 0.0-1.0 10^3/uL Eosinophils # (Auto) 0.0 0.0-0.3 10^3/uL Basophils # (Auto) 0.1 0.0-0.1 10^3/uL Immature Granulocyte # (Auto) 0.0 0.0-0.1 10^3/uL Neutrophils % (Manual) 89 % Lymphocytes % (Manual) 6 % Monocytes % (Manual) 5 % Eosinophils % (Manual) 0 % Basophils % (Manual) 0 % Band Neutrophils 0 % Blood Morphology Comment NORMAL D-Dimer 1.80 H 0.00-0.49 UG/ML Sodium Level 139 135-145 MMOL/L Potassium Level 4.1 3.6-5.0 MMOL/L Chloride Level 104 98-107 MMOL/L Carbon Dioxide Level 27 21-32 MMOL/L Anion Gap 8 5-14 MMOL/L Blood Urea Nitrogen 22 H 7-18 MG/DL Creatinine 0.70 0.60-1.30 MG/DL Estimat Glomerular Filtration Rate 112 BUN/Creatinine Ratio 31 Glucose Level 99 70-105 MG/DL Calcium Level 9.2 8.5-10.1 MG/DL C-Reactive Protein High Sensitivity 2.82 H 0.00-0.50 MG/DL B-Type Natriuretic Peptide 24.1 <100.0 PG/ML Coronavirus (COVID-19)(PCR) Negative Negative Influenza Type A Antigen NEGATIVE NEGATIVE Influenza Type B Antigen NEGATIVE NEGATIVE SARS-CoV-2 RNA (RT-PCR) Negative Negative My Orders Orders - ABHI INFANTE MD Hs C Reactive Protein (08/05/21 12:54) Covid 19 Inhouse Test (08/05/21 12:54) Influenza A & B Antigens (08/05/21 12:54) Forearm, Right, 2 Views (08/05/21 12:54) Humerus, Right, 2 Views (08/05/21 12:54) Fibrin Degradation Products (08/05/21 12:54) Us Venous Upper Ext Rt (08/05/21 13:37) Coronavirus Sars-Cov-2 So 2019 (08/05/21 13:54) Enoxaparin Injection (Lovenox Injection) (08/05/21 15:15) Im/Sub-Q Injection Non-Ab Ed (08/05/21 ) Vital Signs/I&O Capillary Refill : Progress Note : Progress Note Patient was noted to have mild hypoxia initially. This cleared with suctioning of the oropharynx. Viral swabs were negative. Chest x-ray was improved from prior. He did not appear to have active infection. Right arm edema and ecchymosis was evaluated with x-rays. No bony injuries were identified. There was however DVT noted on ultrasound. Ultrasound was ordered after D-dimer returned positive. Staff member reports patient often does lean on the right side which could have caused abnormal compression leading to the DVT. Lovenox was given for initial therapy. I checked with the pharmacy to determine if Eliquis could be crushed. It can be crushed and was therefore prescribed for further treatment of the DVT. Rx for mechanical suction device was also provided to help manage secretions at home. Diagnostic Imaging Diagonstic Imaging: Xray Plain Films/CT/US/NM/MRI: chest Comments NAME: PATRICK SANTOS MED REC#: [id number] PT STATUS: DEP ER : 1955 PHYSICIAN: JASMINA ZAVALA APRN ADMIT DATE: 08/05/21/ER Signed Date of Exam:08/05/21 CHEST 1 VIEW, AP/PA ONLY INDICATION: Cough. Frontal chest obtained at 12:30 p.m. and compared to 05/30/2020. FINDINGS: Heart is normal in size. Patient is somewhat rotated. There is no focal infiltrate. There is improvement in central vascular congestion and infiltrates seen on the prior study. There is no overt new abnormality. There is no pneumothorax or pleural fluid. IMPRESSION: Significant improvement compared to the prior study of 05/30/2020. There is no infiltrate or pneumothorax or pleural fluid. There is poor inspiration and rotation which limit the study. Dictated by: Dictated on workstation # [id number] Dict: 08/05/21 1245 Trans: 08/05/21 1639 [id number] Interpreted by: DEBRA KNUTSON MD Electronically signed by: DEBRA KNUTSON MD 08/05/21 1639 Reviewed: Reviewed by Me Diagonstic Imaging: Xray Plain Films/CT/US/NM/MRI: other (Forearm and humerus) Comments NAME: PATRICK SANTOS MED REC#: [id number] PT STATUS: REG ER : 1955 PHYSICIAN: ABHI INFANTE MD ADMIT DATE: 08/05/21/ER Signed Date of Exam:08/05/21 FOREARM, RIGHT, 2 VIEWS FOREARM, RIGHT, 2 VIEWS INDICATION: Right forearm pain. COMPARISON: Right humerus radiographs performed concurrently. TECHNIQUE: Two views of the right forearm. FINDINGS: No fracture within the right forearm. No traumatic malalignment of the elbow or wrist on limited assessment of this exam. No radiopaque foreign body or soft tissue gas. IMPRESSION: No acute fracture within the right forearm. Dictated by: Dictated on workstation # [id number] Dict: 08/05/21 1333 Trans: 08/05/21 1436 [facility] [id number] Interpreted by: ELLIE JOHNSON MD Electronically signed by: ELLIE JOHNSON MD 08/05/21 143 NAME: PATRICK SANTOS MED REC#: [id number] PT STATUS: DEP ER : 1955 PHYSICIAN: ABHI INFANTE MD ADMIT DATE: 08/05/21/ER Signed Date of Exam:08/05/21 HUMERUS, RIGHT, 2 VIEWS EXAMINATION: Right humerus. INDICATION: Arm pain. Four views were obtained. FINDINGS: There is no fracture, dislocation, or acute bony abnormality evident. The degenerative changes involving the right shoulder joint and the soft tissue calcifications along the inferior margin of the humeral head seen on the prior exam of 05/16/2019 are again evident and no different. The soft tissues are otherwise unremarkable. IMPRESSION: There is no acute bony abnormality of the right humerus. Dictated by: Dictated on workstation # [id number] Dict: 08/05/21 1332 Trans: 08/05/21 1708 [id number] Interpreted by: RUSTY FRANCIS MD Electronically signed by: RUSTY FRANCIS MD 08/05/21 1708 Diagonstic Imaging: Ultrasound Plain Films/CT/US/NM/MRI: other (RUE) Comments NAME: PATRICK SANTOS MED REC#: [id number] PT STATUS: DEP ER : 1955 PHYSICIAN: ABHI INFANTE MD ADMIT DATE: 08/05/21/ER Signed Date of Exam:08/05/21 US VENOUS UPPER EXT RT EXAMINATION: Right upper extremity venous Doppler. INDICATION: Arm pain and swelling. TECHNIQUE: Spectral and color-flow imaging of the deep venous system of the right upper extremity was performed. COMPARISON: There are no prior studies available for comparison. FINDINGS: There is an isolated area of thrombus formation in the axillary vein. The remainder of the deep venous system in the right upper extremity shows good blood flow and compressibility. There is no other thrombus formation identified. IMPRESSION: There is a focal area of thrombus formation in the right axillary vein. There is no other evidence for deep venous thrombosis. Dictated by: Dictated on workstation # [id number] Dict: 08/05/21 1442 Trans: 08/05/21 170 [id number] Interpreted by: RUSTY FRANCIS MD Electronically signed by: RUSTY FRANCIS MD 08/05/211704 Departure Impression Primary Impression: DVT of right axillary vein, acute Additional Impressions: Hypoxia Cough Dysphagia Qualified Codes: R13.10 - Dysphagia, unspecified Disposition: HOME, SELF-CARE Condition: Improved Departure-Patient Inst. Decision time for Depature: 15:14 Referrals: CYN JARAMILLO MD (PCP/Family) Primary Care Physician Patient Instructions: Deep Vein Thrombosis (Blood Clots in the Arm) (DC) Add. Discharge Instructions: Start Eliquis as prescribed the morning of August 06. Eliquis may be crushed. His Covid 19 test was in antigen test. This is being backed up with a PCR test which should be resulted tomorrow. Please isolate until the final result is known tomorrow. The cause of hypoxia at the wound care clinic today is likely oral and pharyngeal secretions as hypoxia resolved with suctioning. Use bulb suction or mechanical suction as needed to help clear secretions. Follow-up with the primary care provider soon as possible. Please call [facility] to schedule the follow-up. Call with questions or concerns. Return to the ER if there are worsening symptoms. All discharge instructions reviewed with patient and/or family. Voiced understanding. Scripts Apixaban (Eliquis) 5 Mg Tablet 5 MG PO BID for 30 Days, #74 TAB TAKE 2 TABLETS BID X 7 DAYS, THEN 1 TABLET BID Prov: ABHI INFANTE MD 08/05/21 Copy Copies To 1: CYN JARAMILLO MD Copies To 2: SARAH MENDOZA JOSHUA T MD Aug 05, 2021 15:19
[2021-08-05 15:28] VITALS: BP 110/69
[2021-09-18] MEDS ORDERED: MORP100S7 PO (09:52)
[2021-09-18] MEDS ORDERED: LORA2ORA PO (09:52)
== END 2021-08-05 15:37 | disposition home or self-care (01) ==
LOC: EDUNIT# 11:47 → ER 11:48
DX: I82.A11 Acute embolism and thrombosis of right axillary vein (principal); J96.01 Acute respiratory failure with hypoxia; R05.9 Cough, unspecified; R13.10 Dysphagia, unspecified; I10 Essential (primary) hypertension; G20 Parkinson's disease; N40.0 Benign prostatic hyperplasia without lower urinary tract symptoms; F41.9 Anxiety disorder, unspecified; F31.9 Bipolar disorder, unspecified; F20.9 Schizophrenia, unspecified; F03.90 Unspecified dementia, unspecified severity, without behavioral disturbance, psychotic disturbance, mood disturbance, and anxiety; E44.1 Mild protein-calorie malnutrition; L89.213 Pressure ulcer of right hip, stage 3; I96 Gangrene, not elsewhere classified; G82.21 Paraplegia, complete; Z20.822 Contact with and (suspected) exposure to COVID-19; Z79.899 Other long term (current) drug therapy; Z79.82 Long term (current) use of aspirin
CPT/HCPCS: 71045; 73060; 73090; 80048; 83880; 85007; 85027; 85379; 86141; 87635; 87636; 87804; 93971; 96372; 99283; A6212; G0463; 36415; 99213

== ENCOUNTER → 2021-08-05 | Outpatient (CLI) | payer MEDICARE, MEDICAID ==
[~2021-08-05] MED LIST changes: +APIX5TAB PO
== END ==
LOC: WOUNDCARE 11:11
PROVIDERS: ATTEND Family Medicine
DX: G82.21 Paraplegia, complete (principal); F03.90 Unspecified dementia, unspecified severity, without behavioral disturbance, psychotic disturbance, mood disturbance, and anxiety; E44.1 Mild protein-calorie malnutrition; L89.213 Pressure ulcer of right hip, stage 3; J96.01 Acute respiratory failure with hypoxia; I96 Gangrene, not elsewhere classified
CPT/HCPCS: A6212; G0463; 99213

== ENCOUNTER → 2021-08-12 | Outpatient (CLI) | payer MEDICARE, MEDICAID ==
[~2021-08-12] MED LIST changes: +APIX5TAB PO
== END ==
LOC: WOUNDCARE 11:04
PROVIDERS: ATTEND Family Medicine
DX: G82.22 Paraplegia, incomplete (principal); L89.223 Pressure ulcer of left hip, stage 3; F03.91 Unspecified dementia, unspecified severity, with behavioral disturbance; E44.1 Mild protein-calorie malnutrition; M62.81 Muscle weakness (generalized); F78.A9 Other genetic related intellectual disability
CPT/HCPCS: 11042; A6021; A6212; G0463

== ENCOUNTER → 2021-08-19 | Outpatient (CLI) | payer MEDICARE, MEDICAID | LOC: WOUNDCARE 11:26 | PROVIDERS: ATTEND Family Medicine | DX: G82.21 Paraplegia, complete (principal); F03.90 Unspecified dementia, unspecified severity, without behavioral disturbance, psychotic disturbance, mood disturbance, and anxiety; E44.1 Mild protein-calorie malnutrition; L89.223 Pressure ulcer of left hip, stage 3; M62.81 Muscle weakness (generalized); F78.A9 Other genetic related intellectual disability; I96 Gangrene, not elsewhere classified | CPT/HCPCS: 11042; A6212; G0463 ==

== ENCOUNTER 2021-08-23 05:55 | Emergency (ER) | payer MEDICARE, MEDICAID ==
[~2021-08-23] VITALS: Ht 187 cm; Wt 72.0 kg
--- NOTE | 2021-08-23 06:27 | ED General ---
General Chief Complaint: Trauma-Non Activation Stated Complaint: FALL TO FLOOR Source of Information: Caregiver Exam Limitations: No Limitations History of Present Illness Date Seen by Provider: Aug 23, 2021 Time Seen by Provider: 06:02 Initial Comments 66yo chronically debilitated gentleman to the ER by EMS after being found on the floor at his local alf. Chronically ill, Autism, nonverbal. Was found by staff. Has chronic wound left trochanter. Chronic congestion. recently (this month) placed on eliquis with focal DVT right arm. No obvious injuries reported by staff and fall was unwitnessed. Unable to complete ROS secondary to patient's Autistic state. Timing/Duration: 4-6 Hours Allergies and Home Medications Allergies Coded Allergies: Sulfa (Sulfonamide Antibiotics) (Verified Allergy, Unknown, 05/24/20) Patient Home Medication List Home Medication List Reviewed: Yes Acetaminophen (Tylenol Extra Strength) 500 Mg Tablet, 1,000 MG PO Q8H PRN for PAIN-MILD (1-4) OR TEMPATURE, (Reported) Entered as Reported by: CLARA THORNE on 05/24/20 1555 Apixaban (Eliquis) 5 Mg Tablet, 5 MG PO BID Prescribed by: ABHI YOUSSEF on 08/05/21 1516 Aspirin (Aspirin EC) 325 Mg Tablet.dr, 325 MG PO DAILY, (Reported) Entered as Reported by: CLARA THORNE on 05/24/20 1555 Azithromycin (Azithromycin) 250 Mg Tablet, 250 MG PO UD Prescribed by: LAYO GASCA on 08/23/21 0900 Bisacodyl (Bisacodyl) 10 Mg Supp.rect, 10 MG RC PRN PRN for CONSTIPATION-4TH LINE, (Reported) Entered as Reported by: CLARA THORNE on 05/24/20 155 Cholecalciferol (Vitamin D3) (Vitamin D3) 50 Mcg Capsule, 50 MCG PO DAILY, (Reported) Entered as Reported by: CLARA THORNE on 05/24/20 155 Divalproex Sodium (Divalproex Sodium) 125 Mg Cap.sprink, 500 MG PO BID, (Reported) Entered as Reported by: CLARA THORNE on 05/24/20 155 Docusate Sodium (Colace) 100 Mg Capsule, 100 MG PO BID, (Reported) Entered as Reported by: CLEMENT NJ on 07/20/161819 Gabapentin (Gabapentin) 100 Mg Capsule, 100 MG PO TID, (Reported) Entered as Reported by: WIN LEON on 10/30/19143 Guaifenesin (Mucinex) 600 Mg Tab.er.12h, 600 MG PO BID Prescribed by: LAYO GASCA on 08/23/21 0900 Hydrochlorothiazide (Hydrochlorothiazide) 25 Mg Tablet, 25 MG PO DAILY, (Reported) Entered as Reported by: CLEMENT NJ on 07/20/16 182 Lorazepam (Ativan) 0.5 Mg Tablet, 0.5 MG PO Q8H PRN for AGITATION, (Reported) Entered as Reported by: CLARA THORNE on 05/24/20 155 Magnesium Hydroxide (Milk of Magnesia) 2,400 Mg/10 Ml Oral.susp, 30 ML PO UD PRN for CONSTIPATION-7TH LINE, (Reported) Entered as Reported by: CLARA THORNE on 05/24/201558 Melatonin (Melatonin) 3 Mg Tablet, 9 MG PO HS PRN for SLEEP, (Reported) Entered as Reported by: CLARA THORNE on 05/24/201558 Metoprolol Succinate (Metoprolol Succinate) 25 Mg Tab.er.24h, 25 MG PO DAILY, (Reported) Entered as Reported by: WIN LEON on 10/30/19143 Ondansetron HCl (Zofran) 4 Mg Tab, 4 MG PO DAILY PRN for NAUSEA/VOMITING-1ST LINE, (Reported) Entered as Reported by: CLARA THORNE on 05/24/201554 Paliperidone Palmitate (Invega Sustenna) 234 Mg/1.5 Ml Syringe, 234 MG IM MONTHLY, (Reported) Entered as Reported by: WIN LEON on 10/30/19143 Polyethylene Glycol 3350 (Miralax) 17 Gm Powd.pack, 17 GM PO DAILY, (Reported) Entered as Reported by: CLEMENT NJ on 07/20/161819 Potassium Chloride (Potassium Chloride) 20 Meq Tab.er.prt, 20 MEQ PO BID, (Reported) Entered as Reported by: WIN LEON on 10/30/19143 Risedronate Sodium (Risedronate Sodium) 150 Mg Tablet, 150 MG PO MONTHLY, (Reported) Entered as Reported by: WIN LEON on 10/30/19 014 Sennosides (Carrie-Christen) 8.6 Mg Tablet, 17.2 MG PO HS, (Reported) Entered as Reported by: CLARA THORNE on 05/24/201554 Tamsulosin HCl (Flomax) 0.4 Mg Cap, 0.4 MG PO HS, (Reported) Entered as Reported by: WIN LEON on 10/30/19143 Tramadol HCl (Tramadol HCl) 50 Mg Tablet, 25 MG PO DAILY PRN for PAIN-MODERATE (5-7), (Reported) Entered as Reported by: CLARA THORNE on 05/24/201558 Triamcinolone Acet (Triamcinolone Acetonide 0.1% Cream) 15 Gm Cr, 1 APPLIC TP DAILY PRN for SKIN IRRITATION, (Reported) Entered as Reported by: CLARA THORNE on 05/24/201558 Review of Systems Review of Systems Constitutional: see HPI unable to obtain ROS secondary to Autism Past Suprcgc-Uodjkx-Rjbdot Hx Immunizations Up To Date Tetanus Booster (TDap): Less than 5yrs PED Vaccines UTD: No First/Initial COVID19 Vaccinat: 2020 Second COVID19 Vaccination Arnold: 2020 Seasonal Allergies Seasonal Allergies: No Past Medical History Surgeries: Yes Thyroidectomy Respiratory: Yes (COVID-19 05/24/2020--ON VAPOTHERM) Cardiac: Yes Hypertension Neurological: Yes (EPS FROM MEDICATIONS;MILD MR; ADVANCED DEMENTIA; CATATONIC SCHIZOPHRENIA) Dementia, Developmental Disorder, Parkinson's Disease Reproductive Disorders: No Genitourinary: Yes (RENAL INSUFFICIENCY) Benign Prostatic Hyperpl Gastrointestinal: Yes Chronic Constipation Musculoskeletal: Yes (KYPHOSIS;OSTEOPENIA; USES WALKER) Scoliosis, Chronic Back Pain Endocrine: No HEENT: No Cancer: No Psychosocial: Yes (MILD MR) Anxiety, Bipolar, Personality Disorder, Schizophrenia, Depression Integumentary: Yes (PRESSURE SORE LEFT HEEL) Blood Disorders: No Family Medical History No Pertinent Family Hx PT IS DNR Physical Exam Vital Signs Vital Signs - First Documented 08/23/21 06:40 O2 Flow Rate 2.00 Capillary Refill : Height, Weight, BMI Height: 6'1.00" Weight: 154lbs. 0.0oz. 69.046156tz; 20.00 BMI Method:Stated General Appearance: No Apparent Distress, WD/WN, Cachetic Eyes: Bilateral Eye Normal Inspection, Bilateral Eye PERRL, Bilateral Eye EOMI HEENT: PERRL/EOMI, Other (bilateral TM's occluded by cerumen. No raccoon eyes, no Kaye's sign; no rhinorrhea or otorrhea; dry oral mucosa - poor dentition, no signs of intraoral trauma) Neck: Non Tender Respiratory: Lungs Clear, No Accessory Muscle Use, No Respiratory Distress Cardiovascular: Bradycardia (upper 40's and low 50's), Other (distal pulses intact) Gastrointestinal: Non Tender, Soft, Other (does not grimace with palpation of the abdomen) Back: Normal Inspection, Other (severe scoliosis noted - no lesions to the back) Extremity: Normal Capillary Refill, Normal Inspection, Normal Range of Motion, Non Tender, No Calf Tenderness, Swelling (slight swelling bilateral ankles) Neurologic/Psychiatric: Alert, Normal Mood/Affect, Other (at neuro baseline per caregiver at bedside - he will answer her "yes and no") Skin: Normal Color, Warm/Dry, Other (small superficial abrasion left of nasal bridge; superficial abrasion left lateral elbow) Focused Exam Lactate Level 08/23/21 07:17: Lactic Acid Level 0.89 Lactic Acid Level Laboratory Tests Test 08/23/21 07:17 Lactic Acid Level 0.89 MMOL/L (0.50-2.00) Progress/Results/Core Measures Suspected Sepsis SIRS Temperature: Pulse: Respiratory Rate: Laboratory Tests 08/23/21 07:17: White Blood Count 5.7 Blood Pressure / Mean: 08/23/21 07:17: Lactic Acid Level 0.89 Laboratory Tests 08/23/21 07:17: Creatinine 0.71, INR Comment 1.2, Platelet Count 273, Total Bilirubin 0.2 Results/Orders Lab Results Laboratory Tests Test 08/23/21 07:17 08/23/21 07:23 08/23/21 07:24 Range/Units White Blood Count 5.7 4.3-11.0 10^3/uL Red Blood Count 3.66 L 4.30-5.52 10^6/uL Hemoglobin 11.2 L 13.3-17.7 g/dL Hematocrit 35 L 40-54 % Mean Corpuscular Volume 96 80-99 fL Mean Corpuscular Hemoglobin 31 25-34 pg Mean Corpuscular Hemoglobin Concent 32 32-36 g/dL Red Cell Distribution Width 14.5 10.0-14.5 % Platelet Count 273 130-400 10^3/uL Mean Platelet Volume 9.7 9.0-12.2 fL Immature Granulocyte % (Auto) 1 % Neutrophils (%) (Auto) 76 H 42-75 % Lymphocytes (%) (Auto) 15 12-44 % Monocytes (%) (Auto) 8 0-12 % Eosinophils (%) (Auto) 1 0-10 % Basophils (%) (Auto) 0 0-10 % Neutrophils # (Auto) 4.3 1.8-7.8 10^3/uL Lymphocytes # (Auto) 0.8 L 1.0-4.0 10^3/uL Monocytes # (Auto) 0.5 0.0-1.0 10^3/uL Eosinophils # (Auto) 0.0 0.0-0.3 10^3/uL Basophils # (Auto) 0.0 0.0-0.1 10^3/uL Immature Granulocyte # (Auto) 0.0 0.0-0.1 10^3/uL Prothrombin Time 15.4 H 12.2-14.7 SEC INR Comment 1.2 0.8-1.4 Activated Partial Thromboplast Time 44 H 24-35 SEC Sodium Level 137 135-145 MMOL/L Potassium Level 4.3 3.6-5.0 MMOL/L Chloride Level 103 98-107 MMOL/L Carbon Dioxide Level 25 21-32 MMOL/L Anion Gap 9 5-14 MMOL/L Blood Urea Nitrogen 23 H 7-18 MG/DL Creatinine 0.71 0.60-1.30 MG/DL Estimat Glomerular Filtration Rate 101 BUN/Creatinine Ratio 32 Glucose Level 84 70-105 MG/DL Lactic Acid Level 0.89 0.50-2.00 MMOL/L Calcium Level 8.7 8.5-10.1 MG/DL Corrected Calcium 9.1 8.5-10.1 MG/DL Total Bilirubin 0.2 0.1-1.0 MG/DL Aspartate Amino Transf (AST/SGOT) 10 5-34 U/L Alanine Aminotransferase (ALT/SGPT) 11 0-55 U/L Alkaline Phosphatase 62 40-136 U/L Total Protein 6.3 L 6.4-8.2 GM/DL Albumin 3.5 3.2-4.5 GM/DL Influenza Type A (RT-PCR) Not Detected Not Detecte Influenza Type B (RT-PCR) Not Detected Not Detecte SARS-CoV-2 RNA (RT-PCR) Not Detected Not Detecte Urine Color YELLOW Urine Clarity CLEAR Urine pH 6.0 5-9 Urine Specific Jacobson 1.025 H 1.016-1.022 Urine Protein NEGATIVE NEGATIVE Urine Glucose (UA) NEGATIVE NEGATIVE Urine Ketones NEGATIVE NEGATIVE Urine Nitrite NEGATIVE NEGATIVE Urine Bilirubin NEGATIVE NEGATIVE Urine Urobilinogen 0.2 < = 1.0 MG/DL Urine Leukocyte Esterase NEGATIVE NEGATIVE Urine RBC (Auto) NEGATIVE NEGATIVE Urine RBC RARE /HPF Urine WBC NONE /HPF Urine Squamous Epithelial Cells RARE /HPF Urine Crystals NONE /LPF Urine Bacteria NEGATIVE /HPF Urine Casts NONE /LPF Urine Mucus NEGATIVE /LPF Urine Culture Indicated CULTURE PENDING My Orders Orders - LAYO GASCA MD Ct Head/Cervical Spine Wo (08/23/21 06:20) Cbc With Automated Diff (08/23/21 07:02) Comprehensive Metabolic Panel (08/23/21 07:02) Blood Culture (08/23/21 07:02) Sputum Culture (08/23/21 07:02) Urinalysis (08/23/21 07:02) Urine Culture (08/23/21 07:02) Protime With Inr (08/23/21 07:02) Partial Thromboplastin Time (08/23/21 07:02) Chest 1 View, Ap/Pa Only (08/23/21 07:02) Ed Iv/Invasive Line Start (08/23/21 07:02) Ed Iv/Invasive Line Start (08/23/21 07:02) Vital Signs Adult Sepsis Patie Q15M (08/23/21 07:02) O2 (08/23/21 07:02) Remove Rings In Anticipation O (08/23/21 07:02) Lactic Acid Analyzer (08/23/21 07:02) Covid 19 Inhouse Test (08/23/21 07:02) Influenza A And B By Pcr (08/23/21 07:02) Isolation Central Supply Req (08/23/21 07:02) Oxygen-Administer 07,19 (08/23/21 07:02) Ns Iv 1000 Ml (Sodium Chloride 0.9%) (08/23/21 07:15) Vital Signs/I&O 08/23/21 08/23/21 08/23/21 05:58 05:58 06:40 Temp 34.9 34.2 Pulse 51 51 Resp 15 15 B/P (MAP) 147/97 (114) 147/97 (114) Pulse Ox 95 95 92 O2 Delivery Room Air Room Air Nasal Cannula O2 Flow Rate 2.00 Capillary Refill : Progress Note #1: Time: 07:05 Progress Note notified by nursing staff they were consistently getting hypothermic body temps - unable to really get a good intraoral temp secondary to compliance with his autism so a rectal temp was obtained - 34.2C. he's consistently quite bradycardic in the upper 40's, low 50's. His O2 dropped with a good pleth down into the 85% ranges therefore 2L O2 initiated. Sepsis wrokup will be obtained. I did a more throrough skin exam - looking at the wound on the left hip - it is about the size of a half dollar, looks great - nice pink wound margins. A tiny bit of purulence noted at the base, but good granulation tissue there. NO surrounding erythema or fluctuance. no other skin wounds identified to the area. Progress Note #2: Time: 08:22 Progress Note Labs reviewed and look really good - WBC normal, sepsis markers normal. Chemistries and UA look good. Patient has this chronic congestion which I believe is contributing to his hypoxia. Will add mucinex to his medications to hopefully help with this - he does have a suction set up at his home. I am going to go ahead and treat him for atypical bronchitis - put him on some azithromycin. will recommend fluids to stay hydrated and close follow up with PCP. Findings and plan of care reviewed with his nurse who is at the bedside. Progress Note #3: Time: 09:03 Progress Note Off oxygen for 15 min - sats remained at 97%.. Caregiver comfortable with discharge Diagnostic Imaging Diagonstic Imaging: Xray Plain Films/CT/US/NM/MRI: chest Comments [facility] [place] [place] NAME: PATRICK SANTOS [facility] REC#: [id number] PT STATUS: REG ER : 1955 PHYSICIAN: LAYO GASCA MD ADMIT DATE: 08/23/21/ER Draft Date of Exam:08/23/21 CHEST 1 VIEW, AP/PA ONLY INDICATION: Hypoxia. TIME OF EXAM: 7:48 AM CORRELATION is made with prior chest from 08/05/2021. Heart size is stable. There is right convexity scoliotic curvature to the thoracic spine. The lungs are clear. No infiltrates are seen. There is no effusion or pneumothorax. IMPRESSION: No acute cardiopulmonary process is detected. Dictated on workstation # [id number] Dict: 08/23/21823 Trans: 08/23/21829 AC [id number] Interpreted by: CATHRYN BOYD MD Electronically signed by: [facility] [place] [place] NAME: PATRICK SANTOS [facility] REC#: [id number] PT STATUS: REG ER : 1955 PHYSICIAN: LAYO GASCA MD ADMIT DATE: 08/23/21/ER Draft Date of Exam:08/23/21 CT HEAD/CERVICAL SPINE WO PROCEDURE: CT head and CT cervical spine without contrast. TECHNIQUE: Multiple contiguous axial images were obtained through the brain and cervical spine without the use of intravenous contrast. Sagittal and coronal reformations through the cervical spine were then performed. Auto Exposure Controls were utilized during the CT exam to meet ALARA standards for radiation dose reduction. INDICATION: Fall. CORRELATION is made with prior CT from 05/22/2020. CT HEAD: Prominence of the ventricles and sulci consistent with cerebral volume loss is again noted. There are periventricular white matter changes noted likely owing to chronic microvascular ischemia. There is no sulcal effacement or midline shift. No acute intra-axial or extra-axial hemorrhage is detected. Cisterns are patent. Visualized paranasal sinuses show mild mucosal thickening of the maxillary sinuses bilaterally. IMPRESSION: 1. Stable chronic changes since the exam from 05/22/2020. No acute intracranial process is detected. CT CERVICAL SPINE: Curvature of the cervical spine is normal. There is retrolisthesis of C3 on C4. Multilevel degenerative disc disease is noted with variable disc space narrowing and marginal spurring. No fractures are identified. Prevertebral tissues are within normal limits. Odontoid is intact. IMPRESSION: 1. Cervical spondylosis. No acute bony abnormality is detected. Dictated on workstation # [id number] Dict: 08/23/21819 Trans: 08/23/21828 [facility] [id number] Interpreted by: CATHRYN BOYD MD Electronically signed by: Departure Impression Primary Impression: Fall from bed Qualified Codes: W06.XXXA - Fall from bed, initial encounter Additional Impressions: Abrasion of nose Qualified Codes: S00.31XA - Abrasion of nose, initial encounter Abrasion of elbow, left Qualified Codes: S50.312A - Abrasion of left elbow, initial encounter Chronic anticoagulation Disposition: HOME, SELF-CARE Condition: Stable Departure-Patient Inst. Decision time for Depature: 06:30 Referrals: CYN JARAMILLO MD (PCP/Family) Primary Care Physician Patient Instructions: Abrasions ED Add. Discharge Instructions: Monitor for change in behavior, vomiting. Return to the ER if any concerning symptoms. Azithromycin (antibiotic) once daily for 5 days. Mucinex to help thin secretions over the next 2 weeks twice a day. Local wound care to abrasion on nose, left elbow. Continue routine home medications. Follow up with Primary Care as needed. Scripts Guaifenesin (Mucinex) 600 Mg Tab.er.12h 600 MG PO BID, #30 TAB Prov: LAYO GASCA MD 08/23/21 Azithromycin (Azithromycin) 250 Mg Tablet 250 MG PO UD, #6 TAB TAKE 2 TABLETS ON DAY ONE THEN TAKE 1 TABLET DAILY FOR FOUR MORE DAYS Prov: LAYO GASCA MD 08/23/21 Copy Copies To 1: CYN JARAMILLO MD, KATHRYN M MD Aug 23, 2021 06:27
[2021-08-23] MEDS ORDERED: NS IV 1000 ML 1,000 ML IV SCH (07:15)
[2021-08-23 07:31] LABS: BILIRUBIN,URINE NEGATIVE (NEGATIVE); CLARITY,URINE CLEAR; COLOR,URINE YELLOW; GLUCOSE, URINE (UA) NEGATIVE (NEGATIVE); KETONES,URINE NEGATIVE (NEGATIVE); LEUKOCYTE ESTERASE ,URINE NEGATIVE (NEGATIVE); NITRITE,URINE NEGATIVE (NEGATIVE); PROTEIN,URINE NEGATIVE (NEGATIVE)
[2021-08-23 07:33] LABS: BASOPHILS % (AUTO) 0 % (0-10); EOSINOPHILS % (AUTO) 1 % (0-10); HEMATOCRIT 35 % (40-54); HEMOGLOBIN 11.2 g/dL (13.3-17.7); LYMPHOCYTES # (AUTO) 0.8 10^3/uL (1.0-4.0); LYMPHOCYTES % (AUTO) 15 % (12-44); MEAN CORPUSCULAR HEMOGLOBIN 31 pg (25-34); MEAN CORPUSCULAR HGB CONC 32 g/dL (32-36); MEAN CORPUSCULAR VOLUME 96 fL (80-99); MEAN PLATELET VOLUME 9.7 fL (9.0-12.2); MONOCYTES # (AUTO) 0.5 10^3/uL (0.0-1.0); MONOCYTES % (AUTO) 8 % (0-12); NEUTROPHILS # (AUTO) 4.3 10^3/uL (1.8-7.8); NEUTROPHILS % (AUTO) 76 % (42-75); PLATELET COUNT 273 10^3/uL (130-400); WHITE BLOOD COUNT 5.7 10^3/uL (4.3-11.0)
[2021-08-23 07:41] LABS: ALBUMIN 3.5 GM/DL (3.2-4.5); POTASSIUM 4.3 MMOL/L (3.6-5.0)
[2021-08-23 07:42] LABS: CALCIUM 8.7 MG/DL (8.5-10.1)
[2021-08-23 07:44] LABS: TOTAL PROTEIN 6.3 GM/DL (6.4-8.2)
[2021-08-23 07:45] LABS: BILIRUBIN,TOTAL 0.2 MG/DL (0.1-1.0)
[2021-08-23 07:47] LABS: CREATININE SERUM 0.71 MG/DL (0.60-1.30)
[2021-08-23 07:52] LABS: BACTERIA,URINE NEGATIVE /HPF; RBC,URINE RARE /HPF
[2021-08-23 07:53] LABS: SQUAMOUS EPITHELIAL CELL,UR RARE /HPF
[2021-08-23 07:55] LABS: INR 1.2 (0.8-1.4); PROTHROMBIN TIME PATIENT 15.4 SEC (12.2-14.7)
--- NOTE | 2021-08-23 08:30 | Diagnostic Imaging Report ---
PROCEDURE: CT head and CT cervical spine without contrast. TECHNIQUE: Multiple contiguous axial images were obtained through the brain and cervical spine without the use of intravenous contrast. Sagittal and coronal reformations through the cervical spine were then performed. Auto Exposure Controls were utilized during the CT exam to meet ALARA standards for radiation dose reduction. INDICATION: Fall. CORRELATION is made with prior CT from 05/22/2020. CT HEAD: Prominence of the ventricles and sulci consistent with cerebral volume loss is again noted. There are periventricular white matter changes noted likely owing to chronic microvascular ischemia. There is no sulcal effacement or midline shift. No acute intra-axial or extra-axial hemorrhage is detected. Cisterns are patent. Visualized paranasal sinuses show mild mucosal thickening of the maxillary sinuses bilaterally. IMPRESSION: 1. Stable chronic changes since the exam from 05/22/2020. No acute intracranial process is detected. CT CERVICAL SPINE: Curvature of the cervical spine is normal. There is retrolisthesis of C3 on C4. Multilevel degenerative disc disease is noted with variable disc space narrowing and marginal spurring. No fractures are identified. Prevertebral tissues are within normal limits. Odontoid is intact. IMPRESSION: 1. Cervical spondylosis. No acute bony abnormality is detected. Dictated by: Dictated on workstation # [id number]
--- NOTE | 2021-08-23 08:31 | Diagnostic Imaging Report ---
INDICATION: Hypoxia. TIME OF EXAM: 7:48 AM CORRELATION is made with prior chest from 08/05/2021. Heart size is stable. There is right convexity scoliotic curvature to the thoracic spine. The lungs are clear. No infiltrates are seen. There is no effusion or pneumothorax. IMPRESSION: No acute cardiopulmonary process is detected. Dictated by: Dictated on workstation # [id number]
[2021-08-23] MEDS ORDERED: AZIT250T12 PO (09:00)
[2021-08-23] MEDS ORDERED: GUAI600T43 PO (09:00)
[2021-08-23 09:07] VITALS: BP 137/59
== END 2021-08-23 09:07 | disposition home or self-care (01) ==
LOC: EDUNIT# 05:55 → ER 05:56
DX: S00.31XA Abrasion of nose, initial encounter (principal); S50.312A Abrasion of left elbow, initial encounter; I10 Essential (primary) hypertension; G31.83 Neurocognitive disorder with Lewy bodies; F02.80 Dementia in other diseases classified elsewhere, unspecified severity, without behavioral disturbance, psychotic disturbance, mood disturbance, and anxiety; N40.0 Benign prostatic hyperplasia without lower urinary tract symptoms; F41.9 Anxiety disorder, unspecified; F20.9 Schizophrenia, unspecified; F31.9 Bipolar disorder, unspecified; G89.29 Other chronic pain; M54.9 Dorsalgia, unspecified; Z20.822 Contact with and (suspected) exposure to COVID-19; Z79.01 Long term (current) use of anticoagulants; Z79.899 Other long term (current) drug therapy; Z79.82 Long term (current) use of aspirin; Z79.891 Long term (current) use of opiate analgesic; W06.XXXA Fall from bed, initial encounter
CPT/HCPCS: 36415; 51701; 70450; 71045; 72125; 80053; 81000; 83605; 85025; 85610; 85730; 87040; 87070; 87077; 87088; 87186; 87205; 87636; 96360

== ENCOUNTER → 2021-08-26 | Outpatient (CLI) | payer MEDICARE, MEDICAID ==
[~2021-08-26] MED LIST changes: +AZIT250T12 PO; +GADOTERATE 0.5 MMOL/ML (CLARISCAN) 15 ML VIAL IV ONE; +GUAI600T43 PO
--- NOTE | 2021-08-26 13:20 | Diagnostic Imaging Report ---
EXAMINATION: Magnetic resonance imaging of the pelvis and left hip without and with intravenous contrast DATE: August 26, 2021. COMPARISON: None. INDICATION: 66-year-old male, ulcer at the lateral aspect of the left hip. Evaluation for osteomyelitis and/or abscess. TECHNIQUE: Magnetic Resonance Imaging sequences were performed of the pelvis and left hip without and with intravenous contrast. FINDINGS: There is no identified focal fluid collection or abscess. There is subcutaneous edema laterally bilaterally. There is an area of edema-like signal in the left gluteus minimus muscle without fatty muscle atrophy. There is edema-like signal in the left gluteus mark muscle in its inferior aspect with contrast enhancement. There is no identified T1 marrow signal loss, bone destruction, or abnormal marrow edema to diagnose osteomyelitis. There is no evidence of acute fracture. There is no evidence of osteonecrosis. There is mild joint space loss of both hips. There is no large hip joint effusion. The sacroiliac joints are grossly unremarkable in appearance. There is scoliosis. There is severe symmetric disc height loss at the level of L4-L5. There is otherwise limited assessment of the lumbar spine. There is no identified tendon tear. IMPRESSION: 1. No evidence of osteomyelitis or other acute osseous abnormality. 2. No identified focal fluid collection or abscess. 3. Edema and enhancement within the inferior aspect of the left gluteus mark muscle may reflect a nonspecific myositis although is technically not specific. There is additional focal edema in the left gluteus minimus muscle. 4. No hip joint effusion or sacroiliac joint effusion. 5. Scoliosis and degenerative changes of the lumbar spine. Dictated by: Dictated on workstation # [id number]
== END ==
LOC: RAD 10:15
PROVIDERS: ATTEND Family Medicine
DX: M47.816 Spondylosis without myelopathy or radiculopathy, lumbar region (principal); M41.86 Other forms of scoliosis, lumbar region; G82.22 Paraplegia, incomplete; F03.91 Unspecified dementia, unspecified severity, with behavioral disturbance; E44.1 Mild protein-calorie malnutrition; L89.223 Pressure ulcer of left hip, stage 3; M62.81 Muscle weakness (generalized); F78.A9 Other genetic related intellectual disability
CPT/HCPCS: 73723

== ENCOUNTER → 2021-08-26 | Outpatient (CLI) | payer MEDICARE, MEDICAID ==
[~2021-08-26] MED LIST changes: -GADOTERATE 0.5 MMOL/ML (CLARISCAN) 15 ML VIAL IV ONE
[2021-08-26 10:30] LABS: CALCIUM 8.9 MG/DL (8.5-10.1); CREATININE SERUM 0.71 MG/DL (0.60-1.30); POTASSIUM 4.2 MMOL/L (3.6-5.0)
== END ==
LOC: WOUNDCARE 11:24
PROVIDERS: ATTEND Family Medicine
DX: G82.21 Paraplegia, complete (principal); F03.90 Unspecified dementia, unspecified severity, without behavioral disturbance, psychotic disturbance, mood disturbance, and anxiety; E44.1 Mild protein-calorie malnutrition; L89.223 Pressure ulcer of left hip, stage 3; M62.81 Muscle weakness (generalized); I96 Gangrene, not elsewhere classified
CPT/HCPCS: 11042; 80048; 84134; A6212; G0463; 36415

== ENCOUNTER → 2021-09-02 | Outpatient (CLI) | payer MEDICARE, MEDICAID | LOC: WOUNDCARE 10:27 | PROVIDERS: ATTEND Family Medicine | DX: G82.22 Paraplegia, incomplete (principal); I96 Gangrene, not elsewhere classified; L89.223 Pressure ulcer of left hip, stage 3; E44.1 Mild protein-calorie malnutrition; F03.91 Unspecified dementia, unspecified severity, with behavioral disturbance; F78.A9 Other genetic related intellectual disability | CPT/HCPCS: 11042; 97607; A6021; A9272; G0463 ==

== ENCOUNTER 2021-09-05 11:11 | Inpatient (IN) | payer MEDICARE, MEDICAID ==
[~2021-09-05] VITALS: Ht 177.8 cm; Wt 61.3 kg
[2021-09-05] MEDS ORDERED: OXYMETAZOLINE (AFRIN) 0.05% NA 30 ML BTL ONE (11:25)
[2021-09-05 11:50] LABS: BASOPHILS % (AUTO) 0 % (0-10); EOSINOPHILS % (AUTO) 0 % (0-10); HEMATOCRIT 41 % (40-54); HEMOGLOBIN 13.1 g/dL (13.3-17.7); LYMPHOCYTES # (AUTO) 0.5 10^3/uL (1.0-4.0); LYMPHOCYTES % (AUTO) 4 % (12-44); MEAN CORPUSCULAR HEMOGLOBIN 32 pg (25-34); MEAN CORPUSCULAR HGB CONC 32 g/dL (32-36); MEAN CORPUSCULAR VOLUME 99 fL (80-99); MONOCYTES # (AUTO) 0.7 10^3/uL (0.0-1.0); MONOCYTES % (AUTO) 5 % (0-12); NEUTROPHILS # (AUTO) 13.2 10^3/uL (1.8-7.8); NEUTROPHILS % (AUTO) 92 % (42-75); PLATELET COUNT 310 10^3/uL (130-400); WHITE BLOOD COUNT 14.4 10^3/uL (4.3-11.0)
--- NOTE | 2021-09-05 11:54 | ED General ---
General Stated Complaint: AMS Source of Information: EMS, Residential Records Exam Limitations: No Limitations History of Present Illness Date Seen by Provider: Sep 05, 2021 Time Seen by Provider: 11:49 Initial Comments To ER with c/o soa. He is MR from [facility] in [place], DNR status. Sats found by EMS to be 70% range and does not wear O2 per baseline. Alleged fevers up to 103 but 98 degrees here. Has had a cough. Has also had a nosebleed. Dx with right axillary vein dvt on 08/05/21 with RX for eliquis. Timing/Duration: 1-2 Days Severity: Moderate Associated Systoms: Cough Allergies and Home Medications Allergies Coded Allergies: Sulfa (Sulfonamide Antibiotics) (Verified Allergy, Unknown, 05/24/20) Patient Home Medication List Home Medication List Reviewed: Yes Acetaminophen (Tylenol Extra Strength) 500 Mg Tablet, 1,000 MG PO Q8H PRN for PAIN-MILD (1-4) OR TEMPATURE, (Reported) Entered as Reported by: CLARA THORNE on 05/24/20 1555 Apixaban (Eliquis) 5 Mg Tablet, 5 MG PO BID Prescribed by: ABHI YOUSSEF on 08/05/21 1516 Aspirin (Aspirin EC) 325 Mg Tablet.dr, 325 MG PO DAILY, (Reported) Entered as Reported by: CLARA THORNE on 05/24/20 1555 Azithromycin (Azithromycin) 250 Mg Tablet, 250 MG PO UD Prescribed by: LAYO GASCA on 08/23/21 0900 Bisacodyl (Bisacodyl) 10 Mg Supp.rect, 10 MG RC PRN PRN for CONSTIPATION-4TH LINE, (Reported) Entered as Reported by: CLARA THORNE on 05/24/20 1559 Cholecalciferol (Vitamin D3) (Vitamin D3) 50 Mcg Capsule, 50 MCG PO DAILY, (Reported) Entered as Reported by: CLARA THORNE on 05/24/20 155 Divalproex Sodium (Divalproex Sodium) 125 Mg Cap.sprink, 500 MG PO BID, (Reported) Entered as Reported by: CLARA THORNE on 05/24/20 155 Docusate Sodium (Colace) 100 Mg Capsule, 100 MG PO BID, (Reported) Entered as Reported by: CLEMENT NJ on 07/20/161819 Gabapentin (Gabapentin) 100 Mg Capsule, 100 MG PO TID, (Reported) Entered as Reported by: WIN LEON on 10/30/19143 Guaifenesin (Mucinex) 600 Mg Tab.er.12h, 600 MG PO BID Prescribed by: LAYO GASCA on 08/23/21 0900 Hydrochlorothiazide (Hydrochlorothiazide) 25 Mg Tablet, 25 MG PO DAILY, (Reported) Entered as Reported by: CLEMENT NJ on 07/20/16 182 Lorazepam (Ativan) 0.5 Mg Tablet, 0.5 MG PO Q8H PRN for AGITATION, (Reported) Entered as Reported by: CLARA THORNE on 05/24/20 155 Magnesium Hydroxide (Milk of Magnesia) 2,400 Mg/10 Ml Oral.susp, 30 ML PO UD PRN for CONSTIPATION-7TH LINE, (Reported) Entered as Reported by: CLARA THORNE on 05/24/201558 Melatonin (Melatonin) 3 Mg Tablet, 9 MG PO HS PRN for SLEEP, (Reported) Entered as Reported by: CLARA THORNE on 05/24/201558 Metoprolol Succinate (Metoprolol Succinate) 25 Mg Tab.er.24h, 25 MG PO DAILY, (Reported) Entered as Reported by: WIN LEON on 10/30/19143 Ondansetron HCl (Zofran) 4 Mg Tab, 4 MG PO DAILY PRN for NAUSEA/VOMITING-1ST LINE, (Reported) Entered as Reported by: CLARA THORNE on 05/24/201554 Paliperidone Palmitate (Invega Sustenna) 234 Mg/1.5 Ml Syringe, 234 MG IM MONTHLY, (Reported) Entered as Reported by: WIN LEON on 10/30/19143 Polyethylene Glycol 3350 (Miralax) 17 Gm Powd.pack, 17 GM PO DAILY, (Reported) Entered as Reported by: CLEMENT NJ on 07/20/161819 Potassium Chloride (Potassium Chloride) 20 Meq Tab.er.prt, 20 MEQ PO BID, (Reported) Entered as Reported by: WNI LEON on 10/30/19143 Risedronate Sodium (Risedronate Sodium) 150 Mg Tablet, 150 MG PO MONTHLY, (Reported) Entered as Reported by: WIN LEON on 10/30/19 014 Sennosides (Carrie-Christen) 8.6 Mg Tablet, 17.2 MG PO HS, (Reported) Entered as Reported by: CLARA THORNE on 05/24/20 155 Tamsulosin HCl (Flomax) 0.4 Mg Cap, 0.4 MG PO HS, (Reported) Entered as Reported by: WIN LEON on 10/30/19 014 Tramadol HCl (Tramadol HCl) 50 Mg Tablet, 25 MG PO DAILY PRN for PAIN-MODERATE (5-7), (Reported) Entered as Reported by: CLARA THORNE on 05/24/20 155 Triamcinolone Acet (Triamcinolone Acetonide 0.1% Cream) 15 Gm Cr, 1 APPLIC TP DAILY PRN for SKIN IRRITATION, (Reported) Entered as Reported by: CLARA THORNE on 05/24/201558 Review of Systems Review of Systems Constitutional: see HPI, other (unable to obtain much due to mental status) EENTM: see HPI Respiratory: see HPI, cough Past Qxvnwqm-Zoszcw-Eqjrlu Hx Immunizations Up To Date Tetanus Booster (TDap): Less than 5yrs PED Vaccines UTD: No First/Initial COVID19 Vaccinat: 2020 Second COVID19 Vaccination Arnold: 2020 Third COVID19 Vaccination Date: 2020 Seasonal Allergies Seasonal Allergies: No Past Medical History Surgery/Hospitalization HX: AUTISM, DEMENTIA, PARKINSONS, HTN, BIPOLAR THYROIDECTOMY Surgeries: Yes Thyroidectomy Respiratory: Yes (COVID-19 05/24/2020--ON VAPOTHERM) Cardiac: Yes Hypertension Neurological: Yes (EPS FROM MEDICATIONS;MILD MR; ADVANCED DEMENTIA; CATATONIC SCHIZOPHRENIA) Dementia, Developmental Disorder, Parkinson's Disease Reproductive Disorders: No Genitourinary: Yes (RENAL INSUFFICIENCY) Benign Prostatic Hyperpl Gastrointestinal: Yes Chronic Constipation Musculoskeletal: Yes (KYPHOSIS;OSTEOPENIA; USES WALKER) Scoliosis, Chronic Back Pain Endocrine: No HEENT: No Cancer: No Psychosocial: Yes (MILD MR) Anxiety, Bipolar, Personality Disorder, Schizophrenia, Depression Integumentary: Yes (PRESSURE SORE LEFT HEEL) Blood Disorders: No Family Medical History No Pertinent Family Hx PT IS DNR Physical Exam Vital Signs Vital Signs - First Documented 09/05/21 11:15 Temp 37.0 Pulse 123 Resp 22 B/P (MAP) 136/91 (106) Pulse Ox 95 O2 Delivery Non Rebreather O2 Flow Rate 6.00 Capillary Refill : Height, Weight, BMI Height: 6'1.00" Weight: 154lbs. 0.0oz. 69.233023lv; 20.00 BMI Method:Stated General Appearance: No Apparent Distress, WD/WN, Chronically ill, Thin (frail) Eyes: Bilateral Eye Normal Inspection, Bilateral Eye PERRL, Bilateral Eye EOMI HEENT: PERRL/EOMI, TMs Normal, Other (left sided anterior epixtaxis--tried silver nitrate x3 without much slowing of the oozing area. Then placed a merocel sponge with resolution of epistaxis. Placed on nonrebreather at 10L with sats 95%. ) Respiratory: Normal Breath Sounds, No Accessory Muscle Use, No Respiratory Distress Cardiovascular: Normal Peripheral Pulses, Tachycardia (129) Gastrointestinal: Normal Bowel Sounds, Non Tender, Soft Extremity: Normal Capillary Refill, Normal Inspection Neurologic/Psychiatric: Alert, Oriented x3 Skin: Normal Color, Warm/Dry Focused Exam Lactate Level 09/05/21 11:32: Lactic Acid Level 1.06 Lactic Acid Level Laboratory Tests Test 09/05/21 11:32 Lactic Acid Level 1.06 MMOL/L (0.50-2.00) Progress/Results/Core Measures Suspected Sepsis SIRS Temperature: Pulse: Respiratory Rate: Laboratory Tests 09/05/21 11:32: White Blood Count 14.4H Blood Pressure / Mean: 09/05/21 11:32: Lactic Acid Level 1.06 Laboratory Tests 09/05/21 11:32: Creatinine 0.83, INR Comment 1.2, Platelet Count 310, Total Bilirubin 0.4 Results/Orders Lab Results Laboratory Tests Test 09/05/21 11:32 09/05/21 11:37 09/05/21 13:23 Range/Units White Blood Count 14.4 H 4.3-11.0 10^3/uL Red Blood Count 4.13 L 4.30-5.52 10^6/uL Hemoglobin 13.1 L 13.3-17.7 g/dL Hematocrit 41 40-54 % Mean Corpuscular Volume 99 80-99 fL Mean Corpuscular Hemoglobin 32 25-34 pg Mean Corpuscular Hemoglobin Concent 32 32-36 g/dL Red Cell Distribution Width 14.8 H 10.0-14.5 % Platelet Count 310 130-400 10^3/uL Mean Platelet Volume 10.0 9.0-12.2 fL Immature Granulocyte % (Auto) 0 % Neutrophils (%) (Auto) 92 H 42-75 % Lymphocytes (%) (Auto) 4 L 12-44 % Monocytes (%) (Auto) 5 0-12 % Eosinophils (%) (Auto) 0 0-10 % Basophils (%) (Auto) 0 0-10 % Neutrophils # (Auto) 13.2 H 1.8-7.8 10^3/uL Lymphocytes # (Auto) 0.5 L 1.0-4.0 10^3/uL Monocytes # (Auto) 0.7 0.0-1.0 10^3/uL Eosinophils # (Auto) 0.0 0.0-0.3 10^3/uL Basophils # (Auto) 0.0 0.0-0.1 10^3/uL Immature Granulocyte # (Auto) 0.1 0.0-0.1 10^3/uL Neutrophils % (Manual) 80 % Lymphocytes % (Manual) 10 % Monocytes % (Manual) 5 % Eosinophils % (Manual) 0 % Basophils % (Manual) 0 % Band Neutrophils 5 % Blood Morphology Comment NORMAL Prothrombin Time 15.6 H 12.2-14.7 SEC INR Comment 1.2 0.8-1.4 Activated Partial Thromboplast Time 39 H 24-35 SEC Sodium Level 139 135-145 MMOL/L Potassium Level 4.4 3.6-5.0 MMOL/L Chloride Level 103 98-107 MMOL/L Carbon Dioxide Level 24 21-32 MMOL/L Anion Gap 12 5-14 MMOL/L Blood Urea Nitrogen 20 H 7-18 MG/DL Creatinine 0.83 0.60-1.30 MG/DL Estimat Glomerular Filtration Rate 96 BUN/Creatinine Ratio 24 Glucose Level 98 70-105 MG/DL Lactic Acid Level 1.06 0.50-2.00 MMOL/L Calcium Level 9.5 8.5-10.1 MG/DL Corrected Calcium 9.3 8.5-10.1 MG/DL Total Bilirubin 0.4 0.1-1.0 MG/DL Aspartate Amino Transf (AST/SGOT) 8 5-34 U/L Alanine Aminotransferase (ALT/SGPT) 11 0-55 U/L Alkaline Phosphatase 79 40-136 U/L Total Protein 7.7 6.4-8.2 GM/DL Albumin 4.2 3.2-4.5 GM/DL Procalcitonin 0.11 H <0.10 NG/ML SARS-CoV-2 RNA (RT-PCR) Not Detected Negative Influenza Type A Antigen NEGATIVE NEGATIVE Influenza Type B Antigen NEGATIVE NEGATIVE Urine Color YELLOW Urine Clarity CLEAR Urine pH 6.0 5-9 Urine Specific Gilbert 1.015 L 1.016-1.022 Urine Protein TRACE H NEGATIVE Urine Glucose (UA) NEGATIVE NEGATIVE Urine Ketones TRACE H NEGATIVE Urine Nitrite NEGATIVE NEGATIVE Urine Bilirubin NEGATIVE NEGATIVE Urine Urobilinogen 0.2 < = 1.0 MG/DL Urine Leukocyte Esterase NEGATIVE NEGATIVE Urine RBC (Auto) TRACE-I H NEGATIVE Urine RBC RARE /HPF Urine WBC RARE /HPF Urine Crystals NONE /LPF Urine Bacteria TRACE /HPF Urine Casts NONE /LPF Urine Mucus SMALL H /LPF Urine Culture Indicated NO My Orders Orders - JASMINA ZAVALA POLICE OR [employer] Cbc With Automated Diff (09/05/21 11:39) Comprehensive Metabolic Panel (09/05/21 11:39) Blood Culture (09/05/21 11:39) Sputum Culture (09/05/21 11:39) Urinalysis (09/05/21 11:39) Urine Culture (09/05/21 11:39) Protime With Inr (09/05/21 11:39) Partial Thromboplastin Time (09/05/21 11:39) Chest 1 View, Ap/Pa Only (09/05/21 11:39) Ed Iv/Invasive Line Start (09/05/21 11:39) Ed Iv/Invasive Line Start (09/05/21 11:39) Vital Signs Adult Sepsis Patie Q15M (09/05/21 11:39) O2 (09/05/21 11:39) Remove Rings In Anticipation O (09/05/21 11:39) Lactic Acid Analyzer (09/05/21 11:39) Procalcitonin (Pct) (09/05/21 11:39) Covid 19 Inhouse Test (09/05/21 11:39) Coronavirus Sars-Cov-2 So 2018 (09/05/21 11:39) Lactated Ringers (Lr 1000 Ml Iv Solution (09/05/21 12:00) Manual Differential (09/05/21 11:32) Oxymetazoline 0.05% Nasal Abiquiu (Afrin 0. (09/05/21 21:00) Influenza A & B Antigens (09/05/21 11:37) Cefepime Injection (Maxipime Injection) (09/05/21 12:30) Fentanyl Inj (Sublimaze Injection) (09/05/21 12:45) Ct Angio Chest W (09/05/21 12:41) Lactated Ringers (Lr 1000 Ml Iv Solution (09/05/21 12:45) Ekg Tracing (09/05/21 12:42) Iohexol Injection (Omnipaque 350 Mg/Ml 1 (09/05/21 13:00) Received Contrast (Hold Metformin- Contr (09/05/21 13:00) Ns (Ivpb) (Sodium Chloride 0.9% Ivpb Bag (09/05/21 13:00) Sodium Chloride Flush (Catheter Flush Sy (09/05/21 13:00) Collins Cath (09/05/21 13:10) Adenosine Injection (Adenocard Injection (09/05/21 13:30) Ekg Tracing (09/05/21 13:37) Ekg Tracing (09/05/21 13:37) Medications Given in ED Current Medications Medications Dose Ordered Sig/Bakari Route Start Time Stop Time Status Last Admin Dose Admin Adenosine 6 mg ONCE ONCE IV 09/05/21 13:30 09/05/21 13:31 DC 09/05/21 13:34 6 MG Cefepime HCl 1000 mg/Sodium Chloride 50 ml @ 100 mls/hr ONCE ONCE IV 09/05/21 12:30 09/05/21 12:59 DC 09/05/21 13:05 100 MLS/HR Fentanyl Citrate 25 mcg ONCE PRN IVP 09/05/21 12:45 09/05/21 13:05 25 MCG Iohexol 100 ml ONCE ONCE IV 09/05/21 13:00 09/05/21 13:01 DC 09/05/21 13:50 68 ML Sodium Chloride 10 ml NEEDED PRN IV 09/05/21 13:00 09/05/21 13:50 10 ML Sodium Chloride 100 ml ONCE ONCE IV 09/05/21 13:00 09/05/21 13:01 DC 09/05/21 13:50 80 ML Vital Signs/I&O 09/05/21 09/05/21 09/05/21 11:15 11:15 13:57 Temp 37.0 Pulse 123 Resp 22 B/P (MAP) 136/91 (106) Pulse Ox 95 95 O2 Delivery Non Rebreather Non Rebreather Non Rebreather O2 Flow Rate 6.00 6.00 6.00 6.00 Capillary Refill : Departure Communication (Admissions) 1336-his initial EKG with a rate of 130s to 140s interpreted this as atrial flutter. I would entertain this idea as it could be a 2-1 block. Repeated an EKG showing the same rhythm but interpreted as sinus tach by the machine at this time. Decided to give him 6 mg of adenosine to help clarify. This revealed an underlying sinus rhythm, not atrial flutter/fibrillation. NAME: PATRICK SANTOS [facility] REC#: [id number] PT STATUS: REG ER : 1955 PHYSICIAN: JASMINA ZAVALA APRN ADMIT DATE: 09/05/21/ER Draft Date of Exam:09/05/21 CT ANGIO CHEST W PROCEDURE: CT angiography of the chest with contrast. TECHNIQUE: Multiple contiguous axial images were obtained through the chest after uneventful bolus administration of intravenous contrast. 3D reconstructed CTA MIP acquisitions were also performed. Auto Exposure Controls were utilized during the CT exam to meet ALARA standards for radiation dose reduction. INDICATION: Shortness of breath and tachycardia. No prior CT angiogram of the chest is available for comparison. The thoracic aorta does show some tortuosity. No aneurysm or dissection is identified. The pulmonary arterial system is without evidence of thromboembolism. No filling defects are seen within central, lobar segmental branches. There is a large hiatal hernia noted. No definite pericardial or pleural fluid is identified. Parenchymal evaluation does show significant consolidation in the right lower lobe. A right lower lobe bronchus is occluded. A right middle lobe bronchus is also occluded with significant consolidation of the right middle lobe. Left lung is clear. Upper abdomen is unremarkable. There is marked S-shaped thoracolumbar scoliotic curvature. There is also significant hyperkyphotic curvature to the thoracic spine. IMPRESSION: 1. No evidence of pulmonary embolism or acute aortic disease. 2. Significant consolidation in the right middle lobe and right lower lobe with obstruction of the right middle and right lower lobe bronchi. Central endobronchial lesion cannot be entirely excluded. Followup after course of therapy to confirm complete resolution would be recommended. Dictated on workstation # [id number] Dict: 09/05/21 1352 Trans: 09/05/21 1359 CVB [id number] Interpreted by: CATHRYN BOYD MD Electronically signed by: Family Conversation I spoke with Dr. Tong will admit on Zosyn NAME: PATRICK SANTOS [facility] REC#: [id number] PT STATUS: REG ER : 1955 PHYSICIAN: JASMINA ZAVALA APRN ADMIT DATE: 09/05/21/ER Draft Date of Exam:09/05/21 CHEST 1 VIEW, AP/PA ONLY INDICATION: Cough and shortness of air. TIME OF EXAM: 12:08 PM Correlation is made with prior chest 08/23/2021. Heart size stable. Patient has developed infiltrate in the right base since prior exam. Left lung fairly clear. There is no effusion. No pneumothorax is seen. IMPRESSION: Development of right basilar pneumonia since prior study from 08/23/2021. Dictated on workstation # [id number] Dict: 09/05/21 1214 Trans: 09/05/21 1216 CVB [id number] Interpreted by: CATHRYN BOYD MD Electronically signed by: Impression Primary Impression: Hypoxia Additional Impressions: Advanced dementia Pneumonia Disposition: ADMITTED INPATIENT Condition: Stable Admissions Decision to Admit Reason: Admit from ER (General) Decision to Admit/Date: Sep 05, 2021 Time/Decision to Admit Time: 12:20 Departure-Patient Inst. Referrals: CYN JARAMILLO MD (PCP/Family) Primary Care Physician JASMINA ZAVALA APRN Sep 05, 2021 11:54
[2021-09-05 11:56] LABS: ALBUMIN 4.2 GM/DL (3.2-4.5)
[2021-09-05 11:57] LABS: POTASSIUM 4.4 MMOL/L (3.6-5.0)
[2021-09-05 11:58] LABS: CALCIUM 9.5 MG/DL (8.5-10.1)
[2021-09-05 11:59] LABS: TOTAL PROTEIN 7.7 GM/DL (6.4-8.2)
[2021-09-05] MEDS ORDERED: LACTATED RINGERS 1,000 ML IV SCH ×2 (12:00→12:45)
[2021-09-05 12:01] LABS: BILIRUBIN,TOTAL 0.4 MG/DL (0.1-1.0)
[2021-09-05 12:03] LABS: CREATININE SERUM 0.83 MG/DL (0.60-1.30)
[2021-09-05 12:06] LABS: INR 1.2 (0.8-1.4); PROTHROMBIN TIME PATIENT 15.6 SEC (12.2-14.7)
[2021-09-05 12:11] LABS: BAND NEUTROPHILS 5 %; BASOPHILS % (MANUAL) 0 %; EOSINOPHILS % (MANUAL) 0 %; LYMPHOCYTES % (MANUAL) 10 %; MONOCYTES % (MANUAL) 5 %; NEUTROPHILS % (MANUAL) 80 %; RBC MORPH NORMAL
--- NOTE | 2021-09-05 12:16 | Diagnostic Imaging Report ---
INDICATION: Cough and shortness of air. TIME OF EXAM: 12:08 PM Correlation is made with prior chest 08/23/2021. Heart size stable. Patient has developed infiltrate in the right base since prior exam. Left lung fairly clear. There is no effusion. No pneumothorax is seen. IMPRESSION: Development of right basilar pneumonia since prior study from 08/23/2021. Dictated by: Dictated on workstation # [id number]
[2021-09-05] MEDS ORDERED: CEFEPIME INJECTION 1,000 MG in NS (IVPB) 50 ML IV ONE (12:30)
[2021-09-05] MEDS ORDERED: fentaNYL INJ 100 MCG/2 ML AMP IVP PRN (12:45)
[2021-09-05] MEDS ORDERED: IOHEXOL 350 MG/ML 100 ML (OMNIPAQUE 350) VIAL IV ONE (13:00)
[2021-09-05] MEDS ORDERED: NS 100 ML (IVPB) BAG IV ONE (13:00)
[2021-09-05] MEDS ORDERED: CATHETER FLUSH 10 ML SYR IV PRN (13:00)
[2021-09-05] MEDS ORDERED: HOLD METFORMIN - RECEIVED CONTRAST 20 ML VIAL IV SCH (13:00)
[2021-09-05] MEDS ORDERED: ADENOSINE 6 MG/2 ML (ADENOCARD) VIAL IV ONE (13:30)
[2021-09-05 13:33] LABS: BILIRUBIN,URINE NEGATIVE (NEGATIVE); CLARITY,URINE CLEAR; COLOR,URINE YELLOW; GLUCOSE, URINE (UA) NEGATIVE (NEGATIVE); KETONES,URINE TRACE (NEGATIVE); LEUKOCYTE ESTERASE ,URINE NEGATIVE (NEGATIVE); NITRITE,URINE NEGATIVE (NEGATIVE); PROTEIN,URINE TRACE (NEGATIVE)
[2021-09-05 13:41] LABS: BACTERIA,URINE TRACE /HPF; RBC,URINE RARE /HPF; WBC,URINE RARE /HPF
--- NOTE | 2021-09-05 13:59 | Diagnostic Imaging Report ---
PROCEDURE: CT angiography of the chest with contrast. TECHNIQUE: Multiple contiguous axial images were obtained through the chest after uneventful bolus administration of intravenous contrast. 3D reconstructed CTA MIP acquisitions were also performed. Auto Exposure Controls were utilized during the CT exam to meet ALARA standards for radiation dose reduction. INDICATION: Shortness of breath and tachycardia. No prior CT angiogram of the chest is available for comparison. The thoracic aorta does show some tortuosity. No aneurysm or dissection is identified. The pulmonary arterial system is without evidence of thromboembolism. No filling defects are seen within central, lobar segmental branches. There is a large hiatal hernia noted. No definite pericardial or pleural fluid is identified. Parenchymal evaluation does show significant consolidation in the right lower lobe. A right lower lobe bronchus is occluded. A right middle lobe bronchus is also occluded with significant consolidation of the right middle lobe. Left lung is clear. Upper abdomen is unremarkable. There is marked S-shaped thoracolumbar scoliotic curvature. There is also significant hyperkyphotic curvature to the thoracic spine. IMPRESSION: 1. No evidence of pulmonary embolism or acute aortic disease. 2. Significant consolidation in the right middle lobe and right lower lobe with obstruction of the right middle and right lower lobe bronchi. Central endobronchial lesion cannot be entirely excluded. Followup after course of therapy to confirm complete resolution would be recommended. Dictated by: Dictated on workstation # [id number]
[2021-09-05 15:10] VITALS: BP 122/82
[2021-09-05 15:32] VITALS: BP 136/91
[2021-09-05 15:55] VITALS: BP 131/85
[2021-09-05] MEDS ORDERED: ACETAMINOPHEN 325 MG TABLET PO PRN (16:00)
[2021-09-05] MEDS ORDERED: ACETAMINOPHEN 325 MG SUPP (TYLENOL) PR PRN (16:00)
[2021-09-05] MEDS ORDERED: ACETAMINOPHEN 650 MG SUPP (TYLENOL) PR PRN (16:00)
[2021-09-05] MEDS ORDERED: PIPERACILLIN SODIUM/TAZOBACTAM 4.5 GM in NS (IVPB) 100 ML IV NR (16:00)
[2021-09-05] MEDS: LACTATED RINGERS 1,000 ML IV SCH (16:09)
[2021-09-05] MEDS ORDERED: RT-ALBUTEROL SULF 2.5 MG/3 ML PRE-MIX VIAL INH PRN (17:00)
[2021-09-05] MEDS ORDERED: RT-ALBUTEROL SULF 2.5 MG/3 ML PRE-MIX VIAL INH SCH (19:00)
[2021-09-05 20:00] VITALS: BP 132/82
[2021-09-05] MEDS ORDERED: OXYMETAZOLINE (AFRIN) 0.05% NA 30 ML BTL SCH (21:00)
[2021-09-05] MEDS: PIPERACILLIN SODIUM/TAZOBACTAM 4.5 GM in NS (IVPB) 100 ML IV SCH (22:08)
[2021-09-06] MEDS: LACTATED RINGERS 1,000 ML IV SCH ×3 (00:50→16:14)
[2021-09-06 04:56] LABS: BASOPHILS % (AUTO) 0 % (0-10); EOSINOPHILS % (AUTO) 0 % (0-10); HEMATOCRIT 29 % (40-54); HEMOGLOBIN 9.4 g/dL (13.3-17.7); LYMPHOCYTES # (AUTO) 0.7 10^3/uL (1.0-4.0); LYMPHOCYTES % (AUTO) 5 % (12-44); MEAN CORPUSCULAR HEMOGLOBIN 30 pg (25-34); MEAN CORPUSCULAR HGB CONC 32 g/dL (32-36); MEAN CORPUSCULAR VOLUME 93 fL (80-99); MEAN PLATELET VOLUME 9.8 fL (9.0-12.2); MONOCYTES # (AUTO) 0.7 10^3/uL (0.0-1.0); MONOCYTES % (AUTO) 6 % (0-12); NEUTROPHILS # (AUTO) 11.5 10^3/uL (1.8-7.8); NEUTROPHILS % (AUTO) 89 % (42-75); PLATELET COUNT 240 10^3/uL (130-400)
[2021-09-06 05:12] LABS: POTASSIUM 3.9 MMOL/L (3.6-5.0)
[2021-09-06 05:13] LABS: CALCIUM 8.1 MG/DL (8.5-10.1)
[2021-09-06 05:18] LABS: CREATININE SERUM 0.67 MG/DL (0.60-1.30)
[2021-09-06] MEDS: PIPERACILLIN SODIUM/TAZOBACTAM 4.5 GM in NS (IVPB) 100 ML IV SCH ×3 (06:26→22:21)
[2021-09-06] MEDS ORDERED: RT-ALBUTEROL SULF 2.5 MG/3 ML PRE-MIX VIAL INH PRN (07:15)
[2021-09-06 07:50] VITALS: BP 86/59
[2021-09-06] MEDS: RT-ALBUTEROL HFA 8.5 GM INHALER IH SCH ×4 (10:03→22:20)
[2021-09-06 11:55] VITALS: BP 86/57
--- NOTE | 2021-09-06 15:26 | History & Physical-Hospitalist ---
History of Present Illness HPI/Chief Complaint Jorge Esquivel is a 66 year old male with PMH cognitive impairment, schizophrenia, dementia, BPH, HTN, who presented with shortness of breath. He lives at [facility]. He is unable to provide any history. He was found to be hypoxic. He also reportedly had fevers and a cough. Source: patient Exam Limitations: no limitations Date Seen 09/06/21 Time Seen by a Provider: 10:40 Attending Physician Desmond Tong MD PCP Bertram Chowdhury MD Referring Physician Date of Admission Sep 05, 2021 at 13:55 Home Medications & Allergies Home Medications Reviewed patient Home Medication Reconciliation performed by pharmacy medication reconciliations prior authorization technician and/or nursing. Patients Allergies have been reviewed. Allergies Allergies Coded Allergies Sulfa (Sulfonamide Antibiotics) (Verified Allergy, Unknown, 05/24/20) Past Ptlswmu-Ugdmhc-Mfeayr Hx Patient Social History Tobacco Use?: No Use of E-Cig and/or Vaping dev: No Substance use?: No Alcohol Use?: No Pt feels they are or have been: Unable to obtain Immunizations Up To Date Date of Influenza Vaccine: May 02, 2021 First/Initial COVID19 Vaccinat: 2020 Second COVID19 Vaccination Arnold: 2020 Tetanus Booster (TDap): Unknown PED Vaccines UTD: No Seasonal Allergies Seasonal Allergies: No Current Status Advance Directives: Unable to obtain Advance Directive Location: Copy placed in chart Communicates: Unable To Communicate Primary Language: Malagasy Preferred Spoken Language: Malagasy Is interpretation needed?: No Past Medical History Surgeries: Thyroidectomy Hypertension Dementia, Developmental Disorder, Parkinson's Disease Benign Prostatic Hyperpl Chronic Constipation Scoliosis, Chronic Back Pain Anxiety, Bipolar, Personality Disorder, Schizophrenia, Depression Blood Disorders: No Family Medical History No Pertinent Family Hx PT IS DNR Review of Systems Constitutional: see HPI, fever Respiratory: cough, short of breath Physical Exam Physical Exam Vital Signs Vital Signs - First Documented 09/05/21 11:15 Temp 37.0 Pulse 123 Resp 22 B/P (MAP) 136/91 (106) Pulse Ox 95 O2 Delivery Non Rebreather O2 Flow Rate 6.00 Capillary Refill : Height, Weight, BMI Height: 6'1.00" Weight: 154lbs. 0.0oz. 69.111980kl; 18.91 BMI Method:Stated General Appearance: No Apparent Distress, Chronically ill Respiratory: No Respiratory Distress, Decreased Breath Sounds, Rhonci Cardiovascular: Regular Rate, Rhythm, No Murmur Gastrointestinal: Normal Bowel Sounds, Soft Extremity: Normal Inspection, No Pedal Edema Neurologic/Psychiatric: Alert, Disoriented Skin: Normal Color, Warm/Dry Results Results/Procedures Labs Laboratory Tests 09/05/21 11:32 09/06/21 04:47 Patient resulted labs reviewed. Imaging: Reviewed Imaging Report Assessment/Plan Admission Diagnosis Sepsis due to pneumonia Admission Status: Inpatient Order (span 2 midnights) Reason for Inpatient Admission: IV antibiotics Assessment and Plan Sepsis due to pneumonia Aspiration pneumonia Acute respiratory failure with hypoxia SIRS+ with leukocytosis and tachycardia Chest imaging consistent with right middle/lower lobe pneumonia Concern for aspiration Zosyn IV fluids Supplemental oxygen as needed Modified diet Swallow evaluation Epistaxis DVT Bleeding resolved Continue Eliquis Dementia Schizophrenia Cognitive impairment Continue home meds HTN Hold home meds BPH Continue Flomax DVT prophylaxis: already receiving therapeutic anticoagulation Diagnosis/Problems Diagnosis/Problems (1) Sepsis due to pneumonia Status: Acute (2) Aspiration pneumonia Status: Acute (3) Acute respiratory failure with hypoxia Status: Acute (4) Schizophrenia Status: Chronic (5) Advanced dementia Status: Chronic (6) Cognitive impairment Status: Chronic (7) DVT of right axillary vein, acute Status: Acute (8) Epistaxis Status: Acute DESMOND TONG MD Sep 06, 2021 15:26
[2021-09-06 15:47] VITALS: BP 91/62
[2021-09-06] MEDS: TAMSULOSIN 0.4 MG (FLOMAX) CAP PO SCH (17:03)
[2021-09-06 20:00] VITALS: BP 110/71
[2021-09-06] MEDS: DIVALPROEX 500 MG DELAYED RELEASE (DEPAKOTE) TAB PO SCH (20:21)
[2021-09-06] MEDS: GABAPENTIN 100 MG (NEURONTIN) CAP PO SCH (20:21)
[2021-09-06] MEDS: APIXABAN 5 MG (ELIQUIS) TABLET PO SCH (20:22)
[2021-09-07] VITALS (7 sets, daily range): BP systolic 92–158; BP diastolic 59–82
[2021-09-07] MEDS: LACTATED RINGERS 1,000 ML IV SCH ×4 (00:14→22:28)
[2021-09-07] MEDS: RT-ALBUTEROL HFA 8.5 GM INHALER IH SCH ×6 (02:52→23:06)
[2021-09-07] MEDS: PIPERACILLIN SODIUM/TAZOBACTAM 4.5 GM in NS (IVPB) 100 ML IV SCH ×3 (05:42→21:27)
[2021-09-07 08:37] LABS: BASOPHILS % (AUTO) 0 % (0-10); EOSINOPHILS % (AUTO) 0 % (0-10); HEMATOCRIT 27 % (40-54); HEMOGLOBIN 8.5 g/dL (13.3-17.7); LYMPHOCYTES # (AUTO) 0.5 10^3/uL (1.0-4.0); LYMPHOCYTES % (AUTO) 5 % (12-44); MEAN CORPUSCULAR HEMOGLOBIN 30 pg (25-34); MEAN CORPUSCULAR HGB CONC 32 g/dL (32-36); MEAN CORPUSCULAR VOLUME 95 fL (80-99); MEAN PLATELET VOLUME 9.9 fL (9.0-12.2); MONOCYTES # (AUTO) 0.7 10^3/uL (0.0-1.0); MONOCYTES % (AUTO) 7 % (0-12); NEUTROPHILS # (AUTO) 8.8 10^3/uL (1.8-7.8); NEUTROPHILS % (AUTO) 87 % (42-75); PLATELET COUNT 244 10^3/uL (130-400); WHITE BLOOD COUNT 10.1 10^3/uL (4.3-11.0)
[2021-09-07 08:47] LABS: POTASSIUM 3.7 MMOL/L (3.6-5.0)
[2021-09-07 08:49] LABS: CALCIUM 8.3 MG/DL (8.5-10.1)
[2021-09-07 08:53] LABS: CREATININE SERUM 0.66 MG/DL (0.60-1.30)
[2021-09-07] MEDS: GABAPENTIN 100 MG (NEURONTIN) CAP PO SCH ×2 (09:21→21:25)
[2021-09-07] MEDS: DIVALPROEX 500 MG DELAYED RELEASE (DEPAKOTE) TAB PO SCH ×2 (09:21→21:25)
[2021-09-07] MEDS: APIXABAN 5 MG (ELIQUIS) TABLET PO SCH ×2 (09:21→21:24)
--- NOTE | 2021-09-07 12:55 | Progress Note - Hospitalist ---
Subjective HPI/CC On Admission Date Seen by Provider: Sep 07, 2021 Time Seen by Provider: 10:05 Jorge Esquivel is a 66 year old male with H cognitive impairment, schizophrenia, dementia, BPH, HTN, who presented with shortness of breath. He lives at [facility]. He is unable to provide any history. He was found to be hypoxic. He also reportedly had fevers and a cough. Subjective/Events-last exam He is awake and alert. He appears comfortable. Focused Exam Lactate Level 09/05/21 11:32: Lactic Acid Level 1.06 Objective Exam Vital Signs Vital Signs Date Time Temp Pulse Resp B/P (MAP) Pulse Ox O2 Delivery O2 Flow Rate FiO2 09/07/21 12:00 37.0 72 24 107/59 (75) 95 OxyMask 09/07/21 10:10 1.00 Capillary Refill : General Appearance: No Apparent Distress, Chronically ill, Thin Respiratory: No Respiratory Distress, Rhonci Cardiovascular: Regular Rate, Rhythm, No Murmur Gastrointestinal: Normal Bowel Sounds, Soft Extremity: Normal Inspection, No Pedal Edema Neurologic/Psychiatric: Alert, Disoriented Skin: Normal Color, Warm/Dry Results/Procedures Lab Laboratory Tests 09/07/21 08:25 Patient resulted labs reviewed. Imaging: Reviewed Imaging Report Assessment/Plan Assessment and Plan Assess & Plan/Chief Complaint Sepsis due to pneumonia Aspiration pneumonia Acute respiratory failure with hypoxia Continue Zosyn IV fluids Supplemental oxygen as needed, minimal requirement Modified diet Swallow evaluation Epistaxis DVT Bleeding resolved Continue Eliquis Dementia Schizophrenia Cognitive impairment Continue home meds HTN Hold home meds BPH Continue Flomax DVT prophylaxis: already receiving therapeutic anticoagulation Diagnosis/Problems Diagnosis/Problems (1) Sepsis due to pneumonia Status: Acute (2) Aspiration pneumonia Status: Acute (3) Acute respiratory failure with hypoxia Status: Acute (4) Schizophrenia Status: Chronic (5) Advanced dementia Status: Chronic (6) Cognitive impairment Status: Chronic (7) DVT of right axillary vein, acute Status: Acute (8) Epistaxis Status: Acute DESMOND HU MD Sep 07, 2021 12:54
[2021-09-07] MEDS ORDERED: ONDANSETRON 4 MG (ZOFRAN) ORAL DISSOLVE TAB PO PRN (16:30)
[2021-09-07] MEDS ORDERED: ONDANSETRON 4 MG/2 ML (SDV) Z0FRAN IV PRN (16:30)
[2021-09-07] MEDS ORDERED: ANTACID SUSP 30 ML UDC (MYLANTA) PO PRN (16:30)
[2021-09-07] MEDS ORDERED: MELATONIN 3 MG TABLET PO PRN (16:30)
[2021-09-07] MEDS ORDERED: polyethylene glycoL POWDER 17 GM (MIRALAX) PACK PO PRN (16:30)
[2021-09-07] MEDS: TAMSULOSIN 0.4 MG (FLOMAX) CAP PO SCH (18:06)
[2021-09-08] VITALS (7 sets, daily range): BP systolic 120–154; BP diastolic 71–85
[2021-09-08] MEDS: RT-ALBUTEROL HFA 8.5 GM INHALER IH SCH ×4 (02:46→18:23)
[2021-09-08] MEDS: PIPERACILLIN SODIUM/TAZOBACTAM 4.5 GM in NS (IVPB) 100 ML IV SCH ×3 (05:55→22:31)
[2021-09-08 06:29] LABS: BASOPHILS % (AUTO) 0 % (0-10); EOSINOPHILS % (AUTO) 0 % (0-10); HEMATOCRIT 29 % (40-54); HEMOGLOBIN 9.5 g/dL (13.3-17.7); LYMPHOCYTES # (AUTO) 0.5 10^3/uL (1.0-4.0); LYMPHOCYTES % (AUTO) 7 % (12-44); MEAN CORPUSCULAR HEMOGLOBIN 31 pg (25-34); MEAN CORPUSCULAR HGB CONC 33 g/dL (32-36); MEAN CORPUSCULAR VOLUME 94 fL (80-99); MEAN PLATELET VOLUME 9.8 fL (9.0-12.2); MONOCYTES # (AUTO) 0.5 10^3/uL (0.0-1.0); MONOCYTES % (AUTO) 7 % (0-12); NEUTROPHILS # (AUTO) 5.9 10^3/uL (1.8-7.8); NEUTROPHILS % (AUTO) 85 % (42-75); PLATELET COUNT 287 10^3/uL (130-400); WHITE BLOOD COUNT 6.9 10^3/uL (4.3-11.0)
[2021-09-08 06:44] LABS: POTASSIUM 3.5 MMOL/L (3.6-5.0)
[2021-09-08 06:45] LABS: CALCIUM 8.3 MG/DL (8.5-10.1)
[2021-09-08 06:49] LABS: CREATININE SERUM 0.64 MG/DL (0.60-1.30)
[2021-09-08] MEDS: LACTATED RINGERS 1,000 ML IV SCH (07:17)
[2021-09-08] MEDS: DIVALPROEX 500 MG DELAYED RELEASE (DEPAKOTE) TAB PO SCH ×2 (08:19→21:03)
[2021-09-08] MEDS: APIXABAN 5 MG (ELIQUIS) TABLET PO SCH ×2 (08:19→21:03)
[2021-09-08] MEDS: GABAPENTIN 100 MG (NEURONTIN) CAP PO SCH ×2 (08:19→21:03)
--- NOTE | 2021-09-08 11:06 | Progress Note - Hospitalist ---
SANDRINE NARANJO 09/08/21 1106: Subjective HPI/CC On Admission Date Seen by Provider: Sep 08, 2021 Time Seen by Provider: 10:30 Jorge Esquivel is a 66 year old male with PMH cognitive impairment, schizophrenia, dementia, BPH, HTN, who presented with shortness of breath. He lives at [facility]. He was found to be hypoxic. He also reportedly had fevers and a cough. He is unable to provide any history but says he is feeling well today. Review of Systems Musculoskeletal: other (Denies being in pain) Neurological: Weakness Focused Exam Sepsis Stage: Sepsis Possible Source: Pulmonary (Patient no longer meets SIRS criteria) Lactate Level Respiratory: Lungs Clear, Normal Breath Sounds, No Accessory Muscle Use Cardiovascular: Regular Rate, Rhythm, No Edema Skin: normal color Objective Exam Vital Signs Vital Signs Date Time Temp Pulse Resp B/P (MAP) Pulse Ox O2 Delivery O2 Flow Rate FiO2 09/08/21 12:00 36.2 53 18 120/71 (87) 95 Room Air 09/07/21 23:06 1.00 Capillary Refill : General Appearance: No Apparent Distress HEENT: PERRL/EOMI Neck: Full Range of Motion Respiratory: Chest Non Tender, Lungs Clear, Normal Breath Sounds Cardiovascular: Regular Rate, Rhythm, No Edema Gastrointestinal: Normal Bowel Sounds Extremity: Normal Capillary Refill Neurologic/Psychiatric: Alert Skin: Normal Color Lymphatic: No Adenopathy Results/Procedures Lab Laboratory Tests 09/08/21 06:14 Patient resulted labs reviewed. Imaging: Reviewed Imaging Report Assessment/Plan Assessment and Plan Assess & Plan/Chief Complaint 1) Sepsis due to pneumonia Patient started on Piperacilln-Tazobactam on 09/05/21 and is scheduled to finish Abx on 09/10/21 Oxygen saturation has been stable in the 90%-95% range on room oxygen WBC count is now within normal range Patient was taken off of IV lactated ringer's There is a concern that the pneumonia was caused by aspiration and a swallow study is being done to assess for this 2) Dysphagia Patient is having a swallow study done Will be meeting with speech therapy A modified diet has been implemented 3) DVT prophylaxis Is already on Apixaban for the previous DVT that the patient has had 4) Hypertension Home medications for hypertension had been withheld due to concerns for sepsis BP was stable today at 130/75 and SIRS criteria is no longer positive so Metoprolol and Hydrochlorothiazide can be restarted 5) BPH Continue home medication of Tamsulosin Hospital course: Jorge is a 66yo M who came into the ER on 09/05/21 with swelling of his ankles, oxygen saturation in the 70% range, and a history of cough and fever. He had recently had a DVT on 08/05/21. Chest/thorax CT ruled out pulmonary embolism. Chest X-ray showed pneumonia. Patient met SIRS criteria with leukocytosis, tachypnea, and tachycardia. Patient admitted for sepsis due to pneumonia and was treated with IV bactrim. WBC count was within normal range by 09/07/21. Had a swallow study done and met with speech therapy to assess for aspiraton risk. Upon discharge he will return to [facility]. Diagnosis/Problems Diagnosis/Problems (1) Sepsis due to pneumonia Status: Acute (2) DVT of right axillary vein, acute Status: Acute (3) Essential (primary) hypertension Status: Chronic (4) Dysphagia Status: Chronic Clinical Quality Measures Admission Status Admission Status: Inpatient Order (span 2 midnights) Reason for Inpatient Admission: Sepsis due to pneumona CIELO PERALTA DO 09/09/21 0512: Subjective Subjective/Events-last exam Pt doing a little better PT and OT will be ordered along with speech therapy Hep locking IV fluid Aspiration pneumonia still treated Weaning off oxygen DVT being treated Review of Systems General: Fatigue, Malaise HEENT: Dysphasia Neurological: Confusion Objective Exam General Appearance: No Apparent Distress, WD/WN, Chronically ill Respiratory: Lungs Clear, Normal Breath Sounds Cardiovascular: Regular Rate, Rhythm Neurologic/Psychiatric: Alert, Disoriented Assessment/Plan Assessment and Plan Assess & Plan/Chief Complaint Assessment: Speech therapy for dysphagia Hep-Lock IV fluid Supportive care Discharge tomorrow Supervisory-Addendum Brief Verification & Attestation Participated in pt care: history, MDM, physical Personally performed: exam, history, MDM, supervision of care Care discussed with: Medical Student Procedures: n/a Results interpretation: Verified all documentation Verification and Attestation of Medical Student E/M Service A medical student performed and documented this service in my presence. I reviewed and verified all information documented by the medical student and made modifications to such information, when appropriate. I personally performed the physical exam and medical decision making. Cielo Peralta, Sep 09, 2021,05:12 SANDRINE NARANJO Sep 08, 2021 11:06 CIELO PERALTA DO Sep 09, 2021 05:12
--- NOTE | 2021-09-08 11:55 | Physical Therapy Evaluation ---
PT Evaluation-General Medical Diagnosis Admission Date Sep 05, 2021 at 13:55 Medical Diagnosis: Hypoxia Onset Date: Sep 05, 2021 Therapy Diagnosis Therapy Diagnosis: Weakness, debility Height/Weight Height (Feet): 6 Height (Inches): 1.00 Weight (Pounds): 154 Weight (Ounces): 0.0 Precautions Precautions/Isolations: Aspiration, Fall Prevention, Standard Precautions Referral Physician: Sanjay Reason for Referral: Evaluation/Treatment Medical History Pertinent Medical History: Dementia, HTN, Parkinson's Additional Medical History Autism Mentally Handicapped Current History Patient presented to ED via EMS with SOA while at his [place] [facility]. Reviewed History: Yes Social History Home: Assisted Living Prior Prior Level of Function SCALE: Activities may be completed with or without assistive devices. 2-Amzwisqsni-rcgaqss completes the activity by him/herself with no assistance from a helper. 5-Set-up or Clean-up Assistance-helper sets up or cleans up; patient completes activity. [place] assists only prior to or following the activity. 4-Supervision or Touching Assistance-helper provides verbal cues and/or touching/steadying and/or contact guard assistance as patient completes activity. Assistance may be provided throughout the activity or intermittently. 3-Partial/Moderate Assistance-helper does LESS THAN HALF the effort. [place] lifts, holds or supports trunk or limbs, but provides less than half the effort. 2-Substantial/Maximal Assistance-helper does MORE THAN HALF the effort. [place] lifts or holds trunk or limbs and provides more than half the effort. 5-Wdxknccav-pivvgq does ALL the effort. Patient does none of the effort to complete the activity. Or, the assistance of 2 or more helpers is required for the patient to complete the activity. If activity was not attempted, code reason: 7-Patient Refused. 9-Not Applicable-not attempted and the patient did not perform the activity before the current illness, exacerbation or injury. 10-Not Attempted due to Environmental Limitations-(lack of equipment, weather restraints, etc.). 88-Not Attempted due to Medical Conditions or Safety Concerns. Patient PLOF is unknown due to dementia and patients inability to answer questions. PT Evaluation-Current Subjective Patient presented in bed. Objective Patient Orientation: Confused Attachments: Drains (Portable wound vac), Collins Catheter ROM/Strength ROM Lower Extremities decreased with possible contracture in bilateral hips Strength Lower Extremities unable to determine due to patient mental status Integumentary/Posture Bowel Incontinence: Yes Bladder Incontinence: Collins Cath Posture Patient had increased kyphosis with severe scoliosis Neuromuscular (Tone, Coordination, Reflexes) Patient had decreased coordination and high resting tone Transfers Lying to Sitting/Side of Bed(Q: 1 Sit to Stand (QC): 1 Chair/Rjo-ls-Axfoz Xfer(QC): 1 Patient was dependent for all transfers. Gait Comments/Gait Description Patient attempted to stand at FWW but still required dependent assist for sit to stand. Balance Sitting Static: Poor Sitting Dynamic: Poor Standing Static: Poor Standing Dynamic: Poor Assessment/Needs Patient was dependent for all transfers during therapy session. [facility] and is unable to explain his PLOF. Patient was unable to sit EOB without dependent assist. Patient was left post tx in his chair with his call light and all needs met. Rehab Potential: Poor PT Care Home Goals Intelligence Operations Goals PT Intelligence Operations Goals Time Frame: Sep 20, 2021 Roll Left & Right (QC): 3 Sit to Lying (QC): 3 Lying-Sitting on Side/Bed(QC): 3 Sit to Stand (QC): 3 Chair/Lcx-vj-Edjpo Xfer(QC): 3 Toilet Transfer (QC): 3 PT Plan Problem List Problem List: Activity Tolerance, Functional Strength, Safety, Balance, Gait, Transfer, Bed Mobility, ROM Treatment/Plan Treatment Plan: Continue Plan of Care Treatment Plan: Bed Mobility, Education, Functional Activity Jordin, Functional Strength, Gait, Safety, Therapeutic Exercise, Transfers Treatment Duration: Sep 20, 2021 Frequency: 6 times per week Estimated Hrs Per Day: .25 hour per day Time/GCodes Time In: 1041 Time Out: 1100 Total Billed Treatment Time: 19 Total Billed Treatment 1 Visit EVMod 19 min EMANUEL LEO PT Sep 08, 2021 11:55
--- NOTE | 2021-09-08 12:20 | Speech Therapy Progress Note ---
Therapy Progress Note 1155: Speech pathology received and acknowledged the consult for a clinical bedside swallowing evaluation. The patient's chart was reviewed and speech pathology attempted the evaluation at 1155. At this time, the patient is sleeping and is unable to be woke to an appropriate and safe level for PO intake. Per RN, the patient recently completed PT which caused increased fatigue. ST re-attempted the evaluation at 1220, however, the patient remained sleeping. ST spoke with the RN and stated the clinician will re-attempt the evaluation on the subsequent treatment date, if appropriate. DANIEL BROWN Sep 08, 2021 12:20
--- NOTE | 2021-09-08 14:05 | Occ Therapy Progress Note ---
Therapy Progress Note OT orders received and chart reviewed. OT attempted tx at 1114, pt in recliner too lethargic to participate. OT attempted to awaken pt, but unsuccessful. OT attempted eval again at 1345, pt in bed asleep. OT unable to awaken pt, pt did not open eyes. Pt too lethargic to participate in skilled OT on this date. OT will attempt evaluation tomorrow. , , visit GEOVANNA MAJANO OT Sep 08, 2021 14:05
[2021-09-08] MEDS ORDERED: APIX5TAB PO (16:04)
[2021-09-08] MEDS ORDERED: HYOS0.1281 PO (16:04)
[2021-09-08] MEDS ORDERED: ONDA-105 PO (16:04)
[2021-09-08] MEDS ORDERED: DOCU50LI PO (16:04)
[2021-09-08] MEDS ORDERED: PALI156D IM (16:04)
--- NOTE | 2021-09-08 17:36 | Wound Care Assessment ---
Wound Care Assessment Date Seen by Provider: Sep 08, 2021 Time Seen by Provider: 17:31 Chief Complaint S3 Pressure ulcer Left Trochanter HPI This pleasant 66 year old gentleman is well know to the wound care center. He has severe intellectual disability and is minimally verbal. He does also have severe scoliosis and protein energy malnutrition which has led to recurrent issues with pressure ulcers. His current ulcer is stage 3 and we have not made much headway outpatient as a result of issues with off loading. We are currently treating with a silver collagen dressing, hydrofera blue and a CHRISTOPHER wound vac. The wound vac is due to be changed for the 1st time tomorrow. We plan to change this dressing tomorrow (likely while he is still inpatient). His last wound measurements are as below. He is currently admitted with aspiration pnuemonia. He is quite somnalent currently and minimally interacts with me. Albumin on admi t 4.2. He is currently on Zosyn. Smoking Status: Never a Smoker Recreational Drug Use: No Alcohol Use: Denies Use Other Social Hx [place] [facility] Review of Systems Other systems Unable to obtain ROS due to mental status Exam Vital Signs Date Time Temp Pulse Resp B/P (MAP) Pulse Ox O2 Delivery O2 Flow Rate FiO2 09/08/21 16:13 36.8 48 18 137/79 (98) 93 Room Air 09/07/21 23:06 1.00 Capillary Refill : General Appearance: no apparent distress, thin Cardiovascular: no edema Respiratory: no respiratory distress, no accessory muscle use Extremities: no pedal edema Neurologic/Psychiatric: other (Somnalent) Wound measurements from 1 week ago: 1.5x2.2x0.9 cm with undermining deepest 1.4 cm. CHRISTOPHER wound vac system in place Results Laboratory Tests 09/08/21 06:14: White Blood Count 6.9, Red Blood Count 3.11L, Hemoglobin 9.5L, Hematocrit 29L, Mean Corpuscular Volume 94, Mean Corpuscular Hemoglobin 31, Mean Corpuscular Hemoglobin Concent 33, Red Cell Distribution Width 14.1, Platelet Count 287, Mean Platelet Volume 9.8, Immature Granulocyte % (Auto) 0, Neutrophils (%) (Auto) 85H, Lymphocytes (%) (Auto) 7L, Monocytes (%) (Auto) 7, Eosinophils (%) (Auto) 0, Basophils (%) (Auto) 0, Neutrophils # (Auto) 5.9, Lymphocytes # (Auto) 0.5L, Monocytes # (Auto) 0.5, Eosinophils # (Auto) 0.0, Basophils # (Auto) 0.0, Immature Granulocyte # (Auto) 0.0, Sodium Level 138, Potassium Level 3.5L, Chloride Level 106, Carbon Dioxide Level 23, Anion Gap 9, Blood Urea Nitrogen 18, Creatinine 0.64, Estimat Glomerular Filtration Rate 104, BUN/Creatinine Ratio 28, Glucose Level 75, Calcium Level 8.3L Microbiology 09/05/21 Urine Culture - Final, Complete NO GROWTH 09/05/21 Blood Culture - Preliminary, Resulted No growth Assessment/Plan/Dx Assessment: 1. S3 Pressure ulcer Left Trochanter 2. Protein energy malnutrition 3. Severe scoliosis with generalized weakness Plan: 1. Frequent position changes 2. Continue CHRISTOPHER wound vac 3. We will plan to change dressings tomorrow. ION HEAD MD Sep 08, 2021 17:36
[2021-09-08] MEDS: TAMSULOSIN 0.4 MG (FLOMAX) CAP PO SCH (17:48)
[2021-09-08] MEDS ORDERED: RT-ALBUTEROL HFA 8.5 GM INHALER IH PRN (19:45)
[2021-09-09 00:09] VITALS: BP 148/84
[2021-09-09 03:58] VITALS: BP 137/80
[2021-09-09] MEDS: PIPERACILLIN SODIUM/TAZOBACTAM 4.5 GM in NS (IVPB) 100 ML IV SCH (05:52)
[2021-09-09 07:09] LABS: BASOPHILS % (AUTO) 1 % (0-10); EOSINOPHILS # (AUTO) 0.1 10^3/uL (0.0-0.3); EOSINOPHILS % (AUTO) 1 % (0-10); HEMATOCRIT 33 % (40-54); HEMOGLOBIN 10.6 g/dL (13.3-17.7); LYMPHOCYTES # (AUTO) 0.7 10^3/uL (1.0-4.0); LYMPHOCYTES % (AUTO) 12 % (12-44); MEAN CORPUSCULAR HEMOGLOBIN 30 pg (25-34); MEAN CORPUSCULAR HGB CONC 32 g/dL (32-36); MEAN CORPUSCULAR VOLUME 94 fL (80-99); MEAN PLATELET VOLUME 9.5 fL (9.0-12.2); MONOCYTES # (AUTO) 0.5 10^3/uL (0.0-1.0); MONOCYTES % (AUTO) 9 % (0-12); NEUTROPHILS # (AUTO) 4.6 10^3/uL (1.8-7.8); NEUTROPHILS % (AUTO) 77 % (42-75); PLATELET COUNT 319 10^3/uL (130-400)
[2021-09-09 07:33] LABS: CREATININE SERUM 0.65 MG/DL (0.60-1.30); POTASSIUM 3.7 MMOL/L (3.6-5.0)
[2021-09-09 07:34] LABS: ALBUMIN 3.2 GM/DL (3.2-4.5); BILIRUBIN,TOTAL 0.4 MG/DL (0.1-1.0); CALCIUM 8.6 MG/DL (8.5-10.1); TOTAL PROTEIN 6.3 GM/DL (6.4-8.2)
[2021-09-09] MEDS ORDERED: RT-ALBUTEROL HFA 8.5 GM INHALER IH SCH (08:00)
[2021-09-09 08:10] VITALS: BP 132/82
[2021-09-09] MEDS: APIXABAN 5 MG (ELIQUIS) TABLET PO SCH (08:14)
[2021-09-09] MEDS: DIVALPROEX 500 MG DELAYED RELEASE (DEPAKOTE) TAB PO SCH (08:14)
[2021-09-09] MEDS: GABAPENTIN 100 MG (NEURONTIN) CAP PO SCH (08:14)
--- NOTE | 2021-09-09 09:00 | ST Dysphagia Evaluation ---
Speech Evaluation-General Medical Diagnosis Hypoxia Onset Date: Sep 05, 2021 Therapy Diagnosis Therapy Diagnosis: Moderate Oropharyngeal Dysphagia Precautions Precautions: Fall, Aspiration Precautions/Isolations: Standard Precautions Referral Referring Physician: Dr. Tong Reason for Referral: Evaluation/Treatment Medical History Pertinent Medical History: Dementia, HTN, Parkinson's Current History The patient is a 66 year old male with a past medical history of cognitive impairment, schizophrenia, dementia, BPH, and HTN, who presented to [facility] with shortness of breath. The patient was found to have right lower lobe pneumonia. Reviewed History: Yes Speech PLF/Current-Dysphagia Prior Level of Function The patient currently resides at [facility]. Information regarding the patient's previous diet consistency was not received by this facility. Upon admission, the patient was provided a regular diet with thin liquids. Following admission, the treating RN's noticed swallowing difficulties and were able to downgrade his diet consistency to a pureed consistency with nectar-thick liquids and consulted speech language pathology. Subjective The patient was seated upright in bed, awake and alert on this date. The patient greeted the clinician appropriately and was agreeable to participation in the dysphagia evaluation. The patient has his breakfast tray present which consisted of pureed peaches, pureed sausage, pureed waffle, pureed eggs, nectar-thick orange juice, and nectar-thick milk. Cognitive Status Patient Orientation: Person Oral Motor Skills Dentition: Natural Current Food Consistancy: Pureed, [place] Liquids Ability to Follow Directions: Fair Oral Expression Ability: Moderate Impairment Voice Voice Phonatory-Based Quality: Weak Voice Loudness: Mildly Soft/Quiet Face Facial Symmetry: Asymmetrical (Slight weakness was noted on the left labial/facial side. ) Oral-Facial Assessment Oral-Facial Dentition: Normal Labial Seal Description: Weak Puff Cheeks: Reduced Strength Lingual Strength: Abnormal (Weak) Volitional Dry Swallow: No Voluntary Cough: No Can Clear Throat Volitionally: No Productive Cough: Yes Productive Throat Clear: Yes Dysphagia Evaluation Consistencies Presented: Thin Liquid, [place] Thick Liquid, Pureed Oral Phase: Anterior Spillage, Reduced Oral Transit Pharyngeal Phase: Decreased A/P Bolus Transit, Multiple Swallow Attempts, Reduced Laryngeal Elevation, Delayed Swallow Funct. Velo/Pharyngeal Symptom: Cough After Swallow Dietary Recommendations: Pureed Liquid Recommendations: [place] Consistancy Recommendations: - Dysphagia one (Pureed) diet consistency with mildly thick (NECTAR) liquid, as tolerated. - Fully upright and alert for PO intake. - 1:1 feeding (staff or caregiver) necessary for supervision and safety. - Small, single bites and sips, only. - Frequent and excellent oral care to reduce the transfer of oral bacteria to the lungs should aspiration of secretions occur. - Monitor for s/s of suspected aspiration with PO intake. If demonstrated, place the patient NPO and contact speech pathology. - Speech pathology to assess diet tolerance two to three times per week or as appropriate. Swallowing Precautions: Small Bites and Sips, Sitting 90 Degrees 30 Post Intake Dysphagia Evaluation Summary The patient was presented with pureed items and nectar-thick liquids from the present breakfast tray. The patient consumed one pureed waffle, two pureed sausage links, pureed peaches, four ounces of nectar-thick orange juice via straw, and two (large, consecutive straw drinks) of thin liquid via straw. All items were presented by the clinician. Initially, the patient was provided a larger piece of waffle (with syrup and butter) and displayed an immediate cough following the swallow. The waffle piece was cut smaller by the clinician which eliminated s/s of suspected aspiration with the remaining waffle. No s/s of suspected aspiration were displayed with the waffle, the two sausage links, the peaches, or the nectar-thick orange juice. The patient does display poor oral coordination, demonstrating phasic mastication and prolonged anterior to posterior transfer. Regardless of clinician cueing, the patient consistently consumed multiple, large consecutive straw drinks of nectar-thick liquid. The patient was challenged with thin liquids following the meal. Anterior spillage was immediately noticed, as well as, an immediate throat clear following the swallow. Multiple swallows were displayed per bolus, as well as, an effortful/audible swallow. Due to the decreased oral coordination and throat clearing displayed, the clinician continues to recommended nectar-thick liquids at this time. Barriers to Learning The patient's current level of cognitive ability/function. Speech Short Term Goals Short Term Goals Short Term Goals 1. The patient and staff will display safe swallowing strategies with 90% accuracy. Speech Subway Operator Goals Subway Operator Goals 1. The patient will tolerate the least restrictive diet without s/s of suspected aspiration with 90% accuracy. Speech-Plan Treatment Plan Speech Therapy Treatment Plan: Continue Plan of Care Treatment Duration: Sep 16, 2021 Frequency: 2 times per week Estimated Hrs Per Day: .25 hour per day Rehab Potential: Poor Safety Risks/Education Teaching Recipient: Patient Teaching Methods: Discussion Response to Teaching: Unable to Comprehend Education Topics Provided: Plan of Care, Safe Swallowing Strategies Time Speech Therapy Time In: 08:29 Speech Therapy Time Out: 09:00 Total Billed Time: 31 Billed Treatment Time 1, DANIEL WAGNER Sep 09, 2021 09:00
--- NOTE | 2021-09-09 09:41 | Occupational Therapy Eval ---
OT Evaluation-General/PLF Medical Diagnosis Admission Date Sep 05, 2021 at 13:55 Medical Diagnosis: Hypoxia Onset Date: Sep 05, 2021 Therapy Diagnosis Therapy Diagnosis: decreased ADL status Height/Weight Height (Feet): 6 Height (Inches): 1.00 Weight (Pounds): 154 Weight (Ounces): 0.0 Precautions Precautions/Isolations: Standard Precautions Referral Physician: Sanjay Referral Reason: Evaluation/Treatment Medical History Pertinent Medical History: Dementia, HTN, Parkinson's Additional Medical History cognitive impairments, schizophrenia, dementia, BPH, HTN, scoliosis Current History Present with [facility]B from [facility], found to be hypoxic Social History Home: Assisted Living ADL-Prior Level of Function SCALE: Activities may be completed with or without assistive devices. 2-Bcjzvbygas-xhkscoy completes the activity by him/herself with no assistance from a helper. 5-Set-up or Clean-up Assistance-helper sets up or cleans up; patient completes activity. [place] assists only prior to or following the activity. 4-Supervision or Touching Assistance-helper provides verbal cues and/or touching/steadying and/or contact guard assistance as patient completes activity. Assistance may be provided throughout the activity or intermittently. 3-Partial/Moderate Assistance-helper does LESS THAN HALF the effort. [place] l ifts, holds or supports trunk or limbs, but provides less than half the effort. 2-Substantial/Maximal Assistance-helper does MORE THAN HALF the effort. [place] lifts or holds trunk or limbs and provides more than half the effort. 8-Tbpfeqocx-yrwkzn does ALL the effort. Patient does none of the effort to complete the activity. Or, the assistance of 2 or more helpers is required for t he patient to complete the activity. If activity was not attempted, code reason: 7-Patient Refused. 9-Not Applicable-not attempted and the patient did not perform the activity before the current illness, exacerbation or injury. 10-Not Attempted due to Environmental Limitations-(lack of equipment, weather restraints, etc.). 88-Not Attempted due to Medical Conditions or Safety Concerns. ADL PLOF Comments Pt unable to provide information about PLOF. Self Care: Unknown Functional Cognition: Needed Some Help OT Current Status Subjective Pt in bed, eyes open. Pt able to answer some of OT's questions, pt kept asking for more sausage from his breakfast tray, but pt had already eaten all of the sausage. Mental Status/Objective Patient Orientation: Person, Confused Current Upper Extremity ROM decreased Upper Extremity Strength decreased ADL-Treatment Eating (QC): 2 (assist to get food off of plate and bring utensil to mouth. Pt able to close mouth around utensil and eat.) Lower Body Dressing (QC): 1 (Per clinical judgment.) On/Off Footwear (QC): 1 (Per clinical judgment.) Toileting Hygiene (QC): 1 (Per clinical judgment.) Other Treatments Pt in bed, requesting more sausage. OT brought a bite to pt's mouth. Pt asked for more, but there was no more sausage on his tray. OT handed pt wash cloth, pt instructed to wash his face, Mod A to wash entire face. Pt again asked for sausage, OT informed pt he didn't have any more, nursing staff aware of pt's request. Post tx, pt in bed, call light in reach and all needs met. Education OT Patient Education: Correct positioning, Modified ADL techniques, Progress toward Goal/Update tx plan, Rehab process Teaching Recipient: Patient Teaching Methods: Discussion Response to Teaching: Verbalize Understanding OT Legal Instructor Goals Detention Goals Time Frame: Sep 19, 2021 Eating (QC): 4 Oral Hygiene (QC): 4 Toileting Hygiene (QC): 3 Shower/Bathe Self (QC): 2 Upper Body Dressing (QC): 3 Lower Body Dressing (QC): 2 On/Off Footwear (QC): 2 Additional Goals: 1-Demonstrate ADL Tasks, 2-Verbalize Understanding, 3- ImproveStrength/Jordin 1=Demonstrate adherence to instructed precautions during ADL tasks. 2=Patient will verbalize/demonstrate understanding of assistive devices/modifications for ADL. 3=Patient will improve strength/tolerance for activity to enable patient to perform ADL's. OT Education/Plan Problem List/Assessment Assessment: Decreased Activ Tolerance, Decreased Safety Aware, Decreased UE Strength, Dependent Transfers, Impaired Bed Mobility, Impaired Cognition, Impaired Coordination, Impaired Funct Balance, Impaired I ADL's, Impaired Self- Care Skills, Restricted Funct UE ROM Discharge Recommendations Plan/Recommendations: Continue POC Treatment Plan/Plan of Care Patient would benefit from OT for education, treatment and training to promote independence in ADL's, mobility, safety and/or upper extremity function for ADL's. Plan of Care: ADL Retraining, Functional Mobility, UE Funct Exercise/Act Treatment Duration: Sep 19, 2021 Frequency: 3 times per week (3-5 times per week) Estimated Hrs Per Day: .25 hour per day Rehab Potential: Poor Time/GCodes Start Time: 08:50 Stop Time: 08:58 Total Time Billed (hr/min): 8 Billed Treatment Time 1, GEOVANNA PEÑA OT Sep 09, 2021 09:41
[2021-09-09] MEDS ORDERED: AMOX-358 PO (10:35)
--- NOTE | 2021-09-09 10:36 | Discharge Summary ---
Discharge Summary Hospital Course Was the Problem List Reviewed?: Yes Problems/Dx: (1) Sepsis due to pneumonia Status: Acute (2) DVT of right axillary vein, acute Status: Acute (3) Essential (primary) hypertension Status: Chronic (4) Dysphagia Status: Chronic Hospital Course Date of Admission: Sep 05, 2021 at 13:55 Admission Diagnosis : Family Physician/Provider: Bertram Chowdhury MD Date of Discharge: 09/09/21 Discharge Diagnosis: Aspiration pneumonia, sepsis, dysphagia, dementia, recent DVT on oral anticoagulation, acute hypoxic respiratory failure Hospital Course: Hospital course: Jorge is a 66yo M who came into the ER on 09/05/21 with swelling of his ankles, oxygen saturation in the 70% range, and a history of cough and fever. He had recently had a DVT on 08/05/21. Chest/thorax CT ruled out pulmonary embolism. Chest X-ray showed pneumonia. Patient met SIRS criteria with leukocytosis, tachypnea, and tachycardia. Patient admitted for sepsis due to pneumonia and was treated with IV Zosyn and it is recommended that he is switched to oral augmentin once discharged. WBC count was within normal range by 09/07/21. Had a swallow study done and met with speech therapy to assess for aspiraton risk. Due to the decreased oral coordination and throat clearing displayed, the clinician continued to recommended nectar-thick liquids at this time. Patient was needing assistance for all transfers and will be referred for home health occupational therapy and physical therapy. Upon discharge he will return to [facility]. SANDRINE NARANJO Sep 09, 2021 10:40 Labs and Pending Lab Test: Laboratory Tests 09/09/21 07:01: White Blood Count 6.0, Red Blood Count 3.52L, Hemoglobin 10.6L, Hematocrit 33L, Mean Corpuscular Volume 94, Mean Corpuscular Hemoglobin 30, Mean Corpuscular Hem oglobin Concent 32, Red Cell Distribution Width 14.0, Platelet Count 319, Mean Platelet Volume 9.5, Immature Granulocyte % (Auto) 1, Neutrophils (%) (Auto) 77H , Lymphocytes (%) (Auto) 12, Monocytes (%) (Auto) 9, Eosinophils (%) (Auto) 1, Basophils (%) (Auto) 1, Neutrophils # (Auto) 4.6, Lymphocytes # (Auto) 0.7L, Monocytes # (Auto) 0.5, Eosinophils # (Auto) 0.1, Basophils # (Auto) 0.0, Immature Granulocyte # (Auto) 0.1, Sodium Level 137, Potassium Level 3.7, Chloride Level 104, Carbon Dioxide Level 22, Anion Gap 11, Blood Urea Nitrogen 16, Creatinine 0.65, Estimat Glomerular Filtration Rate 103, BUN/Creatinine Ratio 25, Glucose Level 67L, Calcium Level 8.6, Corrected Calcium 9.2, Total Bilirubin 0.4, Aspartate Amino Transf (AST/SGOT) 9, Alanine Aminotransferase (ALT/SGPT) 11, Alkaline Phosphatase 45, Total Protein 6.3L, Albumin 3.2 Microbiology 09/05/21 Urine Culture - Final, Complete NO GROWTH 09/05/21 Blood Culture - Preliminary, Resulted No growth Home Meds Active Augmentin 875-125 Tablet (Amoxicillin/Potassium Clav) 1 Each Tablet 1 Each PO BID Reported Eliquis (Apixaban) 5 Mg Tablet 5 Mg PO BID Ondansetron HCl 4 Mg Tablet 4 Mg PO Q6H PRN Invega Sustenna (Paliperidone Palmitate) 156 Mg/1 Ml Syringe 156 Mg IM MONTHLY Levsin (Hyoscyamine Sulfate) 0.125 Mg Tablet 0.125 Mg PO DAILY Docusate Sodium 10 Mg/Ml Liquid 10 Ml PO BID Tramadol HCl 50 Mg Tablet 25 Mg PO DAILY PRN TAKES OF A 50MG TAB Milk of Magnesia (Magnesium Hydroxide) 2,400 Mg/10 Ml Oral.susp 30 Ml PO UD PRN Melatonin 3 Mg Tablet 9 Mg PO HS PRN TAKES 3 (3MG) TABS Triamcinolone Acetonide 0.1% Cream (Triamcinolone Acet) 15 Gm Cr 1 Applic TP DAILY PRN Bisacodyl 10 Mg Supp.rect 10 Mg RC PRN PRN Carrie-Christen (Sennosides) 8.6 Mg Tablet 17.2 Mg PO HS TAKES 2 (8.6MG) TABS Divalproex Sodium 125 Mg Cap.sprink 250 Mg PO BID TAKES 2 (125MG) CAPS Vitamin D3 (Cholecalciferol (Vitamin D3)) 50 Mcg Capsule 50 Mcg PO DAILY Ativan (Lorazepam) 0.5 Mg Tablet 0.5 Mg PO Q8H PRN Tylenol Extra Strength (Acetaminophen) 500 Mg Tablet 1,000 Mg PO TID Aspirin EC (Aspirin) 325 Mg Tablet.dr 325 Mg PO DAILY Gabapentin 100 Mg Capsule 200 Mg PO TID TAKES 2 (100MG) CAPS Potassium Chloride 20 Meq Tab.er.prt 20 Meq PO BID Metoprolol Succinate 25 Mg Tab.er.24h 12.5 Mg PO DAILY TAKES OF A 25MG TAB Flomax (Tamsulosin HCl) 0.4 Mg Cap 0.4 Mg PO HS Risedronate Sodium 150 Mg Tablet 150 Mg PO MONTHLY Hydrochlorothiazide 25 Mg Tablet 25 Mg PO DAILY HOLD OF SBP <100- NOTIFY NURSE Miralax (Polyethylene Glycol 3350) 17 Gm Powd.pack 17 Gm PO DAILY Assessment/Pt Instructions PCP in 2 weeks Discharge Planning: <30 minutes discharge planning Discharge Instructions Discharge Diet: Other Diet (pureed) Activity as Tolerated: Yes Discharge Physical Examination Vital Signs Vital Signs Date Time Temp Pulse Resp B/P (MAP) Pulse Ox O2 Delivery O2 Flow Rate FiO2 09/09/21 08:10 36.7 58 16 132/82 (99) 92 Room Air 09/07/21 23:06 1.00 General Appearance: No Apparent Distress, WD/WN, Chronically ill Respiratory: Lungs Clear Cardiovascular: Regular Rate, Rhythm Allergies: Coded Allergies: Sulfa (Sulfonamide Antibiotics) (Verified Allergy, Unknown, 05/24/20) Discharge Summary Date of Admission Sep 05, 2021 at 13:55 Date of Discharge Discharge Date: Sep 09, 2021 Admission Diagnosis Sepsis due to pneumonia Discharge Diagnosis Assessment: Speech therapy for dysphagia Hep-Lock IV fluid Supportive care Discharge tomorrow (1) Sepsis due to pneumonia Status: Acute (2) DVT of right axillary vein, acute Status: Acute (3) Essential (primary) hypertension Status: Chronic (4) Dysphagia Status: Chronic TOM PERALTA DO Sep 09, 2021 10:36
--- NOTE | 2021-09-09 10:36 | D/C HH Face to Face Order ---
D/C Face to Face Orders Reconcile Patient Problems Problems Reviewed?: Yes Instructions for Patient Via [facility], Patient Instructions/FollowUp: PCP 1 week Physician to follow Patient: PCP Discharge Diet for Home: other diet (pureed) Patient Problems: asp pna Patient Data-Allergies,Ht & Wt Patient Allergies: Coded Allergies: Sulfa (Sulfonamide Antibiotics) (Verified Allergy, Unknown, 05/24/20) Height (Feet): 6 Height (Inches): 1.00 Weight (Pounds): 154 Weight (Ounces): 0.0 Home Health Need/Face to Face Date of Face to Face: Sep 09, 2021 Clinical Findings: Instability, Muscle weakness, Shortness of breath I have seen Pt [id number]: Yes Discharged To: Home Diagnosis/Conditions: aspiration pna Patient is Homebound due to: Muscle weakness, Shortness of breath/distress Homebound Status Due to the above stated illness, injury or surgical procedure (medical condition or diagnosis) and associated clinical findings, the patient is homebound because of his/her inability to leave home except with aid of a supportive device and/or person AND leaving the home requires a considerable and taxing effort or is medically contraindicated. Pt req the following assistanc: [facility] Home Health Nursing Orders Home Health Services Order: [facility]-Evaluate & Treat, Physical Therapy-Evaluate & Treat, Speech Language-Evaluate & Treat Home Health Infusion Therapy Line Start Date: Sep 05, 2021 Certify Stmt I certify that this patient is under my care and that I, a nurse practitioner or a physician; a web production assistant working with me, had a face to face encounter that - meets the physician face to face encounter requirements with this patient as dated. TOM PERALTA DO Sep 09, 2021 10:35
--- NOTE | 2021-09-09 10:40 | Progress Note ---
SANDRINE NARANJO 09/09/21 1040: Progress Note Hospital course: Jorge is a 66yo M who came into the ER on 09/05/21 with swelling of his ankles, oxygen saturation in the 70% range, and a history of cough and fever. He had recently had a DVT on 08/05/21. Chest/thorax CT ruled out pulmonary embolism. Chest X-ray showed pneumonia. Patient met SIRS criteria with leukocytosis, tachypnea, and tachycardia. Patient admitted for sepsis due to pneumonia and was treated with IV Zosyn and it is recommended that he is switched to oral augmentin once discharged. WBC count was within normal range by 09/07/21. Had a swallow study done and met with speech therapy to assess for aspiraton risk. Due to the decreased oral coordination and throat clearing dis played, the clinician continued to recommended nectar-thick liquids at this time. Patient was needing assistance for all transfers and will be referred for home health occupational therapy and physical therapy. Upon discharge he will return to [facility]. CIELO PERALTA DO 09/10/21 0524: Supervisory-Addendum Brief Verification & Attestation Participated in pt care: history, MDM, physical Personally performed: exam, history, MDM, supervision of care Care discussed with: Medical Student Procedures: n/a Results interpretation: Verified all documentation Verification and Attestation of Medical Student E/M Service A medical student performed and documented this service in my presence. I reviewed and verified all information documented by the medical student and made modifications to such information, when appropriate. I personally performed the physical exam and medical decision making. Cielo Peralta Sep 10, 2021,05:24 SANDRINE NARANJO Sep 09, 2021 10:40 CIELO PERALTA DO Sep 10, 2021 05:24
[2021-09-09 12:11] VITALS: BP 116/66
== END 2021-09-09 14:15 | disposition home health service (06) | DRG 871 ==
LOC: EDUNIT# 11:11 → ER 11:16 → CSD 13:55 → 4TH 09-07 14:00
PROVIDERS: ADMIT Internal Medicine; ATTEND Internal Medicine
DX: A41.9 Sepsis, unspecified organism (principal); L89.223 Pressure ulcer of left hip, stage 3; J18.9 Pneumonia, unspecified organism; J69.0 Pneumonitis due to inhalation of food and vomit; J96.01 Acute respiratory failure with hypoxia; E46 Unspecified protein-calorie malnutrition; Z68.1 Body mass index [BMI] 19.9 or less, adult; Z66 Do not resuscitate; Z20.822 Contact with and (suspected) exposure to COVID-19; F72 Severe intellectual disabilities; F84.0 Autistic disorder; F20.2 Catatonic schizophrenia; I82.621 Acute embolism and thrombosis of deep veins of right upper extremity; R13.10 Dysphagia, unspecified; R41.89 Other symptoms and signs involving cognitive functions and awareness; G20 Parkinson's disease; F02.80 Dementia in other diseases classified elsewhere, unspecified severity, without behavioral disturbance, psychotic disturbance, mood disturbance, and anxiety; I10 Essential (primary) hypertension; F31.9 Bipolar disorder, unspecified; M40.209 Unspecified kyphosis, site unspecified; N40.0 Benign prostatic hyperplasia without lower urinary tract symptoms; R04.0 Epistaxis; Z86.16 Personal history of COVID-19; Z88.2 Allergy status to sulfonamides; Z79.01 Long term (current) use of anticoagulants; Z79.82 Long term (current) use of aspirin
CPT/HCPCS: 36415; 51702; 71045; 71275; 80048; 80053; 81000; 83605; 84145; 85007; 85025; 85027; 85610; 85730; 87040; 87088; 87636; 87804; 93005; 94640; 94760; 96361; 96365; 96375

== ENCOUNTER → 2021-09-16 | Outpatient (CLI) | payer MEDICARE, MEDICAID ==
[~2021-09-16] MED LIST changes: +AMOX-358 PO; +DOCU50LI PO; +HYOS0.1281 PO; +LORA2ORA PO; +MORP100S7 PO; +ONDA-105 PO; +PALI156D IM
== END ==
LOC: WOUNDCARE 11:01
PROVIDERS: ATTEND Family Medicine
DX: G82.21 Paraplegia, complete (principal); F03.90 Unspecified dementia, unspecified severity, without behavioral disturbance, psychotic disturbance, mood disturbance, and anxiety; E44.1 Mild protein-calorie malnutrition; L89.223 Pressure ulcer of left hip, stage 3; M62.81 Muscle weakness (generalized); F78.A9 Other genetic related intellectual disability; I96 Gangrene, not elsewhere classified
CPT/HCPCS: 11042; 97607; A6021; A9272; G0463

== ENCOUNTER 2021-09-17 10:44 | Inpatient (IN) | payer MEDICARE, MEDICAID ==
[~2021-09-17] VITALS: Ht 177 cm; Wt 54.9 kg
[~2021-09-17 10:44] MED LIST changes: -LORA2ORA PO; -MORP100S7 PO
[2021-09-17 10:58] VITALS: BP 122/90
[2021-09-17 11:04] LABS: ABG BASE EXCESS 1.1 MMOL/L (-2.5-2.5); ABG OXYGEN SATURATION 57 % (94-100); ABG PCO2 37 MMHG (35-45); ABG PH 7.44 (7.37-7.43); ABG TCO2 25.9 MMOL/L (21.0-31.0)
--- NOTE | 2021-09-17 11:04 | ED Respiratory ---
General Chief Complaint: Respiratory Problems Stated Complaint: SOB Nursing Triage Note: ARRIVED VIA EMS FROM [facility]. PT JUST DISCHARGED FROM HOSP WITH ASPIRATION PNEUMONIA. FOUND TODAY NOT WANTING TO WEAR HIS OXYGEN AND HIS PULSE OX WAS IN THE 50'S. PT ARRIVED VIA EMS ON A NON REBREATHER AT 15L ET PULSE OX 65% WITH A GOOD WAVEFORM. PT DOES NOT APPEAR IN DISTRESS. Source: EMS Exam Limitations: no limitations History of Present Illness Date Seen by Provider: Sep 17, 2021 Time Seen by Provider: 11:01 Initial Comments To ER by EMS from [facility] with reports of shortness of breath. Is found to be in the 40% range SPO2 with nonrebreather at 15 L. He was just discharged in the hospital after admission for right lower lobe pneumonia. He is [place] retarded, has dysphagia and had aspirated just last week. He is DO NOT RESUSCITATE status. Timing/Duration: constant Severity: moderate Prior Episodes/Possible Cause: no prior episodes Associated Symptoms: shortness of breath Allergies and Home Medications Allergies Coded Allergies: Sulfa (Sulfonamide Antibiotics) (Verified Allergy, Unknown, 05/24/20) Patient Home Medication List Home Medication List Reviewed: Yes Acetaminophen (Tylenol Extra Strength) 500 Mg Tablet, 1,000 MG PO TID, (Reported) Entered as Reported by: CLARA THORNE on 05/24/20 1555 Amoxicillin/Potassium Clav (Augmentin 875-125 Tablet) 1 Each Tablet, 1 EACH PO BID Prescribed by: TOM PERALTA on 09/09/21 1035 Apixaban (Eliquis) 5 Mg Tablet, 5 MG PO BID, (Reported) Entered as Reported by: CLARA THORNE on 09/08/21 1604 Aspirin (Aspirin EC) 325 Mg Tablet.dr, 325 MG PO DAILY, (Reported) Entered as Reported by: CLARA THORNE on 05/24/20 1555 Bisacodyl (Bisacodyl) 10 Mg Supp.rect, 10 MG RC PRN PRN for CONSTIPATION-4TH L INE, (Reported) Entered as Reported by: CLARA THORNE on 05/24/20 1559 Cholecalciferol (Vitamin D3) (Vitamin D3) 50 Mcg Capsule, 50 MCG PO DAILY, (Reported) Entered as Reported by: CLARA THORNE on 05/24/20 1555 Divalproex Sodium (Divalproex Sodium) 125 Mg Cap.sprink, 250 MG PO BID, (Reported) Entered as Reported by: CLARA THORNE on 05/24/201554 Docusate Sodium (Docusate Sodium) 10 Mg/Ml Liquid, 10 ML PO BID, (Reported) Entered as Reported by: CLARA THORNE on 09/08/211603 Gabapentin (Gabapentin) 100 Mg Capsule, 200 MG PO TID, (Reported) Entered as Reported by: WIN LEON on 10/30/19143 Hydrochlorothiazide (Hydrochlorothiazide) 25 Mg Tablet, 25 MG PO DAILY, (Reported) Entered as Reported by: CLEMENT NJ on 07/20/161819 Hyoscyamine Sulfate (Levsin) 0.125 Mg Tablet, 0.125 MG PO DAILY, (Reported) Entered as Reported by: CLARA THORNE on 09/08/211603 Lorazepam (Ativan) 0.5 Mg Tablet, 0.5 MG PO Q8H PRN for AGITATION, (Reported) Entered as Reported by: CLARA THORNE on 05/24/201554 Magnesium Hydroxide (Milk of Magnesia) 2,400 Mg/10 Ml Oral.susp, 30 ML PO UD PRN for CONSTIPATION-7TH LINE, (Reported) Entered as Reported by: CLARA THORNE on 05/24/201558 Melatonin (Melatonin) 3 Mg Tablet, 9 MG PO HS PRN for SLEEP, (Reported) Entered as Reported by: CLARA THORNE on 05/24/201558 Metoprolol Succinate (Metoprolol Succinate) 25 Mg Tab.er.24h, 12.5 MG PO DAILY, (Reported) Entered as Reported by: WIN LEON on 10/30/19143 Ondansetron HCl (Ondansetron HCl) 4 Mg Tablet, 4 MG PO Q6H PRN for NAUSEA/VOMITING-1ST LINE, (Reported) Entered as Reported by: CLARA THORNE on 09/08/211603 Paliperidone Palmitate (Invega Sustenna) 156 Mg/1 Ml Syringe, 156 MG IM MONTHLY, (Reported) Entered as Reported by: CLARA THORNE on 09/08/211603 Polyethylene Glycol 3350 (Miralax) 17 Gm Powd.pack, 17 GM PO DAILY, (Reported) Entered as Reported by: CLEMENT NJ on 07/20/16 1820 Potassium Chloride (Potassium Chloride) 20 Meq Tab.er.prt, 20 MEQ PO BID, (Reported) Entered as Reported by: WIN LEON on 10/30/19 014 Risedronate Sodium (Risedronate Sodium) 150 Mg Tablet, 150 MG PO MONTHLY, (Reported) Entered as Reported by: WIN LEON on 10/30/19 014 Sennosides (Carrie-Christen) 8.6 Mg Tablet, 17.2 MG PO HS, (Reported) Entered as Reported by: CLARA THORNE on 05/24/20 155 Tamsulosin HCl (Flomax) 0.4 Mg Cap, 0.4 MG PO HS, (Reported) Entered as Reported by: WIN LEON on 10/30/19143 Tramadol HCl (Tramadol HCl) 50 Mg Tablet, 25 MG PO DAILY PRN for PAIN-MODERATE (5-7), (Reported) Entered as Reported by: CLARA THORNE on 05/24/201558 Triamcinolone Acet (Triamcinolone Acetonide 0.1% Cream) 15 Gm Cr, 1 APPLIC TP DAILY PRN for SKIN IRRITATION, (Reported) Entered as Reported by: CLARA THORNE on 05/24/20 155 Review of Systems Review of Systems Constitutional: see HPI, other (Able to obtain due to developmental delays) EENTM: see HPI Respiratory: no symptoms reported Past Xcikbvt-Xmxxor-Xdrqxt Hx Immunizations Up To Date Tetanus Booster (TDap): Less than 5yrs PED Vaccines UTD: No First/Initial COVID19 Vaccinat: 2020 Second COVID19 Vaccination Arnold: 2020 Seasonal Allergies Seasonal Allergies: No Past Medical History Surgery/Hospitalization HX: AUTISM, DEMENTIA, PARKINSONS, HTN, BIPOLAR THYROIDECTOMY Surgeries: Yes Thyroidectomy Respiratory: Yes (COVID-19 05/24/2020--ON VAPOTHERM) Cardiac: Yes Hypertension Neurological: Yes (EPS FROM MEDICATIONS;MILD MR; ADVANCED DEMENTIA; CATATONIC SCHIZOPHRENIA) Dementia, Developmental Disorder, Parkinson's Disease Reproductive Disorders: No Genitourinary: Yes (RENAL INSUFFICIENCY) Benign Prostatic Hyperpl Gastrointestinal: Yes Chronic Constipation Musculoskeletal: Yes (KYPHOSIS;OSTEOPENIA; USES WALKER) Scoliosis, Chronic Back Pain Endocrine: No HEENT: No Cancer: No Psychosocial: Yes (MILD MR) Anxiety, Bipolar, Personality Disorder, Schizophrenia, Depression Integumentary: Yes (PRESSURE SORE LEFT HEEL) Blood Disorders: No Family Medical History No Pertinent Family Hx PT IS DNR Physical Exam Vital Signs - First Documented 09/17/21 09/17/21 10:44 10:58 Temp 36.3 Pulse 117 Resp 18 B/P (MAP) 122/90 (101) Pulse Ox 65 O2 Delivery Non Rebreather O2 Flow Rate 100.00 Capillary Refill : Less Than 3 Seconds Height: 6'1.00" Weight: 154lbs. 0.0oz. [id number]; 21.00 BMI Method:Stated General Appearance: WD/WN, no apparent distress, thin, other (Chronically ill moderate distress SPO2 46% on 15 L nonrebreather. He was put on BiPAP at 100% 07/07 with SPO2 at 73%. Blood pressure 122/90, heart rate 112. Respiratory rate 36. Lung sounds are diminished.) Eyes: Bilateral Eye Normal Inspection, Bilateral Eye PERRL, Bilateral Eye EOMI Respiratory: chest non-tender, no respiratory distress, no accessory muscle use Gastrointestinal: normal bowel sounds, non tender, soft Neurologic/Psychiatric: alert, normal mood/affect, oriented x 3 Skin: normal color, warm/dry Progress/Results/Core Measures Suspected Sepsis SIRS Temperature: Pulse: 117 Respiratory Rate: 18 Blood Pressure 122 /90 Mean: 101 Results/Orders Lab Results Laboratory Tests Test 09/17/21 10:56 09/17/21 11:07 Range/Units Blood Gas Puncture Site LT RADIAL Blood Gas Patient Temperature 37 Arterial Blood pH 7.44 H 7.37-7.43 Arterial Blood Partial Pressure CO2 37 35-45 MMHG Arterial Blood Partial Pressure O2 32 *L 79-93 MMHG Arterial Blood HCO3 25 23-27 MMOL/L Arterial Blood Total CO2 25.9 21.0-31.0 MMOL/L Arterial Blood Oxygen Saturation 57 L 94-100 % Arterial Blood Base Excess 1.1 -2.5-2.5 MMOL/L Tremayne Test YES-POS Blood Gas Ventilator Setting NO Blood Gas Inspired Oxygen 15% Influenza Type A (RT-PCR) Not Detected Not Detecte Influenza Type B (RT-PCR) Not Detected Not Detecte SARS-CoV-2 RNA (RT-PCR) Not Detected Not Detecte My Orders Orders - JASMINA ZAVALA APRN Arterial Blood Gas (09/17/21 10:59) Morphine Injection (Morphine Injection (2/16/22 11:15) Lorazepam Injection (Ativan Injection) (09/17/21 11:15) Piperacillin Sodium/Tazobactam (Zosyn Vi (09/17/21 11:30) Palliative Care Consult (09/17/21 11:20) Lorazepam Injection (Ativan Injection) (09/17/21 11:45) Morphine Injection (Morphine Injection (09/17/21 11:41) Medications Given in ED Current Medications Medications Dose Ordered Sig/Bakari Route Start Time Stop Time Status Last Admin Dose Admin Lorazepam 0.5 mg ONCE PRN IVP 09/17/21 11:45 09/17/21 11:17 0.5 MG Vital Signs/I&O 09/17/21 09/17/21 10:44 10:58 Temp 36.3 Pulse 117 112 Resp 18 38 B/P (MAP) 122/90 (101) Pulse Ox 65 71 O2 Delivery Non Rebreather O2 Flow Rate 100.00 Capillary Refill : Less Than 3 Seconds Blood Pressure Mean: 101 Departure Communication (Admissions) NAME: PATRICK SANTOS [facility] REC#: [id number] PT STATUS: REG ER : 1955 PHYSICIAN: PETER MICHEL MD ADMIT DATE: 09/17/21/ER Draft Date of Exam:09/17/21 CHEST 1 VIEW, AP/PA ONLY INDICATION: Chest pain. COMPARISON: 09/05/2021. TECHNIQUE: Single radiograph of the chest dated 09/17/2021. FINDINGS: Size of the cardiac silhouette appears stable although is partially obscured. No significant pulmonary vascular congestion although the right-sided pulmonary vasculature is obscured. Extensive opacification is noted involving the right hemithorax, significantly worsened since the prior examination. There is resulting worsening volume loss with worsening rightward shift of the mediastinum. The left lung is clear of focal pulmonary opacity. No left-sided pleural effusion. No pneumothorax. Osseous structures appear stable without acute osseous abnormality. IMPRESSION: Significantly worsened and extensive opacification of the right hemithorax with worsening volume loss and mediastinal shift. This is felt to relate to worsening infiltrate and atelectasis. A component of aspiration could be present. Dictated on workstation # [id number] Plan 1103-Spoke with the patient's brother Reilly and advised him that I think that Patrick is actively dying and he should come visit him. He will be in shortly to see him. 1122-Reilly is here, patient is grabbing at his BiPAP mask. I asked him if he wanted it off and he states yes. We took it off and put him on nonrebreather at 15 L. That has him at 78%, consistent with what has been up to this point. We gave 0.5 mg lorazepam and 2 mg IV morphine. Brother is at the bedside. Agrees we should keep him comfortable. I showed the brother the chest x-ray with the right sided pneumonia. 1203-he is still on the nonrebreather at 15 L with SPO2 of 77% heart rate 116. He is more calm after the Ativan and morphine. Brother at the bedside. Updated him and he is in agreement with comfort care measures. He states if we thought there was any chance of recovery he would be all for aggressive measures. However I do not think that is possible given that he was maxed out on BiPAP and only saturating 80%. He is also freshly out of the hospital and is already significantly worsened. Comfort measures are in his best interest and we have paperwork on file with DO NOT RESUSCITATE status. Discussed with brother that I would be very surprised if he Patrick is with us in a few days. We will have Gt from palliative care visit with brother. Impression Primary Impression: Respiratory failure Additional Impressions: Hypoxia Pneumonia Disposition: ADMITTED INPATIENT Condition: Critical Admissions Decision to Admit Reason: Admit from ER (General) Decision to Admit/Date: Sep 17, 2021 Time/Decision to Admit Time: 11:03 Departure-Patient Inst. Referrals: CYN JARAMILLO MD (PCP/Family) Primary Care Physician JASMINA ZAVALA APRN Sep 17, 2021 11:04
[2021-09-17 11:06] LABS: ALLENS TEST YES-POS; PATIENT TEMP 37; VENTILATOR NO
[2021-09-17 11:07] LABS: ABG PO2 32 MMHG (79-93)
[2021-09-17] MEDS ORDERED: LORazepam INJ 2 MG/ML (ATIVAN) VIAL ONE (11:15)
[2021-09-17] MEDS ORDERED: morphine INJ 10 MG/ML 1ML (SYR OR VIAL) ONE (11:15)
[2021-09-17] MEDS ORDERED: PIPERACILLIN SODIUM/TAZOBACTAM 4.5 GM in NS (IVPB) 100 ML IV ONE (11:30)
[2021-09-17] MEDS ORDERED: morphine INJ 10 MG/ML 1ML (SYR OR VIAL) IVP STA (11:41)
[2021-09-17] MEDS ORDERED: LORazepam INJ 2 MG/ML (ATIVAN) VIAL IVP PRN ×2 (11:45→12:45)
--- NOTE | 2021-09-17 11:51 | Diagnostic Imaging Report ---
INDICATION: Chest pain. COMPARISON: 09/05/2021. TECHNIQUE: Single radiograph of the chest dated 09/17/2021. FINDINGS: Size of the cardiac silhouette appears stable although is partially obscured. No significant pulmonary vascular congestion although the right-sided pulmonary vasculature is obscured. Extensive opacification is noted involving the right hemithorax, significantly worsened since the prior examination. There is resulting worsening volume loss with worsening rightward shift of the mediastinum. The left lung is clear of focal pulmonary opacity. No left-sided pleural effusion. No pneumothorax. Osseous structures appear stable without acute osseous abnormality. IMPRESSION: Significantly worsened and extensive opacification of the right hemithorax with worsening volume loss and mediastinal shift. This is felt to relate to worsening infiltrate and atelectasis. A component of aspiration could be present. Dictated by: Dictated on workstation # [id number]
[2021-09-17 12:01] LABS: BASOPHILS # (AUTO) 0.1 10^3/uL (0.0-0.1); BASOPHILS % (AUTO) 0 % (0-10); EOSINOPHILS % (AUTO) 0 % (0-10); HEMATOCRIT 41 % (40-54); HEMOGLOBIN 13.1 g/dL (13.3-17.7); LYMPHOCYTES # (AUTO) 0.6 10^3/uL (1.0-4.0); LYMPHOCYTES % (AUTO) 3 % (12-44); MEAN CORPUSCULAR HEMOGLOBIN 30 pg (25-34); MEAN CORPUSCULAR HGB CONC 32 g/dL (32-36); MEAN CORPUSCULAR VOLUME 95 fL (80-99); MEAN PLATELET VOLUME 9.5 fL (9.0-12.2); MONOCYTES # (AUTO) 0.8 10^3/uL (0.0-1.0); MONOCYTES % (AUTO) 3 % (0-12); NEUTROPHILS # (AUTO) 21.6 10^3/uL (1.8-7.8); NEUTROPHILS % (AUTO) 93 % (42-75); PLATELET COUNT 427 10^3/uL (130-400); WHITE BLOOD COUNT 23.2 10^3/uL (4.3-11.0)
[2021-09-17 12:18] LABS: ALBUMIN 3.9 GM/DL (3.2-4.5); POTASSIUM 4.2 MMOL/L (3.6-5.0)
[2021-09-17 12:20] LABS: CALCIUM 9.2 MG/DL (8.5-10.1)
[2021-09-17 12:21] LABS: TOTAL PROTEIN 7.1 GM/DL (6.4-8.2)
[2021-09-17 12:23] LABS: BILIRUBIN,TOTAL 0.3 MG/DL (0.1-1.0)
[2021-09-17 12:24] LABS: CREATININE SERUM 0.85 MG/DL (0.60-1.30); INR 1.1 (0.8-1.4)
[2021-09-17 12:27] LABS: MAGNESIUM 1.8 MG/DL (1.6-2.4)
[2021-09-17 12:28] LABS: BAND NEUTROPHILS 3 %; EOSINOPHILS % (MANUAL) 0 %; LYMPHOCYTES % (MANUAL) 2 %; MONOCYTES % (MANUAL) 2 %; NEUTROPHILS % (MANUAL) 93 %
[2021-09-17 12:29] LABS: BASOPHILS % (MANUAL) 0 %; RBC MORPH NORMAL
[2021-09-17] MEDS ORDERED: CATHETER FLUSH 10 ML SYR IV PRN (12:45)
[2021-09-17] MEDS ORDERED: SALIVA STIMULANT MOUTH SPRAY (BIOTENE) 1.5 OZ MM PRN (12:45)
[2021-09-17] MEDS ORDERED: PROMETHAZINE INJ 25 MG/ML (PHENERGAN) AMP IVP PRN (12:45)
[2021-09-17] MEDS ORDERED: ARTIFICAL TEARS 0.4 ML UNIT DOSE (REFRESH PLUS) OU PRN (12:45)
[2021-09-17] MEDS ORDERED: ONDANSETRON 4 MG/2 ML (SDV) Z0FRAN IVP PRN (12:45)
[2021-09-17] MEDS ORDERED: BISACODYL 10 MG SUPP (DULCOLAX) PR PRN (12:45)
[2021-09-17] MEDS ORDERED: GLYCOPYRROLATE 0.2 MG/ML (ROBINUL) 2 ML VIAL IV PRN (12:45)
[2021-09-17] MEDS ORDERED: RT-ALBUTEROL/IPRATROPIUM 3 ML (DUONEB) VIAL INH PRN (12:45)
[2021-09-17] MEDS ORDERED: ACETAMINOPHEN 650 MG SUPP (TYLENOL) PR PRN (12:45)
[2021-09-17 12:52] VITALS: BP 122/90
[2021-09-17] MEDS ORDERED: SCOPOLAMINE 1.5 MG (TRANSDERM-SCOP) PATCH TOP SCH (13:00)
[2021-09-17] MEDS: CATHETER FLUSH 10 ML SYR IV SCH ×2 (13:02→22:38)
[2021-09-17] MEDS ORDERED: morphine INJ 10 MG/ML 1ML (SYR OR VIAL) IVP PRN (14:30)
[2021-09-17] MEDS: morphine INJ 4 MG/ML 1 ML (VIAL/SYRINGE) IV PRN ×2 (14:58→17:13)
--- NOTE | 2021-09-17 21:17 | History & Physical-Hospitalist ---
History of Present Illness HPI/Chief Complaint Jorge Esquivel is a 66 year old male with PMH cognitive impairment, schizophrenia, dementia, BPH, HTN, who presented with shortness of breath. He lives at [facility]. He is unable to provide any history. He was found to be hypoxic. He has been hospitalized recently with aspiration pneumonia. He was thought to have aspirated again at this time. He was profoundly hypoxic on arrival. He was placed on BiPAP but his oxygen saturations did not improve sufficiently. His brother was contacted and the decision was made to forego intubation and to proceed with comfort measures only. Source: RN/MD Exam Limitations: clinical condition Date Seen 09/17/21 Time Seen by a Provider: 13:00 Attending Physician Desmond Tong MD PCP Bertram Chowdhury MD Referring Physician Date of Admission Sep 17, 2021 at 11:47 Home Medications & Allergies Home Medications Reviewed patient Home Medication Reconciliation performed by pharmacy medication reconciliations sheet metal technician and/or nursing. Patients Allergies have been reviewed. Allergies Allergies Coded Allergies Sulfa (Sulfonamide Antibiotics) (Verified Allergy, Unknown, 05/24/20) Past Gsiaxvb-Upgcfc-Vlocmm Hx Patient Social History Tobacco Use?: No Use of E-Cig and/or Vaping dev: No Substance use?: No Alcohol Use?: No Pt feels they are or have been: No Immunizations Up To Date Date of Influenza Vaccine: May 02, 2021 First/Initial COVID19 Vaccinat: 2020 Second COVID19 Vaccination Arnold: 2020 Tetanus Booster (TDap): Unknown PED Vaccines UTD: No Seasonal Allergies Seasonal Allergies: No Current Status Advance Directives: Yes Advance Directive Location: at facility Communicates: Does Not Communicate Primary Language: Fijian Preferred Spoken Language: Fijian Past Medical History Surgeries: Thyroidectomy Hypertension Dementia, Developmental Disorder, Parkinson's Disease Benign Prostatic Hyperpl Chronic Constipation Scoliosis, Chronic Back Pain Anxiety, Bipolar, Personality Disorder, Schizophrenia, Depression Blood Disorders: No Family Medical History No Pertinent Family Hx PT IS DNR Review of Systems Constitutional: see HPI Physical Exam Physical Exam Vital Signs Vital Signs - First Documented 09/17/21 10:44 Temp 36.3 Pulse 117 Resp 18 B/P (MAP) 122/90 (101) Pulse Ox 65 O2 Delivery Non Rebreather O2 Flow Rate 15.00 Capillary Refill : Less Than 3 Seconds Height, Weight, BMI Height: 6'1.00" Weight: 154lbs. 0.0oz. 69.724512ek; 17.52 BMI Method:Stated General Appearance: Anxious, Chronically ill, Mild Distress (uncomfortable, pulling at mask), Thin Respiratory: Decreased Breath Sounds, Respiratory Distress (tachypnea), Rhonci Cardiovascular: No Murmur, Tachycardia Gastrointestinal: Normal Bowel Sounds, Soft Extremity: Normal Inspection, No Pedal Edema Neurologic/Psychiatric: Alert, Aphasia, Disoriented Skin: Normal Color, Warm/Dry Results Results/Procedures Labs Laboratory Tests 09/17/21 11:55 Patient resulted labs reviewed. Imaging: Reviewed Imaging Report Assessment/Plan Admission Diagnosis Acute respiratory failure with hypoxia Admission Status: Inpatient Order (span 2 midnights) Reason for Inpatient Admission: Respiratory failure Assessment and Plan Acute respiratory failure with hypoxia Aspiration pneumonia Comfort measures only status Profoundly hypoxic on arrival No improvement with BiPAP Brother decided against intubation Comfort measures only Palliative care consulted Dementia Schizophrenia Cognitive impairment HTN BPH DVT Diagnosis/Problems Diagnosis/Problems (1) Comfort measures only status Status: Acute (2) Acute respiratory failure with hypoxia Status: Acute (3) Aspiration pneumonia Status: Acute (4) Cognitive impairment Status: Chronic (5) Schizophrenia Status: Chronic (6) Advanced dementia Status: Chronic (7) DVT of right axillary vein, acute Status: Chronic (8) HTN (hypertension) Status: Chronic (9) BPH (benign prostatic hyperplasia) Status: Chronic DESMOND TONG MD Sep 17, 2021 21:17
[2021-09-18] MEDS: CATHETER FLUSH 10 ML SYR IV SCH (06:54)
[2021-09-18] MEDS: morphine INJ 4 MG/ML 1 ML (VIAL/SYRINGE) IV PRN (09:36)
[2021-09-18] MEDS ORDERED: MORP100S7 PO ×2 (09:52)
[2021-09-18] MEDS ORDERED: LORA2ORA PO ×2 (09:52)
--- NOTE | 2021-09-18 09:58 | Discharge Summary ---
Discharge Summary Hospital Course Was the Problem List Reviewed?: Yes Problems/Dx: (1) Comfort measures only status Status: Acute (2) Acute respiratory failure with hypoxia Status: Acute (3) Aspiration pneumonia Status: Acute (4) Cognitive impairment Status: Chronic (5) Schizophrenia Status: Chronic (6) Advanced dementia Status: Chronic (7) DVT of right axillary vein, acute Status: Chronic (8) HTN (hypertension) Status: Chronic (9) BPH (benign prostatic hyperplasia) Status: Chronic Hospital Course Date of Admission: Sep 17, 2021 at 11:47 Admission Diagnosis : Acute respiratory failure with hypoxia due to recurrent aspiration pneumonia Family Physician/Provider: Cyn Jaramillo MD Date of Discharge: 09/18/21 Discharge Diagnosis: Acute respiratory failure with hypoxia due to recurrent aspiration pneumonia, comfort measures only status Hospital Course: Jorge Esquivel is a 66 year old male with H cognitive impairment, dementia, schizophrenia, dysphagia with recurrent aspiration, who presented with aspiration and was admitted with acute respiratory failure. He remained hypoxic despite BiPAP. After a discussion with his brother, the decision was made to transition to comfort measures only status. He was discharged back to [facility] on hospice with Pancho Canela. Labs and Pending Lab Test: Laboratory Tests 09/17/21 10:56: Blood Gas Puncture Site LT RADIAL, Blood Gas Patient Temperature 37, Arterial Blood pH 7.44H, Arterial Blood Partial Pressure CO2 37, Arterial Blood Partial Pressure O2 32*L, Arterial Blood HCO3 25, Arterial Blood Total CO2 25.9, Arterial Blood Oxygen Saturation 57L, Arterial Blood Base Excess 1.1, Tremayne Test YES-POS, Blood Gas Ventilator Setting NO, Blood Gas Inspired Oxygen 15% 09/17/21 11:07: Influenza Type A (RT-PCR) Not Detected, Influenza Type B (RT-PCR) Not Detected, SARS-CoV-2 RNA (RT-PCR) Not Detected 09/17/21 11:55: White Blood Count 23.2H, Red Blood Count 4.32, Hemoglobin 13.1L, Hematocrit 41, Mean Corpuscular Volume 95, Mean Corpuscular Hemoglobin 30, Mean Corpuscular Hemoglobin Concent 32, Red Cell Distribution Width 14.5, Platelet Count 427H, Mean Platelet Volume 9.5, Immature Granulocyte % (Auto) 1, Neutrophils (%) (Auto) 93H, Lymphocytes (%) (Auto) 3L, Monocytes (%) (Auto) 3, Eosinophils (%) (Auto) 0, Basophils (%) (Auto) 0, Neutrophils # (Auto) 21.6H, Lymphocytes # (Auto) 0.6L, Monocytes # (Auto) 0.8, Eosinophils # (Auto) 0.0, Basophils # (Auto) 0.1, Immature Granulocyte # (Auto) 0.2H, Neutrophils % (Manual) 93, Lymphocytes % (Manual) 2, Monocytes % (Manual) 2, Eosinophils % (Manual) 0, Basophils % (Manual) 0, Band Neutrophils 3, Blood Morphology Comment NORMAL, Prothrombin Time 15.0H, INR Comment 1.1, Activated Partial Thromboplast Time 39H , Sodium Level 140, Potassium Level 4.2, Chloride Level 102, Carbon Dioxide Level 23, Anion Gap 15H, Blood Urea Nitrogen 29H, Creatinine 0.85, Estimat Glomerular Filtration Rate 95, BUN/Creatinine Ratio 34, Glucose Level 104, Calcium Level 9.2, Corrected Calcium 9.3, Magnesium Level 1.8, Total Bilirubin 0.3, Aspartate Amino Transf (AST/SGOT) 7, Alanine Aminotransferase (ALT/SGPT) 9, Alkaline Phosphatase 65, Troponin I < 0.028, B-Type Natriuretic Peptide 32.6, Total Protein 7.1, Albumin 3.9 Home Meds Active Lorazepam Intensol (Lorazepam) 2 Mg/1 Ml Oral.conc 2 Mg PO Q2H PRN Morphine Conc. 20mg/ml (Morphine Sulfate) 100 Mg/5 Ml Solution 10 Mg PO Q2H PRN 7 Days Augmentin 875-125 Tablet (Amoxicillin/Potassium Clav) 1 Each Tablet 1 Each PO B ID Reported Eliquis (Apixaban) 5 Mg Tablet 5 Mg PO BID Ondansetron HCl 4 Mg Tablet 4 Mg PO Q6H PRN Invega Sustenna (Paliperidone Palmitate) 156 Mg/1 Ml Syringe 156 Mg IM MONTHLY Levsin (Hyoscyamine Sulfate) 0.125 Mg Tablet 0.125 Mg PO DAILY Docusate Sodium 10 Mg/Ml Liquid 10 Ml PO BID Tramadol HCl 50 Mg Tablet 25 Mg PO DAILY PRN TAKES OF A 50MG TAB Milk of Magnesia (Magnesium Hydroxide) 2,400 Mg/10 Ml Oral.susp 30 Ml PO UD PRN Melatonin 3 Mg Tablet 9 Mg PO HS PRN TAKES 3 (3MG) TABS Triamcinolone Acetonide 0.1% Cream (Triamcinolone Acet) 15 Gm Cr 1 Applic TP DAILY PRN Bisacodyl 10 Mg Supp.rect 10 Mg RC PRN PRN Carrie-Christen (Sennosides) 8.6 Mg Tablet 17.2 Mg PO HS TAKES 2 (8.6MG) TABS Divalproex Sodium 125 Mg Cap.sprink 250 Mg PO BID TAKES 2 (125MG) CAPS Vitamin D3 (Cholecalciferol (Vitamin D3)) 50 Mcg Capsule 50 Mcg PO DAILY Ativan (Lorazepam) 0.5 Mg Tablet 0.5 Mg PO Q8H PRN Tylenol Extra Strength (Acetaminophen) 500 Mg Tablet 1,000 Mg PO TID Aspirin EC (Aspirin) 325 Mg Tablet.dr 325 Mg PO DAILY Gabapentin 100 Mg Capsule 200 Mg PO TID TAKES 2 (100MG) CAPS Potassium Chloride 20 Meq Tab.er.prt 20 Meq PO BID Metoprolol Succinate 25 Mg Tab.er.24h 12.5 Mg PO DAILY TAKES OF A 25MG TAB Flomax (Tamsulosin HCl) 0.4 Mg Cap 0.4 Mg PO HS Risedronate Sodium 150 Mg Tablet 150 Mg PO MONTHLY Hydrochlorothiazide 25 Mg Tablet 25 Mg PO DAILY HOLD OF SBP <100- NOTIFY NURSE Miralax (Polyethylene Glycol 3350) 17 Gm Powd.pack 17 Gm PO DAILY Assessment/Pt Instructions Patient discharged on hospice Discharge Planning: <30 minutes discharge planning Discharge Instructions Discharge Diet: No Restrictions Activity as Tolerated: Yes Discharge Physical Examination Vital Signs Vital Signs Date Time Temp Pulse Resp B/P (MAP) Pulse Ox O2 Delivery O2 Flow Rate FiO2 09/18/21 08:00 Nasal Cannula 2.00 09/17/21 12:52 12 122/90 74 09/17/21 10:58 112 09/17/21 10:44 36.3 General Appearance: No Apparent Distress, Chronically ill, Thin Respiratory: No Respiratory Distress, Rhonci Cardiovascular: No Murmur, Tachycardia Gastrointestinal: Normal Bowel Sounds, Soft Extremity: Normal Inspection, No Pedal Edema Skin: Normal Color, Warm/Dry Neurologic/Psychiatric: Alert, Aphasia Allergies: Coded Allergies: Sulfa (Sulfonamide Antibiotics) (Verified Allergy, Unknown, 05/24/20) Copy Copies To 1: CYN JARAMILLO MD Discharge Summary Date of Admission Sep 17, 2021 at 11:47 Date of Discharge Discharge Date: Sep 18, 2021 Discharge Time: 09:10 Admission Diagnosis Acute respiratory failure with hypoxia Comfort Measures/ End of Life Care: Comfort Measures Discharge Diagnosis Acute respiratory failure with hypoxia Aspiration pneumonia Comfort measures only status (1) Comfort measures only status Status: Acute (2) Acute respiratory failure with hypoxia Status: Acute (3) Aspiration pneumonia Status: Acute (4) Cognitive impairment Status: Chronic (5) Schizophrenia Status: Chronic (6) Advanced dementia Status: Chronic (7) DVT of right axillary vein, acute Status: Chronic (8) HTN (hypertension) Status: Chronic (9) BPH (benign prostatic hyperplasia) Status: Chronic DESMOND HU MD Sep 18, 2021 09:58
[2021-09-20] MEDS ORDERED: SCOPOLAMINE PATCH REMOVAL TP SCH (12:59)
== END 2021-09-18 13:50 | disposition hospice, inpatient (51) | DRG 177 ==
LOC: EDUNIT# 10:44 → ER 10:45 → 4TH 11:47
PROVIDERS: ADMIT Internal Medicine; ATTEND Internal Medicine
PROC: 8E0ZXY6 Isolation (ICD-10-PCS; principal; 2021-09-17)
DX: J69.0 Pneumonitis due to inhalation of food and vomit (principal); J96.01 Acute respiratory failure with hypoxia; F84.0 Autistic disorder; R13.10 Dysphagia, unspecified; G20 Parkinson's disease; F70 Mild intellectual disabilities; Z51.5 Encounter for palliative care; Z66 Do not resuscitate; Z20.822 Contact with and (suspected) exposure to COVID-19; F02.80 Dementia in other diseases classified elsewhere, unspecified severity, without behavioral disturbance, psychotic disturbance, mood disturbance, and anxiety; I10 Essential (primary) hypertension; F31.9 Bipolar disorder, unspecified; N40.0 Benign prostatic hyperplasia without lower urinary tract symptoms; K59.09 Other constipation; M41.9 Scoliosis, unspecified; F60.9 Personality disorder, unspecified; F20.9 Schizophrenia, unspecified; Z79.01 Long term (current) use of anticoagulants; Z79.82 Long term (current) use of aspirin; Z88.2 Allergy status to sulfonamides
CPT/HCPCS: 36415; 51702; 71045; 80053; 82805; 83735; 83880; 84484; 85007; 85027; 85610; 85730; 87636; 93005; 93041

== ENCOUNTER 2021-09-21 18:52 | Inpatient (IN) | payer MEDICARE, MEDICAID ==
[~2021-09-21] VITALS: Ht 187.9 cm; Wt 51.8 kg
[~2021-09-21 18:52] MED LIST changes: +LORA2ORA PO; +MORP100S7 PO
[2021-09-21] MEDS ORDERED: methylPREDNISolone 125 MG (Solu-MEDROL) VIAL IV STA (18:56)
[2021-09-21] MEDS ORDERED: RT-ALBUTEROL/IPRATROPIUM 3 ML (DUONEB) VIAL INH ONE (19:00)
[2021-09-21 19:04] LABS: BASOPHILS % (AUTO) 0 % (0-10); EOSINOPHILS % (AUTO) 0 % (0-10); HEMATOCRIT 37 % (40-54); HEMOGLOBIN 11.5 g/dL (13.3-17.7); LYMPHOCYTES # (AUTO) 0.4 10^3/uL (1.0-4.0); LYMPHOCYTES % (AUTO) 2 % (12-44); MEAN CORPUSCULAR HEMOGLOBIN 30 pg (25-34); MEAN CORPUSCULAR HGB CONC 31 g/dL (32-36); MEAN CORPUSCULAR VOLUME 96 fL (80-99); MEAN PLATELET VOLUME 9.7 fL (9.0-12.2); MONOCYTES # (AUTO) 1.2 10^3/uL (0.0-1.0); MONOCYTES % (AUTO) 8 % (0-12); NEUTROPHILS # (AUTO) 14.3 10^3/uL (1.8-7.8); NEUTROPHILS % (AUTO) 89 % (42-75); PLATELET COUNT 470 10^3/uL (130-400)
[2021-09-21] MEDS ORDERED: ENOXAPARIN 80 MG/0.8 ML (LOVENOX) SYR SC ONE (19:15)
[2021-09-21 19:17] LABS: INR 1.4 (0.8-1.4); PROTHROMBIN TIME PATIENT 17.6 SEC (12.2-14.7)
[2021-09-21 19:23] LABS: ALANINE AMINOTRANSFERASE 6 U/L (0-55); ALBUMIN 3.3 GM/DL (3.2-4.5); ALKALINE PHOSPHATASE 50 U/L (40-136); BILIRUBIN,TOTAL 0.3 MG/DL (0.1-1.0); BUN/CREATININE RATIO 43; CALCIUM 9.7 MG/DL (8.5-10.1); CARBON DIOXIDE 16 MMOL/L (21-32); CHLORIDE 112 MMOL/L (98-107); CREATININE SERUM 0.99 MG/DL (0.60-1.30); GFR ESTIMATED 83; GLUCOSE 119 MG/DL (70-105); MONOCYTES % (MANUAL) 9 %; NEUTROPHILS % (MANUAL) 91 %; POTASSIUM 3.9 MMOL/L (3.6-5.0); RBC MORPH NORMAL; SODIUM 150 MMOL/L (135-145); TOTAL PROTEIN 6.9 GM/DL (6.4-8.2)
--- NOTE | 2021-09-21 19:27 | Diagnostic Imaging Report ---
INDICATION: Shortness of breath. COMPARISON: Prior study from September 17, 2021. FINDINGS: There is marked scoliosis of the thoracic spine convex to the right. There are abnormal airspace opacities and consolidation throughout the right lung suggesting pneumonia. There appears to be a large paraesophageal hernia. The left lung remains clear. There is no pneumothorax. There is no left-sided effusion. IMPRESSION: No significant change in the appearance of the chest. There is scoliosis and a large hiatal hernia. There are diffuse airspace opacities throughout the right lung suggesting multifocal right-sided pneumonia. The left lung remains clear. Dictated by: Dictated on workstation # [id number]
[2021-09-21 19:50] LABS: ABG BASE EXCESS -3.8 MMOL/L (-2.5-2.5); ABG OXYGEN SATURATION 95 % (94-100); ABG PCO2 33 MMHG (35-45); ABG PO2 69 MMHG (79-93); ABG TCO2 21.4 MMOL/L (21.0-31.0)
[2021-09-21 19:51] LABS: ALLENS TEST YES-POS; INSPIRED O2 15L; PATIENT TEMP 37.2; VENTILATOR NO
[2021-09-21] MEDS ORDERED: PIPERACILLIN SODIUM/TAZOBACTAM 4.5 GM in NS (IVPB) 100 ML IV ONE (20:00)
--- NOTE | 2021-09-21 21:06 | ED Respiratory ---
General Chief Complaint: Respiratory Problems Stated Complaint: RESP FAIL., SEPSIS, ASPIRATION, PNEUMONIA Nursing Triage Note: Pt arrives via EMS from [facility] for c/o difficulty breathing after swollowing half of an oral swab sponge. Pt has is on hospice et has DNR order. Source: EMS, [facility] records History of Present Illness Date Seen by Provider: Sep 21, 2021 Time Seen by Provider: 18:53 Allergies and Home Medications Allergies Coded Allergies: Sulfa (Sulfonamide Antibiotics) (Verified Allergy, Unknown, 05/24/20) Patient Home Medication List Lorazepam (Lorazepam Intensol) 2 Mg/1 Ml Oral.conc, 2 MG PO Q2H PRN for AGITATION Prescribed by: DESMOND HU on 09/18/21 0953 Morphine Sulfate (Morphine Conc. 20mg/ml) 100 Mg/5 Ml Solution, 10 MG PO Q2H PRN for PAIN Prescribed by: DESMOND HU on 09/18/21 0953 Discontinued Medications Acetaminophen (Tylenol Extra Strength) 500 Mg Tablet, 1,000 MG PO TID, (Reported) Entered as Reported by: CLARA THORNE on 05/24/20 1555 Amoxicillin/Potassium Clav (Augmentin 875-125 Tablet) 1 Each Tablet, 1 EACH PO BID Prescribed by: TOM PERALTA on 09/09/21 1035 Apixaban (Eliquis) 5 Mg Tablet, 5 MG PO BID, (Reported) Entered as Reported by: CLARA THORNE on 09/08/21 1604 Aspirin (Aspirin EC) 325 Mg Tablet.dr, 325 MG PO DAILY, (Reported) Entered as Reported by: CLARA THORNE on 05/24/20 1555 Bisacodyl (Bisacodyl) 10 Mg Supp.rect, 10 MG RC PRN PRN for CONSTIPATION-4TH LINE, (Reported) Entered as Reported by: CLARA THORNE on 05/24/20 1559 Cholecalciferol (Vitamin D3) (Vitamin D3) 50 Mcg Capsule, 50 MCG PO DAILY, (Reported) Entered as Reported by: CLARA THORNE on 05/24/20 155 Divalproex Sodium (Divalproex Sodium) 125 Mg Cap.sprink, 250 MG PO BID, (Reported) Entered as Reported by: CLARA THORNE on 05/24/20 155 Docusate Sodium (Docusate Sodium) 10 Mg/Ml Liquid, 10 ML PO BID, (Reported) Entered as Reported by: CLARA THORNE on 09/08/21 160 Gabapentin (Gabapentin) 100 Mg Capsule, 200 MG PO TID, (Reported) Entered as Reported by: WIN LEON on 10/30/19143 Hydrochlorothiazide (Hydrochlorothiazide) 25 Mg Tablet, 25 MG PO DAILY, (Reported) Entered as Reported by: CLEMENT NJ on 07/20/16 1820 Hyoscyamine Sulfate (Levsin) 0.125 Mg Tablet, 0.125 MG PO DAILY, (Reported) Entered as Reported by: CLARA THORNE on 09/08/21 160 Lorazepam (Ativan) 0.5 Mg Tablet, 0.5 MG PO Q8H PRN for AGITATION, (Reported) Entered as Reported by: CLARA THORNE on 05/24/20 155 Magnesium Hydroxide (Milk of Magnesia) 2,400 Mg/10 Ml Oral.susp, 30 ML PO UD PRN for CONSTIPATION-7TH LINE, (Reported) Entered as Reported by: CLARA THORNE on 05/24/20 155 Melatonin (Melatonin) 3 Mg Tablet, 9 MG PO HS PRN for SLEEP, (Reported) Entered as Reported by: CLARA THORNE on 05/24/20 155 Metoprolol Succinate (Metoprolol Succinate) 25 Mg Tab.er.24h, 12.5 MG PO DAILY, (Reported) Entered as Reported by: WIN LEON on 10/30/19143 Ondansetron HCl (Ondansetron HCl) 4 Mg Tablet, 4 MG PO Q6H PRN for NAUSEA/VOMITING-1ST LINE, (Reported) Entered as Reported by: CLARA THORNE on 09/08/21 160 Paliperidone Palmitate (Invega Sustenna) 156 Mg/1 Ml Syringe, 156 MG IM MONTHLY, (Reported) Entered as Reported by: CLARA THORNE on 09/08/21 160 Polyethylene Glycol 3350 (Miralax) 17 Gm Powd.pack, 17 GM PO DAILY, (Reported) Entered as Reported by: CLEMENT NJ on 07/20/16 1820 Potassium Chloride (Potassium Chloride) 20 Meq Tab.er.prt, 20 MEQ PO BID, (Reported) Entered as Reported by: WIN LEON on 10/30/19143 Risedronate Sodium (Risedronate Sodium) 150 Mg Tablet, 150 MG PO MONTHLY, (Reported) Entered as Reported by: WIN LEON on 10/30/19 014 Sennosides (Carrie-Christen) 8.6 Mg Tablet, 17.2 MG PO HS, (Reported) Entered as Reported by: CLARA THORNE on 05/24/20 155 Tamsulosin HCl (Flomax) 0.4 Mg Cap, 0.4 MG PO HS, (Reported) Entered as Reported by: WIN LEON on 10/30/19143 Tramadol HCl (Tramadol HCl) 50 Mg Tablet, 25 MG PO DAILY PRN for PAIN-MODERATE (5-7), (Reported) Entered as Reported by: CLARA THORNE on 05/24/201558 Triamcinolone Acet (Triamcinolone Acetonide 0.1% Cream) 15 Gm Cr, 1 APPLIC TP DAILY PRN for SKIN IRRITATION, (Reported) Entered as Reported by: CLARA THORNE on 05/24/201558 Past Lfejqgc-Vgduyf-Paqwzj Hx Patient Social History Tobacco Use?: No Use of E-Cig and/or Vaping dev: No Substance use?: No Alcohol Use?: No Pt feels they are or have been: No Immunizations Up To Date Tetanus Booster (TDap): Less than 5yrs PED Vaccines UTD: No First/Initial COVID19 Vaccinat: 2020 Second COVID19 Vaccination Arnold: 2020 Seasonal Allergies Seasonal Allergies: No Past Medical History Surgery/Hospitalization HX: AUTISM, DEMENTIA, PARKINSONS, HTN, BIPOLAR THYROIDECTOMY Surgeries: Yes Thyroidectomy Respiratory: Yes (COVID-19 05/24/2020--ON VAPOTHERM) Cardiac: Yes Hypertension Neurological: Yes (EPS FROM MEDICATIONS;MILD MR; ADVANCED DEMENTIA; CATATONIC SCHIZOPHRENIA) Dementia, Developmental Disorder, Parkinson's Disease Reproductive Disorders: No Genitourinary: Yes (RENAL INSUFFICIENCY) Benign Prostatic Hyperpl Gastrointestinal: Yes Chronic Constipation Musculoskeletal: Yes (KYPHOSIS;OSTEOPENIA; USES WALKER) Scoliosis, Chronic Back Pain Endocrine: No HEENT: No Cancer: No Psychosocial: Yes (MILD MR) Anxiety, Bipolar, Personality Disorder, Schizophrenia, Depression Integumentary: Yes (PRESSURE SORE LEFT HEEL) Blood Disorders: No Family Medical History No Pertinent Family Hx PT IS DNR Physical Exam Vital Signs - First Documented 2/20/22 18:55 Temp 37.2 Pulse 90 Resp 18 B/P (MAP) 123/66 (85) Pulse Ox 96 O2 Delivery Non Rebreather O2 Flow Rate 15.00 Capillary Refill : Greater Than 3 Seconds Height: 6'1.00" Weight: 154lbs. 0.0oz. 69.728264td; 17.52 BMI Method:Stated Focused Exam Lactate Level 09/21/21 20:25: Lactic Acid Level 1.34 Lactic Acid Level Laboratory Tests Test 09/21/21 20:25 Lactic Acid Level 1.34 MMOL/L (0.50-2.00) Progress/Results/Core Measures Suspected Sepsis SIRS Temperature: Pulse: 90 Respiratory Rate: 18 Laboratory Tests 09/21/21 19:00: White Blood Count 16.0H Blood Pressure 123 /66 Mean: 85 09/21/21 20:25: Lactic Acid Level 1.34 Laboratory Tests 09/21/21 19:00: Creatinine 0.99, INR Comment 1.4, Platelet Count 470H, Total Bilirubin 0.3 Results/Orders Lab Results Laboratory Tests Test 09/21/21 19:00 09/21/21 19:10 09/21/21 20:25 Range/Units White Blood Count 16.0 H 4.3-11.0 10^3/uL Red Blood Count 3.80 L 4.30-5.52 10^6/uL Hemoglobin 11.5 L 13.3-17.7 g/dL Hematocrit 37 L 40-54 % Mean Corpuscular Volume 96 80-99 fL Mean Corpuscular Hemoglobin 30 25-34 pg Mean Corpuscular Hemoglobin Concent 31 L 32-36 g/dL Red Cell Distribution Width 14.7 H 10.0-14.5 % Platelet Count 470 H 130-400 10^3/uL Mean Platelet Volume 9.7 9.0-12.2 fL Immature Granulocyte % (Auto) 1 % Neutrophils (%) (Auto) 89 H 42-75 % Lymphocytes (%) (Auto) 2 L 12-44 % Monocytes (%) (Auto) 8 0-12 % Eosinophils (%) (Auto) 0 0-10 % Basophils (%) (Auto) 0 0-10 % Neutrophils # (Auto) 14.3 H 1.8-7.8 10^3/uL Lymphocytes # (Auto) 0.4 L 1.0-4.0 10^3/uL Monocytes # (Auto) 1.2 H 0.0-1.0 10^3/uL Eosinophils # (Auto) 0.0 0.0-0.3 10^3/uL Basophils # (Auto) 0.0 0.0-0.1 10^3/uL Immature Granulocyte # (Auto) 0.1 0.0-0.1 10^3/uL Neutrophils % (Manual) 91 % Monocytes % (Manual) 9 % Blood Morphology Comment NORMAL Prothrombin Time 17.6 H 12.2-14.7 SEC INR Comment 1.4 0.8-1.4 Activated Partial Thromboplast Time 37 H 24-35 SEC Sodium Level 150 H 135-145 MMOL/L Potassium Level 3.9 3.6-5.0 MMOL/L Chloride Level 112 H 98-107 MMOL/L Carbon Dioxide Level 16 L 21-32 MMOL/L Anion Gap 22 H 5-14 MMOL/L Blood Urea Nitrogen 43 H 7-18 MG/DL Creatinine 0.99 0.60-1.30 MG/DL Estimat Glomerular Filtration Rate 83 BUN/Creatinine Ratio 43 Glucose Level 119 H 70-105 MG/DL Calcium Level 9.7 8.5-10.1 MG/DL Corrected Calcium 10.3 H 8.5-10.1 MG/DL Total Bilirubin 0.3 0.1-1.0 MG/DL Aspartate Amino Transf (AST/SGOT) 8 5-34 U/L Alanine Aminotransferase (ALT/SGPT) 6 0-55 U/L Alkaline Phosphatase 50 40-136 U/L Troponin I < 0.028 <0.028 NG/ML B-Type Natriuretic Peptide 37.1 <100.0 PG/ML Total Protein 6.9 6.4-8.2 GM/DL Albumin 3.3 3.2-4.5 GM/DL Valproic Acid (Depakene) Level < 2.0 L 50.0-100.0 UG/ML Blood Gas Puncture Site RIGHT RADIAL Blood Gas Patient Temperature 37.2 Arterial Blood pH 7.40 7.37-7.43 Arterial Blood Partial Pressure CO2 33 L 35-45 MMHG Arterial Blood Partial Pressure O2 69 L 79-93 MMHG Arterial Blood HCO3 20 L 23-27 MMOL/L Arterial Blood Total CO2 21.4 21.0-31.0 MMOL/L Arterial Blood Oxygen Saturation 95 94-100 % Arterial Blood Base Excess -3.8 L -2.5-2.5 MMOL/L Tremayne Test YES-POS Blood Gas Ventilator Setting NO Blood Gas Inspired Oxygen 15L Lactic Acid Level 1.34 0.50-2.00 MMOL/L My Orders Orders - ARCHANA ESPARZA DO Ed Iv/Invasive Line Start (09/21/21 18:56) Ekg Tracing (09/21/21 18:56) O2 (09/21/21 18:56) Monitor-Rhythm Ecg Trace Only (09/21/21 18:56) Chest 1 View, Ap/Pa Only (09/21/21 18:56) Arterial Blood Gas (09/21/21 18:56) Bnp Zavala (09/21/21 18:56) Cbc With Automated Diff (09/21/21 18:56) Comprehensive Metabolic Panel (09/21/21 18:56) Protime With Inr (09/21/21 18:56) Partial Thromboplastin Time (09/21/21 18:56) Troponin I Zavala (09/21/21 18:56) Albuterol/Ipra Inhalation Soln (Duoneb I (09/21/21 19:00) Rt Request For Service (09/21/21 18:56) Methylprednisolone Sod Succ (Solu-Medrol (09/21/21 18:56) Svn Small Volume Nebulizer (09/21/21 18:56) Manual Differential (09/21/21 19:00) Ekg Tracing (09/21/21 19:07) Enoxaparin Injection (Lovenox Injectio (09/21/21 19:15) Lactic Acid Analyzer (09/21/21 19:56) Blood Culture (09/21/21 19:56) Ed Iv/Invasive Line Start (09/21/21 19:56) Piperacillin Sodium/Tazobactam (Zosyn Vi (09/21/21 20:00) Valproic Acid (09/21/21 20:17) Medications Given in ED Current Medications Medications Dose Ordered Sig/Bakari Route Start Time Stop Time Status Last Admin Dose Admin Albuterol/ Ipratropium 3 ml ONCE ONCE INH 09/21/21 19:00 09/21/21 19:01 DC 09/21/21 19:15 3 ML Piperacillin Sod/ Tazobactam Sod 4.5 gm/Sodium Chloride 100 ml @ 200 mls/hr ONCE ONCE IV 09/21/21 20:00 09/21/21 20:29 DC 09/21/21 20:41 200 MLS/HR Vital Signs/I&O 09/21/21 09/21/21 18:55 18:55 Temp 37.2 Pulse 90 Resp 18 B/P (MAP) 123/66 (85) Pulse Ox 96 96 O2 Delivery Non Rebreather Non Rebreather O2 Flow Rate 15.00 Capillary Refill : Greater Than 3 Seconds Blood Pressure Mean: 85 Departure Communication (Admissions) Family Conversation SPOKE WITH PT'S BROTHER, HE WISHES TO HAVE PT ADMITTED AND HAVE IV ANTIBIOTICS AND IV FLUIDS AND WOULD LIKE TO REMOVE FROM HOSPICE AT THIS TIME. VESNA, RN WITH [facility], IS ALSO PRESENT FOR THIS CONVERSATION. PT IS TO REMAIN DNR/DNI. PT'S GRAVE CONDITION DISCUSSED WITH BROTHER, AND THAT HE MAY NOT SURVIVE THIS, AND HE APPEARS TO UNDERSTAND. 2025-SPOKE WITH DR. HU, ACCEPTS PT FOR ADMIT Impression Primary Impression: Aspiration pneumonia Additional Impressions: Respiratory failure SEPSIS Dehydration Dementia Schizophrenia Disposition: ADMITTED INPATIENT Condition: Stable Admissions Decision to Admit Reason: Admit from ER (General) Decision to Admit/Date: Sep 21, 2021 Time/Decision to Admit Time: 20:30 Departure-Patient Inst. Referrals: CYN JARAMILLO MD (PCP/Family) Primary Care Physician ARCHANA ESPARZA DO Sep 21, 2021 21:06
[2021-09-21 21:59] LABS: CLARITY,URINE CLEAR; COLOR,URINE YELLOW; GLUCOSE, URINE (UA) NEGATIVE (NEGATIVE); KETONES,URINE 3+ (NEGATIVE); LEUKOCYTE ESTERASE ,URINE NEGATIVE (NEGATIVE); NITRITE,URINE NEGATIVE (NEGATIVE); PH,URINE 5.5 (5-9); PROTEIN,URINE 1+ (NEGATIVE)
[2021-09-21 22:07] LABS: BILIRUBIN,URINE 1+ (NEGATIVE)
[2021-09-21 22:08] LABS: BACTERIA,URINE NEGATIVE /HPF; GRANULAR CASTS,URINE RARE /LPF; SQUAMOUS EPITHELIAL CELL,UR 0-2 /HPF; WBC,URINE 0-2 /HPF
[2021-09-21] MEDS ORDERED: morphine INJ 4 MG/ML 1 ML (VIAL/SYRINGE) ONE (22:42)
[2021-09-21] MEDS: morphine INJ 4 MG/ML 1 ML (VIAL/SYRINGE) IVP PRN (22:45)
[2021-09-21 22:46] VITALS: BP 123/66
[2021-09-21] MEDS ORDERED: RT-ALBUTEROL SULF 2.5 MG/3 ML PRE-MIX VIAL INH PRN (23:00)
[2021-09-21] MEDS: LACTATED RINGERS 1,000 ML IV SCH (23:00)
[2021-09-22 00:19] VITALS: BP 112/73
[2021-09-22] MEDS: PIPERACILLIN SODIUM/TAZOBACTAM 4.5 GM in NS (IVPB) 100 ML IV SCH ×2 (03:30→11:44)
[2021-09-22 03:52] VITALS: BP 122/76
[2021-09-22] MEDS: LACTATED RINGERS 1,000 ML IV SCH ×2 (05:55→10:29)
[2021-09-22] MEDS: morphine INJ 4 MG/ML 1 ML (VIAL/SYRINGE) IVP PRN (06:04)
[2021-09-22 08:00] VITALS: BP 137/76
[2021-09-22 12:00] VITALS: BP 130/75
[2021-09-22] MEDS ORDERED: AMOX600S41 PO (12:35)
--- NOTE | 2021-09-24 11:35 | Physician Query Clarification ---
PQ-Uncertain Diagnosis Admission/Discharge Admission Date: Sep 21, 2021 at 20:30 Discharge Date: Sep 22, 2021 at 15:00 Dr. Hu, The medical record reflects the following clinical scenario: History/Risk Factors: aspiration pneumonia, parkinson's, dementia, Htn Clinical Findings: WBC 16.0, T 37.2, P 90, R 18, Lactic acid 1.34 Treatment: IV Piperacillin Question: Is sepsis a clinically valid diagnosis? Sepsis was documented in the ER record with no further documentation in the medical record. Please document a response in Progress Note or Discharge Summary. 1. Yes, clinically valid, condition resolved. 2. No, condition ruled out. 3. Other, with explanation of clinical findings. 4. Undetermined, no explanation for clinical findings. PHYSICIAN RESPONSE Diagnosis clinically valid: Yes, Conditon resolved Please remember a lack of response to the above will prompt a phone page by CDI/Coding staff. In responding to this query, please exercise your independent professional judgment. The purpose of this communication is to more accurately reflect the complexity of your patients condition. The fact that a question is asked does not imply that any particular answer is desired or expected. Thank you for your timely response to this clarification. Requestors name: Faustino THIS PHYSICIAN QUERY FORM IS A PERMANENT PART OF THE MEDICAL RECORD FAUSTINO CHANG Sep 24, 2021 11:35 DESMOND HU MD Sep 25, 2021 00:16
--- NOTE | 2021-09-24 11:46 | Physician Query Clarification ---
PQ-Uncertain Diagnosis Admission/Discharge Admission Date: Sep 21, 2021 at 20:30 Discharge Date: Sep 22, 2021 at 15:00 Dr. Hu, The medical record reflects the following clinical scenario: History/Risk Factors: aspiration pneumonia, Parkinson's, dementia, HTN Clinical Findings: PH 7.40, PCo2 33, Po2 69, difficulty breathing after swallowing half an oral swab sponge Treatment: IV Solu-medrol, Albuterol, non-rebreather Question: Is respiratory failure a clinically valid diagnosis? Respiratory failure was documented in the ER record with no further documentation in the medical record. Please document a response in Progress Note or Discharge Summary. 1. Yes, clinically valid, condition resolved. 2. No, condition ruled out. 3. Other, with explanation of clinical findings. 4. Undetermined, no explanation for clinical findings. PHYSICIAN RESPONSE Diagnosis clinically valid: Yes, Conditon resolved Please remember a lack of response to the above will prompt a phone page by CDI/Coding staff. In responding to this query, please exercise your independent professional judgment. The purpose of this communication is to more accurately reflect the complexity of your patients condition. The fact that a question is asked does not imply that any particular answer is desired or expected. Thank you for your timely response to this clarification. Requestors name: Faustino THIS PHYSICIAN QUERY FORM IS A PERMANENT PART OF THE MEDICAL RECORD FAUSTINO CHANG Sep 24, 2021 11:46 DESMOND HU MD Sep 25, 2021 00:17
== END 2021-09-22 15:00 | disposition hospice, inpatient (51) | DRG 871 ==
LOC: EDUNIT# 18:52 → ER 18:54 → 4TH 20:30
PROVIDERS: ADMIT Internal Medicine; ATTEND Internal Medicine
PROC: 8E0ZXY6 Isolation (ICD-10-PCS; principal; 2021-09-21)
DX: A41.9 Sepsis, unspecified organism (principal); J69.0 Pneumonitis due to inhalation of food and vomit; J96.90 Respiratory failure, unspecified, unspecified whether with hypoxia or hypercapnia; J18.9 Pneumonia, unspecified organism; E86.0 Dehydration; G20 Parkinson's disease; F02.80 Dementia in other diseases classified elsewhere, unspecified severity, without behavioral disturbance, psychotic disturbance, mood disturbance, and anxiety; I10 Essential (primary) hypertension; F31.9 Bipolar disorder, unspecified; N40.0 Benign prostatic hyperplasia without lower urinary tract symptoms; F60.9 Personality disorder, unspecified; Z66 Do not resuscitate; F20.9 Schizophrenia, unspecified; L89.629 Pressure ulcer of left heel, unspecified stage; Z88.2 Allergy status to sulfonamides
CPT/HCPCS: 36415; 71045; 80053; 80164; 81000; 82805; 83605; 83880; 84145; 84484; 85007; 85027; 85610; 85730; 87040; 87088; 93005; 93041; 94760